=== PATIENT | female | born 1975 | race Caucasian/White ===

== ENCOUNTER 2016-08-23 19:20 | Emergency (ER) | payer OTHER ==
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
[2016-08-23 21:52] VITALS: BP 137/76
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
== END 2016-08-23 21:20 | disposition home or self-care (01) ==
LOC: ED 19:20
DX: S09.90XA Unspecified injury of head, initial encounter (principal); S00.83XA Contusion of other part of head, initial encounter; E04.1 Nontoxic single thyroid nodule; Y09 Assault by unspecified means; Y93.9 Activity, unspecified; Y92.9 Unspecified place or not applicable; Y99.9 Unspecified external cause status
CPT/HCPCS: 70450; 70486; 72125; 99282

== ENCOUNTER 2016-10-26 12:35 | Emergency (ER) | payer OTHER ==
[2016-10-26 13:01] VITALS: BP 154/69
--- NOTE | 2016-10-26 13:14 | UC ---
Dental HPI - HPI Summary HPI Summary: developed an abscess right lo gum yesterday---spoke with here dentist who advised her to get antibiotics and follow with him on Friday - History of Current Complaint Chief Complaint: UCDentalProblem Stated Complaint: DENTAL PAIN Time Seen by Provider: 10/26/16 13:08 Hx Obtained From: Patient Hx Last Menstrual Period: 10/25/16 ?: No Onset/Duration: Gradual Onset, Lasting Days - 1, Still Present Severity: Mild Pain Intensity: 2 Pain Scale Used: 0-10 Numeric Aggravating: Nothing Alleviating: Nothing Related History: Previous Dental Care on Same Tooth, Discharge - Allergies/Home Medications Allergies/Adverse Reactions: Allergies Allergy/AdvReac Type Severity Reaction Status Date / Time Sertraline Allergy Severe "I WENT Verified 10/26/16 12:57 DEAF" Adhesive Tape Allergy Rash Verified 10/26/16 12:57 Amoxicillin [From Augmentin] Allergy Hives Verified 10/26/16 12:57 Bee Venom Allergy Unknown Verified 10/26/16 12:57 Reaction Details Clarithromycin [From Biaxin] Allergy Hives Verified 10/26/16 12:57 Clavulanic Acid Allergy Hives Verified 10/26/16 12:57 [From Augmentin] Ibuprofen Allergy Bleeding Verified 10/26/16 12:57 Levofloxacin [From Levaquin] Allergy Rash Verified 10/26/16 12:57 Penicillins [PCN] Allergy Unknown Verified 10/26/16 12:57 Reaction Details Pineapple Allergy Headache Verified 10/26/16 12:57 PMH/Surg Hx/FS Hx/Imm Hx Previously Healthy: No Endocrine History Of: Reports: Diabetes - type 2 since 1997 Denies: Thyroid Disease Cardiovascular History Of: Denies: Cardiac Disorders, Hypertension Respiratory History Of: Reports: Asthma Denies: COPD GI/ History Of: Reports: Renal Disease Denies: Ulcer Psychological History Of: Reports: Anxiety - PANIC ATTACKS - Surgical History Surgical History: Yes Surgery Procedure, Year, and Place: EAR TUBES A CHILD. LEEP - Family History Known Family History: Positive: Diabetes, Other - cataracts - Social History Occupation: Disabled Lives: With Family Alcohol Use: None Substance Use Type: None Smoking Status (MU): Light Every Day Tobacco Smoker Type: Cigarettes Amount Used/How Often: 1/2 ppd Length of Time of Smoking/Using Tobacco: 27 years Have You Smoked in the Last Year: No When Did the Patient Quit Smoking/Using Tobacco: 03/18/15 Household Exposure Type: Cigarettes Cessation Counseling: Counseled 3+Min - 10 Min - Immunization History Most Recent Tetanus Shot: within last 10 yrs per pt Review of Systems Constitutional: Negative Skin: Negative Eyes: Negative ENT: Negative, Other - purulent drainage in front of tooth number 8 Respiratory: Negative Cardiovascular: Negative Gastrointestinal: Negative Genitourinary: Negative Motor: Negative Neurovascular: Negative Musculoskeletal: Negative Neurological: Negative Psychological: Negative All Other Systems Reviewed And Are Negative: Yes Physical Exam Triage Information Reviewed: Yes Appearance: Well-Appearing, No Pain Distress, Ill-Appearing Vital Signs: Initial Vital Signs Temp 98.4 F 10/26/16 12:58 Pulse 73 10/26/16 12:58 Resp 18 10/26/16 12:58 BP 154/69 10/26/16 12:58 Pulse Ox 97 10/26/16 12:58 Vital Signs Reviewed: Yes Eye Exam: Normal Eyes: Positive: Conjunctiva Clear ENT Exam: Normal ENT: Positive: Normal ENT inspection, Hearing grossly normal, Pharynx normal. Negative: Tonsillar exudate, Trismus, Muffled/hoarse voice Dental Exam: Normal Dental: Positive: Gross Decay/Caries @, Abscess @ - tooth 8 Neck exam: Normal Neck: Positive: Supple, Nontender, No Lymphadenopathy Respiratory Exam: Normal Respiratory: Positive: No respiratory distress, No accessory muscle use Cardiovascular Exam: Normal Cardiovascular: Positive: RRR, Pulses Normal, Brisk Capillary Refill Musculoskeletal Exam: Normal Musculoskeletal: Positive: Strength Intact, ROM Intact, No Edema Neurological Exam: Normal Neurological: Positive: Alert, Muscle Tone Normal Psychological Exam: Normal Skin Exam: Normal Dental Complaint Course/Dx - Course Course Of Treatment: clindamycin, nicotine cesation, follow bp with pcp this week, follow with dentist on Friday as planned - Differential Dx/Diagnosis Differential Diagnosis/Dx: Dental Abscess, Dental Caries, Odontogenic Pain Provider Diagnoses: dental abscess, nicotine dependant, hypertenison with diagnosis Discharge - Discharge Plan Condition: Stable Disposition: HOME Prescriptions: Clindamycin Cap(NF) [Cleocin 300 mg Cap(NF)] 300 mg PO Q6H #40 cap Patient Education Materials: How to Stop Smoking (ED), Dental Abscess (ED), Cigarette Smoking and Your Health (GEN), Chronic Hypertension (ED), DASH Eating Plan (ED), Toothache (ED) Referrals: Chary Wood MD [Primary Care Provider] - 5 Days
== END 2016-10-26 13:23 | disposition home or self-care (01) ==
LOC: UCEAST 12:35
DX: K04.7 Periapical abscess without sinus (principal); R03.0 Elevated blood-pressure reading, without diagnosis of hypertension; F17.210 Nicotine dependence, cigarettes, uncomplicated; Z71.6 Tobacco abuse counseling; Z88.1 Allergy status to other antibiotic agents; Z88.6 Allergy status to analgesic agent; Z88.0 Allergy status to penicillin
CPT/HCPCS: 99211; G0463

== ENCOUNTER 2016-11-16 10:06 | Emergency (ER) | payer OTHER ==
[2016-11-16] MEDS ORDERED: Clindamycin CAP* 150 MG PO ONE (10:44)
[2016-11-16] MEDS ORDERED: Ondansetron ODT TAB* 4 MG PO ONE (10:44)
[2016-11-16 11:27] LABS: Hematocrit 44 % (35-47); Hemoglobin 14.2 g/dl (12.0-16.0); Mean Corpuscular HGB Conc 33 g/dl (31-36); Mean Corpuscular Hemoglobin 30 pg (27-31); Mean Corpuscular Volume 92 fL (80-97); Mean Platelet Volume 9 um3 (7.4-10.4); Red Blood Count 4.74 10^6/ul (4.0-5.4); Red Cell Distribution Width 14 % (10.5-15); White Blood Count 8.8 10^3/ul (3.5-10.8)
[2016-11-16 11:39] LABS: Albumin 4.4 g/dL (3.2-5.2); BUN/Creatinine Ratio 16.7 (8-20); C Reactive Protein 1.16 mg/L (< 5.00); Calcium 9.3 mg/dL (8.6-10.3); EGFR African American 161.6 (>60); EGFR Non-African American 125.7 (>60); Potassium 3.8 mmol/L (3.5-5.0); Total Bilirubin 0.5 mg/dL (0.2-1.0); Total Protein 7.4 g/dL (6.4-8.9)
--- NOTE | 2016-11-16 12:10 | ED ---
Influenza-Like Illness - HPI Summary HPI Summary: Patient presents with nausea and vomiting since yesterday. Her son recently had gastroenteritis and she assumes she has it now. She also has a painful tooth that she is trying to get pulled with her dentist. She was on a course a antibiotics a month ago which helped. She denies fever, chills, abdominal pain or diarrhea. She has been able to keep gatorade down but can not eat food. - History of Current Complaint Chief Complaint: EDNauseaVomitDiarrh Time Seen by Provider: 11/16/16 10:29 Hx Obtained From: Patient Onset/Duration: Gradual Onset Severity: Mild Associated Signs & Symptoms: Vomiting Related Hx: Possible Flu/Infectious Exposure - Allergy/Home Medications Allergies/Adverse Reactions: Allergies Allergy/AdvReac Type Severity Reaction Status Date / Time Sertraline Allergy Severe "I WENT Verified 10/26/16 12:57 DEAF" Adhesive Tape Allergy Rash Verified 10/26/16 12:57 Amoxicillin [From Augmentin] Allergy Hives Verified 10/26/16 12:57 Bee Venom Allergy Unknown Verified 10/26/16 12:57 Reaction Details Clarithromycin [From Biaxin] Allergy Hives Verified 10/26/16 12:57 Clavulanic Acid Allergy Hives Verified 10/26/16 12:57 [From Augmentin] Ibuprofen Allergy Bleeding Verified 10/26/16 12:57 Levofloxacin [From Levaquin] Allergy Rash Verified 10/26/16 12:57 Penicillins [PCN] Allergy Unknown Verified 10/26/16 12:57 Reaction Details Pineapple Allergy Headache Verified 10/26/16 12:57 PMH/Surg Hx/FS Hx/Imm Hx Endocrine/Hematology History: Reports: Hx Diabetes - type 2 since 1997, Hx Anemia - VIT B12 AND VIT D ARE LOW Denies: Hx Thyroid Disease Cardiovascular History: Denies: Hx Hypertension, Other Cardiovascular Problems/Disorders Respiratory History: Reports: Hx Asthma Denies: Hx Chronic Obstructive Pulmonary Disease (COPD), Other Respiratory Problems/Disorders GI History: Denies: Hx Ulcer, Other GI Disorders History: Reports: Hx Renal Disease Sensory History: Reports: Hx Cataracts - RIGHT, Hx Contacts or Glasses - GLASSES Denies: Hx Hearing Aid Opthamlomology History: Reports: Hx Cataracts - RIGHT, Hx Contacts or Glasses - GLASSES Neurological History: Denies: Other Neuro Impairments/Disorders Psychiatric History: Reports: Hx Anxiety - PANIC ATTACKS - Cancer History Cancer Type, Location and Year: Cervical CA 1996 - Surgical History Surgery Procedure, Year, and Place: EAR TUBES A CHILD. LEEP Hx Anesthesia Reactions: No Infectious Disease History: No Infectious Disease History: Denies: Hx Clostridium Difficile, Hx Hepatitis, Hx Human Immunodeficiency Virus (HIV), Hx of Known/Suspected MRSA, Hx Shingles, Hx Tuberculosis, Hx Known/ Suspected VRE, Hx Known/Suspected VRSA, History Other Infectious Disease, Traveled Outside the [place] in Last 30 Days - Family History Known Family History: Positive: Diabetes, Other - cataracts - Social History Occupation: Unemployed Lives: With Family Alcohol Use: None Hx Substance Use: No Substance Use Type: Reports: None Hx Tobacco Use: Yes Smoking Status (MU): Light Every Day Tobacco Smoker Type: Cigarettes Amount Used/How Often: 1/2 ppd Length of Time of Smoking/Using Tobacco: 27 years Have You Smoked in the Last Year: No Cessation Counseling: Patient Advised to Stop Review of Systems Negative: Fever, Chills Negative: Chest Pain Negative: Shortness Of Breath Positive: Vomiting, Nausea. Negative: Abdominal Pain, Diarrhea Negative: Myalgia Negative: Rash, Bruising Negative: Headache, Weakness All Other Systems Reviewed And Are Negative: Yes Physical Exam Triage Information Reviewed: Yes Vital Signs On Initial Exam: Initial Vitals Temp Pulse Resp BP Pulse Ox 97.2 F 103 18 172/74 100 11/16/16 10:09 11/16/16 10:09 11/16/16 10:09 11/16/16 10:09 11/16/16 10:09 Vital Signs Reviewed: Yes Appearance: Positive: Well-Appearing, No Pain Distress, Obese Skin: Positive: Warm, Skin Color Reflects Adequate Perfusion, Dry, Soft Head/Face: Positive: Normal Head/Face Inspection Eyes: Positive: EOMI, ROSEANN, Conjunctiva Clear ENT: Positive: Hearing grossly normal, Pharynx normal, TMs normal. Negative: Pharyngeal erythema, Tonsillar swelling Dental: Positive: Percussion Tenderness @, Gross Decay/Caries @ - right lower canine Neck: Positive: Supple, Nontender, No Lymphadenopathy Respiratory/Lung Sounds: Positive: Clear to Auscultation, Breath Sounds Present Cardiovascular: Positive: RRR Abdomen Description: Positive: Nontender, Soft. Negative: CVA Tenderness (R), CVA Tenderness (L), Distended, Guarding Bowel Sounds: Positive: Present Musculoskeletal: Negative: Strength/ROM Intact, Edema Left, Edema Right Neurological: Positive: Sensory/Motor Intact, Alert, Oriented to Person Place, Time, NV Bundle Intact Distally, Normal Gait Psychiatric: Positive: Affect/Mood Appropriate AVPU Assessment: Alert Diagnostics - Vital Signs Vital Signs Temp Pulse Resp BP Pulse Ox 11/16/16 10:23 98.4 F 86 16 136/78 97 11/16/16 10:09 97.2 F 103 18 172/74 100 - Laboratory Lab Results: Lab Results 11/16/16 11/16/16 Range/Units 11:17 11:17 WBC 8.8 (3.5-10.8) 10^3/ul RBC 4.74 (4.0-5.4) 10^6/ul Hgb 14.2 (12.0-16.0) g/dl Hct 44 (35-47) % MCV 92 (80-97) fL MCH 30 (27-31) pg MCHC 33 (31-36) g/dl RDW 14 (10.5-15) % Plt Count 178 (150-450) 10^3/ul MPV 9 (7.4-10.4) um3 Neut % (Auto) 77.7 (38-83) % Lymph % (Auto) 16.7 L (25-47) % Stephens % (Auto) 4.5 (1-9) % Eos % (Auto) 0.2 (0-6) % Baso % (Auto) 0.9 (0-2) % Absolute Neuts (auto) 6.9 (1.5-7.7) 10^3/ul Absolute Lymphs (auto) 1.5 (1.0-4.8) 10^3/ul Absolute Monos (auto) 0.4 (0-0.8) 10^3/ul Absolute Eos (auto) 0 (0-0.6) 10^3/ul Absolute Basos (auto) 0.1 (0-0.2) 10^3/ul Absolute Nucleated RBC 0.01 10^3/ul Nucleated RBC % 0.1 Sodium 135 (133-145) mmol/L Potassium 3.8 (3.5-5.0) mmol/L Chloride 107 (101-111) mmol/L Carbon Dioxide 25 (22-32) mmol/L Anion Gap 3 (2-11) mmol/L BUN 9 (6-24) mg/dL Creatinine 0.54 (0.51-0.95) mg/dL Est GFR ( Amer) 161.6 (>60) Est GFR (Non-Af Amer) 125.7 (>60) BUN/Creatinine Ratio 16.7 (8-20) Glucose 170 H (70-100) mg/dL Calcium 9.3 (8.6-10.3) mg/dL Total Bilirubin 0.50 (0.2-1.0) mg/dL AST 11 L (13-39) U/L ALT 8 (7-52) U/L Alkaline Phosphatase 47 (34-104) U/L C-Reactive Protein 1.16 (< 5.00) mg/L Total Protein 7.4 (6.4-8.9) g/dL Albumin 4.4 (3.2-5.2) g/dL Globulin 3.0 (2-4) g/dL Albumin/Globulin Ratio 1.5 (1-3) Result Diagrams: 11/16/16 11:17 11/16/16 11:17 Lab Statement: Any lab studies that have been ordered have been reviewed, and results considered in the medical decision making process. Re-Evaluation - Re-Evaluation First Eval Change: Improved - nausea has resolved Flu Symptom Course/Dx - Diagnoses Differential Diagnosis/HQI/PQRI: Positive: Bronchitis, Influenza, Pneumonia, RSV , Upper Respiratory Infection Provider Diagnoses: Gastroenteritis, Dental infection Discharge - Discharge Plan Condition: Stable Disposition: HOME Prescriptions: Clindamycin Cap(NF) [Cleocin 300 mg Cap(NF)] 300 mg PO TID #29 cap Ondansetron ODT TAB* [Zofran 4 MG Odt TAB*] 4 mg PO Q8H PRN #15 tab.odt PRN Reason: Nausea Patient Education Materials: Gastroenteritis (ED), Toothache (ED) Referrals: Chary Wood MD [Primary Care Provider] - Additional Instructions: Please take the antiobiotics prescribed until they are completely gone and follow-up with your dentist for definitive treatment for your tooth. Use the anti-nausea medication to help with your nausea and drink extra fluids. Follow- up with your primary care provider if your symptoms do not resolve in the next 3 -5 days. Return to the emergency department if symptoms worsen.
[2016-11-16 12:51] VITALS: BP 122/68
== END 2016-11-16 12:50 | disposition home or self-care (01) ==
LOC: ED 10:06
DX: K52.9 Noninfective gastroenteritis and colitis, unspecified (principal); K04.7 Periapical abscess without sinus; R11.2 Nausea with vomiting, unspecified; F17.210 Nicotine dependence, cigarettes, uncomplicated
CPT/HCPCS: 36415; 80053; 85025; 86140; 99283; A9270-GY

== ENCOUNTER 2017-02-22 14:47 | Emergency (ER) | payer OTHER ==
[2017-02-22 15:06] VITALS: BP 138/74
--- NOTE | 2017-02-22 15:16 | UC ---
Throat Pain/Nasal Edilberto HPI - HPI Summary HPI Summary: complaint of waking up with a sore throat today swelling on both sides of her neck L>R left ear pain slight nasal congestion denies cough denies headache hasn't taken any medication for pain today - History of Current Complaint Chief Complaint: UCRespiratory Stated Complaint: EAR PAIN,SORE THROAT,FEVER Hx Obtained From: Patient Hx Last Menstrual Period: 02/05/17 - Allergies/Home Medications Allergies/Adverse Reactions: Allergies Allergy/AdvReac Type Severity Reaction Status Date / Time Sertraline Allergy Severe "I WENT Verified 02/22/17 15:00 DEAF" Adhesive Tape Allergy Rash Verified 02/22/17 15:00 Amoxicillin [From Augmentin] Allergy Hives Verified 02/22/17 15:00 Bee Venom Allergy Unknown Verified 02/22/17 15:00 Reaction Details Clarithromycin [From Biaxin] Allergy Hives Verified 02/22/17 15:00 Clavulanic Acid Allergy Hives Verified 02/22/17 15:00 [From Augmentin] Ibuprofen Allergy Bleeding Verified 02/22/17 15:00 Levofloxacin [From Levaquin] Allergy Rash Verified 02/22/17 15:00 Penicillins [PCN] Allergy Unknown Verified 02/22/17 15:00 Reaction Details Pineapple Allergy Headache Verified 02/22/17 15:00 PMH/Surg Hx/FS Hx/Imm Hx Previously Healthy: Yes Endocrine History: Diabetes Respiratory History: Asthma - Surgical History Surgical History: Yes Surgery Procedure, Year, and Place: EAR TUBES A CHILD. LEEP - Family History Known Family History: Positive: Diabetes, Other - cataracts Negative: Cardiac Disease, Hypertension - Social History Occupation: Disabled Lives: With Family Alcohol Use: None Substance Use Type: None Smoking Status (MU): Light Every Day Tobacco Smoker Type: Cigarettes Amount Used/How Often: 1/2 ppd Length of Time of Smoking/Using Tobacco: 27 years Have You Smoked in the Last Year: No When Did the Patient Quit Smoking/Using Tobacco: 03/18/15 Household Exposure Type: Cigarettes Cessation Counseling: Patient Advised to Stop - Immunization History Most Recent Tetanus Shot: within last 10 yrs per pt Review of Systems Constitutional: Fever Skin: Negative Eyes: Negative ENT: Sore Throat Respiratory: Negative Cardiovascular: Negative Gastrointestinal: Negative Genitourinary: Negative Motor: Negative Neurovascular: Negative Musculoskeletal: Negative Neurological: Negative Psychological: Negative All Other Systems Reviewed And Are Negative: Yes Physical Exam Triage Information Reviewed: Yes Appearance: No Pain Distress, Well-Nourished Vital Signs: Initial Vital Signs Temp 99.8 F 02/22/17 15:02 Pulse 96 02/22/17 15:02 Resp 16 02/22/17 15:02 BP 138/74 02/22/17 15:02 Pulse Ox 98 02/22/17 15:02 Vital Signs Reviewed: Yes Eyes: Positive: Conjunctiva Clear ENT: Positive: Pharyngeal erythema, Nasal congestion, TMs normal. Negative: Nasal drainage, TM red, Tonsillar swelling, Tonsillar exudate Dental: Positive: Cervical Lymphadenopathy - left Neck: Positive: Supple Respiratory: Positive: Lungs clear, Normal breath sounds, No respiratory distress, No accessory muscle use Cardiovascular: Positive: RRR, No Murmur, Pulses Normal Abdomen Description: Positive: Nontender, Soft Bowel Sounds: Positive: Present Musculoskeletal: Positive: No Edema Neurological: Positive: Alert Psychological Exam: Normal Skin Exam: Normal Throat Pain/Nasal Course/Dx - Course Course Of Treatment: exam completed. rapid strep negative. supportive treatment for viral illness - Differential Dx/Diagnosis Differential Diagnosis/HQI/PQRI: Pharyngitis, Tonsillitis Provider Diagnoses: viral pharyngitis Discharge - Discharge Plan Condition: Stable Disposition: HOME Patient Education Materials: Pharyngitis (ED) Referrals: Chary Wood MD [Primary Care Provider] - Additional Instructions: Increase fluids and rest Take acetaminophen or ibuprofen for fever or pain Please review your discharge instructions. If your symptoms do not improve please call your primary care provider or return to urgent Your blood pressure is pre-hypertensive reading. Please contact your primary care provider within 1 day -4 weeks for further evaluation
== END 2017-02-22 15:30 | disposition home or self-care (01) ==
LOC: UCEAST 14:47
DX: J02.8 Acute pharyngitis due to other specified organisms (principal); E11.9 Type 2 diabetes mellitus without complications; Z72.0 Tobacco use
CPT/HCPCS: 87651; 99211; G0463

== ENCOUNTER 2017-04-17 18:13 | Emergency (ER) | payer OTHER ==
[2017-04-17 19:51] LABS: Urine Bacteria 1+ (Absent); Urine Bilirubin Negative (Negative); Urine Glucose Negative (Negative); Urine Nitrite Negative (Negative)
[2017-04-17 19:54] LABS: Manual Entry Verification MER0007; UR Preg Internal Control QC Line Present
[2017-04-17] MEDS ORDERED: Nitrofurantoin Macrocrystals* 100 MG CAP PO ONE (20:31)
[2017-04-17] MEDS ORDERED: Ondansetron ODT TAB* 4 MG PO ONE (20:33)
[2017-04-17 20:41] VITALS: BP 137/72
--- NOTE | 2017-04-17 21:01 | ED ---
Elie Manley Rebecca, scribed for Juaquin Ashley MD on 04/17/17 at 2024 . Abdominal Pain/Female - HPI Summary HPI Summary: Pt is a 41 y/o F who presents to ED c/o suprapubic abdominal pain. Pain gradually began 2 days ago and has been intermittent since onset. Pain is characterized as cramps and is currently mild, ranked 3/10 and intermittently radiates to the lumbar back. Sx aggravated and alleviated by nothing, unchanged by urination. Additionally c/o nausea, subjective low-grade fever and urinary frequency. Denies dysuria, urinary frequency, vaginal discharge and chills. PMHx UTIs with current sx being similar to prior incidences of UTI. - History of Current Complaint Chief Complaint: EDAbdPain Stated Complaint: ABD PAIN/NAUSEA Time Seen by Provider: 04/17/17 20:00 Hx Obtained From: Patient Hx Last Menstrual Period: 02/05/17 Onset/Duration: Gradual Onset, Lasting Days - 2 days, Still Present Timing: Intermittent Episode Lasting Severity Currently: Mild Pain Intensity: 3 Pain Scale Used: 0-10 Numeric Location: Suprapubic Radiates: Yes Radiates to: Back - Lumbar Character: Cramping Aggravating Factor(s): Nothing Alleviating Factor(s): Nothing Associated Signs and Symptoms: Positive: Fever - low-grade usbjective, Urinary Symptoms - Frequency, Nausea. Negative: Vaginal Discharge Simlar Episode/Dx as:: Previous UTIs Allergies/Adverse Reactions: Allergies Allergy/AdvReac Type Severity Reaction Status Date / Time Sertraline Allergy Severe "I WENT Verified 02/22/17 15:00 DEAF" Adhesive Tape Allergy Rash Verified 02/22/17 15:00 Amoxicillin [From Augmentin] Allergy Hives Verified 02/22/17 15:00 Bee Venom Allergy Unknown Verified 02/22/17 15:00 Reaction Details Clarithromycin [From Biaxin] Allergy Hives Verified 02/22/17 15:00 Clavulanic Acid Allergy Hives Verified 02/22/17 15:00 [From Augmentin] Ibuprofen Allergy Bleeding Verified 02/22/17 15:00 Levofloxacin [From Levaquin] Allergy Rash Verified 02/22/17 15:00 Penicillins [PCN] Allergy Unknown Verified 02/22/17 15:00 Reaction Details Pineapple Allergy Headache Verified 02/22/17 15:00 PMH/Surg Hx/FS Hx/Imm Hx Endocrine/Hematology History: Reports: Hx Diabetes - type 2 since 1997, Hx Anemia - VIT B12 AND VIT D ARE LOW Denies: Hx Thyroid Disease Cardiovascular History: Denies: Hx Hypertension, Other Cardiovascular Problems/Disorders Respiratory History: Reports: Hx Asthma Denies: Hx Chronic Obstructive Pulmonary Disease (COPD), Other Respiratory Problems/Disorders GI History: Denies: Hx Ulcer, Other GI Disorders History: Reports: Hx Renal Disease, Other Problems/Disorders - UTIs Sensory History: Reports: Hx Cataracts - RIGHT, Hx Contacts or Glasses - GLASSES Denies: Hx Hearing Aid Opthamlomology History: Reports: Hx Cataracts - RIGHT, Hx Contacts or Glasses - GLASSES Neurological History: Denies: Other Neuro Impairments/Disorders Psychiatric History: Reports: Hx Anxiety - PANIC ATTACKS - Cancer History Cancer Type, Location and Year: Cervical CA 1996 - Surgical History Surgery Procedure, Year, and Place: EAR TUBES A CHILD. LEEP Hx Anesthesia Reactions: No Infectious Disease History: No Infectious Disease History: Denies: Hx Clostridium Difficile, Hx Hepatitis, Hx Human Immunodeficiency Virus (HIV), Hx of Known/Suspected MRSA, Hx Shingles, Hx Tuberculosis, Hx Known/ Suspected VRE, Hx Known/Suspected VRSA, History Other Infectious Disease, Traveled Outside the [place] in Last 30 Days - Family History Known Family History: Positive: Diabetes, Other - cataracts Negative: Cardiac Disease, Hypertension - Social History Alcohol Use: None Hx Substance Use: No Substance Use Type: Reports: None Hx Tobacco Use: Yes Smoking Status (MU): Light Every Day Tobacco Smoker Type: Cigarettes Amount Used/How Often: 1/2 ppd Length of Time of Smoking/Using Tobacco: 27 years Have You Smoked in the Last Year: No Review of Systems Positive: Fever - Subjective low-grade. Negative: Chills Positive: Abdominal Pain - Suprapubic with radiaiton to the lumbar back, Nausea Positive: frequency. Negative: dysuria, discharge, urgency All Other Systems Reviewed And Are Negative: Yes Physical Exam - Summary Physical Exam Summary: The patient is well-nourished in no acute distress and in no acute pain. The skin is warm and dry and skin color reflects adequate perfusion. HEENT: The head is normocephalic and atraumatic. The pupils are equal and reactive. The conjunctivae are clear and without drainage. Nares are patent and without drainage. Mouth reveals moist mucous membranes and the throat is without erythema and exudate. The external ears are intact. The ear canals are patent and without drainage. The tympanic membranes are intact. Teeth in poor repair. Neck is supple with full range of motion and non-tender. There are no carotid bruits. There is no neck vein distension. Respiratory: Chest is non-tender. Lungs are clear to auscultation and breath sounds are symmetrical and equal. Cardiovascular: Hear is regular rate and rhythm. There is no murmur or rub auscultated. Abdomen: The abdomen is soft with obvious pain over her bladder with no other pain in the abdomen. There are normal bowel sounds heard in all four quadrants and there is no organomegaly palpated. Musculoskeletal: No CVA tenderness. Lower back pain that is not localized. Extremities are non-tender with full range of motion. There is good capillary refill. Neurological: Patient is alert and oriented to person, place and time. The patient has symmetrical motor strength in all four extremities. Psychiatric: The patient has an appropriate affect and does not exhibit any anxiety or depression. Triage Information Reviewed: Yes Vital Signs On Initial Exam: Initial Vitals Temp Pulse Resp BP Pulse Ox 98.3 F 82 18 142/79 98 04/17/17 18:15 04/17/17 18:15 04/17/17 18:15 04/17/17 18:15 04/17/17 18:15 Vital Signs Reviewed: Yes - Nnea Coma Scale Coma Scale Total: 15 Diagnostics - Vital Signs Vital Signs Temp Pulse Resp BP Pulse Ox 04/17/17 19:59 98.7 F 78 18 135/71 98 04/17/17 19:26 97.4 F 93 17 153/73 99 04/17/17 18:15 98.3 F 82 18 142/79 98 - Laboratory Lab Results: Lab Results 04/17/17 04/17/17 Range/Units 19:31 19:31 Urine Color Straw Urine Appearance Clear Urine pH 5.0 (5-9) Ur Specific [place] 1.003 L (1.010-1.030) Urine Protein Negative (Negative) Urine Ketones Trace H (Negative) Urine Blood 2+ H (Negative) Urine Nitrate Negative (Negative) Urine Bilirubin Negative (Negative) Urine Urobilinogen Negative (Negative) Ur Leukocyte Esterase Negative (Negative) Urine WBC (Auto) Trace(0-5/hpf) (Absent) Urine RBC (Auto) Trace(0-2/hpf) (Absent) Ur Squamous Epith Cells Present H (Absent) Urine Bacteria 1+ H (Absent) Urine Glucose Negative (Negative) Urine Test Negative (Negative) Lab Statement: Any lab studies that have been ordered have been reviewed, and results considered in the medical decision making process. Abdominal Pain Fem Course/Dx - Course Course Of Treatment: Pt is a 41 y/o F who presents to ED c/o suprapubic abdominal pain. Pain gradually began 2 days ago and has been intermittent since onset. Pain is characterized as cramps and is currently mild, ranked 3/10 and intermittently radiates to the lumbar back. Sx aggravated and alleviated by nothing, unchanged by urination. Additionally c/o nausea, subjective low-grade fever and urinary frequency. Denies dysuria, urinary frequency, vaginal discharge and chills. PMHx UTIs with current sx being similar to prior incidences of UTI. UA reveals urine color: straw, appearance: slear, specific gravity: 1.002, bacteria: 1+, WBC and RBC: trace, blood: 2+, ketones: trace and negative for nitrate, bilirubin and glucose. The patient's urine along with her symptoms are suggestive of a cystitis. Will discharge the pt to home with Dx of abdominal pain and UTI and Rx for Macrobid and Zofran and a follow up with Dr. Wood. She understands and agrees. Elevated BP noted and advised to f/u with PCP. - Diagnoses Differential Diagnosis: Positive: Urinary Tract Infection, Other - hyperglycemia , Provider Diagnoses: Abdominal pain, UTI (urinary tract infection) Discharge - Discharge Plan Condition: Stable Disposition: HOME Prescriptions: Nitrofurantoin Monohyd Macro [Macrobid] 100 mg PO BID #20 cap Ondansetron ODT TAB* [Zofran 4 MG Odt TAB*] 4 mg PO Q8H PRN #10 tab.odt PRN Reason: Nausea Patient Education Materials: Urinary Tract Infection in Women (ED), Acute Abdominal Pain (ED) Referrals: Chary Wood MD [Primary Care Provider] - 3 Days The documentation as recorded by the Elie benton Rebecca accurately reflects the service I personally performed and the decisions made by , Juaquin Ashley MD.
== END 2017-04-17 20:54 | disposition home or self-care (01) ==
LOC: ED 18:13
DX: N39.0 Urinary tract infection, site not specified (principal); R10.9 Unspecified abdominal pain
CPT/HCPCS: 81003; 81015; 81025; 87086; 99282; A9270-GY

== ENCOUNTER 2017-10-25 12:06 | Emergency (ER) | payer OTHER ==
[2017-10-25 13:24] LABS: Urine Appearance Clear; Urine Blood 1+ (Negative); Urine Color Straw; Urine Ketones Negative (Negative); Urine Protein Negative (Negative); Urine Specific Gravity 1.002 (1.010-1.030); Urine Urobilinogen Negative (Negative)
[2017-10-25 14:01] LABS: ABS Basophils 0.1 10^3/ul (0-0.2); ABS Eosinophils 0 10^3/ul (0-0.6); ABS Lymphocytes 2.3 10^3/ul (1.0-4.8); ABS Monocytes 0.4 10^3/ul (0-0.8); ABS Neutrophils 5.3 10^3/ul (1.5-7.7); ABS Nucleated RBC 0 10^3/ul; Eosinophil % 0.3 % (0-6); Hematocrit 44 % (35-47); Hemoglobin 15.1 g/dl (12.0-16.0); Lymphocyte % 28.4 % (25-47); Mean Corpuscular HGB Conc 34 g/dl (31-36); Mean Corpuscular Hemoglobin 31 pg (27-31); Mean Corpuscular Volume 91 fL (80-97); Mean Platelet Volume 9 um3 (7.4-10.4); Nucleated Red Blood Cells % 0; Platelet Count 190 10^3/ul (150-450); Red Blood Count 4.82 10^6/ul (4.0-5.4); Red Cell Distribution Width 13 % (10.5-15)
[2017-10-25 14:10] LABS: EGFR Non-African American 133.6 (>60)
--- NOTE | 2017-10-25 14:13 | ED ---
GI/ HPI - HPI Summary HPI Summary: 42 female presents to ED with complaints of lower bilateral flank/back pain and some dysuria after urination that began yesterday. States symptoms are very mild however she gets UTI/kidney infections frequently and is a diabetic so she wanted to make sure she didn't have a UTI. States symptoms are mild compared to previous infections. Denies any hematuria. No abdominal pain or vomiting. Occasional nausea. No fever/chills. No other complaints. No vaginal discharge/ symptoms and normal bowel movements. Has not taken any medication. - History of Current Complaint Chief Complaint: EDFlankPain Stated Complaint: URINARY ISSUES Hx Obtained From: Patient Hx Last Menstrual Period: 02/05/17 Onset/Duration: Started Days Ago - yesterday, Still Present Timing: Constant - with urination Severity: Mild Current Severity: Mild Pain Intensity: 5 Location of Pain: Flank - b/l lower back Pain Characteristics: Aching, Burning Associated Signs and Symptoms: Positive: Dysuria, Flank Pain, UTI Symptoms Aggravating Factor(s): Voiding, Urination Alleviating Factor(s): Nothing - Allergy/Home Medications Allergies/Adverse Reactions: Allergies Allergy/AdvReac Type Severity Reaction Status Date / Time adhesive tape Allergy Rash Verified 10/25/17 12:16 amoxicillin [From Augmentin] Allergy Hives Verified 10/25/17 12:16 bee venom protein (honey bee) Allergy Swelling Verified 10/25/17 12:16 clarithromycin [From Biaxin] Allergy Hives Verified 10/25/17 12:16 clavulanic acid Allergy Hives Verified 10/25/17 12:16 [From Augmentin] levofloxacin [From Levaquin] Allergy Hives Verified 10/25/17 12:16 Penicillins Allergy Hives Verified 10/25/17 12:16 pineapple Allergy Headache Verified 10/25/17 12:16 sertraline Allergy Unknown Verified 10/25/17 12:14 Reaction Details PMH/Surg Hx/FS Hx/Imm Hx Endocrine/Hematology History: Reports: Hx Diabetes - type 2 since 1997, Hx Anemia - VIT B12 AND VIT D ARE LOW Denies: Hx Thyroid Disease Cardiovascular History: Denies: Hx Hypertension, Other Cardiovascular Problems/Disorders Respiratory History: Reports: Hx Asthma Denies: Hx Chronic Obstructive Pulmonary Disease (COPD), Other Respiratory Problems/Disorders GI History: Denies: Hx Ulcer, Other GI Disorders History: Reports: Hx Renal Disease, Other Problems/Disorders - UTIs Sensory History: Reports: Hx Cataracts - RIGHT, Hx Contacts or Glasses - GLASSES Denies: Hx Hearing Aid Opthamlomology History: Reports: Hx Cataracts - RIGHT, Hx Contacts or Glasses - GLASSES Neurological History: Denies: Other Neuro Impairments/Disorders Psychiatric History: Reports: Hx Anxiety - PANIC ATTACKS - Cancer History Cancer Type, Location and Year: Cervical CA 1996 - Surgical History Surgery Procedure, Year, and Place: EAR TUBES A CHILD. LEEP Hx Anesthesia Reactions: No - Immunization History Immunizations Up to Date: Yes Infectious Disease History: No Infectious Disease History: Denies: Hx Clostridium Difficile, Hx Hepatitis, Hx Human Immunodeficiency Virus (HIV), Hx of Known/Suspected MRSA, Hx Shingles, Hx Tuberculosis, Hx Known/ Suspected VRE, Hx Known/Suspected VRSA, History Other Infectious Disease, Traveled Outside the [place] in Last 30 Days - Family History Known Family History: Positive: Diabetes, Other - cataracts Negative: Cardiac Disease, Hypertension - Social History Alcohol Use: None Hx Substance Use: No Substance Use Type: Reports: None Hx Tobacco Use: Yes Smoking Status (MU): Light Every Day Tobacco Smoker Type: Cigarettes Amount Used/How Often: 1/2 ppd Length of Time of Smoking/Using Tobacco: 27 years Have You Smoked in the Last Year: No Review of Systems Constitutional: Negative Cardiovascular: Negative Respiratory: Negative Positive: Nausea - occasionally Positive: dysuria, flank pain All Other Systems Reviewed And Are Negative: Yes Physical Exam Triage Information Reviewed: Yes Vital Signs On Initial Exam: Initial Vitals Temp Pulse Resp BP Pulse Ox 97.9 F 89 16 141/90 97 10/25/17 12:16 10/25/17 12:16 10/25/17 12:16 10/25/17 12:16 10/25/17 12:16 Vital Signs Reviewed: Yes Appearance: Positive: Well-Appearing, No Pain Distress, Well-Nourished Skin: Positive: Warm, Skin Color Reflects Adequate Perfusion, Dry. Negative: Cold, Numb, Cyanosis @, Pale, Erythema @ Head/Face: Positive: Normal Head/Face Inspection Eyes: Positive: ROSEANN, Conjunctiva Clear ENT: Positive: Pharynx normal Neck: Positive: Supple Respiratory/Lung Sounds: Positive: Clear to Auscultation, Breath Sounds Present , Wheezes - diffuse, minimally, patient asthmatic. Negative: Rales, Rhonchi Cardiovascular: Positive: Normal, RRR, Pulses are Symmetrical in both Upper and Lower Extremities. Negative: Murmur, Rub Abdomen Description: Positive: Nontender - mild tenderness right mid abdomen on deep palpation, No Organomegaly, Soft, CVA Tenderness (R) - minimal/mild, CVA Tenderness (L) - minimal/mild. Negative: Distended, Guarding, Peritoneal Signs , Pulsatile Mass Bowel Sounds: Positive: Present Pelvic Exam: Positive: other - deferred exam Musculoskeletal: Positive: Normal, Strength/ROM Intact Neurological: Positive: Normal, Sensory/Motor Intact, Alert, Oriented to Person Place, Time Diagnostics - Vital Signs Vital Signs Temp Pulse Resp BP Pulse Ox 10/25/17 12:16 97.9 F 89 16 141/90 97 - Laboratory Lab Results: Lab Results 10/25/17 10/25/17 10/25/17 Range/Units 13:04 13:35 13:35 WBC 8.0 (3.5-10.8) 10^3/ul RBC 4.82 (4.0-5.4) 10^6/ul Hgb 15.1 (12.0-16.0) g/dl Hct 44 (35-47) % MCV 91 (80-97) fL MCH 31 (27-31) pg MCHC 34 (31-36) g/dl RDW 13 (10.5-15) % Plt Count 190 (150-450) 10^3/ul MPV 9 (7.4-10.4) um3 Neut % (Auto) 66.1 (38-83) % Lymph % (Auto) 28.4 (25-47) % Gage % (Auto) 4.4 (0-7) % Eos % (Auto) 0.3 (0-6) % Baso % (Auto) 0.8 (0-2) % Absolute Neuts (auto) 5.3 (1.5-7.7) 10^3/ul Absolute Lymphs (auto) 2.3 (1.0-4.8) 10^3/ul Absolute Monos (auto) 0.4 (0-0.8) 10^3/ul Absolute Eos (auto) 0 (0-0.6) 10^3/ul Absolute Basos (auto) 0.1 (0-0.2) 10^3/ul Absolute Nucleated RBC 0 10^3/ul Nucleated RBC % 0 Sodium 133 (133-145) mmol/L Potassium Pending Chloride 103 (101-111) mmol/L Carbon Dioxide 23 (22-32) mmol/L Anion Gap Pending BUN 7 (6-24) mg/dL Creatinine 0.51 (0.51-0.95) mg/dL Est GFR ( Amer) 171.8 (>60) Est GFR (Non-Af Amer) 133.6 (>60) BUN/Creatinine Ratio 13.7 (8-20) Glucose 125 H (70-100) mg/dL Lactic Acid (0.5-2.0) mmol/L Calcium 9.6 (8.6-10.3) mg/dL Total Bilirubin 0.30 (0.2-1.0) mg/dL AST Pending ALT 9 (7-52) U/L Alkaline Phosphatase 51 (34-104) U/L Total Protein 7.5 (6.4-8.9) g/dL Albumin 4.4 (3.2-5.2) g/dL Globulin 3.1 (2-4) g/dL Albumin/Globulin Ratio 1.4 (1-3) Urine Color Straw Urine Appearance Clear Urine pH 5.0 (5-9) Ur Specific [place] 1.002 L (1.010-1.030) Urine Protein Negative (Negative) Urine Ketones Negative (Negative) Urine Blood 1+ A (Negative) Urine Nitrate Negative (Negative) Urine Bilirubin Negative (Negative) Urine Urobilinogen Negative (Negative) Ur Leukocyte Esterase Negative (Negative) Urine WBC (Auto) Trace(0-5/hpf) (Absent) Urine RBC (Auto) Absent (Absent) Ur Squamous Epith Cells Present A (Absent) Urine Bacteria Absent (Absent) Hyaline Casts Present A (Absent) Urine Glucose Negative (Negative) 10/25/17 Range/Units 13:35 WBC (3.5-10.8) 10^3/ul RBC (4.0-5.4) 10^6/ul Hgb (12.0-16.0) g/dl Hct (35-47) % MCV (80-97) fL MCH (27-31) pg MCHC (31-36) g/dl RDW (10.5-15) % Plt Count (150-450) 10^3/ul MPV (7.4-10.4) um3 Neut % (Auto) (38-83) % Lymph % (Auto) (25-47) % Gage % (Auto) (0-7) % Eos % (Auto) (0-6) % Baso % (Auto) (0-2) % Absolute Neuts (auto) (1.5-7.7) 10^3/ul Absolute Lymphs (auto) (1.0-4.8) 10^3/ul Absolute Monos (auto) (0-0.8) 10^3/ul Absolute Eos (auto) (0-0.6) 10^3/ul Absolute Basos (auto) (0-0.2) 10^3/ul Absolute Nucleated RBC 10^3/ul Nucleated RBC % Sodium (133-145) mmol/L Potassium Chloride (101-111) mmol/L Carbon Dioxide (22-32) mmol/L Anion Gap BUN (6-24) mg/dL Creatinine (0.51-0.95) mg/dL Est GFR ( Amer) (>60) Est GFR (Non-Af Amer) (>60) BUN/Creatinine Ratio (8-20) Glucose (70-100) mg/dL Lactic Acid 0.8 (0.5-2.0) mmol/L Calcium (8.6-10.3) mg/dL Total Bilirubin (0.2-1.0) mg/dL AST ALT (7-52) U/L Alkaline Phosphatase (34-104) U/L Total Protein (6.4-8.9) g/dL Albumin (3.2-5.2) g/dL Globulin (2-4) g/dL Albumin/Globulin Ratio (1-3) Urine Color Urine Appearance Urine pH (5-9) Ur Specific [place] (1.010-1.030) Urine Protein (Negative) Urine Ketones (Negative) Urine Blood (Negative) Urine Nitrate (Negative) Urine Bilirubin (Negative) Urine Urobilinogen (Negative) Ur Leukocyte Esterase (Negative) Urine WBC (Auto) (Absent) Urine RBC (Auto) (Absent) Ur Squamous Epith Cells (Absent) Urine Bacteria (Absent) Hyaline Casts (Absent) Urine Glucose (Negative) Result Diagrams: 10/25/17 13:35 10/25/17 13:35 Lab Statement: Any lab studies that have been ordered have been reviewed, and results considered in the medical decision making process. GIGU Course/Dx - Course Course Of Treatment: labs and urinalysis obtained and negative for acute findings other than hematuira 1+ and hyaline casts. patient educated could be a possible kidney stone, although no histroy. wanted to obtain imaging however patient refused "she didn't want to wait" and she "has a lense in her eye making her unable to get xray/ct's". patient states she just wanted ot make sure she didn't have a UTI.aware that this could be the start of an infection versus kidney stone. stated she would follow up with pcp. not a strong physical exam concerning for other etiologies and normal vitals/labs/urine other than hematuria. educated that due to her diabetes infection can progress rapidly and if any worsening signs/symptoms to return to ED immediately. patient aware of worsening signs adn symptoms to watch out for. follow up with pcp for repeat urine. tylenol/ibuprofen for pain and increase fluid intake. also told patient' s urine will be sent to lab for culture and is pending, if treatment is required will be called. - Diagnoses Differential Diagnoses - Female: Renal Calculi, Urinary Tract Infection, Ureteral Calculi, Vaginitis, Other - flank pain, dysuria Provider Diagnoses: Flank pain, Dysuria Discharge - Discharge Plan Condition: Stable Disposition: HOME Patient Education Materials: Dysuria (ED), Flank Pain (ED) Referrals: Chary Wood MD [Primary Care Provider] - Additional Instructions: If symptoms worsen, as we discussed please seek medical attention and return to ED immediately (fever, vomiting, chills, abdominal pain, worsening pain, urgency , pain with urination). Follow up with PCP on friday for repeat urine and re-check. Increase fluid intake. Recommend watered down cranberry juice. Tylenol/ibuprofen as needed for pain.
[2017-10-25 16:18] VITALS: BP 136/78
== END 2017-10-25 13:30 | disposition home or self-care (01) ==
LOC: ED 12:06
DX: M54.5 Low back pain (principal); R30.0 Dysuria; Z87.440 Personal history of urinary (tract) infections; E11.9 Type 2 diabetes mellitus without complications; Z79.84 Long term (current) use of oral hypoglycemic drugs; J45.909 Unspecified asthma, uncomplicated; F41.0 Panic disorder [episodic paroxysmal anxiety]; Z88.1 Allergy status to other antibiotic agents; Z91.030 Bee allergy status; Z88.0 Allergy status to penicillin; Z88.8 Allergy status to other drugs, medicaments and biological substances; Z91.048 Other nonmedicinal substance allergy status; F17.210 Nicotine dependence, cigarettes, uncomplicated
CPT/HCPCS: 36415; 80053; 81003; 81015; 83605; 85025; 87086; 99281

== ENCOUNTER 2017-11-26 08:07 | Day surgery (SDC) | payer OTHER ==
[~2017-11-26 08:07] MED LIST: Acetaminophen TAB* 325 MG PO PRN; Buffered Lidocaine 0.9% SYRIN* 5 ML/SYR SYRINGE INTRADERM ONE
[2017-11-26] MEDS ORDERED: Phenylephrine 2.5% OPTH.SOL* 2 ML BTL ONE (09:26)
[2017-11-26] MEDS ORDERED: Proparacaine 0.5% OPHTH.SOL* 15 ML BTL ONE (09:26)
[2017-11-26] MEDS ORDERED: acetaZOLAMIDE TAB* 250 MG ONE (09:26)
[2017-11-26] MEDS ORDERED: Lidocaine 1% MPF* 2 ML VIAL ONE (09:26)
[2017-11-26] MEDS ORDERED: Ketorolac 0.5% OPHTH (NF) 0.5 % 5 ML BTL ONE (09:26)
[2017-11-26] MEDS ORDERED: Povidone Iodine 5% OPTH* 30 ML BTL ONE (09:26)
[2017-11-26] MEDS ORDERED: Neomycin/Polymy/Dex OPTH.SUSP* MAXITROL 0.1% 5 ML ONE (09:26)
[2017-11-26] MEDS ORDERED: Cyclopentolate 1% OPTH.SOL* 2 ML BTL ONE (09:26)
[2017-11-26] MEDS ORDERED: Lidocaine 2% EPI 1:200000 MPF*10-20 ML VIAL ONE (09:26)
[2017-11-26] MEDS ORDERED: Midazolam* 1 MG/ML 2 ML VIAL (2 MG) ONE ×2 (10:08→10:17)
[2017-11-26] MEDS ORDERED: fentaNYL* 50 MCG/ML 2 ML VIAL (100 MCG VIAL) ONE (10:13)
[2017-11-26 11:01] VITALS: BP 123/70
--- NOTE | 2017-11-26 11:02 | OP ---
DATE OF OPERATION: 11/26/2017 - [facility] DATE OF : 1975. SURGEON: Allan Mccormack M.D. PREOPERATIVE DIAGNOSIS: Cataract left eye. POSTOPERATIVE DIAGNOSIS: Cataract left eye. OPERATIVE PROCEDURE: Extracapsular cataract extraction with intraocular lens implant left eye. DESCRIPTION OF PROCEDURE: The patient was brought to the operating room after being given 1/2% Alcaine with epinephrine drops in the preoperative area. The eye was prepped and draped in the usual sterile fashion. Sterile drape and eyelid speculum were placed. Again, topical 1/2% Alcaine with epinephrine was given. A paracentesis incision was made at the 3 o'clock position with the No.75 blade. Clear cornea incision 2.2 x 2.2-mm was created at the 6 o'clock position starting at the anterior limbus using the 2.2-mm keratome. The anterior chamber was irrigated with 0.4 mL of 1% non-preservative intracameral lidocaine and filled with DisCoVisc. A capsulorrhexis was completed using the cystotome and the Utrata forceps. Hydrodissection was performed with balanced salt solution. The lens nucleus was removed with the Phacoemulsification handpiece without incident. Cortex was removed with the irrigation-aspiration handpiece. The capsular bag was re-inflated using DisCoVisc and an SN60WF 21.5 implant was inserted with the shooter. The irrigation-aspiration handpiece was used to remove all residual DisCoVisc. The eye was refilled with balanced salt solution and the wound checked and found to be watertight. Topical Maxitrol drops were given. [id number] #: [id number] [facility]
== END 2017-11-26 10:55 | disposition home or self-care (01) ==
LOC: OREAST 08:07
PROVIDERS: ATTEND Specialist
DX: H25.042 Posterior subcapsular polar age-related cataract, left eye (principal); E11.3293 Type 2 diabetes mellitus with mild nonproliferative diabetic retinopathy without macular edema, bilateral; Z79.84 Long term (current) use of oral hypoglycemic drugs; F17.210 Nicotine dependence, cigarettes, uncomplicated; J45.909 Unspecified asthma, uncomplicated; F31.9 Bipolar disorder, unspecified; E53.8 Deficiency of other specified B group vitamins
CPT/HCPCS: 81025; A9270-GY; J2250; J3010; V2632

== ENCOUNTER 2018-04-06 21:41 | Emergency (ER) | payer OTHER ==
[2018-04-06 21:48] VITALS: BP 153/83
--- OUTSIDE RECORDS SUMMARY | 2018-04-06 21:58 | XMS REPORT ---
:1975 External Reference #:[id number] Author Organization [facility] Address [address] [place] [id number] Phone [phone] Care Team Providers Name Role Phone Chary Wood MD Primary Care Physician Unavailable Payers Type Date Identification Numbers Payment Provider Subscriber Commercial Effective: Policy Number: [id number] [employer] Prashant Evans 2013 Medicaid PayID: [id number] [address] [address] [place] [address] Commercial Effective: Policy Number: BS Options Prashant Evans 2011 [id number] Facets Expires: 2013 Group Name: [id number] [address] [address] PayID: [id number] [place] [address] Medigap Part B Effective: 2011 Policy Number: BS Annabella Evans [id number] Expires: 2011 PayID: [id number] [address] [address] [place] [address] Medigap Part B Effective: 2011 Policy Number: [id number] Medicaid Prashant Evans Expires: 2011 Group Name: 1 1 [address] PayID: [id number] [place] [address] Problems Date Description Provider Status Onset: 09/24/2012 Type 2 diabetes mellitus Chary Wood M.D. Active Onset: 06/16/2009 Asthma without status asthmaticus Chary Wood M.D. Active Onset: 06/16/2009 Tobacco user Chary Wood M.D. Active Onset: 06/16/2009 Vitamin B-complex deficiency Chary Wood M.D. Active Family History Date Family Member(s) Problem(s) Comments Father 67 Father Bipolar Disorder Mother due to Heart Disease () - at age 57 Mother due to Diabetes () Mother due to Leukemia () Mother due to Thyroid disease () - COPD, CHF First Brother Thyroid Disease Second Brother Thyroid Disease Social History Type Date Description Comments Marital Status remarried in February 2015 ETOH Use Denies alcohol use Recreational Drug Use Denies Drug Use Smoking Patient is a current smoker, smokes 2 PPD smokes every day Daily Caffeine Consumes on average 1 pot of regular coffee per day Allergies, Adverse Reactions, Alerts Date Description Reaction Status Severity Comments 06/16/2009 Penicillins hives active Severe 06/16/2009 Ibuprofen black stool active Moderate 06/16/2009 Levaquin hives active Severe 02/06/2010 Augmentin Urticaria active Severe 04/02/2010 Bee Sting Urticaria active Severe 05/08/2012 Sertraline hearing loss active 10/06/2013 Pineapple/ ROBERT active Moderate to Severe 10/06/2013 Plastic Tape Urticaria active Moderate to Severe 10/19/2014 Biaxin Urticaria active Moderate 09/25/2017 Lyrica active Medications Medication Date Status Form Strength Qnty SIG Indications Ordering Provider Aircast 04/03 Active Misc 1unit for daily S93.401A [facility] Airsport Ankle s use dx Felisha Wood s93.401a M.D. Left/Right Glucocom Blood 03/23 Active Device 1unit for daily E11.21 [facility] Glucose Monitor s use: E11.21 Susie Wood Glucocom Test 03/23 Active Strips 50uni test strips E11.21 Chary /2018 ts per [place] burns, for testing M.D. once daily Escitalopram 03/23 Active Tablets 5mg 30tab 1/2 by F41.9 Chary Oxalate s mouth every Cotton, day for 1 M.D. week, then increase to whole tablet once daily Azithromycin 03/23 Active Tablets 250mg 6tabs 2 tabs by J45.20 mouth on Cotton, day 1; 1 M.D. tab by mouth every day on days 2-5 Ranitidine HCL 02/16 Active Capsules 150mg 60cap one by s mouth twice Cotton, a day as M.D. needed Ventolin HFA 05/24 Active Aerosol 108(90Bas 8gm 2 puffs 4 R05 Chary /2018 e) times a day Cotton, mcg/Act as needed M.D. True Metrix 10/27 Active Kit w/Device 1unit For testing E11.21 Chary Meter /2017 s daily Cotton MMohanDMohan True Metrix 10/27 Active Strips 150un For testing E11.65 Chary Self Monitoring its 3-4 times Cotton, Blood Glucose daily Dx M.D. Strips E11.65 Ferrous Sulfate 08/21 Active Tablets 325(65Fe) 30tab 1 PO qd D50.9 Chary /2018 mg s Twice A Cotton, Week M.D. Cyanocobalamin 08/21 Active Solution 1000mcg/M 20ml inject 1ml Chary /2018 L intramuscul Cotton, ar every M.D. month Onetouch Delica 05/21 Active Misc 1unit Check 4 Chary Lancing s times daily Cotton, or as M.D. needed Onetouch Delica 05/21 Active Misc 200un use up to 4 Chary Lancets its times daily Cotton, Fine 33G as directed M.D. E11.21 Blood Pressure 04/21 Active Misc 1unit For use Chary Monitor s once daily Cotton, Digital/Auto-In M.D. flation Loratadine 12/12 Active Tablets 10mg 30tab 1 po qd as J45.41 Chary s needed Susie Wood Metformin HCL 01/15 Active Tablets 500mg 120ta take 2 Chary /2016 bs twice a day Susie Wood Vitamin D 1,000 04/24 Active 60uni Take Two E11.65 Chary Units Softgel ts Capsules By Cotton, Mouth Every M.D. Day Alprazolam 03/27 Active Tablets 0.25mg 60tab 1 by mouth F41.9 Chary /2015 s twice a day Cotton, prn; do not M.D. drive when taking Lancets 11/18 Active Misc 50uni for testing Chary /2015 ts 1-2 times Cotton, daily M.D. testing Aspirin Ec Low 01/[address] 81mg 30tab take one Chary Dose /2013 s tablet by Cotton, mouth every M.D. day Lisinopril 05/26 Active Tablets 2.5mg 30tab Take One s Tablet By Cotton, Mouth Every M.D. Day Ellen Contour 10/14 Active Misc 120un please Chary Microlet its check blood Cotton, Lancets sugar four M.D. times daily Lancets, One 05/31 Active Misc 50uni for testing E11.65 Chary Touch Ultra ts once daily Cotton, Mini M.D. Ondansetron Active Tablets 4mg Ashley, /0000 Dispers Juaquin, DO Chantix 01/01 Hx Tablets 0.5mg X 42tab take as Z72.0 Chary Starting 11 & 1 mg s directed Cotton, Andrés - X 42 M.D. 03/23 Azithromycin 12/23 Hx Tablets 250mg 6tabs 2 tabs by Chary mouth on Cotton, - day 1; 1 M.D. 12/30 tab by mouth every day on days 2-5 Azithromycin 09/30 Hx Tablets 250mg 6tabs 2 tabs by mouth on Cotton, - day 1; 1 M.D. 11/07 tab by mouth every day on days 2- Chantix 08/21 Hx Tablets 0.5mg X 42tab take as Z72.0 Chary Starting 11 & 1 mg s directed Cotton, Andrés - X 42 M.D. 09/24 Atorvastatin 08/21 Hx Tablets 10mg 14tab Take 08/12 s Tablet By Cotton, - Mouth Once M.D. 11/07 Sommer-Be 08/05 Hx Tablets 0.35mg 28tab take one Chary /2017 s tablet by Cotton, - mouth every M.D. Azithromycin 05/30 Hx Tablets 250mg 6tabs 2 tabs by J45.901 Chary mouth on Cotton, - day 1; 1 M.D. 08/21 tab by mouth every day on days 2-5 Benzonatate 1020 Hx Capsules 200mg 30cap take 1 J45.901 s capsule by Cotton, - mouth three M.D. 09/24 times a day /2017 if needed Hydrocodone-Bayron 05/30 Hx Tablets 5-325mg 30tab 1 by mouth R07.89 Chary taminophen s three times Cotton, - a day as M.D. 09/24 needed /2017 Diclofenac 12/30 Hx Gel 1% 100un apply 2-4 M25.511 Chary Sodium its grams to Cotton, - the right M.D. 03/21 shoulders 3-4 times a day Budesonide 12/12 Hx Suspension 0.25mg/2M 60ml 1 unit J45.41 L nebulizer Cotton, - twice a day M.D. 08/21 Azithromycin 12/12 Hx Tablets 250mg 6tabs 2 tabs by J45.41 mouth on Cotton, - day 1; 1 M.D. 12/30 tab by mouth every day on days 2-5 Vitamin B12 11/22 Hx Tablets ER 1000mcg 30tab 1 by mouth s every day Cotton, - M.D. 05/19 Ipratropium 10/15 Hx Solution 0.06% 15ml 2 sprays in J06.9 Chary each , - nostril 3 M.D. 08/21 times daily as needed Ferrex 150 08/18 Hx Capsules 150mg 30cap 1 by mouth s every day. Cotton, - M.D. 03/21 Docusate Sodium 08/18 Hx Capsules 100mg 60cap 1 by mouth s 1-2 times a Cotton, - day M.D. 04/03 Nicotine 08/15 Hx Patches 14mg/24HR 28uni apply 1 Z72.0 24HR ts patch daily Cotton, - and remove M.D. 08/21 at night /2017 Azithromycin 08/15 Hx Tablets 250mg 6tabs 2 tabs by J01.90 mouth on Cotton, - day 1; 1 M.D. 08/25 tab by mouth every day on days 2-5 Sommer-Be 08/15 Hx Tablets 0.35mg 28tab (Not s Taking) Cotton, - take one M.D. 08/05 tablet by mouth every day Nitrofurantoin 01/24 Hx Capsules 100mg 14cap take one N39.0 Rubin D. Macrocrystal s capsule [place], - twice daily M.D. 01/31 for 7 days. Clindamycin HCL 11/09 Hx Capsules 300mg 16cap 1 PO every s 6 hours Cotton, - until you M.D. 11/22 see the dentist Fluticasone 10/29 Hx Suspension 50mcg/Act 16gm 2 sprays Juma Propionate each Cliff MICA [employer] HAND - nostril qd. 10/24 Azithromycin 10/26 Hx Tablets 250mg 6tabs 2 tabs by J01.90 Juma mouth every Cliff, MICA [employer] LAYER HAND - day x1 day, 10/31 1 tab by mouth every day x 4 days Ondansetron 10/26 Hx Tablets 4mg 15tab dissolve R11.0 Dispers s one tablet Cliff [employer] - orally 11/01 every hours as needed for nausea. Azithromycin 09/27 Hx Tablets 250mg 6tabs 2 tabs by mouth on Cotton, - day 1; 1 M.D. 10/06 tab by mouth every day on days 2-5 Centrum Adults 09/19 Hx Tablets Cotton, - M.D. 10/24 Freestyle Lite 08/18 Hx Strips 400un test up to Test its 4 times a Cotton, - day dx M.D. 10/27 code: /2017 e11.21 Azithromycin 05/29 Hx Tablets 250mg 6tabs 2 tabs by J01.90 Juma mouth every Cliff, MICA [employer] L[employer] HAND - day x1 day, 06/03 1 tab by mouth every day x 4 days Albuterol 05/29 Hx Nebulizer (2.5mg/3M 100un 1 vial via J45.20 L) 0.083% its nebulizer 4 Cotton, - times daily M.D. 08/21 as needed Low TOP Walking 05/08 Hx 1unit For use S97.82xS Juma Boot/Hinge For s while Cliff, MICA [employer] HAND Ankle Movement - ambulating 05/09 Doxycycline 05/08 Hx Capsules 100mg 20cap one tablet S97.82xS Juma Hyclate s twice daily SCOTT [place] - for 10 . Hydrocodone-Bayron 05/08 Hx Tablets 5-325mg 20tab take 1/2-1 S97.82xS Juma taminophen s tablet Cliff, MICA [employer] LAY[employer] HAND - every 6 01/15 hours pain. Azithromycin 05/01 Hx Tablets 250mg 6tabs 2 tabs by Wen01.90 Juma mouth every Cliff, MICA [employer] LAYER HAND - day x1 day, 05/06 1 tab by /2014 mouth every day x 4 days Benzonatate 05/01 Hx Capsules 100mg 20cap take one or J01.90 Juma s two Cliff MICA [employer] HAND - capsules 05/06 every hours as needed for cough. Simvastatin 04/03 Hx Tablets 5mg 30tab take 1 s tablet [place], - daily at M.D. 09/18 bedtime Atorvastatin 03/27 Hx Tablets 10mg 30tab 1 by mouth Chary Calcium s every day [place], - M.D. 04/03 Nicoderm CQ 03/17 Hx Patches 14mg/24HR 30uni Apply 305.1 Chary /2015 24HR ts daily, [place], - remove at M.D. 04/04 Sommer-Be 01/21 Hx Tablets 0.35mg 28tab Take One s Tablet By Cotton, - Mouth Every M.D. Vitamin D 11/22 Hx Capsules [id number] 12cap 1 by mouth Chary (Ergocalciferol s once weekly [place], ) - for 12 M.D. Glucocom Blood 11/18 Hx Kit W/Device 1unit for use Chary Glucose s once daily [place] Monitoring - 250.02 M.D. System 10/27 Azithromycin 10/24 Hx Tablets 250mg 6tabs two tabs Lucinda day one, Varn, N.P. - one daily 10/30 till Fluticasone 10/19 Hx Suspension 50mcg/Act 16gm 2 sprays 465.9 Lucinda Propionate each Varn, N.P. - nostril 11/02 daily as needed Hydrocortisone 09/27 Hx Cream 2.5% 30gm apply to affected Cotton, - area twice M.D. 10/19 daily Azithromycin 08/17 Hx Tablets 250mg 6tabs 2 tabs by 465.9 Juma mouth every Cliff, MICA [employer] LAY[employer] HAND - day x1 day, 08/24 1 tab by mouth every day x 4 days Pulmicort 08/17 Hx Aerosol 180mcg/Ac 1unit 2 puffs 493.00 Juma Flexhaler t s twice daily Cliff, MICA [employer] LAYER HAND - 03/17 Azithromycin 07/14 Hx Tablets 250mg 6tabs 2 tabs by 461.8 Juma mouth every Cliff, MICA [employer] L[employer] HAND - day x1 day, 08/17 1 tab by mouth every day x 4 days Azithromycin 05/16 Hx Tablets 250mg 6tabs 2 tabs by 786.2 Chary /2014 mouth on Cotton, - day 1; 1 M.D. 08/17 tab by mouth every day on days 2-5 Metformin HCL 05/16 Hx Tablets 500mg 90tab 1 Daily Chary s Walker, - M.D. 01/15 Azithromycin 04/26 Hx Tablets 250mg 6tabs 2 tabs by 466.0 Juma mouth every Cilff, MICA [employer] LAYER HAND - day x1 day, 05/15 1 tab by /2013 mouth every day x 4 days Alprazolam 01/04 Hx Tablets 0.25mg 30tab 1 po qd prn 300.00 Chary /2014 s Walker, - M.D. 05/11 Atorvastatin 01/04 Hx Tablets 10mg 15tab 1/2 tablet 272.2 Chary Calcium s by mouth Cotton, - every day M.D. 08/17 Vitamin D 01/04 Hx Tablets 1000Unit 60tab 2 by mouth 250.02 Chary s every day Cotton, - M.D. 04/24 Mupirocin 01/04 Hx Cream 2% 30gm apply two 782.1 Chary Calcium times daily Walker, - to areas of M.D. 04/26 blistering skin Triamcinolone 12/22 Hx Lotion 0.1% 60ml apply to 919.5 Lucinda Acetonide dry skin Varn, N.P. - once or 01/05 twice daily Vitamin D 10/12 Hx Capsules [id number] 12cap 1 tablet 250.02 s once weekly [place], - for 12 M.D. Azithromycin 10/06 Hx Tablets 250mg 6tabs 2 tabs po 466.0 on day 1; 1 [place], - tab po qd M.D. 10/15 on days 2- Advair Diskus 10/06 Hx Aerosol 100-50mcg 60uni 1 466.0 Ujma /2013 /Dose ts inhalation SCOTT [place] - twice daily 08/17 Ventolin HFA 10/06 Hx Aerosol 108(90Bas 1unit 2 puffs 4 J20.9 e) s times a day [place], - mcg/Act as needed M.D. 01/01 Albuterol 10/06 Hx Nebulizer (2.5mg/3M 100un 1 vial via 466.0 L) 0.083% its nebulizer 4 [place], - times daily M.D. 03/17 as needed Metformin HCL 06/23 Hx Tablets 500mg 90tab every day s [place], - M.D. 05/16 Azithromycin 05/28 Hx Tablets 250mg 6tabs 2 tabs po 382.9 Chary on day 1; 1 [place], - tab po qd M.D. 06/18 on days 2- Hydrocodone/Bayron 05/28 Hx Tablets 5-500mg 20tab 1 every 6 382.9 Chary taminophen s hours as [place], - needed for M.D. 10/06 pain Metformin HCL 05/26 Hx Tablets ER 500mg 30tab 1 po qd Chary ER 24HR s [place], - M.D. 06/23 Lantus Solostar 05/19 Hx Solution 100Unit/M 15ml inject 30 250.02 Chary L units [place], - subcutaneou M.D. 05/28 sly once /2012 daily Advair Diskus 05/19 Hx Aerosol 100-50mcg 1unit 1 493.90 /Dose s inhalation Cotton, - twice daily M.D. 10/06 Ventolin HFA 05/19 Hx Aerosol 108(90Bas 1unit 2 puffs 4 493.90 e) s times a day Cotton, - mcg/Act as needed M.D. 10/06 Lantus Solostar 05/19 Hx 100un for once Chary Pen [place] its daily use Cotton, - M.D. 05/28 Ellen Contour 10/14 Hx Strips 120un qid and prn Chary Blood Glucose its Cotton, Test Strips - M.D. 10/27 Azithromycin 10/06 Hx Tablets 250mg 6tabs 2 tabs po 786.2 Chary on day 1; 1 Cotton, - tab po qd M.D. 05/18 on days 2- 09/22 Hx Tablets 30tab 1 po qd Chary Vitamins s Cotton, - M.D. 05/19 Glucometer Test 09/04 Hx Misc 30uni for once 250.02 Chary Strips ts daily Cotton, - testing M.D. 10/27 Azithromycin 09/04 Hx Tablets 250mg 6tabs 2 tabs po 493.90 on day 1; 1 Cotton, - tab po qd M.D. 09/24 on days 2- Combivent 09/04 Hx Aerosol 18-103mcg 14.70 2 puffs qid 493.90 /Act 0gm prn Cotton, - M.D. 09/24 Glipizide 09/04 Hx Tablets 5mg 15tab 1 tablet 250.02 Chary s by mouth in Cotton, - the morning M.D. 09/24 Freestyle 06/16 Hx 50uni for use 250.02 Chary Insulinx Test /2011 ts once daily Cotton, Strips - M.D. 09/04 Azithromycin 06/16 Hx Tablets 250mg 6tabs 2 tabs po 493.90 Chary /2012 on day 1; 1 Cotton, - tab po qd M.D. 09/03 on days 2- Ketoconazole 06/16 Hx Cream 2% 60gm apply thin 782.1 Chary film twice Cotton, - daily M.D. 09/04 Escitalopram 05/08 Hx Tablets 10mg 30tab 1/2 tab PO 311 Chary s qd for 1 Walker, - aishwaryaeek, then M.D. 09/04 1 PO qd Pantoprazole 05/[address] 20mg 30tab 1 po qd 789.00 Chary s Cotton, - M.D. 09/04 Alprazolam 05/08 Hx Tablets 0.25mg 30tab 1 po qd prn 311 Chary /2012 s Walker, - M.D. 09/24 Oxycodone/Aceta 05/08 Hx Capsules 5-500mg 30cap 1 tablet by 311 Chary s mouth every Cotton, - 4-6 hours M.D. 09/24 as needed /2012 Duoneb 03/10 Hx Solution 0.5-2.5(3 100un 1 dose via 493.90 Chary /2012 )mg/3ML its nebulizer 4 Cotton, - times daily M.D. 09/24 as needed /2012 Azithromycin 03/10 Hx Tablets 250mg 6tabs 2 tabs po 493.90 Chary on day 1; 1 Cotton, - tab po qd M.D. 05/07 on days 2- Advair Diskus 03/10 Hx Aerosol 100-50mcg 1unit 1 /Dose s inhalation Cotton, - twice daily M.D. 09/24 Ventolin HFA 03/09 Hx Aerosol 108(90Bas 18uni Inhale 2 493.90 Chary e) mcg/ac ts Puffs By Cotton, - Mouth Four M.D. 09/04 Times A Day /2012 as Needed Azithromycin 02/16 Hx Tablets 250mg 6tabs 2 tabs po 493.90 Chary on day 1; 1 Cotton, - tab po qd M.D. 03/09 on days 2- Omeprazole 02/[address] 40mg 30cap 1 po qd 789.00 Chary /2012 s Walker, - M.D. 05/08 Glucemilie Valverdeke 02/05 Hx Liquid 30uni 1 PO qd ts Walker, - M.D. 09/04 Azithromycin 11/25 Hx Tablets 250mg 6tabs 2 tabs po 465.9 on day 1; 1 Walker, - tab po qd M.D. 12/05 on days 2- Loratadine 11/17 Hx Tablets 10mg 30tab 1 po qd s Walker, - M.D. 09/24 Nicotine 11/10 Hx Patches 21mg/24HR 42uni apply one 305.1 24HR ts patch once Cotton, - daily M.D. 09/24 Azithromycin 11/10 Hx Tablets 250mg 6tabs 2 tabs po 465.9 on day 1; 1 Walker, - tab po qd M.D. 11/20 on days 2- Azithromycin 10/22 Hx Tablets 250mg 6tabs 2 tabs po on day 1; 1 Walker, - tab po qd M.D. 11/08 on days 2- Sertraline HCL 10/21 Hx Tablets 50mg 30tab 1/2 tablet 311 s daily for 1 , - week, then M.D. 02/16 1 po qd Trazodone HCL 10/21 Hx Tablets 50mg 45tab 1-2 tablets 311 s once daily Walker, - at bedtime M.D. 09/24 Ondansetron HCL 10/21 Hx Tablets 4mg 30tab 1 or 2 787.02 s tablets Walker, - every 8 M.D. 09/04 hours nausea Byetta Flex Pen 10/07 Hx 100un use one Chary [place] its daily for [place] Jhony - sq inj M.D. 09/04 Vitamin D 10/07 Hx Capsules 2000Unit 30cap 1 po qd s Walker, - M.D. 05/19 Byetta 09/06 Hx Solution 5mcg/0.02 60uni Inject s/c ML ts bid, before Cotton, - morning and M.D. 09/04 evening /2012 meals Azithromycin 09/03 Hx Tablets 250mg 6tabs two tabs 461.9 Chary day one, [place], - one daily M.D. 11/08 till Azithromycin 08/20 Hx Tablets 250mg 6tabs two tabs Ainsley day one, Candice, - one daily M.D. 09/02 till Azithromycin 07/02 Hx Tablets 250mg 6tabs two tabs 382.9 Chary /2011 day one, [place], - one daily M.D. 07/12 till Fluticasone 07/02 Hx Suspension 50mcg/Act 1Mont 2 sprays 382.9 Chary Propionate h each [place], - nostril M.D. 02/16 daily needed Hydrocodone 06/03 Hx Solution 7.5-325mg 1 po q 4-6 300.00 Chary Bitartrate/Acet /2010 /15ML hours as [place] aminophen - needed M.D. 07/02 Hydrocodone/Bayron 06/03 Hx Tablets 7.5-325mg 60tab 1 po q 4-6 311 Chary taminophen s h prn [place] - M.D. 05/08 Hydrocodone 05/31 Hx Solution 7.5-325mg 60uni 1 po q 4-6 300.00 Chary Bitartrate/Acet /2010 /15ML ts hours as [place] aminophen - needed M.D. 07/02 One Touch Ultra 05/20 Hx 100un use bid or Chary Mini Test its as [place], Strips. - directed. M.D. 06/16 Sommer-Be 04/08 Hx Tablets 0.35mg 28tab Take One Chary /2011 s Tablet By [place], - Mouth Every M.D. Vitamin D 03/23 Hx Capsules [id number] 12cap 1 tablet Chary (Ergocalciferol s once weekly [place], ) - M.D. 10/07 Azithromycin 10/12 Hx Tablets 250mg 6tabs 2 tabs po 493.90 Chary /2011 on day 1; 1 [place], - tab po qd M.D. 10/22 on days 2- Erythromycin 10/12 Hx Gel 2% 60gm apply thin 782.1 film to Cotton, - face twice M.D. 05/31 Hydrocortisone 10/12 Hx Cream 2.5% 30gm apply thin 782.1 film to Cotton, - affected M.D. 02/16 area twice daily as needed Glipizide XL 08/28 Hx Tablets ER 2.5mg 30tab 1 tablet 24HR s once daily Cotton, - in the M.D. 09/06 Simvastatin 08/27 Hx Tablets 10mg 30tab 1 by mouth Chary s once daily Cotton, - at bedtime M.D. 05/31 Lisinopril 08/27 Hx Tablets 2.5mg 30tab Take One s Tablet By Cotton, - Mouth Every M.D. Tricor 08/27 Hx Tablets 145mg 30tab Take One s Tablet By Cotton, - Mouth Every M.D. Aspirin Ec 08/[address] 81mg 30tab Take One s Tablet By Cotton, - Mouth Every M.D. Biaxin 07/18 Hx Tablets 500mg 20tab 1 tab by s mouth twice Grace, - a day M.D., FAC 08/01 Pulmicort 07/18 Hx Suspension 0.25mg/2M 60uni inhale L ts twice a day Grace, - via M.D., [facility] 11/10 nebulizer Mucinex 07/18 Hx Tablets ER 600mg 30tab 1 tab by 12HR s mouth twice Cotton, - a day as M.D. 09/24 Test Strips To 06/28 Hx 30uni for use 250.02 Chary Use With ts once daily Cotton, Glucometer - M.D. 06/28 Test Strips To 06/28 Hx 30uni for use 250.02 Chary Use With ts once daily Cotton, Tough Ultra - M.D. Mini 06/28 Azithromycin 06/28 Hx Tablets 250mg 6tabs 2 tabs po 250.02 on day 1; 1 Cotton, - tab po qd M.D. 07/18 on days 2- Azithromycin 05/02 Hx Tablets 250mg 6tabs two tabs day one, Grace, - one daily M.D., FACP 05/07 till Ipratropium 05/02 Hx Solution 0.02% 60uni use as ts directed in Grace, - nebulizer M.D., FACP 06/28 Pataday 04/02 Hx Solution 0.2% 1 drop daily Cotton, - M.D. 06/28 Vitamin D 03/19 Hx Capsules 10102Zdax 1 tablet a 268.9 Chary (Ergocalciferol /2009 week for 4 Cotton, ) - weeks then M.D. 06/28 once a month Alprazolam 03/02 Hx Tablets 0.25mg 90tab 1 tablet by 300.00 s mouth 3 Cotton, - times daily M.D. 02/16 Vicodin 02/22 Hx Tablets 5-500mg 40tab 1 tablet s every 4-6 Cotton, - hours as M.D. 06/28 needed pain Albuterol 01/09 Hx Nebulizer (2.5mg/3M 60uni 1 vial L) 0.083% ts nebulizer Cotton, - every 4-6 M.D. 02/16 hours needed Lotrisone 01/02 Hx Lotion 45uni apply to ts affected Grace, - area qd prn M.D., [facility] 04/02 Azithromycin 01/02 Hx Suspension 250mg 6unit 2 cc po day Rec s 1 then, 1 Grace, - cc po qd M.D., FACP 01/17 till Metformin HCL 12/23 Hx Tablets 500mg 30tab 1 tablet 250.02 Chary s twice daily Cotton, - M.D. 09/04 Simvastatin 15 Hx Tablets 10mg 30tab 1 tablet 250.02 Chary /2010 s daily at Walker, - bedtime M.D. 06/28 Vitamin D 12/23 Hx Capsules 98228Itne 1 tab po q 268.9 Chary (Ergocalciferol /2009 week for 4 Walker, ) - weeks then M.D. 12/23 once a month Vitamin D /15 Hx Capsules 84003Qkko 1 tablet 268.9 Chary (Ergocalciferol /2009 once weekly Walker, ) - M.D. 03/02 Lisinopril 12/23 Hx Tablets 2.5mg 30tab 1 tablet 268.9 s once daily Walker, - M.D. 06/28 Lyrica 12/23 Hx Capsules 50mg 60cap 1 tablet 266.2 s twice daily Walker, - M.D. 04/02 Albuterol 12/23 Hx 1unit 2 puffs 4 Chary Inhaler s times daily Walker, - as needed M.D. 03/10 Advair Diskus 12/23 Hx Aerosol 100-50mcg 1unit 1 266.2 /Dose s inhalation Walker, - twice daily M.D. 02/16 Sommer-Be 12/23 Hx Tablets 0.35mg 1tabs 1 tablet once daily Walker, - M.D. 10/12 Tricor 15 Hx Tablets 145mg 30tab 1 tablet s once daily Walker, - M.D. 06/28 Glipizide 12/23 Hx Tablets 5mg 60tab 1 tablet s once daily Walker, - M.D. 08/28 Metformin HCL 12/23 Hx Tablets 500mg 60tab Take One 250.02 s Tablet By Walker, - Mouth Twice M.D. 05/19 A Day /2012 Diflucan 12/05 Hx Tablets 150mg 2tabs 1 tab po one time. [place], - December repeat M.D. 01/17 one time days later if symptoms persist Azithromycin 09/11 Hx Tablets 250mg 6tabs 2 tabs po 786.2 on day 1; 1 [place], - tab po qd M.D. 12/23 on days 2- Metformin HCL 09/11 Hx Tablets 500mg 90tab 2 tablets 250.02 s in the Cotton, - morning, 1 M.D. 12/23 tablet in the evening Metformin HCL 08/30 Hx Tablets 500mg 1 Tab PO 250.02 Chary bid [place] - M.DMohan 09/11 Simvastatin 08/30 Hx Tablets 10mg 30tab 1 po qhs 250.02 Chary s [place] - Girma.DMohan 12/23 Glipizide 07/25 Hx Tablets 5mg 30tab 1 tablet Chary /2009 s twice daily [place] - M.Nancy 12/23 Freestyle Lite 07/05 Hx use as Nurse Glucometer /2008 directed Visit - [place] 04/02 Freestyle Lite 07/05 Hx use as Chary Lancets /2008 directed Thanh Wood M.D. 04/02 Freestyle Lite 07/05 Hx check fsbg Chary Test Strips /2008 qhs and prn [place] - M.Nancy 04/02 Alcohol Prep 06/26 Hx Pads 100un use as Thananart, Swabs its directed Thanh Griffith M.D. 06/28 Pen [place] For 06/26 Hx 31G 1Mont use daily 250.02 Thananart, Lantus Solastar hSupp and prn Thanh Griffith ly M.DMohan 04/02 Vitamin D3 06/23 Hx Tablets 1000Unit 60tab 2 tabs po 268.9 Chary /2009 s qd [place] - M.Nancy 06/23 Lantus For 06/23 Hx Solution 100Unit/M 10ml 10 units 268.9 Chary Opticlik L s/c qd at [place], - bedtime MFrancesco 06/23 increase prn as directed Test Strips To 06/23 Hx 100un 268.9 Chary Use its [place] Glucometer - M.Nancy 04/02 Lisinopril 06/23 Hx Tablets 2.5mg 30tab 1 po qd 268.9 Chary /2009 s Thanh Wood M.D. 12/23 Blood Pressure 06/23 Hx Kit 1unit 268.9 s Walker - M.DMohan 04/02 Aspirin 06/23 Hx Tablets 81mg 30tab 1 tablet 268.9 s once daily Walker M.DMohan 06/28 Solastar Lantus 06/23 Hx Solution 100Unit/M 1unit use as L s directed [facility].Nancy 04/02 Vitamin D 06/23 Hx Capsules [id number] 8caps 1 tablet 268.9 once weekly Walker - M.DMohan 12/23 Tricor 06/16 Hx Tablets 145mg 90tab 1 tablet po s qday Walker .DMohan 12/23 Metformin 06/16 Hx 500mg 60uni 2 po bid 250.02 [place] M.DMohan 08/30 Glipizide 06/16 Hx Tablets 10mg 60tab 1 po bid s [place] M.DMohan 07/25 Sommer-Be 06/16 Hx Tablets 0.35mg 30tab one po s daily Walker M.DMohan 12/23 Advair Diskus 06/16 Hx Misc 100-50mcg 60uni 1 puff bid 266.2 /DO ts [place] - M.DMohan 12/23 Albuterol 06/16 Hx 17gm 2 puffs qid 266.2 Inhal prn Walker M.DMohan 12/23 Lyrica 06/16 Hx Capsules 50mg 120ca 1 tab po 266.2 ps bid for one Walker, - week then .DMohan 12/23 increase 2 tabs po bid Vicodin 06/16 Hx Tablets 5-500mg 45tab 1 q 4-6 266.2 s hours prn [place] - M.DMohan 01/17 Cyanocobalamin 06/16 Hx Solution 1000mcg/M 1 cc Im 266.2 L every Walker, - month M.DMohan 05/19 Test Strips To 00 Hx 100un 268.9 Cotton, Use With /0000 its Chary, Glucometer - 06/23 Humalog 00/00 Hx Solution 100Unit/M 1vial 16 units in Unknown /0000 L am and 14 - units in pm 05/19 Humulin N 00/00 Hx Suspension 100Unit/M 16 units in 250.02 Unknown /0000 L am and 14 - units in pm 05/19 Freestyle Lite Hx 100un four times Chary Test Strips /0000 its a day and Cotton, - as needed M.D. 08/18 Clindamycin HCL Hx Capsules 300mg 1 tabs by Unknown /0000 mouth 3 - times a day 12/12 Nitrofurantoin Hx Capsules 100mg Ashley, Monohydrate/Mac /0000 DO Juaquin rocrystals - 08/21 Medications Administered in Office Medication Date Status Form Strength Qnty SIG Indications Ordering Provider - Administered Injection Nurse Visit Injection 018 A B- Administered Injection Nurse Visit Injection 018 A B- Administered Injection Nurse Visit Injection 018 A -12 Administered Injection Nurse Visit Injection 018 A -12 Administered Injection Nurse Visit Injection 018 A -12 Administered Injection Nurse Visit Injection 018 A B-12 Administered Injection Nurse Visit Injection 018 A -12 Administered Injection Chary Injection 018 Susie Wood B-12 Administered Injection Nurse Visit Injection 017 A B-12 Administered Injection Nurse Visit Injection 017 A B-12 Administered Injection Chary Injection 017 Susie Wood B-12 Administered Injection Chary Injection 013 Susie Wood B-12 Administered Injection Chary Injection 012 Susie Wood B-12 Administered Injection Chary Injection 012 Susie Wood B-12 Administered Injection Chary Injection 012 Susie Wood B-12 Administered Injection Nurse Visit Injection 012 A B-12 Administered Injection Nurse Visit Injection 012 A 12 Administered Injection Chary Injection 012 Susie Wood B-12 Administered Injection Nurse Visit Injection 012 A 12 Administered Injection Chary Injection 012 Susie Wood B-12 Administered Injection Nurse Visit Injection 011 A 12 Administered Injection Lucinda Injection 011 Dottie, N.PMohan 12 Administered Injection Chary Injection 011 Susie Wood B12 Administered Injection Nurse Visit Injection 011 A Administered Injection Nurse Visit Injection 011 A Administered Injection Unknown Injection 011 - Administered Injection Nurse Visit Injection 011 A Administered Injection Chary Injection 011 Susie Wood B-12 Administered Injection [facility] In[facility] 011 A Administered Injection Chary Injection 010 Susie Wood B-12 Administered Injection Chary Injection 010 Susie Wood B12 Administered Injection Nurse Visit Injection 010 A 12 Administered Injection Chary Injection 010 Susie Wood B-12 Administered Injection [facility] Chary Injection 009 Susie Wood B-12 Administered Injection Chary Injection 009 Susie Wood Immunizations CPT Code Status Date Vaccine Lot # [id number] Given 05/31/2011 Influenza Virus 3Yrs & Over [id number] Given 06/28/2010 Influenza Virus 3Yrs & Over Vital Signs Date Vital Result Comment 04/03/2018 Height 61 inches 5'1" Weight 160.00 lb with shoes Heart Rate 87 /min BP Systolic 124 mmHg BP Diastolic 66 mmHg O2 % BldC Oximetry 98 % BMI (Body Mass Index) 30.2 kg/m2 03/23/2018 Height 61 inches 5'1" Weight 163.00 lb Heart Rate 80 /min BP Systolic Sitting 119 mmHg BP Diastolic Sitting 72 mmHg Body Temperature 99.2 F O2 % BldC Oximetry 97 % BMI (Body Mass Index) 30.8 kg/m2 01/01/2018 Height 61 inches 5'1" Weight 162.00 lb Heart Rate 83 /min BP Systolic 123 mmHg BP Diastolic 70 mmHg O2 % BldC Oximetry 98 % BMI (Body Mass Index) 30.6 kg/m2 11/07/2017 Height 61 inches 5'1" Weight 159.50 lb Heart Rate 83 /min BP Systolic 130 mmHg BP Diastolic 62 mmHg Body Temperature 98.7 F O2 % BldC Oximetry 98 % BMI (Body Mass Index) 30.1 kg/m2 10/28/2017 Weight 159.00 lb Heart Rate 85 /min BP Systolic Sitting 130 mmHg BP Diastolic Sitting 60 mmHg Body Temperature 97.2 F O2 % BldC Oximetry 98 % 09/25/2017 Height 61 inches 5'1" Weight 161.00 lb Heart Rate 79 /min BP Systolic Sitting 130 mmHg BP Diastolic Sitting 68 mmHg Body Temperature 97.6 F O2 % BldC Oximetry 97 % BMI (Body Mass Index) 30.4 kg/m2 08/21/2017 Height 61 inches 5'1" Weight 160.75 lb Heart Rate 79 /min BP Systolic 106 mmHg BP Diastolic 50 mmHg O2 % BldC Oximetry 96 % BMI (Body Mass Index) 30.4 kg/m2 08/05/2017 Weight 156.00 lb Heart Rate 79 /min BP Systolic 110 mmHg BP Diastolic 62 mmHg Body Temperature 99.4 F O2 % BldC Oximetry 98 % 05/30/2017 Weight 154.00 lb w/shoes Heart Rate 85 /min BP Systolic Sitting 130 mmHg BP Diastolic Sitting 62 mmHg Body Temperature 97.8 F O2 % BldC Oximetry 97 % 05/19/2017 Weight 156.25 lb Heart Rate 87 /min BP Systolic 100 mmHg BP Diastolic 60 mmHg O2 % BldC Oximetry 98 % 04/21/2017 Weight 152.00 lb Heart Rate 86 /min BP Systolic 124 mmHg BP Diastolic 72 mmHg Body Temperature 98.3 F O2 % BldC Oximetry 98 % 03/21/2017 Weight 152.00 lb BP Systolic Sitting 128 mmHg BP Diastolic Sitting 60 mmHg O2 % BldC Oximetry 98 % 12/30/2016 Weight 153.50 lb Heart Rate 80 /min BP Systolic 100 mmHg BP Diastolic 60 mmHg BP Systolic Sitting 120 mmHg BP Diastolic Sitting 66 mmHg Body Temperature 97.5 F O2 % BldC Oximetry 98 % 12/12/2016 Weight 152.75 lb Heart Rate 90 /min BP Systolic Standing 130 mmHg BP Diastolic Standing 80 mmHg Respiratory Rate 16 /min Body Temperature 96.5 F O2 % BldC Oximetry 98 % 10/31/2016 Weight 156.00 lb with boots Heart Rate 71 /min BP Systolic 138 mmHg BP Diastolic 78 mmHg Body Temperature 97.9 F O2 % BldC Oximetry 98 % 10/15/2016 Weight 158.00 lb Heart Rate 90 /min BP Systolic Sitting 122 mmHg BP Diastolic Sitting 78 mmHg Body Temperature 98.8 F O2 % BldC Oximetry 98 % 08/26/2016 Weight 155.00 lb with cabello toed shoes Heart Rate 85 /min BP Systolic Sitting 130 mmHg BP Diastolic Sitting 76 mmHg O2 % BldC Oximetry 98 % 08/15/2016 Height 61 inches 5'1" Weight 153.00 lb Heart Rate 92 /min BP Systolic 110 mmHg BP Diastolic 70 mmHg Body Temperature 98.6 F O2 % BldC Oximetry 98 % BMI (Body Mass Index) 28.9 kg/m2 04/19/2016 Weight 153.00 lb Heart Rate 75 /min BP Systolic Sitting 128 mmHg BP Diastolic Sitting 62 mmHg Body Temperature 98.4 F O2 % BldC Oximetry 97 % 01/25/2016 Weight 156.50 lb Heart Rate 86 /min BP Systolic Sitting 130 mmHg BP Diastolic Sitting 72 mmHg Body Temperature 99.1 F O2 % BldC Oximetry 97 % 01/16/2016 Weight 163.00 lb Heart Rate 94 /min BP Systolic Sitting 134 mmHg BP Diastolic Sitting 72 mmHg Body Temperature 98.3 F O2 % BldC Oximetry 98 % 10/27/2015 Weight 162.25 lb Heart Rate 79 /min BP Systolic Sitting 131 mmHg BP Diastolic Sitting 75 mmHg Body Temperature 98.9 F O2 % BldC Oximetry 98 % 09/18/2015 Height 61 inches 5'1" Weight 162.00 lb Heart Rate 84 /min BP Systolic Sitting 126 mmHg BP Diastolic Sitting 72 mmHg Body Temperature 97.4 F O2 % BldC Oximetry 98 % BMI (Body Mass Index) 30.6 kg/m2 06/02/2015 Height 61 inches 5'1" Weight 164.00 lb Heart Rate 72 /min BP Systolic Sitting 134 mmHg BP Diastolic Sitting 74 mmHg Respiratory Rate 13 /min Body Temperature 98.7 F O2 % BldC Oximetry 97 % BMI (Body Mass Index) 31.0 kg/m2 05/29/2015 Height 61 inches 5'1" Weight 164.50 lb Heart Rate 76 /min BP Systolic Sitting 134 mmHg BP Diastolic Sitting 72 mmHg Respiratory Rate 18 /min Body Temperature 96.2 F O2 % BldC Oximetry 97 % BMI (Body Mass Index) 31.1 kg/m2 05/08/2015 Height 61 inches 5'1" Weight 165.00 lb Heart Rate 76 /min BP Systolic 136 mmHg BP Diastolic 80 mmHg Body Temperature 97.8 F BMI (Body Mass Index) 31.2 kg/m2 05/01/2015 Weight 165.00 lb Heart Rate 76 /min BP Systolic Sitting 121 mmHg BP Diastolic Sitting 77 mmHg Body Temperature 98.9 F O2 % BldC Oximetry 99 % 03/17/2015 Height 61 inches 5'1" Weight 154.00 lb Heart Rate 85 /min BP Systolic 120 mmHg BP Diastolic 83 mmHg Body Temperature 97.8 F BMI (Body Mass Index) 29.1 kg/m2 11/18/2014 Weight 161.00 lb Heart Rate 72 /min BP Systolic Sitting 130 mmHg BP Diastolic Sitting 70 mmHg Body Temperature 96.1 F 10/19/2014 Height 61 inches 5'1" Weight 159.00 lb Heart Rate 75 /min BP Systolic 113 mmHg BP Diastolic 80 mmHg Body Temperature 99.1 F BMI (Body Mass Index) 30.0 kg/m2 08/17/2014 O2 % BldC Oximetry 97 % 08/17/2014 Height 61 inches 5'1" Weight 163.00 lb Heart Rate 78 /min BP Systolic 120 mmHg BP Diastolic 70 mmHg Body Temperature 97.7 F BMI (Body Mass Index) 30.8 kg/m2 07/14/2014 Height 61 inches 5'1" Weight 163.00 lb Heart Rate 70 /min BP Systolic 112 mmHg BP Diastolic 70 mmHg Body Temperature 97.5 F BMI (Body Mass Index) 30.8 kg/m2 05/16/2014 Height 61 inches 5'1" Weight 165.25 lb Heart Rate 68 /min BP Systolic Sitting 130 mmHg BP Diastolic Sitting 70 mmHg Body Temperature 98.0 F BMI (Body Mass Index) 31.2 kg/m2 04/26/2014 Weight 166.00 lb Heart Rate 80 /min BP Systolic Sitting 148 mmHg BP Diastolic Sitting 76 mmHg Body Temperature 97.9 F 01/04/2014 Height 61 inches 5'1" Weight 167.00 lb Heart Rate 80 /min BP Systolic Sitting 124 mmHg BP Diastolic Sitting 68 mmHg BMI (Body Mass Index) 31.6 kg/m2 12/22/2013 Height 61 inches 5'1" Weight 170.00 lb Heart Rate 76 /min BP Systolic 116 mmHg BP Diastolic 70 mmHg Body Temperature 99.0 F BMI (Body Mass Index) 32.1 kg/m2 10/06/2013 Weight 168.00 lb Heart Rate 78 /min BP Systolic Sitting 140 mmHg BP Diastolic Sitting 80 mmHg Respiratory Rate 18 /min Body Temperature 97.8 F oral O2 % BldC Oximetry 98 % 05/28/2013 Weight 159.00 lb Heart Rate 100 /min BP Systolic Sitting 120 mmHg BP Diastolic Sitting 82 mmHg Body Temperature 98.1 F 05/19/2013 Weight 163.00 lb Heart Rate 82 /min BP Systolic Sitting 138 mmHg BP Diastolic Sitting 84 mmHg Body Temperature 96.8 F O2 % BldC Oximetry 98 % Peak Flow Meter 350 300,300 10/06/2012 Height 60.5 inches 5'0.50" Weight 167.00 lb Heart Rate 84 /min BP Systolic Sitting 150 mmHg re- check 138/82 BP Diastolic Sitting 88 mmHg re- check 138/82 Body Temperature 98.2 F BMI (Body Mass Index) 32.1 kg/m2 09/04/2012 Height 60.5 inches 5'0.50" Weight 165.00 lb Heart Rate 80 /min BP Systolic Sitting 128 mmHg BP Diastolic Sitting 76 mmHg Body Temperature 98.8 F O2 % BldC Oximetry 97 % Peak Flow Meter 250 260,255 BMI (Body Mass Index) 31.7 kg/m2 06/16/2012 Height 60.5 inches 5'0.50" Weight 167.00 lb Heart Rate 80 /min BP Systolic Sitting 128 mmHg BP Diastolic Sitting 80 mmHg BMI (Body Mass Index) 32.1 kg/m2 05/08/2012 Height 60.5 inches 5'0.50" Weight 165.00 lb Heart Rate 78 /min BP Systolic Sitting 130 mmHg BP Diastolic Sitting 80 mmHg BMI (Body Mass Index) 31.7 kg/m2 03/10/2012 Height 60.5 inches 5'0.50" Weight 161.00 lb Heart Rate 82 /min BP Systolic Sitting 130 mmHg BP Diastolic Sitting 82 mmHg Body Temperature 98.7 F O2 % BldC Oximetry 98 % BMI (Body Mass Index) 30.9 kg/m2 02/17/2012 Height 60.5 inches 5'0.50" Weight 159.00 lb Heart Rate 84 /min BP Systolic Sitting 138 mmHg BP Diastolic Sitting 82 mmHg BMI (Body Mass Index) 30.5 kg/m2 12/10/2011 Weight 164.50 lb 11/11/2011 Height 60.50 inches 5'0.50" Weight 162.00 lb Heart Rate 68 /min BP Systolic Sitting 130 mmHg BP Diastolic Sitting 72 mmHg BMI (Body Mass Index) 31.1 kg/m2 10/22/2011 Height 60.50 inches 5'0.50" Weight 161.00 lb Heart Rate 110 /min BP Systolic Sitting 140 mmHg BP Diastolic Sitting 84 mmHg Body Temperature 98.8 F BMI (Body Mass Index) 30.9 kg/m2 09/03/2011 Height 60.50 inches 5'0.50" Weight 164.00 lb Heart Rate 76 /min BP Systolic Sitting 118 mmHg BP Diastolic Sitting 72 mmHg BMI (Body Mass Index) 31.5 kg/m2 08/20/2011 Height 60.50 inches 5'0.50" Weight 165.00 lb Heart Rate 84 /min BP Systolic Sitting 124 mmHg BP Diastolic Sitting 70 mmHg Body Temperature 98.7 F O2 % BldC Oximetry 97 % BMI (Body Mass Index) 31.7 kg/m2 07/02/2011 Height 60.50 inches 5'0.50" Weight 168.00 lb Heart Rate 68 /min BP Systolic Sitting 112 mmHg l BP Diastolic Sitting 70 mmHg l Body Temperature 99.0 F BMI (Body Mass Index) 32.3 kg/m2 05/31/2011 Height 60.50 inches 5'0.50" Weight 163.00 lb Heart Rate 72 /min BP Systolic Sitting 130 mmHg BP Diastolic Sitting 90 mmHg BMI (Body Mass Index) 31.3 kg/m2 12/13/2010 Weight 176.00 lb Heart Rate 86 /min BP Systolic Sitting 140 mmHg BP Diastolic Sitting 78 mmHg 10/12/2010 Heart Rate 80 /min BP Systolic 134 mmHg BP Diastolic 80 mmHg Body Temperature 98.8 F O2 % BldC Oximetry 97 % 06/28/2010 Weight 177.25 lb Heart Rate 76 /min BP Systolic 124 mmHg BP Diastolic 80 mmHg Body Temperature 97.9 F O2 % BldC Oximetry 97 % 05/02/2010 Heart Rate 72 /min BP Systolic 132 mmHg BP Diastolic 92 mmHg Body Temperature 97.9 F 03/02/2010 Weight 185.50 lb BP Systolic 138 mmHg BP Diastolic 86 mmHg 09/11/2009 Height 61 inches 5'1" Weight 194.00 lb Heart Rate 82 /min BP Systolic Sitting 120 mmHg BP Diastolic Sitting 74 mmHg Body Temperature 97.9 F BMI (Body Mass Index) 36.7 kg/m2 08/30/2009 Height 61 inches 5'1" Weight 197.25 lb Heart Rate 80 /min BP Systolic Sitting 138 mmHg BP Diastolic Sitting 70 mmHg BMI (Body Mass Index) 37.3 kg/m2 07/25/2009 Height 61 inches 5'1" Weight 197.50 lb Heart Rate 77 /min BP Systolic Sitting 119 mmHg BP Diastolic Sitting 81 mmHg Body Temperature 97.4 F BMI (Body Mass Index) 37.3 kg/m2 06/23/2009 Weight 199.50 lb Heart Rate 84 /min BP Systolic Sitting 124 mmHg BP Diastolic Sitting 68 mmHg Respiratory Rate 16 /min Body Temperature 98.6 F 06/16/2009 Weight 198.25 lb Heart Rate 88 /min BP Systolic Sitting 124 mmHg BP Diastolic Sitting 78 mmHg Respiratory Rate 16 /min Body Temperature 98.3 F Results Test Date Test Result H/L Range Note Urinalysis Profile 02/07/2018 Urine Color Straw Urine Appearance Clear Urine Specific [place] 1.005 Low 1.010-1.030 Urine pH 5.0 5-9 Urine Urobilinogen Negative Negative Urine Ketones Negative Negative Urine Protein Negative Negative Urine Leukocytes Negative Negative Urine Blood 1+ Negative Urine Nitrite Negative Negative Urine Bilirubin Negative Negative Urine Glucose Negative Negative Urine White Blood Cell Trace(0-5/hpf) Absent Urine Red Blood Cell Trace(0-2/hpf) Absent Urine Bacteria Absent Absent Urine Squamous Epithelial Cell Present Absent Laboratory test finding 02/07/2018 Hemoglobin A1c (Glyco 7.2 % High 4.0- 5.6 1 HGB) Comp Metabolic Panel 02/07/2018 Sodium 137 mmol/L 135-145 Potassium 4.4 mmol/L 3.5-5.0 Chloride 104 mmol/L 101-111 Co2 Carbon Dioxide 24 mmol/L 22-32 Anion Gap 9 mmol/L 2-11 Glucose 159 mg/dL High 70-100 Blood Urea Nitrogen 10 mg/dL 6-24 Creatinine 0.53 mg/dL 0.51-0.95 BUN/Creatinine Ratio 18.9 8-20 Calcium 9.4 mg/dL 8.6-10.3 Total Protein 6.8 g/dL 6.4-8.9 Albumin 4.1 g/dL 3.2-5.2 Globulin 2.7 g/dL 2-4 Albumin/Globulin Ratio 1.5 1-3 Total Bilirubin 0.40 mg/dL 0.2-1.0 Alkaline Phosphatase 58 U/L 34-104 Alt 10 U/L 7-52 Ast 10 U/L Low 13-39 Egfr Non- 127.8 >60 Egfr 154.6 >60 2 Urine Culture And 02/07/2018 Urine Culture SEE RESULT BELOW 3 Sensitivities Laboratory test finding 11/26/2017 Point of Care 201 mg/dL High 70-100 4 Glucose Urinalysis Profile 10/28/2017 Urine Color Straw 5 Urine Appearance Clear 5 Urine Specific [place] 1.004 Low 1.010-1.030 5 Urine pH 5.0 5-9 5 Urine Urobilinogen Negative Negative 5 Urine Ketones Negative Negative 5 Urine Protein Negative Negative 5 Urine Leukocytes Negative Negative 5 Urine Blood 2+ Negative 5 Urine Nitrite Negative Negative 5 Urine Bilirubin Negative Negative 5 Urine Glucose 1+(50 mg/dL) Negative 5 Urine White Blood Cell Absent Absent 5 Urine Red Blood Cell Trace(0-2/hpf) Absent 5 Urine Bacteria Absent Absent 5 Urine Squamous Epithelial Cell Present Absent 5 Laboratory test finding 10/28/2017 Hemoglobin A1c 6.7 5-7 Urine Culture And Sensitivities 10/25/2017 Urine Culture SEE RESULT BELOW 6 Urinalysis Profile 10/25/2017 Urine Color Straw Urine Appearance Clear Urine Specific [place] 1.002 Low 1.010-1.030 Urine pH 5.0 5-9 Urine Urobilinogen Negative Negative Urine Ketones Negative Negative Urine Protein Negative Negative Urine Leukocytes Negative Negative Urine Blood 1+ Negative Urine Nitrite Negative Negative Urine Bilirubin Negative Negative Urine Glucose Negative Negative Urine White Blood Cell Trace(0-5/hpf) Absent Urine Red Blood Cell Absent Absent Urine Bacteria Absent Absent Urine Squamous Epithelial Cell Present Absent Urine Hyaline Casts Present Absent Comp Metabolic Panel 10/25/2017 Sodium 133 mmol/L 133-145 Chloride 103 mmol/L 101-111 Co2 Carbon Dioxide 23 mmol/L 22-32 Glucose 125 mg/dL High 70-100 Blood Urea Nitrogen 7 mg/dL 6-24 Creatinine 0.51 mg/dL 0.51-0.95 BUN/Creatinine Ratio 13.7 8-20 Calcium 9.6 mg/dL 8.6-10.3 Total Protein 7.5 g/dL 6.4-8.9 Albumin 4.4 g/dL 3.2-5.2 Globulin 3.1 g/dL 2-4 Albumin/Globulin Ratio 1.4 1-3 Total Bilirubin 0.30 mg/dL 0.2-1.0 Alkaline Phosphatase 51 U/L 34-104 Alt 9 U/L 7-52 Egfr Non- 133.6 >60 Egfr 171.8 >60 7 Potassium 3.9 mmol/L 3.5-5.0 Anion Gap 7 mmol/L 2-11 Ast 10 U/L Low 13-39 Laboratory test finding 10/25/2017 Lactic Acid 0.8 mmol/L 0.5-2.0 8 CBC Auto Diff 10/25/2017 White Blood Count 8.0 10^3/uL 3.5-10.8 Red Blood Count 4.82 10^6/uL 4.0-5.4 Hemoglobin 15.1 g/dL 12.0-16.0 Hematocrit 44 % 35-47 Mean Corpuscular Volume 91 fL 80-97 Mean Corpuscular Hemoglobin 31 pg 27-31 Mean Corpuscular HGB Conc 34 g/dL 31-36 Red Cell Distribution Width 13 % 10.5-15 Platelet Count 190 10^3/uL 150-450 Mean Platelet Volume 9 um3 7.4-10.4 Abs Neutrophils 5.3 10^3/uL 1.5-7.7 Abs Lymphocytes 2.3 10^3/uL 1.0-4.8 Abs Monocytes 0.4 10^3/uL 0-0.8 Abs Eosinophils 0 10^3/uL 0-0.6 Abs Basophils 0.1 10^3/uL 0-0.2 Abs Nucleated RBC 0 10^3/uL Granulocyte % 66.1 % 38-83 Lymphocyte % 28.4 % 25-47 Monocyte % 4.4 % 0-7 Eosinophil % 0.3 % 0-6 Basophil % 0.8 % 0-2 Nucleated Red Blood Cells % 0 Lipid Profile (Trig/Chol/HDL) 09/15/2017 Triglycerides 114 mg/dL 9 Cholesterol 115 mg/dL 10 HDL Cholesterol 45.5 mg/dL 11 LDL Cholesterol 47 mg/dL 12 Comp Metabolic Panel 09/15/2017 Sodium 135 mmol/L 133-145 Potassium 4.4 mmol/L 3.5-5.0 Chloride 103 mmol/L 101-111 Co2 Carbon Dioxide 27 mmol/L 22-32 Anion Gap 5 mmol/L 2-11 Glucose 141 mg/dL High 70-100 Blood Urea Nitrogen 10 mg/dL 6-24 Creatinine 0.58 mg/dL 0.51-0.95 BUN/Creatinine Ratio 17.2 8-20 Calcium 9.7 mg/dL 8.6-10.3 Total Protein 6.9 g/dL 6.4-8.9 Albumin 4.4 g/dL 3.2-5.2 Globulin 2.5 g/dL 2-4 Albumin/Globulin Ratio 1.8 1-3 Total Bilirubin 0.40 mg/dL 0.2-1.0 Alkaline Phosphatase 57 U/L 34-104 Alt 9 U/L 7-52 Ast 10 U/L Low 13-39 Egfr Non- 115.1 >60 Egfr 148.1 >60 13 Iron & Iron Binding Capacity 09/15/2017 Iron 100 g/dL 50-212 Unsaturated Iron Binding 260 g/dL Total Iron Binding Capacity 360 g/dL 250-450 % Iron Saturation 28 % 15-55 CBC Auto Diff 09/15/2017 White Blood Count 7.4 10^3/uL 3.5-10.8 Red Blood Count 4.83 10^6/uL 4.0-5.4 Hemoglobin 15.1 g/dL 12.0-16.0 Hematocrit 45 % 35-47 Mean Corpuscular Volume 93 fL 80-97 Mean Corpuscular Hemoglobin 31 pg 27-31 Mean Corpuscular HGB Conc 34 g/dL 31-36 Red Cell Distribution Width 13 % 10.5-15 Platelet Count 180 10^3/uL 150-450 Mean Platelet Volume 9 um3 7.4-10.4 Abs Neutrophils 4.8 10^3/uL 1.5-7.7 Abs Lymphocytes 1.9 10^3/uL 1.0-4.8 Abs Monocytes 0.5 10^3/uL 0-0.8 Abs Eosinophils 0.1 10^3/uL 0-0.6 Abs Basophils 0.1 10^3/uL 0-0.2 Abs Nucleated RBC 0 10^3/uL Granulocyte % 65.7 % 38-83 Lymphocyte % 26.3 % 25-47 Monocyte % 6.3 % 1-9 Eosinophil % 0.8 % 0-6 Basophil % 0.9 % 0-2 Nucleated Red Blood Cells % 0.1 Laboratory test finding 09/15/2017 TSH (Thyroid Stim Horm) 1.78 mcIU/mL 0.34-5.60 14 Laboratory test finding 08/05/2017 Test Urine NEGATIVE Urine Microalbumin 08/05/2017 Ur Microalbumin (mg/L) 23.1 mg/L 15 Random Urine Creatinine 25.99 mg/dL 15 Urine Microalbumin/Creatinine 88.8 ug/mg High <31 15 Laboratory test finding 08/05/2017 Vitamin B12 499 pg/mL 180-914 16 FSH (Follicle Stim Hormone) 4.6 mIU/mL 17 Vitamin D Total 25(Oh) 31.8 ng/mL 20-50 Iron & Iron Binding Capacity 08/05/2017 Iron 28 g/dL Low 50-212 Unsaturated Iron Binding 332 g/dL Total Iron Binding Capacity 360 g/dL 250-450 % Iron Saturation 8 % Low 15-55 Laboratory test finding 08/05/2017 Hemoglobin A1c (Glyco HGB) 6.6 % High 4.0-5.6 18 Urinalysis Profile 04/17/2017 Urine Color Straw Urine Appearance Clear Urine Specific [place] 1.003 Low 1.010-1.030 Urine pH 5.0 5-9 Urine Urobilinogen Negative Negative Urine Ketones Trace Negative Urine Protein Negative Negative Urine Leukocytes Negative Negative Urine Blood 2+ Negative Urine Nitrite Negative Negative Urine Bilirubin Negative Negative Urine Glucose Negative Negative Urine White Blood Cell Trace(0-5/hpf) Absent Urine Red Blood Cell Trace(0-2/hpf) Absent Urine Bacteria 1+ Absent Urine Squamous Epithelial Cell Present Absent Laboratory test 04/17/2017 (HCG) Urine Negative Negative 19 finding Urine Culture And 04/17/2017 Urine Culture SEE RESULT BELOW 20 Sensitivities Lipid Profile 02/12/2017 Triglycerides 210 mg/dL 21 (Trig/Chol/HDL) Cholesterol 134 mg/dL 22 HDL Cholesterol 42.5 mg/dL 23 LDL Cholesterol 50 mg/dL 24 Comp Metabolic Panel 02/12/2017 Sodium 138 mmol/L 133-145 Potassium 3.8 mmol/L 3.5-5.0 Chloride 105 mmol/L 101-111 Co2 Carbon Dioxide 27 mmol/L 22-32 Anion Gap 6 mmol/L 2-11 Glucose 105 mg/dL High 70-100 Blood Urea Nitrogen 10 mg/dL 6-24 Creatinine 0.47 mg/dL Low 0.51-0.95 BUN/Creatinine Ratio 21.3 High 8-20 Calcium 9.5 mg/dL 8.6-10.3 Total Protein 6.8 g/dL 6.4-8.9 Albumin 4.1 g/dL 3.2-5.2 Globulin 2.7 g/dL 2-4 Albumin/Globulin Ratio 1.5 1-3 Total Bilirubin 0.30 mg/dL 0.2-1.0 Alkaline Phosphatase 46 U/L 34-104 Alt 10 U/L 7-52 Ast 13 U/L 13-39 Egfr Non- 147.5 >60 Egfr 189.7 >60 25 Laboratory test 02/12/2017 Hemoglobin A1c (Glyco 6.5 % High Less than 6.0 26 finding HGB) Urine Microalbumin 02/12/2017 Ur Microalbumin 15.5 mg/L Random (mg/L) Urine Creatinine 38.11 mg/dL Urine Microalbumin/Creatinine 40.6 ug/mg High <31 Order 12/12/2016 peak flow x 3 provider given resus Laboratory test finding 11/14/2016 Vitamin B12 205 pg/mL 180-914 27 Methylmalonic Acid Mma 0.16 nmol/mL <=0.40 28 Vitamin D Total 25(Oh) 33.4 ng/mL 30-50 29 Iron & Iron Binding Capacity 11/14/2016 Iron 73 g/dL 50-212 Unsaturated Iron Binding 267 g/dL Total Iron Binding Capacity 340 g/dL 250-450 % Iron Saturation 21 % 15-55 Laboratory test 10/31/2016 Hemoglobin A1c 6.7 5-7 finding Laboratory test 10/15/2016 Rapid Influenza A B SEE RESULT BELOW 30 finding Antigen Rapid Influenza A & B 10/15/2016 Influenza A Molecular NEGATIVE Negative 31 Molecular Influenza B Molecular NEGATIVE Negative Urine Microalbumin Random 08/26/2016 Ur Microalbumin (mg/L) < 15.0 mg/L Urine Creatinine 11.54 mg/dL Urine Microalbumin/Creatinine TNP ug/mg <31 32 Iron & Iron Binding Capacity 08/15/2016 Iron 32 g/dL Low 50-212 Unsaturated Iron Binding 322 g/dL Total Iron Binding Capacity 354 g/dL 250-450 % Iron Saturation 9 % Low 15-55 Laboratory test finding 08/15/2016 Vitamin D Total 25(Oh) 25.6 ng/mL Low 30-50 33 Laboratory test finding 04/19/2016 Hemoglobin A1c 5.8 5-7 Urine Microalbumin Random 04/19/2016 Urine Creatinine 19.99 mg/dL Ur Microalbumin (mg/L) < 15.0 mg/L Urine Microalbumin/Creatinine TNP ug/mg <31 34 GC/Chlamydia Amplified Rna 01/25/2016 Chlamydia trachomatis Rna Negative Negative Neisseria gonorrhoeae (GC) Rna Negative Negative Ua Routine 01/25/2016 Ua Specific [place] 1.015 Ua PH 5 Ua Color yellow Ua Appera clear Ua WBC trace Ua Protein trace Ua Glucose neg Ua Ketones mod Ua Bilirubin neg Ua Urobilinogen neg Ua Nitrite neg Ua Occult Blood large Urine Culture And Sensitivities 01/25/2016 Urine Culture SEE RESULT BELOW 35 Lipid Profile (Trig/Chol/HDL) 01/16/2016 Triglycerides 182 mg/dL 36 Cholesterol 142 mg/dL 37 HDL Cholesterol 35.2 mg/dL 38 LDL Cholesterol 70 mg/dL 39 Comp Metabolic Panel 01/16/2016 Sodium 134 mmol/L 133-145 Potassium 4.0 mmol/L 3.5-5.0 Chloride 102 mmol/L 101-111 Co2 Carbon Dioxide 24 mmol/L 22-32 Anion Gap 8 mmol/L 2-11 Glucose 203 mg/dL High 70-100 Blood Urea Nitrogen 10 mg/dL 6-24 Creatinine 0.57 mg/dL 0.51-0.95 BUN/Creatinine Ratio 17.5 8-20 Calcium 9.3 mg/dL 8.6-10.3 Total Protein 7.1 g/dL 6.4-8.9 Albumin 4.5 g/dL 3.2-5.2 Globulin 2.6 g/dL 2-4 Albumin/Globulin Ratio 1.7 1-3 Total Bilirubin 0.50 mg/dL 0.2-1.0 Alkaline Phosphatase 59 U/L 34-104 Alt 13 U/L 7-52 Ast 12 U/L Low 13-39 Egfr Non- 118.7 >60 Egfr 152.7 >60 40 Laboratory test finding 01/16/2016 Methylmalonic Acid Mma 0.14 nmol/mL <= 0.40 41 Hemoglobin A1c (Glyco HGB) 8.0 % High Less than 6.0 42 TSH (Thyroid Stim Horm) 1.91 ?IU/mL 0.34-5.60 Vitamin D Total 25(Oh) 29.7 ng/mL Low 30-50 FSH (Follicle Stim Hormone) 4.1 mIU/mL 43 Vitamin B12 239 pg/mL 180-914 44 Comp Metabolic Panel 09/05/2015 Sodium 134 mmol/L 133-145 Potassium 4.1 mmol/L 3.5-5.0 Chloride 103 mmol/L 101-111 Co2 Carbon Dioxide 25 mmol/L 22-32 Anion Gap 6 mmol/L 2-11 Glucose 180 mg/dL High 70-100 Blood Urea Nitrogen 14 mg/dL 6-24 Creatinine 0.54 mg/dL 0.51-0.95 BUN/Creatinine Ratio 25.9 High 8-20 Calcium 9.0 mg/dL 8.6-10.3 Total Protein 6.6 g/dL 6.4-8.9 Albumin 4.4 g/dL 3.2-5.2 Globulin 2.2 g/dL 2-4 Albumin/Globulin Ratio 2.0 1-3 Total Bilirubin 0.30 mg/dL 0.2-1.0 Alkaline Phosphatase 46 U/L 34-104 Alt 10 U/L 7-52 Ast 10 U/L Low 13-39 Egfr Non- 126.3 >60 Egfr 162.5 >60 45 Laboratory test finding 09/05/2015 Hemoglobin A1c (Glyco 7.4 % High Less than 6.0 46 HGB) Vitamin B12 208 pg/mL 180-914 47 Vitamin D Total 25(Oh) 23.6 ng/mL Low 30-50 Laboratory test finding 06/07/2015 Point of Care Glucose 184 mg/dL High 74 -106 48 Laboratory test finding 03/17/2015 Hemoglobin A1c 6.5 5-7 Urine Microalbumin Random 03/17/2015 Ur Microalbumin (mg/L) 63.0 mg/L Urine Creatinine 84.69 mg/dL Urine Microalbumin/Creatinine 74.3 ug/mg High <31 Laboratory test finding 03/17/2015 Methylmalonic Acid Mma 0.14 nmol/mL <= 0.40 49 Basic Metabolic Panel 03/17/2015 Sodium 137 mmol/L 133-145 Potassium 4.1 mmol/L 3.5-5.0 Chloride 103 mmol/L 101-111 Co2 Carbon Dioxide 28 mmol/L 22-32 Anion Gap 6 mmol/L 2-11 Glucose 122 mg/dL High 70-100 Blood Urea Nitrogen 13 mg/dL 6-24 Creatinine 0.50 mg/dL Low 0.51-0.95 BUN/Creatinine Ratio 26.0 High 8-20 Calcium 9.6 mg/dL 8.6-10.3 Egfr Non- 138.8 >60 Egfr 178.5 >60 50 Laboratory test finding 03/17/2015 Vitamin D Total 25(Oh) 27.1 ng/mL Low 30-50 Vitamin B12 189 pg/mL 180-914 51 Laboratory test finding 11/18/2014 Vitamin B12 218 pg/mL 180-914 52, 53 Lipid Profile (Trig/Chol/HDL) 11/18/2014 Triglycerides 131 mg/dL 52, 54 Cholesterol 116 mg/dL 52, 55 HDL Cholesterol 44.0 mg/dL 52, 56 LDL Cholesterol 46 mg/dL 52, 57 Vitamin D, 25 Hydroxy 11/18/2014 25-Hydroxy Vitamin D2 <4.0 ng/mL 52 25-Hydroxy Vitamin D3 21 ng/mL 52 25-Hydroxy Vitamin D Total 21 ng/mL 52, 58 Comp Metabolic Panel 11/18/2014 Sodium 136 mmol/L 133-145 52 Potassium 3.6 mmol/L 3.5-5.0 52 Chloride 103 mmol/L 101-111 52 Co2 Carbon Dioxide 27 mmol/L 22-32 52 Anion Gap 6 mmol/L 2-11 52 Glucose 143 mg/dL High 70-100 52 Blood Urea Nitrogen 8 mg/dL 6-24 52 Creatinine 0.49 mg/dL Low 0.51-0.95 52 BUN/Creatinine Ratio 16.3 8-20 52 Calcium 9.3 mg/dL 8.6-10.3 52 Total Protein 7.1 g/dL 6.4-8.9 52 Albumin 4.7 g/dL 3.2-5.2 52 Globulin 2.4 g/dL 2-4 52 Albumin/Globulin Ratio 2.0 1-3 52 Total Bilirubin 0.50 mg/dL 0.2-1.0 52 Alkaline Phosphatase 53 U/L 34-104 52 Alt 11 U/L 7-52 52 Ast 10 U/L Low 13-39 52 Egfr Non- 142.1 >60 52 Egfr 182.8 >60 52, 59 Laboratory test finding 11/18/2014 Hemoglobin A1c 6.8 5-7 Comp Metabolic Panel 05/16/2014 Sodium 136 mmol/L 133-145 Potassium 4.3 mmol/L 3.7-5.6 Chloride 103 mmol/L 101-111 Co2 Carbon Dioxide 27 mmol/L 22-32 Anion Gap 6 mmol/L 2-11 Glucose 176 mg/dL High 70-100 Blood Urea Nitrogen 9 mg/dL 6-24 Creatinine 0.47 mg/dL Low 0.51-0.95 BUN/Creatinine Ratio 19.1 8-20 Calcium 9.1 mg/dL 8.6-10.3 Total Protein 7.0 g/dL 6.4-8.9 Albumin 4.5 g/dL 3.2-5.2 Globulin 2.5 g/dL 2-4 Albumin/Globulin Ratio 1.8 1-3 Total Bilirubin 0.30 mg/dL 0.2-1.0 Alkaline Phosphatase 61 U/L 34-104 Alt 12 U/L 7-52 Ast 11 U/L Low 13-39 Egfr Non- 149.9 >60 Egfr 192.8 >60 60 Lipid Profile (Trig/Chol/HDL) 05/16/2014 Triglycerides 145 mg/dL 61 Cholesterol 129 mg/dL 62 HDL Cholesterol 39.2 mg/dL 63 LDL Cholesterol 61 mg/dL 64 Urine Microalbumin Random 05/16/2014 Ur Microalbumin (mg/L) 57.0 mg/L Urine Creatinine 33.44 mg/dL Urine Microalbumin/Creatinine 170.4 High Less Than 31 Laboratory test finding 05/16/2014 Vitamin B12 236 pg/mL 180-914 65 Vitamin D, 25 Hydroxy 05/16/2014 25-Hydroxy Vitamin D2 <4.0 ng/mL 25-Hydroxy Vitamin D3 27 ng/mL 25-Hydroxy Vitamin D Total 27 ng/mL 66 Laboratory test finding 04/26/2014 Hemoglobin A1c 7.2 High 5-7 Laboratory test finding 01/04/2014 Hemoglobin A1c 7.3 High 5-7 Comp Metabolic Panel 10/06/2013 Sodium 138 mmol/L 133-145 Potassium 4.4 mmol/L 3.7-5.6 Chloride 103 mmol/L 101-111 Co2 Carbon Dioxide 26 mmol/L 22-32 Anion Gap 9 mmol/L 2-11 Glucose 220 mg/dL High 70-100 Blood Urea Nitrogen 8 mg/dL 6-24 Creatinine 0.52 mg/dL 0.51-0.95 BUN/Creatinine Ratio 15.4 8-20 Calcium 9.5 mg/dL 8.6-10.3 Total Protein 7.2 g/dL 6.4-8.9 Albumin 4.7 g/dL 3.2-5.2 Globulin 2.5 g/dL 2-4 Albumin/Globulin Ratio 1.9 1-3 Total Bilirubin 0.50 mg/dL 0.2-1.0 Alkaline Phosphatase 72 U/L 34-104 Alt 13 U/L 7-52 Ast 11 U/L Low 13-39 Egfr Non- 133.4 >60 Egfr 171.6 >60 67 Vitamin D, 25 Hydroxy 10/06/2013 25-Hydroxy Vitamin D2 <4.0 ng/mL 25-Hydroxy Vitamin D3 16 ng/mL 25-Hydroxy Vitamin D Total 16 ng/mL 68 Laboratory test finding 10/06/2013 Vitamin B12 287 pg/mL 180-914 69 Laboratory test finding 10/06/2013 Hemoglobin A1c 6.9 5-7 Comp Metabolic Panel 05/19/2013 Sodium 140 mmol/L 133-145 Potassium 4.1 mmol/L 3.5-5.0 Chloride 107 mmol/L 101-111 Co2 Carbon Dioxide 23.0 mmol/L 22-32 Anion Gap 10.0 mmol/L 2-11 Glucose 99 mg/dL 70-100 Blood Urea Nitrogen 8 mg/dL 6-24 Creatinine 0.50 mg/dL 0.50-1.40 BUN/Creatinine Ratio 16.0 8-20 Calcium 9.2 mg/dL 8.1-9.9 Total Protein 6.0 g/dL Low 6.2-8.1 Albumin 3.4 g/dL Low 3.6-5.4 Globulin 2.6 g/dL 2-4 Albumin/Globulin Ratio 1.3 1-3 Total Bilirubin 0.1 mg/dL Low 0.4-1.5 Alkaline Phosphatase 84 U/L 30-110 Alt 18 U/L 14-54 Ast 16 U/L 12-42 Egfr Non- 140.4 >60 Egfr 180.6 >60 70 Lipid Profile (Trig/Chol/HDL) 05/19/2013 Triglycerides 173 mg/dL 40-200 Cholesterol 178 mg/dL Less than 200 HDL Cholesterol 88 mg/dL High 40-60 71 Cholesterol/HDL Ratio 2.0 Average 1-4.44 LDL Cholesterol 55.4 Less Than 100 72 Urine Microalbumin Random 05/19/2013 Ur Microalbumin (mg/L) 77.0 mg/L 73 Urine Creatinine 15.7 mg/dL Urine Microalbumin/Creatinine 490.4 High Less Than 31 Laboratory test finding 05/19/2013 Vitamin B12 233 pg/mL 180-914 Vitamin D, 25 Hydroxy 05/19/2013 25-Hydroxy Vitamin D2 <4.0 ng/mL 25-Hydroxy Vitamin D3 29 ng/mL 25-Hydroxy Vitamin D Total 29 ng/mL 74 Laboratory test finding 05/19/2013 Hemoglobin A1c 5.8 5-7 CBC Auto Diff 09/20/2012 White Blood Count 11.8 10^3/uL High 4.8-10.8 Red Blood Count 4.62 10^6/uL 4.0-5.4 Hemoglobin 14.5 g/dL 12.0-16.0 Hematocrit 43 % 35-47 Mean Corpuscular Volume 92 fL 80-97 Mean Corpuscular Hemoglobin 31 pg 27-31 Mean Corpuscular HGB Conc 34 g/dL 31-36 Red Cell Distribution Width 13 % 10.5-15 Platelet Count 178 10^3/uL 150-450 Mean Platelet Volume 9 um3 7.4-10.4 Abs Neutrophils 8.7 10^3/uL High 1.5-7.7 Abs Lymphocytes 2.5 10^3/uL 1.0-4.8 Abs Monocytes 0.5 10^3/uL 0-0.8 Abs Eosinophils 0 10^3/uL 0-0.6 Abs Basophils 0.1 10^3/uL 0-0.2 Abs Nucleated RBC 0.01 10^3/uL Granulocyte % 73.4 % 38-83 Lymphocyte % 21.2 % Low 25-47 Monocyte % 4.4 % 1-9 Eosinophil % 0.3 % 0-6 Basophil % 0.7 % 0-2 Nucleated Red Blood Cells % 0 Comp Metabolic Panel 09/20/2012 Sodium 136 mmol/L 133-145 Potassium 3.7 mmol/L 3.5-5.0 Chloride 105 mmol/L 101-111 Co2 Carbon Dioxide 23.0 mmol/L 22-32 Anion Gap 8.0 mmol/L 2-11 Glucose 266 mg/dL High 70-100 Blood Urea Nitrogen 14 mg/dL 6-24 Creatinine 0.50 mg/dL 0.50-1.40 BUN/Creatinine Ratio 28.0 High 8-20 Calcium 9.1 mg/dL 8.1-9.9 Total Protein 7.2 g/dL 6.2-8.1 Albumin 4.0 g/dL 3.6-5.4 Globulin 3.2 g/dL 2-4 Albumin/Globulin Ratio 1.3 1-3 Total Bilirubin 0.5 mg/dL 0.4-1.5 Alkaline Phosphatase 58 U/L 30-110 Alt 16 U/L 14-54 Ast 15 U/L 12-42 Egfr Non- 140.4 >60 Egfr 180.6 >60 75 Laboratory test finding 09/20/2012 Lipase 33 U/L 22-51 Beta HCG Quantitative 827.0 MIU/ML High 0.0-5.0 76 C Reactive Protein 1.1 mg/dL High Less than 0.5 Laboratory test 09/04/2012 Hemoglobin A1c 9.2 High 5-7 finding Laboratory test 05/08/2012 Hemoglobin A1c 10.0 High 5-7 finding Laboratory test 02/17/2012 Hemoglobin A1c 9.9 High 5-7 finding Rapid Influenza A And 12/08/2011 M 77 B Anitgen <SEE NOTE> Laboratory test 12/08/2011 Monospot NEGATIVE Negative finding Comp Metabolic Panel 12/08/2011 Sodium 135 mmol/L 135-145 Potassium 3.8 mmol/L 3.5-5.0 Chloride 99 mmol/L Low 101-111 Co2 (Carbon Dioxide) 27.0 mmol/L 22-32 Anion Gap 9.0 mmol/L 2-11 78 Glucose 314 mg/dL High 70-100 BUN 10 mg/dL 6-24 Creatinine 0.4 mg/dL Low 0.50-1.40 One Over Creatinine 2.50 BUN/Creatinine Ratio 25.0 High 8-20 Calcium 9.1 mg/dL 8.1-9.9 Total Protein 7.6 GM/DL 6.2-8.1 Albumin 3.8 GM/DL 3.6-5.4 Globulin 3.8 GM/DL 2-4 Albumin/Globulin Ratio 1.0 1-3 Bilirubin Total 0.3 mg/dL Low 0.4-1.5 79 Alkaline Phosphatase 92 U/L 30-110 Alt (SGPT) 14 U/L 14-54 Ast (Sgot) 14 U/L 12-42 eGFR Non- 182.7 > 60 eGFR 235.0 > 60 80 Laboratory test finding 12/08/2011 Lipase 45 U/L 22-51 C Reactive Protein 1.8 mg/dL High Less Than 0.5 CBC No Diff 12/08/2011 White Blood Count 12.4 CUMM High 4.8-10.8 Red Cell Count 4.66 CUMM 4.2-5.4 Hemoglobin 15.1 g/dL 12.0-16.0 Hematocrit 43 % 35-47 Mean Corpuscular Volume 92 um3 79-97 Mean Corpuscular Hemoglob 32 pg High 27-31 Mean Corpuscular HGB Cone 35 g/dL 32-36 Redcell Distribution WDTH 12 % 10.5-15 Platelet Count 186 CUMM 150-450 Mean Platelet Volume 9.6 um3 7.4-10.4 Manual Differential 12/08/2011 Polysegmented Neutrophil 70 % 38-83 Lymphocyte 29 % 25-47 Monocyte 1 % 0-13 Absolute Neutrophil Count 8.60 RBC Morphology NORMAL Laboratory test finding 12/08/2011 Erythrocyte Sed Rate 49 MM/HR High 0- 15 CBC Auto Diff 09/09/2011 White Blood Count 7.9 CUMM 4.8-10.8 Red Cell Count 4.37 CUMM 4.2-5.4 Hemoglobin 14.4 g/dL 12.0-16.0 Hematocrit 40 % 35-47 Mean Corpuscular Volume 92 um3 79-97 Mean Corpuscular Hemoglob 33 pg High 27-31 Mean Corpuscular HGB Cone 36 g/dL 32-36 Redcell Distribution WDTH 12 % 10.5-15 Platelet Count 154 CUMM 150-450 Mean Platelet Volume 10.2 um3 7.4-10.4 Gran % 68.3 % 38-83 Lymph % 25.2 % 25-47 Mononuclear % 5.5 % 1-9 Eosinophil % 0.4 % 0-6 Basophil % 0.6 % 0-2 Abs Lymphs 2.0 1.0-4.8 Abs Mononuclear 0.4 0-0.8 Absolute Neutrophil Count 5.5 1.5-7.7 Abs Eosinophils 0 0-0.6 Abs Basophils 0 0-0.2 Vitamin D, 25 Hydroxy 09/09/2011 25-Hydroxy Vitamin D2 20 ng/mL () 25-Hydroxy Vitamin D3 8.5 ng/mL () 25-Hydroxy Vitamin D Total 29 ng/mL () 81 Laboratory test finding 09/09/2011 Ferritin 71 NG/ML 11.0-307 Lipid Profile (Trig/Chol/HDL) 09/09/2011 Triglyceride 131 mg/dL 40-200 Cholesterol 148 mg/dL Less Than 200 82 High Density Lipoprotein 38 mg/dL Low 40-60 83 Cholesterol/HDL Ratio 3.89 AVERAGE 1-4.44 Low Density Lipoprotein 84 mg/dL Less Than 100 84 Laboratory test finding 09/03/2011 Hemoglobin A1c 9.1 High 5-7 Urine Microalbumin Random 09/03/2011 Microalbumin (MG/L) 54.0 mg/L Urine Creatinine 25.6 mg/dL Abdulkadir Alb/Creatinine Ratio 210.9 UG/MG High Less Than 30 85 Laboratory test finding 05/31/2011 Hemoglobin A1c 9.9 High 5-7 Comp Metabolic Panel 05/31/2011 Sodium 136 mmol/L 135-145 86 Potassium 4.7 mmol/L 3.5-5.0 86 Chloride 103 mmol/L 101-111 86 Co2 (Carbon Dioxide) 26.0 mmol/L 22-32 86 Anion Gap 7.0 mmol/L 2-11 86, 87 Glucose 276 mg/dL High 70-100 86 BUN 9 mg/dL 6-24 86 Creatinine 0.4 mg/dL Low 0.50-1.40 86 One Over Creatinine 2.50 86 BUN/Creatinine Ratio 22.5 High 8-20 86 Calcium 9.4 mg/dL 8.1-9.9 86 Total Protein 7.1 GM/DL 6.2-8.1 86 Albumin 4.5 GM/DL 3.6-5.4 86 Globulin 2.6 GM/DL 2-4 86 Albumin/Globulin Ratio 1.7 1-3 86 Bilirubin Total 1.4 mg/dL 0.4-1.5 86, 88 Alkaline Phosphatase 82 U/L 30-110 86 Alt (SGPT) 11 U/L Low 14-54 86 Ast (Sgot) 18 U/L 12-42 86 eGFR Non- 183.8 > 60 86 eGFR 236.4 > 60 86, 89 Lipid Profile (Trig/Chol/HDL) 05/31/2011 Triglyceride 243 mg/dL High 40- 200 86 Cholesterol 134 mg/dL Less Than 200 86, 90 High Density Lipoprotein 33 mg/dL Low 40-60 86, 91 Cholesterol/HDL Ratio 4.06 AVERAGE 1-4.44 86 Low Density Lipoprotein 52 mg/dL Less Than 100 86, 92 Laboratory test finding 03/20/2011 Hemoglobin A1c 11.1 % High Less Than 6.0 93 Comp Metabolic Panel 03/20/2011 Sodium 134 mmol/L Low 135-145 Potassium 4.0 mmol/L 3.5-5.0 Chloride 102 mmol/L 101-111 Co2 (Carbon Dioxide) 21.0 mmol/L Low 22-32 Anion Gap 11.0 mmol/L 2-11 94 Glucose 302 mg/dL High 70-100 BUN 14 mg/dL 6-24 Creatinine 0.40 mg/dL Low 0.50-1.40 One Over Creatinine 2.50 BUN/Creatinine Ratio 35.0 High 8-20 Calcium 8.6 mg/dL 8.1-9.9 Total Protein 7.0 GM/DL 6.2-8.1 Albumin 3.9 GM/DL 3.6-5.4 Globulin 3.1 GM/DL 2-4 Albumin/Globulin Ratio 1.3 1-3 Bilirubin Total 0.6 mg/dL 0.4-1.5 95 Alkaline Phosphatase 82 U/L 30-110 Alt (SGPT) 15 U/L 14-54 Ast (Sgot) 15 U/L 12-42 eGFR Non- 183.8 > 60 eGFR 236.4 > 60 96 Lipid Profile (Trig/Chol/HDL) 03/20/2011 Triglyceride 556 mg/dL High 40- 200 Cholesterol 150 mg/dL Less Than 200 97 High Density Lipoprotein 28 mg/dL Low 40-60 98 Cholesterol/HDL Ratio 5.36 AVERAGE High 1-4.44 Low Density Lipoprotein (SEE NOTE) mg/dL Less Than 100 99 Vitamin D, 25 Hydroxy 03/20/2011 25-Hydroxy Vitamin D2 <4.0 ng/mL () 25-Hydroxy Vitamin D3 22 ng/mL () 25-Hydroxy Vitamin D Total 22 ng/mL () 100 Urine Microalbumin Random 08/29/2010 Microalbumin (MG/L) 188.0 mg/L Urine Creatinine 22.71 mg/dL Abdulkadir Alb/Creatinine Ratio 827.8 UG/MG High Less Than 30 101 Comp Metabolic Panel 08/29/2010 Sodium 134 mmol/L Low 135-145 Potassium 4.4 mmol/L 3.5-5.0 Chloride 100 mmol/L Low 101-111 Co2 (Carbon Dioxide) 25.0 mmol/L 22-32 Anion Gap 9.0 mmol/L 2-11 102 Glucose 330 mg/dL High 70-100 BUN 18 mg/dL 6-24 Creatinine 0.50 mg/dL 0.50-1.40 One Over Creatinine 2.00 BUN/Creatinine Ratio 36.0 High 8-20 Calcium 9.6 mg/dL 8.1-9.9 Total Protein 7.2 GM/DL 6.2-8.1 Albumin 4.3 GM/DL 3.6-5.4 Globulin 2.9 GM/DL 2-4 Albumin/Globulin Ratio 1.5 1-3 Bilirubin Total 0.7 mg/dL 0.4-1.5 103 Alkaline Phosphatase 74 U/L 30-110 Alt (SGPT) 15 U/L 14-54 Ast (Sgot) 13 U/L 12-42 eGFR Non- 151.0 > 60 eGFR 182.7 > 60 104 Lipid Profile (Trig/Chol/HDL) 08/29/2010 Triglyceride 384 mg/dL High 40- 200 Cholesterol 169 mg/dL Less Than 200 105 High Density Lipoprotein 40 mg/dL 40-60 106 Cholesterol/HDL Ratio 4.23 AVERAGE 1-4.44 Low Density Lipoprotein 52 mg/dL Less Than 100 107 Vitamin D, 25 Hydroxy 08/29/2010 25-Hydroxy Vitamin D2 <4.0 ng/mL () 25-Hydroxy Vitamin D3 12 ng/mL () 25-Hydroxy Vitamin D Total 12 ng/mL () 108 Laboratory test 08/29/2010 Hemoglobin A1c 11.3 % High Less Than 6.0 109 finding Vitamin D, 25 03/12/2010 25-Hydroxy Vitamin <4.0 ng/mL () Hydroxy D2 25-Hydroxy Vitamin D3 24 ng/mL () 25-Hydroxy Vitamin D Total 24 ng/mL () 110 CBC With Electronic Diff 03/02/2010 White Blood Count 8.3 CUMM 4.8-10.8 Red Cell Count 4.78 CUMM 4.2-5.4 Hemoglobin 15.0 g/dL 12.0-16.0 Hematocrit 43 % 35-47 Mean Corpuscular Volume 90 um3 79-97 Mean Corpuscular Hemoglob 31 pg 27-31 Mean Corpuscular HGB Cone 35 g/dL 32-36 Redcell Distribution WDTH 13 % 10.5-15 Platelet Count 172 CUMM 150-450 Mean Platelet Volume 9.5 um3 7.4-10.4 Gran % 69.8 % 38-83 Lymph % 24.8 % Low 25-47 Mononuclear % 4.7 % 1-9 Eosinophil % 0.4 % 0-6 Basophil % 0.3 % 0-2 Abs Lymphs 2.1 1.0-4.8 Abs Mononuclear 0.4 0-0.8 Absolute Neutrophil Count 5.8 1.5-7.7 Abs Eosinophils 0 0-0.6 Abs Basophils 0 0-0.2 Comp Metabolic Panel 03/02/2010 Sodium 135 mmol/L 135-145 Potassium 3.7 mmol/L 3.5-5.0 Chloride 103 mmol/L 101-111 Co2 (Carbon Dioxide) 24.0 mmol/L 22-32 Anion Gap 8.0 mmol/L 2-11 111 Glucose 382 mg/dL High 70-100 112 BUN 12 mg/dL 6-24 Creatinine 0.30 mg/dL Low 0.50-1.40 One Over Creatinine 3.30 BUN/Creatinine Ratio 40.0 High 8-20 Calcium 9.5 mg/dL 8.1-9.9 113 Total Protein 6.2 GM/DL 6.2-8.1 Albumin 3.8 GM/DL 3.6-5.4 Globulin 2.4 GM/DL 2-4 Albumin/Globulin Ratio 1.6 1-3 Bilirubin Total 0.7 mg/dL 0.4-1.5 114 Alkaline Phosphatase 73 U/L 30-110 Alt (SGPT) 19 U/L 14-54 Ast (Sgot) 16 U/L 12-42 eGFR Non- 274.0 > 60 eGFR 331.5 > 60 115 Laboratory test finding 03/02/2010 TSH 0.90 MIU/ML 0.34-5.60 Hemoglobin A1c 11.5 % High Less Than 6.0 116 Comp Metabolic Panel 08/30/2009 Sodium 134 mmol/L Low 135-145 Potassium 4.3 mmol/L 3.5-5.0 Chloride 99 mmol/L Low 101-111 Co2 (Carbon Dioxide) 22.0 mmol/L 22-32 Anion Gap 13.0 mmol/L High 2-11 117 Glucose 280 mg/dL High 70-100 118 BUN 12 mg/dL 6-24 Creatinine 0.40 mg/dL Low 0.50-1.40 One Over Creatinine 2.50 BUN/Creatinine Ratio 30.0 High 8-20 Calcium 9.5 mg/dL 8.1-9.9 119 Total Protein 6.6 GM/DL 6.2-8.1 Albumin 4.1 GM/DL 3.6-5.4 Globulin 2.5 GM/DL 2-4 Albumin/Globulin Ratio 1.6 1-3 Bilirubin Total 0.4 mg/dL 0.4-1.5 120 Alkaline Phosphatase 56 U/L 30-110 Alt (SGPT) 23 U/L 14-54 Ast (Sgot) 17 U/L 12-42 eGFR Non- 196.6 > 60 eGFR 237.9 > 60 121 Laboratory test finding 08/30/2009 Hemoglobin A1c 10.4 % High Less Than 6.0 122 Basic Metabolic Panel 06/30/2009 Sodium 135 mmol/L 135-145 Potassium 4.2 mmol/L 3.5-5.0 Chloride 103 mmol/L 101-111 Co2 (Carbon Dioxide) 25.0 mmol/L 22-32 Anion Gap 7.0 mmol/L 2-11 123 Glucose 421 mg/dL High 70-100 124 BUN 13 mg/dL 6-24 Creatinine 0.50 mg/dL 0.50-1.40 One Over Creatinine 2.00 BUN/Creatinine Ratio 26.0 High 8-20 Calcium 9.5 mg/dL 8.1-9.9 125 eGFR Non- 152.0 > 60 eGFR 183.9 > 60 126 Urine Microalbumin Random 06/16/2009 Microalbumin (MG/L) 208.0 mg/L Urine Creatinine 69.25 mg/dL Abdulkadir Alb/Creatinine Ratio 300.3 UG/MG High Less Than 30 127 Comp Metabolic Panel 06/16/2009 Sodium 136 mmol/L 135-145 Potassium 3.7 mmol/L 3.5-5.0 Chloride 100 mmol/L Low 101-111 Co2 (Carbon Dioxide) 26.0 mmol/L 22-32 Anion Gap 10.0 mmol/L 2-11 128 Glucose 220 mg/dL High 70-100 129 BUN 9 mg/dL 6-24 Creatinine 0.40 mg/dL Low 0.50-1.40 One Over Creatinine 2.50 BUN/Creatinine Ratio 22.5 High 8-20 Calcium 9.1 mg/dL 8.1-9.9 130 Total Protein 6.8 GM/DL 6.2-8.1 Albumin 4.0 GM/DL 3.6-5.4 Globulin 2.8 GM/DL 2-4 Albumin/Globulin Ratio 1.4 1-3 Bilirubin Total 0.6 mg/dL 0.4-1.5 131 Alkaline Phosphatase 82 U/L 30-110 Alt (SGPT) 23 U/L 14-54 Ast (Sgot) 18 U/L 12-42 eGFR Non- 197.9 > 60 eGFR 239.4 > 60 132 Laboratory test finding 06/16/2009 Hemoglobin A1c 10.3 % High Less Than 6.0 133 Lipid Profile 06/16/2009 Triglyceride 327 mg/dL High 40-200 (Trig/Chol/HDL) Cholesterol 143 mg/dL Less Than 200 134 High Density Lipoprotein 32 mg/dL Low 40-60 135 Cholesterol/HDL Ratio 4.47 AVERAGE High 1-4.44 Low Density Lipoprotein 46 mg/dL Less Than 100 136 Vitamin D, 25 Hydroxy 06/16/2009 25-Hydroxy Vitamin D2 <4.0 ng/mL () 25-Hydroxy Vitamin D3 14 ng/mL () 25-Hydroxy Vitamin D Total 14 ng/mL () 137 1 Therapeutic target for the treatment of diabetes mellitus patients is <7% HBA1C, and in selective patients <6.0%. Please refer to [place] [employer] diabetic care guidelines for further information. 2 Because ethnic data is not always readily available, this report includes an eGFR for both -Americans and non- Americans. The National Kidney Disease Education Program (NKDEP) does not endorse the use of the MDRD equation for patients that are not between the ages of 18 and 70, are , have extremes of body size, muscle mass, or nutritional status, or are non- or non-. According to the National Kidney Foundation, irrespective of diagnosis, the stage of the disease is based on the level of kidney function: Stage Description GFR(mL/min/1.73 m(2)) 1 Kidney damage with normal or decreased GFR 90 2 Kidney damage with mild decrease in GFR 60-89 3 Moderate decrease in GFR 30-59 4 Severe decrease in GFR 15-29 5 Kidney failure <15 (or dialysis) 3 SEE RESULT BELOW Name: PRASHANT EVANS : [address]: Chary Wood MD Acct: [id number] Unit: [id number] AGE: 42 Location: LAB Re02/07/18 SEX: F Status: REG REF SPEC: [id number] IOANA: 02/07/18-[address]: Chary Wood MD REQ: [id number] RECD: 02/07/18 STATUS: COMP _ SOURCE: URINE SPDESC: ORDERED: Urine Culture Procedure Result Reported Site Urine Culture Final 02/08/18- 1201 ML No Growth (<1,000 CFU/mL) * - Main Lab . END OF REPORT DEPARTMENT OF PATHOLOGY, [address] [place] [address] Saleem Barnett M.D. Director [facility] # [id number] 4 Nursing Staff Development Coordinator: [id number] SEE RESULT BELOW Name: PRASHANT EVANS : [address]: Jurgen Allen MD Acct: [id number] Unit: [id number] AGE: 42 Location: ED Re10/25/17 SEX: F Status: DEP ER SPEC: [id number] IOANA: 10/25/[address]: Emma RODRIGUEZ REQ: [id number] RECD: 10/25/17 STATUS: PETE DELAROSA DR: [facility] Chary Wood MD _ SOURCE: URINE SPDESC: ORDERED: Urine Culture Procedure Result Reported Site Urine Culture Final 10/27/17- 0907 ML Mixed arnold; possible contamination. Suggest resubmission. * ML - Main Lab . END OF REPORT DEPARTMENT OF PATHOLOGY, [address] [place] [address] Saleem Barnett M.D. Director [facility] # [id number] 7 Because ethnic data is not always readily available, this report includes an eGFR for both -Americans and non- Americans. The National Kidney Disease Education Program (NKDEP) does not endorse the use of the MDRD equation for patients that are not between the ages of 18 and 70, are , have extremes of body size, muscle mass, or nutritional status, or are non- or non-. According to the National Kidney Foundation, irrespective of diagnosis, the stage of the disease is based on the level of kidney function: Stage Description GFR(mL/min/1.73 m(2)) 1 Kidney damage with normal or decreased GFR 90 2 Kidney damage with mild decrease in GFR 60-89 3 Moderate decrease in GFR 30-59 4 Severe decrease in GFR 15-29 5 Kidney failure <15 (or dialysis) 8 [facility] Severe Sepsis and Septic Shock Management Bundle Measure requires all lactic acids initially measuring >2.0 mmol/L be repeated. 9 Desirable: <150 Borderline High: 150-199 High: 200-499 Very High: >500 10 Desirable: <200 Borderline High: 200-239 High: >239 11 Low: <40 Desirable: 40-60 High: >60 12 Desirable: <100 Near Optimal: 100-129 Borderline High: 130-159 High: 160-189 Very High: >189 13 Because ethnic data is not always readily available, this report includes an eGFR for both -Americans and non- Americans. The National Kidney Disease Education Program (NKDEP) does not endorse the use of the MDRD equation for patients that are not between the ages of 18 and 70, are , have extremes of body size, muscle mass, or nutritional status, or are non- or non-. According to the National Kidney Foundation, irrespective of diagnosis, the stage of the disease is based on the level of kidney function: Stage Description GFR(mL/min/1.73 m(2)) 1 Kidney damage with normal or decreased GFR 90 2 Kidney damage with mild decrease in GFR 60-89 3 Moderate decrease in GFR 30-59 4 Severe decrease in GFR 15-29 5 Kidney failure <15 (or dialysis) 14 FASTING 10 HOUR DO THIS IN 6 WEEKS 15 [id number] Normal Range 180 to 914 Indeterminate Range 145 to 180 Deficient Range <145 17 Normally menstruating females - Follicular phase 3 - 9 - Mid-cycle peak 4 - 23 - Luteal phase 1 - 6 Postmenopausal females 16 - 114 18 Therapeutic target for the treatment of diabetes mellitus patients is <7% HBA1C, and in selective patients <6.0%. Please refer to [place] [employer] diabetic care guidelines for further information. 19 If is still suspected, please repeat test after 48 to 72 hours. This test detects intact HCG only and is indicated for the early detection of . 20 SEE RESULT BELOW Name: PRASHANT EVANS : [address]: Juaquin Ashley DO Acct: [id number] Unit: [id number] AGE: 41 Location: ED Re04/17/17 SEX: F Status: DEP ER SPEC: [id number] IOANA: 04/17/[address]: Juaquin Ashley DO REQ: [id number] RECD: 04/17/17 STATUS: PETE DELAROSA DR: [facility] Chary Wood MD _ SOURCE: URINE SPDESC: ORDERED: Urine Culture Procedure Result Reported Site Urine Culture Final 04/19/17- 08 ML No growth of clinically significant organisms * ML - MAIN LAB ([facility]) . END OF REPORT * ML=Testing performed at Main Lab DEPARTMENT OF PATHOLOGY, [address] [place] [address] Saleem Barnett M.D. Director [facility] # [id number] 21 Desirable <150 Borderline high 150-199 High 200-499 Very High >500 22 Desirable <200 Borderline high 200-239 High >239 23 Low <40 Desirable: 40-60 High: >60 24 Desirable: <100 mg/dL Near Optimal: 100-129 mg/dL Borderline High: 130-159 mg/dL High: 160-189 mg/dL Very High: >189 mg/dL 25 Because ethnic data is not always readily available, this report includes an eGFR for both -Americans and non- Americans. The National Kidney Disease Education Program (NKDEP) does not endorse the use of the MDRD equation for patients that are not between the ages of 18 and 70, are , have extremes of body size, muscle mass, or nutritional status, or are non- or non-. According to the National Kidney Foundation, irrespective of diagnosis, the stage of the disease is based on the level of kidney function: Stage Description GFR(mL/min/1.73 m(2)) 1 Kidney damage with normal or decreased GFR 90 2 Kidney damage with mild decrease in GFR 60-89 3 Moderate decrease in GFR 30-59 4 Severe decrease in GFR 15-29 5 Kidney failure <15 (or dialysis) 26 Therapeutic target for the treatment of diabetes Mellitus patients is <7% HBA1C, and in selective patients <6.0%.Please refer to [place] [employer] Diabetic care guidelines for further information. 27 Normal Range 180 to 914 Indeterminate Range 145 to 180 Deficient Range <145 28 ADDITIONAL INFORMATION This test was developed and its performance characteristics determined by [facility] in a manner consistent with CLIA requirements. This test has not been cleared or approved by the U.S. Food and Drug Administration. Test Performed by: [facility] - [address], [place] [address] 29 DO THIS AT THE [facility] SOON 30 SEE RESULT BELOW Name: PRASHANT EVANS : [address]: Chary Wood MD Acct: [id number] Unit: [id number] AGE: 41 Location: [facility] Re10/15/16 SEX: F Status: REG REF SPEC: [id number] IOANA: 10/15/16-[address]: Chary Wood MD REQ: [id number] RECD: 10/15/16 STATUS: COMP _ SOURCE: TEZ [facility]: ORDERED: Melissa Villalobos Request COMMENTS: [id number] Procedure Result Reported Site Rapid Influenza A B Request Final 10/15/162025 ML Specimen received for Influenza A/B Molecular testing * ML - MAIN LAB ([facility]) . END OF REPORT * ML=Testing performed at Main Lab DEPARTMENT OF PATHOLOGY, [address] [place] [address] Saleem Barnett M.D. Director [facility] # [id number] 31 Nursing Staff Development Coordinator: [id number] PACO ROBERTO 32 Unable to calculate due to low microalbumin 33 [id number] 34 Unable to calculate due to low microalbumin 35 SEE RESULT BELOW Name: PRASHANT EVANS : [address]: Juma Coronado NP Acct: [id number] Unit: [id number] AGE: 40 Location: [facility] Re01/25/16 SEX: F Status: REG REF SPEC: [id number] IOANA: 01/25/16-[address] [facility] [address]: Juma Coronado NP REQ: [id number] RECD: 01/25/16 STATUS: COMP _ SOURCE: URINE SPDESC: ORDERED: Urine Culture COMMENTS: [id number] Procedure Result Reported Site Urine Culture Final 01/27/16- 1035 ML No growth of clinically significant organisms * ML - MAIN LAB ([facility]) . END OF REPORT * ML=Testing performed at Main Lab DEPARTMENT OF PATHOLOGY, [address] [place] [address] Saleem Barnett M.D. Director [facility] # [id number] 36 Desirable <150 Borderline high 150-199 High 200-499 Very High >500 37 Desirable <200 Borderline high 200-239 High >239 38 Low <40 Desirable: 40-60 High: >60 39 Desirable: <100 mg/dL Near Optimal: 100-129 mg/dL Borderline High: 130-159 mg/dL High: 160-189 mg/dL Very High: >189 mg/dL 40 Because ethnic data is not always readily available, this report includes an eGFR for both -Americans and non- Americans. The National Kidney Disease Education Program (NKDEP) does not endorse the use of the MDRD equation for patients that are not between the ages of 18 and 70, are , have extremes of body size, muscle mass, or nutritional status, or are non- or non-. According to the National Kidney Foundation, irrespective of diagnosis, the stage of the disease is based on the level of kidney function: Stage Description GFR(mL/min/1.73 m(2)) 1 Kidney damage with normal or decreased GFR 90 2 Kidney damage with mild decrease in GFR 60-89 3 Moderate decrease in GFR 30-59 4 Severe decrease in GFR 15-29 5 Kidney failure <15 (or dialysis) 41 Test Performed by: [place] [address] Wastewater [employer] Lab Analyst: Jacob Coyne II, M.D., Ph.D. 42 Therapeutic target for the treatment of diabetes Mellitus patients is <7% HBA1C, and in selective patients <6.0%.Please refer to [place] [employer] Diabetic care guidelines for further information. 43 Normally menstruating females - Follicular phase 3 - 9 - Mid-cycle peak 4 - 23 - Luteal phase 1 - 6 Postmenopausal females 16 - 114 44 Normal Range 180 to 914 Indeterminate Range 145 to 180 Deficient Range <145 45 Because ethnic data is not always readily available, this report includes an eGFR for both -Americans and non- Americans. The National Kidney Disease Education Program (NKDEP) does not endorse the use of the MDRD equation for patients that are not between the ages of 18 and 70, are , have extremes of body size, muscle mass, or nutritional status, or are non- or non-. According to the National Kidney Foundation, irrespective of diagnosis, the stage of the disease is based on the level of kidney function: Stage Description GFR(mL/min/1.73 m(2)) 1 Kidney damage with normal or decreased GFR 90 2 Kidney damage with mild decrease in GFR 60-89 3 Moderate decrease in GFR 30-59 4 Severe decrease in GFR 15-29 5 Kidney failure <15 (or dialysis) 46 Therapeutic target for the treatment of diabetes Mellitus patients is <7% HBA1C, and in selective patients <6.0%.Please refer to [place] [employer] Diabetic care guidelines for further information. 47 Normal Range 180 to 914 Indeterminate Range 145 to 180 Deficient Range <145 48 Nursing Staff Development Coordinator: [id number] DONIS ECHAVRARIA 49 Test Performed by: [place] [address] Wastewater Analyst Lab Analyst: Jacob Coyne II, M.D., Ph.D. 50 Because ethnic data is not always readily available, this report includes an eGFR for both -Americans and non- Americans. The National Kidney Disease Education Program (NKDEP) does not endorse the use of the MDRD equation for patients that are not between the ages of 18 and 70, are , have extremes of body size, muscle mass, or nutritional status, or are non- or non-. According to the National Kidney Foundation, irrespective of diagnosis, the stage of the disease is based on the level of kidney function: Stage Description GFR(mL/min/1.73 m(2)) 1 Kidney damage with normal or decreased GFR 90 2 Kidney damage with mild decrease in GFR 60-89 3 Moderate decrease in GFR 30-59 4 Severe decrease in GFR 15-29 5 Kidney failure <15 (or dialysis) 51 Normal Range 180 to 914 Indeterminate Range 145 to 180 Deficient Range <145 52 PT IS FASTING 53 Normal Range 180 to 914 Indeterminate Range 145 to 180 Deficient Range <145 54 Desirable <150 Borderline high 150-199 High 200-499 Very High >500 55 Desirable <200 Borderline high 200-239 High >239 56 Low <40 Desirable: 40-60 High: >60 57 Desirable: <100 mg/dL Near Optimal: 100-129 mg/dL Borderline High: 130-159 mg/dL High: 160-189 mg/dL Very High: >189 mg/dL 58 REFERENCE VALUE 25-HYDROXY D TOTAL (D2+D3) Optimum levels in the healthy population are 20-50, patients with bone disease may benefit from higher levels within this range. Test Performed by: [facility] - [address] [address] Wastewater Analyst Lab Analyst: Jacob Coyne II, M.D., Ph.D. 59 Because ethnic data is not always readily available, this report includes an eGFR for both -Americans and non- Americans. The National Kidney Disease Education Program (NKDEP) does not endorse the use of the MDRD equation for patients that are not between the ages of 18 and 70, are , have extremes of body size, muscle mass, or nutritional status, or are non- or non-. According to the National Kidney Foundation, irrespective of diagnosis, the stage of the disease is based on the level of kidney function: Stage Description GFR(mL/min/1.73 m(2)) 1 Kidney damage with normal or decreased GFR 90 2 Kidney damage with mild decrease in GFR 60-89 3 Moderate decrease in GFR 30-59 4 Severe decrease in GFR 15-29 5 Kidney failure <15 (or dialysis) 60 Because ethnic data is not always readily available, this report includes an eGFR for both -Americans and non- Americans. The National Kidney Disease Education Program (NKDEP) does not endorse the use of the MDRD equation for patients that are not between the ages of 18 and 70, are , have extremes of body size, muscle mass, or nutritional status, or are non- or non-. According to the National Kidney Foundation, irrespective of diagnosis, the stage of the disease is based on the level of kidney function: Stage Description GFR(mL/min/1.73 m(2)) 1 Kidney damage with normal or decreased GFR 90 2 Kidney damage with mild decrease in GFR 60-89 3 Moderate decrease in GFR 30-59 4 Severe decrease in GFR 15-29 5 Kidney failure <15 (or dialysis) 61 Desirable <150 Borderline high 150-199 High 200-499 Very High >500 62 Desirable <200 Borderline high 200-239 High >239 63 Low <40 Desirable: 40-60 High: >60 64 Desirable <100 Near Optimal 100-129 Borderline high 130-159 High 160-189 Very High >189 65 Normal Range 180 to 914 Indeterminate Range 145 to 180 Deficient Range <145 66 REFERENCE VALUE 25-HYDROXY D TOTAL (D2+D3) Optimum levels in the healthy population are 20-50, patients with bone disease may benefit from higher levels within this range. Test Performed by: [place] [address] Wastewater Analyst Lab Analyst: Adrian Lo M.D. 67 Because ethnic data is not always readily available, this report includes an eGFR for both -Americans and non- Americans. The National Kidney Disease Education Program (NKDEP) does not endorse the use of the MDRD equation for patients that are not between the ages of 18 and 70, are , have extremes of body size, muscle mass, or nutritional status, or are non- or non-. According to the National Kidney Foundation, irrespective of diagnosis, the stage of the disease is based on the level of kidney function: Stage Description GFR(mL/min/1.73 m(2)) 1 Kidney damage with normal or decreased GFR 90 2 Kidney damage with mild decrease in GFR 60-89 3 Moderate decrease in GFR 30-59 4 Severe decrease in GFR 15-29 5 Kidney failure <15 (or dialysis) 68 Interpretation: 10-19 ng/mL (mild to moderate deficiency) -- REFERENCE VALUE -- 25-HYDROXY D TOTAL (D2+D3) Optimum levels in the healthy population are 20-50, patients with bone disease may benefit from higher levels within this range. Test Performed by: [address] [address] Wastewater Analyst Lab Analyst: Clarke Donald III, M.D. 69 Normal Range 180 to 914 Indeterminate Range 145 to 180 Deficient Range <145 70 Because ethnic data is not always readily available, this report includes an eGFR for both -Americans and non- Americans. The National Kidney Disease Education Program (NKDEP) does not endorse the use of the MDRD equation for patients that are not between the ages of 18 and 70, are , have extremes of body size, muscle mass, or nutritional status, or are non- or non-. According to the National Kidney Foundation, irrespective of diagnosis, the stage of the disease is based on the level of kidney function: Stage Description GFR(mL/min/1.73 m(2)) 1 Kidney damage with normal or decreased GFR 90 2 Kidney damage with mild decrease in GFR 60-89 3 Moderate decrease in GFR 30-59 4 Severe decrease in GFR 15-29 5 Kidney failure <15 (or dialysis) 71 HDL Interpretation: Undesirable: High Risk: Less than 40 mg/dL Desirable: Low Risk: Greater than 60 mg/dL 72 LDL Interpretation: Low Risk Optimal Level: LDL Less than 100 mg/dL Near or Above Optimal: LDL 100-129 mg/dL Borderline High Risk: LDL 130-159 mg/dL High Risk: LDL 160-189 mg/dL Very High Risk: LDL Greater than 189 mg/dL 73 Microalbuminuria in a random sample is defined as: Microalbumin/Creatinine ratio of 30-299 ug/mg. 74 -- REFERENCE VALUE -- 25-HYDROXY D TOTAL (D2+D3) Optimum levels in the healthy population are 20-50, patients with bone disease may benefit from higher levels within this range. Test Performed by: [place] [address] Wastewater Analyst Lab Analyst: Clarke Donald III, M.D. 75 Because ethnic data is not always readily available, this report includes an eGFR for both -Americans and non- Americans. The National Kidney Disease Education Program (NKDEP) does not endorse the use of the MDRD equation for patients that are not between the ages of 18 and 70, are , have extremes of body size, muscle mass, or nutritional status, or are non- or non-. According to the National Kidney Foundation, irrespective of diagnosis, the stage of the disease is based on the level of kidney function: Stage Description GFR(mL/min/1.73 m(2)) 1 Kidney damage with normal or decreased GFR 90 2 Kidney damage with mild decrease in GFR 60-89 3 Moderate decrease in GFR 30-59 4 Severe decrease in GFR 15-29 5 Kidney failure <15 (or dialysis) 76 Males: < 5.0 miu/ml Non females < 5.0 miu/ml Approx gestational age approx HCG range 0-1 week < 5.0-50 1-2 weeks 50-500 2-3 weeks 100-5000 3-4 weeks 500-10,000 1-2 months 10,000-200,000 2-3 months 15,000-100,000 Please note: The intended use of this assay is the quantitative determination of HCG in human serum or plasma for the early detection of . These assays should not be used to diagnose any condition unrelated to . If an HCG level is inconsistent with, or unsupported by, clinical evidence, results should be confirmed by an alternate HCG method. 77 RUN DATE: 12/08/11 [facility] NMI LIVE PAGE 1 RUN TIME: 220 Specimen Inquiry RUN USER: INTERFACE Name: PRASHANT WISEMAN Status: REG ER Re12/07/11 Age/Sex: 36/F Unit#: [id number] Location: TAYLOR Cruz : [birth year] SPEC #: [id number] IOANA: 12/08/11 STATUS: PETE RICHMOND #: [id number] RECD: 12/08/[address] [facility] [address]: Jose GIRON,Jurgen Solomon SOURCE: TEZ ENTR: 12/08/11 [facility] DR: [facility] SPDESC: Israel GIRON, Saskia Darby PA-C ORDERED: RAPID FLU A B Procedure Result Verified Site > RAPID INFLUENZA A B ANTIGEN Final 12/08/11220 ML INFLUENZA A VIRUS ANTIGEN NEGATIVE BY IMMUNOASSAY INFLUENZA B VIRUS ANTIGEN NEGATIVE BY IMMUNOASSAY Cell culture testing can be performed to confirm negative test results and to assist in detecting other viruses that can produce similar clinical symptoms. Please notify Microbiology Lab if further testing is desired. - [facility] Permit #[id number] [address] [place] [address] DEPARTMENT OF PATHOLOGY, [address] [place] [address] [facility] Permit #[id number] Saleem Barnett M.D. Director Rickey Goode M.D. Seater Assembler 78 Anion gap measurement may be of limited value in the presence of any alkalosis, especially in a combined acid base disorder. . 79 A metabolite of Naproxen, O-desmethylnaproxen, has been shown to interfere with the [place] method for measuring total bilirubin. Samples from patients who have taken Naproxen have shown spurious elevation in total bilirubin levels. 80 Because ethnic data is not always readily available, this report includes an eGFR for both -Americans and non- Americans. The National Kidney Disease Education Program (NKDEP) does not endorse the use of the MDRD equation for patients that are not between the ages of 18 and 70, are , have extremes of body size, muscle mass, or nutritional status, or are non- or non-. According to the National Kidney Foundation, irrespective of diagnosis, the stage of the disease is based on the level of kidney function: Stage Description GFR(mL/min/1.73 m(2)) 1 Kidney damage with normal or decreased GFR 90 2 Kidney damage with mild decrease in GFR 60-89 3 Moderate decrease in GFR 30-59 4 Severe decrease in GFR 15-29 5 Kidney failure <15 (or dialysis) 81 -- REFERENCE VALUE -- 25-HYDROXY D TOTAL (D2+D3) Optimum levels in the normal population are 25-80 Test Performed by: [facility] Dpt of Lab Med and Pathology [address] [place] [address] Wastewater Analyst Lab Analyst: Clarke Donald III, M.D. 82 CHOLESTEROL INTERPRETATION: Desirable: Less than 200 MG/DL Borderline-High Risk: 200-239 MG/DL High-Risk: 240 MG/DL and over 83 HDL INTERPRETATION: Undesirable: High Risk: Less than 40 MG/DL Desirable: Low Risk: Greater than 60 MG/DL 84 LDL INTERPRETATION: Low Risk Optimal Level: LDL Less than 100 MG/DL Near or Above Optimal: LDL 100-129 MG/DL Borderline High Risk: LDL 130-159 MG/DL High Risk: LDL 160-189 MG/DL Very High Risk: LDL Greater than 189 MG/DL 85 MICROALBUMINURIA IN A RANDOM SAMPLE IS DEFINED : MICROALBUMIN/CREATININE RATIO OF 30-299 ug/mg. . 86 NON FASTING 87 Anion gap measurement may be of limited value in the presence of any alkalosis, especially in a combined acid base disorder. . 88 A metabolite of Naproxen, O-desmethylnaproxen, has been shown to interfere with the [place] method for measuring total bilirubin. Samples from patients who have taken Naproxen have shown spurious elevation in total bilirubin levels. 89 Because ethnic data is not always readily available, this report includes an eGFR for both -Americans and non- Americans. The National Kidney Disease Education Program (NKDEP) does not endorse the use of the MDRD equation for patients that are not between the ages of 18 and 70, are , have extremes of body size, muscle mass, or nutritional status, or are non- or non-. According to the National Kidney Foundation, irrespective of diagnosis, the stage of the disease is based on the level of kidney function: Stage Description GFR(mL/min/1.73 m(2)) 1 Kidney damage with normal or decreased GFR 90 2 Kidney damage with mild decrease in GFR 60-89 3 Moderate decrease in GFR 30-59 4 Severe decrease in GFR 15-29 5 Kidney failure <15 (or dialysis) 90 CHOLESTEROL INTERPRETATION: Desirable: Less than 200 MG/DL Borderline-High Risk: 200-239 MG/DL High-Risk: 240 MG/DL and over 91 HDL INTERPRETATION: Undesirable: High Risk: Less than 40 MG/DL Desirable: Low Risk: Greater than 60 MG/DL 92 LDL INTERPRETATION: Low Risk Optimal Level: LDL Less than 100 MG/DL Near or Above Optimal: LDL 100-129 MG/DL Borderline High Risk: LDL 130-159 MG/DL High Risk: LDL 160-189 MG/DL Very High Risk: LDL Greater than 189 MG/DL 93 THERAPEUTIC TARGET FOR THE TREATMENT OF DIABETES MELLITUS PATIENTS IS <7% HBA1C, AND IN SELECTIVE PATIENTS <6.0%. PLEASE REFER TO [place] DI[employer] ASSOC[employer]ATION DIABETIC CARE GUIDELINES FOR FURTHER INFORMATION. 94 Anion gap measurement may be of limited value in the presence of any alkalosis, especially in a combined acid base disorder. . 95 A metabolite of Naproxen, O-desmethylnaproxen, has been shown to interfere with the [place] method for measuring total bilirubin. Samples from patients who have taken Naproxen have shown spurious elevation in total bilirubin levels. 96 Because ethnic data is not always readily available, this report includes an eGFR for both -Americans and non- Americans. The National Kidney Disease Education Program (NKDEP) does not endorse the use of the MDRD equation for patients that are not between the ages of 18 and 70, are , have extremes of body size, muscle mass, or nutritional status, or are non- or non-. According to the National Kidney Foundation, irrespective of diagnosis, the stage of the disease is based on the level of kidney function: Stage Description GFR(mL/min/1.73 m(2)) 1 Kidney damage with normal or decreased GFR 90 2 Kidney damage with mild decrease in GFR 60-89 3 Moderate decrease in GFR 30-59 4 Severe decrease in GFR 15-29 5 Kidney failure <15 (or dialysis) 97 CHOLESTEROL INTERPRETATION: Desirable: Less than 200 MG/DL Borderline-High Risk: 200-239 MG/DL High-Risk: 240 MG/DL and over 98 HDL INTERPRETATION: Undesirable: High Risk: Less than 40 MG/DL Desirable: Low Risk: Greater than 60 MG/DL 99 UNABLE TO CALCULATE LDL TRIGLYCERIDE IS > 400 100 Interpretation: 10-24 (mild to moderate deficiency) -- REFERENCE VALUE -- 25-HYDROXY D TOTAL (D2+D3) Optimum levels in the normal population are 25-80 Test Performed by: [facility] Dpt of Lab Med and Pathology [address] [place] [address] Wastewater Analyst Lab Analyst: Clarke Donald III, M.D. 101 MICROALBUMINURIA IN A RANDOM SAMPLE IS DEFINED : MICROALBUMIN/CREATININE RATIO OF 30-299 ug/mg. . 102 Anion gap measurement may be of limited value in the presence of any alkalosis, especially in a combined acid base disorder. . 103 A metabolite of Naproxen, O-desmethylnaproxen, has been shown to interfere with the [place] method for measuring total bilirubin. Samples from patients who have taken Naproxen have shown spurious elevation in total bilirubin levels. 104 Because ethnic data is not always readily available, this report includes an eGFR for both -Americans and non- Americans. The National Kidney Disease Education Program (NKDEP) does not endorse the use of the MDRD equation for patients that are not between the ages of 18 and 70, are , have extremes of body size, muscle mass, or nutritional status, or are non- or non-. According to the National Kidney Foundation, irrespective of diagnosis, the stage of the disease is based on the level of kidney function: Stage Description GFR(mL/min/1.73 m(2)) 1 Kidney damage with normal or decreased GFR 90 2 Kidney damage with mild decrease in GFR 60-89 3 Moderate decrease in GFR 30-59 4 Severe decrease in GFR 15-29 5 Kidney failure <15 (or dialysis) 105 CHOLESTEROL INTERPRETATION: Desirable: Less than 200 MG/DL Borderline-High Risk: 200-239 MG/DL High-Risk: 240 MG/DL and over 106 HDL INTERPRETATION: Undesirable: High Risk: Less than 40 MG/DL Desirable: Low Risk: Greater than 60 MG/DL 107 LDL INTERPRETATION: Low Risk Optimal Level: LDL Less than 100 MG/DL Near or Above Optimal: LDL 100-129 MG/DL Borderline High Risk: LDL 130-159 MG/DL High Risk: LDL 160-189 MG/DL Very High Risk: LDL Greater than 189 MG/DL 108 Interpretation: 10-24 (mild to moderate deficiency) -- REFERENCE VALUE -- 25-HYDROXY D TOTAL (D2+D3) Optimum levels in the normal population are 25-80 Test Performed by: [facility] Dpt of Lab Med and Pathology [address] [place], [place] [id number] Wastewater Analyst Lab Analyst: Clarke Donald III, M.D. 109 THERAPEUTIC TARGET FOR THE TREATMENT OF DIABETES MELLITUS PATIENTS IS <7% HBA1C, AND IN SELECTIVE PATIENTS <6.0%. PLEASE REFER TO [employer]OC[employer]ATION DIABETIC CARE GUIDELINES FOR FURTHER INFORMATION. 110 Interpretation: 10-24 (mild to moderate deficiency) -- REFERENCE VALUE -- 25-HYDROXY D TOTAL (D2+D3) Optimum levels in the normal population are 25-80 Test Performed by: [facility] Dpt of Lab Med and Pathology [address] [place] [address] Wastewater Analyst Lab Analyst: Clarke Donald III, M.D. 111 Anion gap measurement may be of limited value in the presence of any alkalosis, especially in a combined acid base disorder. . 112 Note change in reference range as of 03/31/08. The change was based on recommendations from the [place] [employer]. 113 Please note change in reference range effective 08 . 114 A metabolite of Naproxen, O-desmethylnaproxen, has been shown to interfere with the [place] method for measuring total bilirubin. Samples from patients who have taken Naproxen have shown spurious elevation in total bilirubin levels. 115 Because ethnic data is not always readily available, this report includes an eGFR for both -Americans and non- Americans. The National Kidney Disease Education Program (NKDEP) does not endorse the use of the MDRD equation for patients that are not between the ages of 18 and 70, are , have extremes of body size, muscle mass, or nutritional status, or are non- or non-. According to the National Kidney Foundation, irrespective of diagnosis, the stage of the disease is based on the level of kidney function: Stage Description GFR(mL/min/1.73 m(2)) 1 Kidney damage with normal or decreased GFR 90 2 Kidney damage with mild decrease in GFR 60-89 3 Moderate decrease in GFR 30-59 4 Severe decrease in GFR 15-29 5 Kidney failure <15 (or dialysis) 116 THERAPEUTIC TARGET FOR THE TREATMENT OF DIABETES MELLITUS PATIENTS IS <7% HBA1C, AND IN SELECTIVE PATIENTS <6.0%. PLEASE REFER TO [employer]AB[employer]ATION DIABETIC CARE GUIDELINES FOR FURTHER INFORMATION. 117 Anion gap measurement may be of limited value in the presence of any alkalosis, especially in a combined acid base disorder. . 118 Note change in reference range as of 03/31/08. The change was based on recommendations from the [place] [employer]. 119 Please note change in reference range effective 08 . 120 A metabolite of Naproxen, O-desmethylnaproxen, has been shown to interfere with the [place]rass[place]-Tre[place] method for measuring total bilirubin. Samples from patients who have taken Naproxen have shown spurious elevation in total bilirubin levels. 121 Because ethnic data is not always readily available, this report includes an eGFR for both -Americans and non- Americans. The National Kidney Disease Education Program (NKDEP) does not endorse the use of the MDRD equation for patients that are not between the ages of 18 and 70, are , have extremes of body size, muscle mass, or nutritional status, or are non- or non-. According to the National Kidney Foundation, irrespective of diagnosis, the stage of the disease is based on the level of kidney function: Stage Description GFR(mL/min/1.73 m(2)) 1 Kidney damage with normal or decreased GFR 90 2 Kidney damage with mild decrease in GFR 60-89 3 Moderate decrease in GFR 30-59 4 Severe decrease in GFR 15-29 5 Kidney failure <15 (or dialysis) 122 THERAPEUTIC TARGET FOR THE TREATMENT OF DIABETES MELLITUS PATIENTS IS <7% HBA1C, AND IN SELECTIVE PATIENTS <6.0%. PLEASE REFER TO [place] [employer] DIABETIC CARE GUIDELINES FOR FURTHER INFORMATION. 123 Anion gap measurement may be of limited value in the presence of any alkalosis, especially in a combined acid base disorder. . 124 VERBAL TO ROSY//DR WOOD OFFICE BY DEBBIE at 1219 on 06/30/09. Results read back accurately. Note change in reference range as of 03/31/08. The change was based on recommendations from the [place] [employer]. 125 Please note change in reference range effective 08 . 126 Because ethnic data is not always readily available, this report includes an eGFR for both -Americans and non- Americans. The National Kidney Disease Education Program (NKDEP) does not endorse the use of the MDRD equation for patients that are not between the ages of 18 and 70, are , have extremes of body size, muscle mass, or nutritional status, or are non- or non-. According to the National Kidney Foundation, irrespective of diagnosis, the stage of the disease is based on the level of kidney function: Stage Description GFR(mL/min/1.73 m(2)) 1 Kidney damage with normal or decreased GFR 90 2 Kidney damage with mild decrease in GFR 60-89 3 Moderate decrease in GFR 30-59 4 Severe decrease in GFR 15-29 5 Kidney failure <15 (or dialysis) 127 MICROALBUMINURIA IN A RANDOM SAMPLE IS DEFINED : MICROALBUMIN/CREATININE RATIO OF 30-299 ug/mg. . 128 Anion gap measurement may be of limited value in the presence of any alkalosis, especially in a combined acid base disorder. . 129 Note change in reference range as of 03/31/08. The change was based on recommendations from the [place] [employer]. 130 Please note change in reference range effective 08 . 131 A metabolite of Naproxen, O-desmethylnaproxen, has been shown to interfere with the Jendrassik-[place] method for measuring total bilirubin. Samples from patients who have taken Naproxen have shown spurious elevation in total bilirubin levels. 132 Because ethnic data is not always readily available, this report includes an eGFR for both -Americans and non- Americans. The National Kidney Disease Education Program (NKDEP) does not endorse the use of the MDRD equation for patients that are not between the ages of 18 and 70, are , have extremes of body size, muscle mass, or nutritional status, or are non- or non-. According to the National Kidney Foundation, irrespective of diagnosis, the stage of the disease is based on the level of kidney function: Stage Description GFR(mL/min/1.73 m(2)) 1 Kidney damage with normal or decreased GFR 90 2 Kidney damage with mild decrease in GFR 60-89 3 Moderate decrease in GFR 30-59 4 Severe decrease in GFR 15-29 5 Kidney failure <15 (or dialysis) 133 THERAPEUTIC TARGET FOR THE TREATMENT OF DIABETES MELLITUS PATIENTS IS <7% HBA1C, AND IN SELECTIVE PATIENTS <6.0%. PLEASE REFER TO [employer] DIABETIC CARE GUIDELINES FOR FURTHER INFORMATION. 134 CHOLESTEROL INTERPRETATION: Desirable: Less than 200 MG/DL Borderline-High Risk: 200-239 MG/DL High-Risk: 240 MG/DL and over 135 HDL INTERPRETATION: Undesirable: High Risk: Less than 40 MG/DL Desirable: Low Risk: Greater than 60 MG/DL 136 LDL INTERPRETATION: Low Risk Optimal Level: LDL Less than 100 MG/DL Near or Above Optimal: LDL 100-129 MG/DL Borderline High Risk: LDL 130-159 MG/DL High Risk: LDL 160-189 MG/DL Very High Risk: LDL Greater than 189 MG/DL 137 Interpretation: 10-24 (mild to moderate deficiency) -- REFERENCE VALUE -- 25-HYDROXY D TOTAL (D2+D3) Optimum levels in the normal population are 25-80 Test Performed by: [facility] Med [facility] Pathology [address] [place] [address] Wastewater Analyst Lab Analyst: Clarke Donald III, M.D. Procedures Date CPT Code Description Status Comment 03/24/2018 27621 Admin Of Inj Completed 02/18/2018 22508 Admin Of Inj Completed 01/19/2018 76675 Admin Of Inj Completed 12/19/2017 91050 Admin Of Inj Completed 11/20/2017 20203 Admin Of Inj Completed 11/14/2017 Diabetic Retinal Eye Exam Completed Non prolif retinopathy Document: 11/14/17 - Consult Ophthalmology - Allan 11/07/2017 81312 EKG Tracing & Interpretation Completed 10/20/2017 58111 Admin Of Inj Completed 09/22/2017 64457 Admin Of Inj Completed 08/21/2017 18284 Admin Of Inj Completed 07/21/2017 98500 Admin Of Inj Completed 06/19/2017 26325 Admin Of Inj Completed 05/19/2017 80708 Admin Of Inj Completed 05/01/2017 Diabetic Retinal Eye Exam Completed 03/16/2015 Diabetic Retinal Eye Exam Completed 09/04/2012 86119 Admin Of Inj Completed 06/16/2012 56515 Admin Of Inj Completed 05/08/2012 72379 Admin Of Inj Completed 03/10/2012 24708 Admin Of Inj Completed 02/06/2012 42923 Admin Of Inj Completed 12/10/2011 00038 Admin Of Inj Completed 11/11/2011 38072 Admin Of Inj Completed 10/07/2011 64180 Admin Of Inj Completed 09/03/2011 52051 Admin Of Inj Completed 08/02/2011 23791 Admin Of Inj Completed 07/02/2011 73190 Admin Of Inj Completed 05/31/2011 15426 Admin Of Inj Completed 03/20/2011 88378 Admin Of Inj Completed 01/16/2011 94390 Admin Of Inj Completed 12/13/2010 56219 Admin Of Inj Completed 10/12/2010 06792 Noninvasive Ear Or Pulse Completed Oximetry For Oxygen Saturation 10/12/2010 12124 Admin Of Inj Completed 08/29/2010 08464 Admin Of Inj Completed 06/28/2010 99101 Admin Of Inj Completed 05/02/2010 33632 Inhalation TX For Acute Completed Airway Obstruction W/Nebulizer/Inhaler 04/02/2010 56391 Admin Of Inj Completed 02/22/2010 62561 Admin Of Inj Completed 01/17/2010 08732 Admin Of Inj Completed 01/02/2010 03860 Inhalation TX For Acute Completed Airway Obstruction W/Nebulizer/Inhaler 12/14/2009 97144 Admin Of Inj Completed 07/25/2009 58969 Admin Of Inj Completed 06/16/2009 80811 Admin Of Inj Completed Encounters Type Date Location Provider CPT E/M Dx Office Visit 03/23/2018 [facility] Internal Medicine Chary Wood 68891 J45.20 2:40p - Samuel Richards R05 E11.21 F41.9 Office Visit 01/01/2018 10:20a [facility] Internal Medicine Chary Wood 05383 E11.9 - Samuel Richards Z72.0 R05 R31.9 Office Visit 11/07/2017 11:00a [facility] Internal Medicine Chary Wood 83330 E11.9 Thanh Baker M.D. Z01.818 H26.9 Office Visit 10/28/2017 10:00a [facility] Internal Medicine Chary Wood 60818 R10.9 - Samuel Richards E11.21 R05 Office Visit 09/25/2017 10:40a [facility] Internal Medicine Chary Wood 09648 Z00.00 - Wilson M.D. E11.21 Office Visit 08/21/2017 11:40a [facility] Internal Medicine Chary Israel, 88078 E11.21 - Wilson M.D. E53.9 D50.9 Z72.0 Office Visit 08/05/2017 10:20a [facility] Internal Chary Israel, 45896 J45.901 Medicine - Wilson M.D. E11.21 N92.6 Office Visit 05/30/2017 4:00p [facility] Internal Chary Israel, 56022 J45.901 Medicine - Wilson M.D. R07.89 Office Visit 05/19/2017 11:40a [facility] Internal Medicine Chary Israel, 49213 E11.21 - Wilson M.D. E53.9 F41.9 E53.8 Office Visit 04/21/2017 4:00p [facility] Internal Medicine Chary Israel, 03446 N39.0 - Wilson M.DMohan E11.21 J01.90 F41.9 Office Visit 03/21/2017 11:40a [facility] Internal Medicine Chary Israel, 95299 E11.9 - Wilson M.D. E53.9 D50.9 N92.0 Office Visit 12/30/2016 4:40p [facility] Internal Chary Cotton, 27663 M25.511 Medicine - Wilson M.Nancy E11.21 Office Visit 12/12/2016 1:00p [facility] Internal Medicine Chary Wood, 88148 J45.41 - Wilson M.D. Office Visit 10/31/2016 1:00p [facility] Internal Medicine Chary Israel, 09268 E11.9 - Wilson M.D. E53.9 E55.9 D50.9 E53.8 Office Visit 10/15/2016 1:00p [facility] Internal Chary Israel, 85290 J06.9 Medicine - Wilson M.D. Office Visit 08/26/2016 1:40p [facility] Internal Chary Cotton, 24991 Y08.89xS Medicine - Wilson M.D. E11.21 E04.1 Office Visit 08/15/2016 4:00p [facility] Internal Medicine Charyflorentino Wood, 99460 J01.90 - Wilson M.DMohan F41.9 Z72.0 E55.9 D50.9 E11.21 Office Visit 04/19/2016 11:40a [facility] Internal Medicine Chary Wood 69311 E11.21 - Samuel Richards F41.9 E55.9 E53.9 H69.91 Office Visit 01/25/2016 2:40p [facility] Internal [facility] [place] [address] N39.0 Wilson J06.9 Z11.3 Office Visit 01/16/2016 10:40a [facility] Internal Medicine Chary Wood 49591 E11.21 - Samuel Richards E55.9 R80.8 Z72.0 Office Visit 10/27/2015 1:40p [facility] [place] [address] J01.90 Wilson R11.0 H66.91 Office Visit 09/18/2015 11:20a [facility] Internal Medicine Chary Wood 53011 E11.21 - Samuel Richards D51.9 N92.6 Office Visit 06/02/2015 11:00a [facility] Internal [facility] [place] [address] Z01.818 Wilson J45.20 H26.9 E11.21 F41.9 Office Visit 05/29/2015 10:40a [facility] [place] [address] Z87.891 Wilson J01.90 Z01.818 H66.91 J45.20 Office Visit 05/08/2015 10:00a [facility] [place] [address] S97.82xS [place] Office Visit 05/01/2015 2:00p [facility] [place] [address] Z87.891 Wilson J01.90 Office Visit 03/17/2015 11:20a [facility] Internal Medicine Chary Wood 21059 250.00 - Samuel Richards 305.1 266.9 Office Visit 11/18/2014 10:40a [facility] Internal Medicine Chary Wood 45764 250.42 - Samuel Richards 266.2 272.2 268.9 724.2 305.1 250.00 250.02 Office Visit 10/19/2014 10:00a [facility] Internal Medicine Lucinda Sinclair, N.P. 50173 465.9 - Wilson Office Visit 08/17/2014 2:00p [facility] [place] [address] 465.9 - Wilson 493.00 Office Visit 07/14/2014 10:00a [facility] [place] [address] 461.8 - [place] Office Visit 05/16/2014 11:00a [facility] Internal Medicine Chary Wood 70894 250.02 - Wilson M.D. 266.2 268.9 786.2 305.1 Office Visit 04/26/2014 10:30a [facility] Internal [place] [address] 466.0 Wilson 250.02 461.8 Office Visit 01/04/2014 4:00p [facility] Internal Medicine Chary Wood 75756 250.02 - Wilson M.D. 266.2 268.9 300.00 272.2 782.1 305.1 Office Visit 12/22/2013 4:20p [facility] Internal Medicine Lucinda Sinclair, N.P. 11331 919.5 - Wilson Office Visit 10/06/2013 3:40p [facility] Internal Medicine Chary Wood 46288 466.0 - Wilson M.D. 250.02 266.2 268.9 Office Visit 05/28/2013 1:20p [facility] Internal Medicine Chary Wood 83469 382.9 - Wilson M.D. 493.00 Office Visit 05/19/2013 9:20a [facility] Internal Medicine Chary Wood 44468 250.02 - Wilson M.D. 493.90 266.2 268.9 Office Visit 10/06/2012 4:00p [facility] Internal Medicine Chary Wood 44580 786.2 - Wilson M.D. 250.42 Office Visit 09/04/2012 4:00p [facility] Internal Medicine Chary Wood 07862 250.02 - Wilson M.D. 266.2 493.90 Office Visit 06/16/2012 11:00a [facility] Internal Medicine Chary Wood 02966 250.02 - Wilson M.D. 266.2 493.90 268.9 285.9 782.1 Office Visit 05/08/2012 11:00a [facility] Internal Medicine Chary Wood, 80994 250.02 - Wilson M.DMohan 266.2 401.1 311 729.5 Office Visit 03/10/2012 2:40p [facility] Internal Medicine Chary Wood, 40403 266.2 - Wilson M.DMohan 493.90 Office Visit 02/17/2012 4:00p [facility] Internal Medicine Chary Wood 36737 250.02 - Wilson M.DMohan 787.02 493.90 789.00 305.1 250.00 Office Visit 11/11/2011 3:40p [facility] Internal Medicine Chary Wood M.D. 26196 311 - Wilson 250.02 305.1 729.5 266.2 465.9 Office Visit 10/22/2011 3:20p [facility] Internal Medicine Chary Wood M.D. 79966 311 - Wilson 787.02 250.02 401.1 729.5 Office Visit 09/03/2011 1:00p [facility] Internal Medicine Chary Wood 72246 250.02 - Wilson M.DMohan 272.4 285.9 268.9 266.2 461.9 Office Visit 08/20/2011 1:20p [facility] Internal Medicine - Ainsley Harvey M.D. 03314 250.02 Wilson 268.9 465.9 272.4 Office Visit 07/02/2011 2:00p DO Not Use [employer] Lucinda Sinclair, 66061 266.2 N.P. 382.9 Office Visit 05/31/2011 1:00p DO Not Use Chary Cotton, 87713 250.02 [facility] [employer] Specialist-[place] Girma.DMohan 266.2 300.00 V04.81 Office Visit 10/12/2010 11:45a DO Not Use Chary Cotton, 56311 266.2 [facility] [employer]ist-[place] M.DMohan 493.90 782.1 250.02 Office Visit 07/18/2010 10:45a DO Not Use [facility] [employer] Belen Edwards, 72586 466.0 M.DMohan, FACP 519.11 Office Visit 06/28/2010 10:00a DO Not Use Chary Cotton, 19271 250.02 [facility] [employer]-[place] M.D. 493.90 296.7 266.2 v04.81 Office Visit 05/02/2010 2:00p DO Not Use [facility] [employer] Belen Edwards, 26475 250.02 M.D., FACP 465.9 493.90 382.9 Office Visit 04/02/2010 3[facility] 95292 250.02 [facility] [employer] Specialist-[place] M.D. 300.00 305.1 266.2 Office Visit 01/02/2010 1:00p DO Not Use [facility] [employer] [facility] Belen Edwards, 47967 110.5 M.D., FACP 465.9 491.21 Office Visit 09/11/2009 11:40a DO Not Use Senior Payroll Specialist AT [facility], 12625 786.2 [facility] M.D. 250.02 305.1 Office Visit 08/30/2009 1:00p DO Not Use Senior Payroll Specialist AT [facility], 88548 729.5 [facility] M.D. 266.2 250.02 Office Visit 07/25/2009 11:00a DO Not Use Senior Payroll Specialist AT [facility], 86295 250.02 [facility] M.D. 272.4 266.2 Office Visit 07/05/2009 9:00a DO Not Use Senior Payroll Specialist AT Nurse Visit [facility] [address] [facility] Office Visit 06/23/2009 10:00a DO Not Use Senior Payroll Specialist AT [facility], 37836 250.02 [facility] M.D. 268.9 791.0 Office Visit 06/16/2009 10:40a DO Not Use Senior Payroll Specialist AT [facility], 42430 250.00 [facility] M.D. 266.2 250.60 466.0 729.5 Plan of Care Future Appointment(s):05/22/2018 10:40 am - Chary Wood M.D. at [facility] Internal [facility] - Rwljlqbls78/11/2018 10:00 am - Nurse Visit A at [facility] Internal [facility]04/03/2018 - Chary Wood M.D.E11.65 Type 2 diabetes mellitus with hyperglycemiaComments:Continue current medicationNext A1C due in up:May 2193.401A Sprain of unspecified ligament of right ankle, init encntrNew Medication:[employer] [place] Ankle Brace Left/Right
--- OUTSIDE RECORDS SUMMARY | 2018-04-06 22:00 | XMS REPORT ---
:1975 External Reference #:[id number] Author Organization [facility] Address [address] [place] [id number] Phone [phone] Care Team Providers Name Role Phone Chary Wood MD Primary Care Physician Unavailable Payers Type Date Identification Numbers Payment Provider Subscriber Commercial Effective: Policy Number: [id number] [employer] Prashant Evans 2013 Medicaid PayID: [id number] [address] [address] [place] [address] Commercial Effective: Policy Number: BS Options Prashant Evans 2011 [id number] Facets Expires: 2013 Group Name: [id number] [address] [address] PayID: [id number] HECTOR [place] [id number] Medigap Part B Effective: 2011 Policy Number: BS Annabella Evans [id number] Expires: 2011 PayID: [id number] [address] [address] [place] [id number] Medigap Part B Effective: 2011 Policy Number: [id number] Medicaid Prashant Evans Expires: 2011 Group Name: 1 1 [address] PayID: [id number] [place] [address] Problems Date Description Provider Status Onset: 09/24/2012 [...] Form Strength Qnty SIG Indications Ordering Provider Glucocom Blood 03/23 Active Device 1unit for daily E11. Chary Glucose Monitor s use: E11.21 Susie Wood Glucocom Test 03/23 Active Strips 50uni test strips E11.21 ts per [place] burns, for testing M.D. once daily Escitalopram 03/23 Active Tablets 5mg 30tab 08/12 by F41.9 s mouth every Cotton, day for 1 M.D. week, then increase to whole tablet once daily Azithromycin 03/23 Active Tablets 250mg 6tabs 2 tabs by J45.20 mouth on Cotton, day 1; 1 M.D. tab by mouth every day on days 2-5 Ranitidine HCL 02/16 Active Capsules 150mg 60cap one by s mouth twice [place], a day as M.D. needed Ventolin HFA 01/01 Active Aerosol 108(90Bas 8gm 2 puffs 4 R05 e) times a day [place], mcg/Act as needed M.D. True Metrix 10/27 Active Kit w/Device 1unit For testing E11.21 Chary Meter s daily [place] MMohanDMohan True Metrix 10/27 Active Strips 150un For testing E11.65 Chary Self Monitoring its 3-4 times Cotton, Blood Glucose daily Dx M.D. Strips E11.65 Ferrous Sulfate 08/21 Active Tablets 325(65Fe) 30tab 1 PO qd D50.9 Chary mg s Twice A Cotton, Week M.D. Cyanocobalamin 08/21 Active Solution 1000mcg/M 20ml inject 1ml Chary L intramuscul [place], ar every M.D. month Onetouch Delica 05/21 Active Misc 1unit Check 4 Chary Lancing s times daily [place], or as M.D. needed Onetouch Delica 05/21 Active Misc 200un use up to 4 Chary Lancets its times daily [place], Fine 33G as directed M.DMohan E11.21 Blood Pressure 04/21 Active Misc 1unit For use Chary Monitor s once daily [place], Digital/Auto-In M.D. flation Loratadine 12/12 Active Tablets 10mg 30tab 1 po qd as J45.41 Chary /2017 s needed Susie Wood Docusate Sodium 08/18 Active Capsules 100mg 60cap 1 by mouth Chary s 1-2 times a Cotton, day M.D. Metformin HCL 01/15 Active Tablets 500mg 120ta take 2 Chary /2016 bs twice a day Susie Wood Vitamin D 1,000 04/24 Active 60uni Take Two E11.65 Chary Units Soft ts Capsules By [place], Mouth Every M.D. Day Alprazolam 03/27 Active Tablets 0.25mg 60tab 1 by mouth F41.9 Chary /2015 s twice a day [place] prn; do not M.D. drive when taking Lancets 11/18 Active Misc 50uni for testing Chary /2015 ts 1-2 times Cotton, daily M.D. testing Aspirin Ec Low 01/[address] 81mg 30tab take one Chary Dose s tablet by [place], mouth every M.D. day Lisinopril 05/26 Active Tablets 2.5mg 30tab Take One s Tablet By [place], Mouth Every M.D. Day Ellen Contour 10/14 Active Misc 120un please Chary Microlet its check blood Cotton, Lancets sugar four M.D. times daily Lancets, One 05/31 Active Misc 50uni for testing 250.02 Chary Touch Ultra ts once daily Cotton, [...] by mouth every day on days 2- Azithromycin 09/30 Hx Tablets 250mg 6tabs 2 tabs by Chary mouth on [place], - day 1; 1 M.D. 11/07 tab by mouth every day on days 2- Chantix 08/21 Hx Tablets 0.5mg X 42tab take as Z72.0 Chary Starting 11 & 1 mg s directed Bankofpoker, Andrés - X 42 M.D. 09/24 Atorvastatin 08/21 Hx Tablets 10mg 14tab Take 08/12 s Tablet By [place], - Mouth Once M.D. 11/07 Sommer-Be 08/05 Hx Tablets 0.35mg 28tab take one s tablet by [place], - mouth every M.D. Azithromycin 05/30 Hx Tablets 250mg 6tabs 2 tabs by J45.901 Chary mouth on [place], - day 1; 1 M.D. 08/21 tab by mouth every day on days 2-5 Benzonatate 05/30 Hx Capsules 200mg 30cap take 1 J45.901 Chary s capsule by [place], - mouth three M.D. 09/24 times a day /2018 if needed Hydrocodone-Bayron 05/30 Hx Tablets 5-325mg [...] 30tab 1 by mouth s every day [place], - M.D. 05/19 Ipratropium 10/15 Hx Solution 0.06% 15ml 2 sprays in J06.9 Chary [place] each [place], - nostril 3 M.D. 08/21 times daily /2017 as needed Ferrex 150 08/18 Hx Capsules 150mg 30cap 1 by mouth s every day. [place], - M.D. 03/21 Nicotine 08/15 Hx Patches 14mg/24HR 28uni apply 1 Z72.0 24HR ts patch daily [place], - and remove M.D. 08/21 at night [...] Hx Suspension 50mcg/Act 16gm 2 sprays Juma each [place], [employer] - nostril qd. 10/24 Azithromycin 10/26 Hx Tablets 250mg 6tabs 2 tabs by J01.90 Juma mouth every [place], [employer] - day x1 day, 10/31 1 tab by mouth every day x 4 days Ondansetron 10/26 Hx Tablets 4mg 15tab dissolve R11.0 Dispers s one tablet [place], [employer] - orally 11/01 every hours as needed [...] tabs by J01.90 Juma mouth every [place], [employer] - day x1 day, 06/03 1 tab by mouth every day x 4 days Albuterol 05/29 Hx Nebulizer (2.5mg/3M 100un 1 vial via J45.20 Chary Sulfate L) 0.083% its nebulizer 4 [place], - times daily M.D. 08/21 as needed Low TOP Walking 05/08 Hx 1unit For use S97.82xS Juma Boot/Hinge For s while Cliff, [employer] Ankle Movement - ambulating 05/09 Doxycycline 05/08 Hx Capsules 100mg 20cap one tablet S97.82xS Juma Hyclate s twice daily [place], [employer] - for 10 05/20 days. Hydrocodone-Bayron 05/08 Hx Tablets 5-325mg 20tab take 1/2-1 S97.82xS Juma taminophen s tablet [place], [employer] - every 6 01/15 hours for pain. Azithromycin 05/01 Hx Tablets 250mg 6tabs 2 tabs by J01.90 Juma mouth every [place], [employer] - day x1 day, 05/06 1 tab by /2014 mouth every day x 4 days Benzonatate 05/01 Hx Capsules 100mg 20cap take one or J01.90 Juma s two [place], [employer] - capsules 05/06 every hours as needed for cough. Simvastatin 04/03 Hx Tablets 5mg 30tab take 1 Chary s tablet [place], - daily at M.D. 09/18 bedtime Atorvastatin 03/27 Hx Tablets 10mg 30tab 1 by mouth Chary Calcium s every day [place], - M.D. 04/03 Nicoderm CQ 03/17 Hx Patches 14mg/24HR 30uni Apply 305.1 Chary /2015 24HR ts daily, [place], - remove at M.D. 04/04 night Sommer-Be 01/21 Hx Tablets 0.35mg 28tab Take One s Tablet By [place], - Mouth Every M.D. Vitamin D 11/22 Hx Capsules [id number] 12cap 1 by mouth Chary (Ergocalciferol s once weekly [place], ) - for 12 M.D. Glucocom Blood 11/18 Hx Kit W/Device 1unit for use Chary Glucose s once daily [place], Monitoring - 250.02 M.D. System 10/27 Azithromycin 10/24 Hx Tablets 250mg 6tabs two tabs day one, Varn, N.P. - one daily 10/30 till Fluticasone 10/19 Hx Suspension 50mcg/Act 16gm 2 sprays 465.9 Lucinda each Varn, N.P. - nostril 11/02 daily needed Hydrocortisone 09/27 Hx Cream 2.5% 30gm apply to affected Cotton, - area twice M.D. 10/19 daily Azithromycin 08/17 Hx Tablets 250mg 6tabs 2 tabs by 465.9 Juma mouth every [place], [employer] - day x1 day, 08/24 1 tab by mouth every day x 4 days Pulmicort 08/17 Hx Aerosol 180mcg/Ac 1unit 2 puffs 493.00 Juma Flexhal t s twice daily [place], [employer] - 03/17 Azithromycin 07/14 Hx Tablets 250mg 6tabs 2 tabs by 461.8 Juma mouth every [place], [employer] - day x1 day, 08/17 1 tab by /2014 mouth every day x 4 days Azithromycin 05/16 Hx Tablets 250mg 6tabs 2 tabs by 786.2 Chary /2014 mouth on [place], - day 1; 1 M.D. 08/17 tab by mouth every day on days 2-5 Metformin HCL 05/16 Hx Tablets 500mg 90tab 1 Daily Chary s Thanh Wood M.D. 01/15 Azithromycin 04/26 Hx Tablets 250mg 6tabs 2 tabs by 466.0 Juma mouth every [place], [employer] - day x1 day, 05/15 1 tab by mouth every day x 4 days Alprazolam 01/04 Hx Tablets 0.25mg 30tab 1 po qd prn 300.00 Chary s Thanh Wood M.DMohan 05/11 Atorvastatin 01/04 Hx Tablets 10mg 15tab 1/2 tablet 272.2 Chary Calcium s by mouth [place], - every day M.D. 08/17 Vitamin D 01/04 Hx Tablets 1000Unit 60tab 2 by mouth 250.02 Chary /2014 s every day Thanh Wood M.DMohan 04/24 Mupirocin 01/04 Hx Cream 2% 30gm apply two 782.1 Chary Calcium times daily [place], - to areas of M.D. 04/26 blistering skin Triamcinolone 12/22 Hx Lotion 0.1% 60ml apply to 919.5 Lucinda Acetonide dry skin Varn, N.P. - once or 01/05 twice daily Vitamin D 10/12 Hx Capsules [id number] 12cap 1 tablet 250.02 s once weekly [place], - for 12 M.D. Azithromycin 10/06 Hx Tablets 250mg 6tabs 2 tabs po 466.0 on day 1; 1 [place], - tab po qd M.D. 10/15 on days 2- Advair Diskus 10/06 Hx Aerosol 100-50mcg 60uni 1 466.0 Juma /2013 /Dose ts inhalation Cliff [employer] - twice daily 08/17 Ventolin HFA 10/06 Hx Aerosol 108(90Bas 1unit 2 puffs 4 J20.9 e) s times a day [place], - mcg/Act as needed M.D. 01/01 Albuterol 10/06 Hx Nebulizer (2.5mg/3M 100un 1 vial via 466.0 L) 0.083% its nebulizer 4 [place], - times daily M.D. 03/17 as needed Metformin HCL 06/23 Hx Tablets 500mg 90tab every day s [place], - M.D. 05/16 Azithromycin 05/28 Hx Tablets 250mg 6tabs 2 tabs po 382.9 Chary on day 1; 1 [place], - tab po qd M.D. 06/18 on days 2- Hydrocodone/Bayron 05/28 Hx Tablets 5-500mg 20tab 1 every 6 382.9 Chary taminophen /2012 s hours as [place], - needed for M.D. 10/06 Metformin HCL 05/26 Hx Tablets ER 500mg 30tab 1 po qd Chary ER 24HR s [place], - M.D. 06/23 Lantus Solostar 05/19 Hx Solution 100Unit/M 15ml inject 30 250.02 Chary L units [place], - subcutaneou M.D. 05/28 sly once daily Advair Diskus 05/19 Hx Aerosol 100-50mcg 1unit 1 493.90 Chary /2013 /Dose s inhalation [place], - twice daily M.D. 10/06 Ventolin HFA 05/19 Hx Aerosol 108(90Bas 1unit 2 puffs 4 493.90 e) s times a day [place], - mcg/Act as needed M.D. 10/06 Lantus Allysonostar 05/19 Hx 100un for once Chary Pen [place] its daily use [place], - M.D. 05/28 [...] tab po qd M.D. 09/24 on days - Combivent 09/04 Hx Aerosol 18-103mcg 14.70 2 puffs qid 493.90 /Act 0gm prn [place], - M.D. 09/24 Glipizide 09/04 Hx Tablets 5mg 15tab 1/2 tablet 250.02 Chary s by mouth in [place], - the morning M.D. 09/24 Freestyle 06/16 Hx 50uni for use 250.02 Chary Insulinx Test ts once daily [place], Strips - M.D. [...] PO 311 Chary s qd for 1 [place], - betzy harris M.D. 09/04 1 PO qd Pantoprazole 05/[address] 20mg 30tab 1 po qd 789.00 Chary s [place], - M.D. 09/04 Alprazolam 05/08 Hx Tablets 0.25mg 30tab 1 po qd prn 311 Chary /2012 s [place], - M.D. 09/24 Oxycodone/Aceta 05/08 Hx Capsules 5-500mg 30cap 1 tablet by 311 Chary min s mouth every [place], - 4-6 hours M.D. 09/24 as needed /2012 Duoneb 03/10 Hx Solution 0.5-2.5(3 100un 1 dose via 493.90 )mg/3ML its nebulizer 4 [place], - times daily M.D. 09/24 as needed Azithromycin 03/10 Hx Tablets 250mg 6tabs 2 tabs po 493.90 on day 1; 1 [place], - tab po qd M.D. 05/07 on [...] po 493.90 Chary on day 1; 1 [place], - tab po qd M.D. 03/09 on days 2- Omeprazole 02/[address] 40mg 30cap 1 po qd 789.00 Chary /2012 s [place], - M.D. 05/08 Glucerna Shake 02/05 Hx Liquid 30uni 1 PO qd ts [place], - M.D. 09/04 Azithromycin 11/25 Hx Tablets 250mg 6tabs 2 tabs po 465.9 on day 1; 1 [place], - tab po qd M.D. 12/05 on days 2- Loratadine 11/17 Hx Tablets 10mg 30tab 1 po qd s [place], - M.D. 09/24 Nicotine 11/10 Hx Patches 21mg/24HR 42uni apply one 305.1 24HR ts patch once [place], - daily M.D. 09/24 Azithromycin 11/10 Hx Tablets 250mg 6tabs 2 tabs po 465.9 on day 1; 1 [place], - tab po qd M.D. 11/20 on days 2- Azithromycin 10/22 Hx Tablets 250mg 6tabs 2 tabs po on day 1; 1 [place], - tab po qd M.D. 11/08 on days - Sertraline HCL 10/21 Hx Tablets 50mg 30tab 1/2 tablet 311 s daily for 1 , - week, then M.D. 02/16 1 po qd Trazodone HCL 10/21 Hx Tablets 50mg 45tab 1-2 tablets 311 s once daily [place], - at bedtime M.D. 09/24 Ondansetron HCL 10/21 Hx Tablets 4mg 30tab 1 or 2 787.02 s tablets [place], - every 8 M.D. 09/04 hours nausea Odalys Flex Pen 10/07 Hx 100un use one Chary [place] its daily for [place] Jhony - sq inj M.D. 09/04 Vitamin D 10/07 Hx Capsules 2000Unit 30cap 1 po qd s [place], - M.D. 05/19 Bylianna 09/06 Hx Solution 5mcg/0.02 60uni Inject s/c ML ts bid, before [place], - morning and M.D. 09/04 evening meals Azithromycin 09/03 Hx Tablets 250mg 6tabs two tabs 461.9 day one, [place], - one daily M.D. 11/08 till Azithromycin 08/20 Hx Tablets 250mg 6tabs two tabs day one, Candice, - one daily M.D. 09/02 till Azithromycin 07/02 Hx Tablets 250mg 6tabs two tabs 382.9 Chary day one, [place], - one daily M.D. 07/12 till Fluticasone 07/02 Hx Suspension 50mcg/Act 1Mont 2 sprays 382.9 Chary Propionate h each [place], - nostril M.D. 02/16 daily needed Hydrocodone 06/03 Hx Solution 7.5-325mg 1 po q 4-6 300.00 Chary Bitartrate/Acet /2010 /15ML hours as [place], aminophen - needed M.D. 07/02 Hydrocodone/Bayron 06/03 Hx Tablets 7.5-325mg 60tab 1 po q 4-6 311 Chary taminophen s h prn [place], - M.D. 05/08 Hydrocodone 05/31 Hx Solution 7.5-325mg 60uni 1 po q 4-6 300.00 Chary Bitartrate/Acet /2010 /15ML ts hours as [place] aminophen - needed M.D. 07/02 One Touch Ultra 05/20 Hx 100un use bid or Chary Mini Test its as Cotton, Strips. - directed. M.D. 06/16 Sommer-Be 04/08 Hx Tablets 0.35mg 28tab Take One s Tablet By [place], - Mouth Every M.D. Vitamin D 03/23 Hx Capsules [id number] 12cap 1 tablet Chary (Ergocalciferol s once weekly [place], ) - M.D. 10/07 Azithromycin 10/12 Hx Tablets 250mg 6tabs 2 tabs po 493.90 on day 1; 1 [place], - tab po qd M.D. 10/22 on [...] Hx Tablets 10mg 30tab 1 by mouth s once daily [place], - at bedtime [...] mouth twice Grace, - a day M.D., FACP 08/01 Pulmicort 07/18 Hx Suspension 0.25mg/2M 60uni inhale L ts twice a day [place], - via M.D., FACP 11/10 nebulizer Mucinex 07/18 Hx Tablets ER [...] Tablets 250mg 6tabs 2 tabs po 250.02 Chary /2010 on day 1; 1 [place], - tab po qd M.D. 07/18 on days 2- Azithromycin 05/02 Hx Tablets 250mg 6tabs two tabs [place] day one, Grace, - one daily M.D., FACP 05/07 till Ipratropium 05/02 Hx Solution 0.02% 60uni use as [place]en ts directed in Grace, - nebulizer M.D., FACP 06/28 Pataday 04/02 Hx Solution 0.2% 1 drop Chary daily [place], - M.D. 06/28 Vitamin D 03/19 Hx Capsules 50807Uxjh 1 tablet a 268.9 Chary (Ergocalciferol week for 4 [place], ) - weeks then M.D. 06/28 once a month Alprazolam 03/02 Hx Tablets 0.25mg 90tab 1 tablet by 300.00 s mouth 3 [place], - times daily M.D. 02/16 Vicodin 02/22 Hx Tablets 5-500mg 40tab 1 tablet s every 4-6 [place], - hours as M.D. 06/28 needed for pain Albuterol 01/09 Hx Nebulizer (2.5mg/3M 60uni 1 vial Chary Sulfate L) 0.083% ts nebulizer [place], - every 4-6 M.D. 02/16 hours as needed Lotrisone 01/02 Hx Lotion 45uni apply to ts affected Grace, - area qd prn M.D., FACP 04/02 Azithromycin 01/02 Hx Suspension 250mg 6unit 2 cc po day Rec s 1 then, 1 [place], - cc po qd M.D., FACP 01/17 till Metformin HCL 12/23 Hx Tablets 500mg 30tab 1 tablet 250.02 Chary /2010 s twice daily [place], - M.D. 09/04 Simvastatin 12/23 Hx Tablets 10mg 30tab 1 tablet 250.02 Chary /2010 s daily at Cotton, - bedtime M.D. 06/28 Vitamin D 12/23 Hx Capsules 97262Kbno 1 tab po q 268.9 Chary (Ergocalciferol week for 4 [place], ) - weeks then M.D. 12/23 once a month Vitamin D 12/23 Hx Capsules 24576Bqlj 1 tablet 268.9 Chary (Ergocalciferol once weekly [place], ) - M.D. 03/02 Lisinopril 12/23 Hx Tablets 2.5mg 30tab 1 tablet 268.9 Chary s once daily [place], - M.D. 06/28 Lyrica 12/23 Hx Capsules 50mg 60cap 1 tablet 266.2 s twice daily [place], - M.D. 04/02 Albuterol 12/23 Hx 1unit 2 puffs 4 Chary Inhal s times daily [place], - as needed M.D. 03/10 Advair Diskus 12/23 Hx Aerosol 100-50mcg 1unit 1 266.2 /Dose s inhalation [place], - twice daily M.D. 02/16 Sommer-Be 12/23 Hx Tablets 0.35mg 1tabs 1 tablet once daily [place], - M.D. 10/12 Tricor 12/23 Hx Tablets 145mg 30tab 1 tablet s once daily [place], - M.D. 06/28 Glipizide 12/23 Hx Tablets 5mg 60tab 1 tablet s once daily [place], - M.D. 08/28 Metformin HCL 12/23 Hx Tablets 500mg 60tab Take One 250.02 s Tablet By [place], - Mouth Twice M.D. 05/19 A /2012 Diflucan 12/05 Hx Tablets 150mg 2tabs 1 tab po one time. [place], - December repeat M.D. 01/17 one time days later if symptoms persist Azithromycin 09/11 Hx Tablets 250mg 6tabs 2 tabs po 786.2 on day 1; 1 [place], - tab po qd M.D. 12/23 on days 2- Metformin HCL 09/11 Hx Tablets 500mg 90tab 2 tablets 250.02 s in the [place], - morning, 1 M.D. 12/23 tablet in the evening Metformin HCL 08/30 Hx Tablets 500mg 1 Tab PO 250.02 Chary /2010 bid Thanh Wood M.D. 09/11 Simvastatin 08/30 Hx Tablets 10mg 30tab 1 po qhs 250.02 Chary s Thanh Wood M.D. 12/23 Glipizide 07/25 Hx Tablets 5mg 30tab 1 tablet Chary /2009 s twice daily Thanh Wood M.D. 12/23 Freestyle Lite 07/05 Hx use as Nurse Glucometer directed Visit - [place] 04/02 Freestyle Lite 07/05 Hx use as Chary Lancets directed Thanh Wood M.D. 04/02 Freestyle Lite 07/05 Hx check fsbg Chary Test Strips qhs and prn Thanh Wood M.D. 04/02 Alcohol Prep 06/26 Hx Pads 100un use as Thananart, Swabs its directed Thanh Griffith M.D. 06/28 Pen [place] For 06/26 Hx 31G 1Mont use daily 250.02 Thananart, Lantus Solastar hSupp and prn Thanh Griffith M.D. 04/02 Vitamin D3 06/23 Hx Tablets 1000Unit 60tab 2 tabs po 268.9 Chary s qd Thanh Wood M.D. 06/23 Lantus For 06/23 Hx Solution 100Unit/M 10ml 10 units 268.9 Chary Opticlik L s/c qd at [place], - bedtimeSusie 06/23 increase prn as directed Test Strips To 06/23 Hx 100un 268.9 Chary Use its [place] Glucometer - Susie 04/02 Lisinopril 06/23 Hx Tablets 2.5mg 30tab 1 po qd 268.9 Chary /2009 s Thanh Wood M.D. 12/23 Blood Pressure 06/23 Hx Kit 1unit 268.9 Chary Kit /2008 s Thanh Wood M.D. 04/02 Aspirin 06/23 Hx Tablets 81mg 30tab 1 tablet 268.9 Chary /2009 s once daily [place], - M.D. 06/28 Solastar Lantus 06/23 Hx Solution 100Unit/M 1unit use as L s directed [facility] - M.D. 04/02 Vitamin D 06/23 Hx Capsules 69125Jzmd 8caps 1 tablet 268.9 once weekly [place] - M.D. 12/23 Tricor 06/16 Hx Tablets 145mg 90tab 1 tablet po s qday [place], - M.D. 12/23 Metformin 06/16 Hx 500mg 60uni 2 po bid 250.02 ts [place] - M.D. 08/30 Glipizide 06/16 Hx Tablets 10mg 60tab 1 po bid s [facility] - M.D. 07/25 Sommer-Be 06/16 Hx Tablets 0.35mg 30tab one po s daily [place], - M.D. 12/23 Advair Diskus 06/16 Hx Misc 100-50mcg 60uni 1 puff bid 266.2 /DO ts [place] - M.D. 12/23 Albuterol 06/16 Hx 17gm 2 puffs qid 266.2 Inhal prn [place], - M.D. 12/23 Lyrica 06/16 Hx Capsules 50mg 120ca 1 tab po 266.2 ps bid for one [place], - week then M.D. 12/23 increase to 2 tabs po bid Vicodin 06/16 Hx Tablets 5-500mg 45tab 1 q 4-6 266.2 s hours prn [place], - M.D. 01/17 Cyanocobalamin 06/16 Hx Solution 1000mcg/M 1 cc Im 266.2 L every [place], - month M.D. 05/19 Test Strips To 00 Hx 100un 268.9 [place], Use With /0000 its Chary Glucometer - 06/23 Humalog 0000 Hx Solution 100Unit/M 1vial 16 units in Unknown /0000 L am and 14 - units in pm 05/19 Humulin N 00 Hx Suspension 100Unit/M 16 units in 250.02 Unknown /0000 L am and 14 - units in pm 05/19 Freestyle Lite Hx 100un four times Chary Test Strips /0000 its a day and [place], - as needed M.DMohan 08/18 Clindamycin HCL Hx Capsules 300mg 1 tabs by Unknown /0000 mouth 3 - times a day 12/12 Nitrofurantoin Hx Capsules 100mg Ashley, Monohydrate/Mac /0000 DO Juaquin rocrystals - 08/21 Medications Administered in Office Medication Date Status Form Strength Qnty SIG Indications Ordering Provider - Administered Injection Nurse Visit Injection 018 A Administered Injection Nurse Visit Injection 018 A Administered Injection Nurse Visit Injection 018 A Administered Injection Nurse Visit Injection 018 A Administered Injection Nurse Visit Injection 018 A Administered Injection Nurse Visit Injection 018 A Administered Injection Chary Injection 018 Susie Wood Administered Injection Nurse Visit Injection 017 A Administered Injection Nurse Visit Injection 017 A Administered Injection Chary Injection 017 Susie Wood [facility] Administered Injection Chary Injection 013 Susie Wood Administered Injection Chary Injection 012 Susie Wood Administered Injection Chary Injection 012 Susie Wood 12 Administered Injection Chary Injection 012 Susie Wood 12 Administered Injection Nurse Visit Injection 012 A 12 Administered Injection Nurse Visit Injection 012 A 12 Administered Injection Chary Injection 012 Susie Wood [facility] Administered Injection Nurse Visit Injection 012 A [facility] Administered Injection Chary Injection 012 Susie Wood B-12 Administered Injection Nurse Visit Injection 011 A B-12 Administered Injection Lucinda Injection 011 Dottie N.PMohan B-12 Administered Injection Chary Injection 011 Susie Wood B-12 Administered Injection Nurse Visit Injection 011 A B-12 Administered Injection Nurse Visit Injection 011 A B-12 Administered Injection Unknown Injection 011 B-12 Administered Injection Nurse Visit Injection 011 A B-12 Administered Injection Chary Injection 011 Susie Wood B-12 Administered Injection Chary Injection 011 Susie Wood B-12 Administered Injection Nurse Visit Injection 011 A B-12 Administered Injection Chary Injection 010 Susie Wood B-12 Administered Injection Chary Injection 010 Susie Wood B-12 Administered Injection Nurse Visit Injection 010 A B-12 Administered Injection Chary Injection 010 Susie Wood B-12 Administered Injection Chary Injection 010 Susie Wood B-12 Administered Injection Chary Injection 009 Susie Wood B-12 Administered Injection Chary Injection 009 Susie Wood Immunizations CPT Code Status Date Vaccine Lot # [id number] Given 05/31/2011 Influenza Virus 3Yrs & Over [id number] Given 06/28/2010 Influenza Virus 3Yrs & Over Vital Signs Date Vital Result Comment 03/23/2018 Height 61 inches 5'1" Weight 163.00 [...] Color Straw Urine Appearance Clear Urine Specific [place] 1.005 Low 1.010-1.030 Urine pH 5.0 5-9 [...] 5 Urine Appearance Clear 5 Urine Specific [place] 1.004 Low 1.010-1.030 5 Urine pH 5.0 [...] Color Straw Urine Appearance Clear Urine Specific [place] 1.002 Low 1.010-1.030 Urine pH 5.0 5-9 [...] Color Straw Urine Appearance Clear Urine Specific [place] 1.003 Low 1.010-1.030 Urine pH 5.0 5-9 [...] Negative Negative Ua Routine 01/25/2016 Ua Specific [place] 1.015 Ua PH 5 Ua Color yellow [...] in selective patients <6.0%. Please refer to [place] [employer] diabetic care guidelines for further [...] [address]: Chary Wood MD Acct: [id number] Unit: [id number] AGE: 42 Location: LAB Re02/07/18 SEX: F Status: REG REF SPEC: [id number] IOANA: 02/07/18-1205 [facility] DR: Chary Wood MD REQ: [id number] RECD: 02/07/18124 STATUS: COMP _ SOURCE: URINE SPDESC: ORDERED: Urine Culture Procedure Result Reported Site Urine Culture Final 02/08/18- 1201 ML No Growth (<1,000 CFU/mL) * ML - Main Lab . END OF REPORT DEPARTMENT OF PATHOLOGY, [address] [place] [address] Saleem Barnett M.D. Director [facility] # [id number] 4 Termite Helper: [id number] SEE RESULT BELOW Name: PRASHANT EVANS : [address]: Jurgen Allen MD Acct: [id number] Unit: [id number] AGE: 42 Location: ED Re10/25/17 SEX: F Status: DEP ER SPEC: [id number] IOANA: 10/25/[address]: Emma RODRIGUEZ REQ: [id number] RECD: 10/25/17 STATUS: PETE DELAROSA DR: [facility] Chary Wood MD _ SOURCE: URINE SPDESC: ORDERED: Urine Culture Procedure Result Reported Site Urine Culture Final 10/27/17- 0907 ML Mixed arnold; possible contamination. Suggest resubmission. * ML - Main Lab . END OF REPORT DEPARTMENT OF PATHOLOGY, [address] [place] [address] Saleem Barnett M.D. Director [facility] # [id number] 7 Because ethnic data is not always [...] Kidney failure <15 (or dialysis) [address] [facility] Severe Sepsis and Septic Shock Management [...] HOUR DO THIS IN 6 WEEKS 15 [id number] 16 Normal Range 180 to 914 Indeterminate Range 145 to 180 Deficient Range <145 17 Normally menstruating females - Follicular phase 3 - 9 - Mid-cycle peak 4 - 23 - Luteal phase 1 - 6 Postmenopausal females 16 - 114 18 Therapeutic target for the treatment of diabetes mellitus patients is <7% HBA1C, and in selective patients <6.0%. Please refer to [place] [employer] diabetic care guidelines for further information. 19 If is still suspected, please repeat test after 48 to 72 hours. This test detects intact HCG only and is indicated for the early detection of . 20 SEE RESULT BELOW Name: PRASHANT EVANS : [address]: Juaquin Ashley DO Acct: [id number] Unit: [id number] AGE: 41 Location: ED Re04/17/17 SEX: F Status: DEP ER SPEC: [id number] IOANA: 04/17/[address]: Juaquin Ashley DO REQ: [id number] RECD: 04/17/17 STATUS: PETE DELAROSA DR: [facility] Chary Wood MD _ SOURCE: URINE SPDESC: ORDERED: Urine Culture Procedure Result Reported Site Urine Culture Final 04/19/17- 806 ML No growth of clinically significant organisms * ML - MAIN LAB (PSC1) . END OF REPORT * ML=Testing performed at Main Lab DEPARTMENT OF PATHOLOGY, [address] [place] [address] Saleem Barnett M.D. Director [facility] # [id number] 21 Desirable <150 Borderline high 150-199 High [...] and in selective patients <6.0%.Please refer to [place] Diabetic care guidelines for further information. 27 Normal Range 180 to 914 Indeterminate Range 145 to 180 Deficient Range <145 28 ADDITIONAL INFORMATION This test was developed and its performance characteristics determined by [facility] in a manner consistent with CLIA requirements. This test has not been cleared or approved by the [place].S. Food and Drug Administration. Test Performed by: [facility] - [address] [address] 29 DO THIS AT THE [facility] SOON 30 SEE RESULT BELOW Name: EVANSPRASHANT Antonia : [address]: Chary Wood MD Acct: [id number] Unit: [id number] AGE: 41 Location: [facility] Re10/15/16 SEX: F Status: REG REF SPEC: [id number] IOANA: 10/15/16-[address]: Chary Wood MD REQ: [id number] RECD: 10/15/16 STATUS: COMP _ SOURCE: TEZ SPDESC: ORDERED: Flu A B Request COMMENTS: [id number] Procedure Result Reported Site Rapid Influenza A B Request Final 10/15/16- 2025 ML Specimen received for Influenza A/B Molecular testing * ML - MAIN LAB ([facility]) . END OF REPORT * ML=Testing performed at Main Lab DEPARTMENT OF PATHOLOGY, [address] [place] [address] Saleem Barnett M.D. Director [facility] # [id number] 31 Termite Helper: [id number] [place] ROBERTO 32 Unable to calculate due to low microalbumin 33 [id number] 34 Unable to calculate due to low microalbumin 35 SEE RESULT BELOW Name: PRASHANT EVANS : [address]: Juma Coronado NP Acct: [id number] Unit: [id number] AGE: 40 Location: [facility] Re01/25/16 SEX: F Status: REG REF SPEC: [id number] IOANA: 01/25/16-[address]: Juma Coronado NP REQ: [id number] RECD: 01/25/16-1624 STATUS: COMP _ SOURCE: URINE SPDESC: ORDERED: Urine Culture COMMENTS: [id number] Procedure Result Reported Site Urine Culture Final 01/27/16- 1035 ML No growth of clinically significant organisms * ML - MAIN LAB (PSC1) . END OF REPORT * ML=Testing performed at Main Lab DEPARTMENT OF PATHOLOGY, [address] [place] [address] Saleem Barnett M.D. Director [facility] # [id number] 36 Desirable <150 Borderline high 150-199 High [...] <15 (or dialysis) 41 Test Performed by: [place] [address] Corporate Event Planner: Jacob Coyne II, M.D., Ph.D. 42 Therapeutic target for the treatment of diabetes Mellitus patients is <7% HBA1C, and in selective patients <6.0%.Please refer to [place] Diabetic care guidelines for further [...] and in selective patients <6.0%.Please refer to [place] Diabetic care guidelines for further information. 47 Normal Range 180 to 914 Indeterminate Range 145 to 180 Deficient Range <145 48 Termite Helper: [id number] DONIS ECHAVARRIA 49 Test Performed by: [facility] [address] [place] [address] Corporate Event Planner: Jacob Coyne II, M.D., Ph.D. 50 Because [...] levels within this range. Test Performed by: [facility] [address] [place] [address] Corporate Event Planner: Jacob Coyne II, M.D., Ph.D. 59 Because [...] levels within this range. Test Performed by: [place] [address] Corporate Event Planner: Adrian Lo M.D. 67 Because ethnic data [...] levels within this range. Test Performed by: [place] [address] Corporate Event Planner: Clarke Donald III, M.D. 69 Normal Range [...] levels within this range. Test Performed by: [place] [address] Corporate Event Planner: Clarke Donald III, M.D. 75 Because ethnic [...] alternate HCG method. 77 RUN DATE: 12/08/11 [facility] NMI LIVE PAGE 1 RUN TIME: 220 Specimen Inquiry RUN USER: INTERFACE Name: PRASHANT WISEMAN Status: REG ER Re12/07/11 Age/Sex: 36/F Unit#: [id number] Location: [facility] : [birth year] SPEC #: [id number] IOANA: 12/08/11 STATUS: PETE REQ #: [id number] RECD: 12/08/[address]: Jose GIRON,Jurgen Solomon SOURCE: TEZ ENTR: 12/08/[address] [facility] [address]: [facility] SPDESC: Israel GIRON, Chary Melgar PA-C,[place] ORDERED: RAPID FLU A B Procedure Result Verified Site > RAPID INFLUENZA A B ANTIGEN Final 12/08/11- 220 ML INFLUENZA A VIRUS ANTIGEN NEGATIVE BY IMMUNOASSAY INFLUENZA B VIRUS ANTIGEN NEGATIVE BY IMMUNOASSAY Cell culture testing can be performed to confirm negative test results and to assist in detecting other viruses that can produce similar clinical symptoms. Please notify Microbiology Lab if further testing is desired. - [facility] State Permit #[id number] [address] [place] [address] DEPARTMENT OF PATHOLOGY, [address] [place] [address] [facility] Permit #[id number] Saleem Barnett M.D. Director Rickey Goode M.D. Area Representative 78 Anion gap measurement may be of limited value in the presence of any alkalosis, especially in a combined acid base disorder. . 79 A metabolite of Naproxen, O-desmethylnaproxen, has been shown to interfere with the Jendrassik-Ethan method for measuring total bilirubin. Samples from [...] normal population are 25-80 Test Performed by: [facility] Dpt of Lab Med and Pathology [address] [place] [address] Corporate Event Planner: Clarke Donald III, M.D. 82 CHOLESTEROL INTERPRETATION: [...] IN SELECTIVE PATIENTS <6.0%. PLEASE REFER TO [place] [employer] DIABETIC CARE GUIDELINES FOR FURTHER INFORMATION. 94 Anion gap measurement may be of limited value in the presence of any alkalosis, especially in a combined acid base disorder. . 95 A metabolite of Naproxen, O-desmethylnaproxen, has been shown to interfere with the Jendrassik-Ethan method for measuring total bilirubin. Samples from [...] normal population are 25-80 Test Performed by: [facility] Dpt of Lab Med and Pathology [address] [place] [address] Corporate Event Planner: Clarke Donald III, M.D. 101 MICROALBUMINURIA IN [...] normal population are 25-80 Test Performed by: [facility] Dpt of Lab Med and Pathology [address] [place] [address] Corporate Event Planner: Clarke Donald III, M.D. 109 THERAPEUTIC TARGET FOR THE TREATMENT OF DIABETES MELLITUS PATIENTS IS <7% HBA1C, AND IN SELECTIVE PATIENTS <6.0%. PLEASE REFER TO [employer] DIABETIC CARE GUIDELINES FOR FURTHER INFORMATION. 110 Interpretation: 10-24 (mild to moderate deficiency) -- REFERENCE VALUE -- 25-HYDROXY D TOTAL (D2+D3) Optimum levels in the normal population are 25-80 Test Performed by: [facility] Dpt of Lab Med and Pathology [address] [place] [address] Corporate Event Planner: Clarke Donald III, M.D. 111 Anion gap measurement may be of limited value in the presence of any alkalosis, especially in a combined acid base disorder. . 112 Note change in reference range as of 03/31/08. The change was based on recommendations from the [place] [employer]. 113 Please note change in reference range effective 08 . 114 A metabolite of Naproxen, O-desmethylnaproxen, has been shown to interfere with the Jendrassik-Ethan method for measuring total bilirubin. Samples from [...] IN SELECTIVE PATIENTS <6.0%. PLEASE REFER TO [employer] DIABETIC CARE GUIDELINES FOR FURTHER INFORMATION. 117 Anion gap measurement may be of limited value in the presence of any alkalosis, especially in a combined acid base disorder. . 118 Note change in reference range as of 03/31/08. The change was based on recommendations from the [place] [employer]. 119 Please note change in [...] IN SELECTIVE PATIENTS <6.0%. PLEASE REFER TO [employer] DIABETIC CARE GUIDELINES FOR FURTHER INFORMATION. 123 Anion gap measurement may be of limited value in the presence of any alkalosis, especially in a combined acid base disorder. . 124 VERBAL TO ROSY//DR WOOD OFFICE BY DEBBIE at 1219 on 06/30/09. Results read back accurately. Note change in reference range as of 03/31/08. The change was based on recommendations from the [place] [employer]. 125 Please note change in [...] change was based on recommendations from the [place] [employer]. 130 Please note change in reference range effective 08 . 131 A metabolite of Naproxen, O-desmethylnaproxen, has been shown to interfere with the Jendrassik-Ethan method for measuring total bilirubin. Samples from [...] IN SELECTIVE PATIENTS <6.0%. PLEASE REFER TO [employer] DIABETIC CARE GUIDELINES FOR FURTHER [...] LDL Greater than 189 MG/DL 137 Interpretation: 06-03 (mild to moderate deficiency) -- REFERENCE VALUE -- 25-HYDROXY D TOTAL (D2+D3) Optimum levels in the normal population are 25-80 Test Performed by: [facility] Dpt of Lab Med and Pathology [address] [place] [address] Corporate Event Planner: Clarke Donald III, M.D. Procedures Date CPT Code Description Status Comment 02/18/2018 54256 Admin Of Inj Completed 01/19/2018 01284 Admin Of Inj Completed 12/19/2017 47240 Admin Of Inj Completed 11/20/2017 43905 Admin Of Inj Completed 11/14/2017 Diabetic Retinal Eye Exam Completed Non prolif retinopathy Document: 11/14/17 - Consult Ophthalmology - Allan 11/07/2017 75894 EKG Tracing & Interpretation Completed 10/20/2017 81094 Admin Of Inj Completed 09/22/2017 15255 Admin Of Inj Completed 08/21/2017 87936 Admin Of Inj Completed 07/21/2017 52959 Admin Of Inj Completed 06/19/2017 04716 Admin Of Inj Completed 05/19/2017 19758 Admin Of Inj Completed 05/01/2017 Diabetic Retinal Eye Exam Completed 03/16/2015 Diabetic Retinal Eye Exam Completed 09/04/2012 33791 Admin Of Inj Completed 06/16/2012 94541 Admin Of Inj Completed 05/08/2012 43289 Admin Of Inj Completed 03/10/2012 01472 Admin Of Inj Completed 02/06/2012 25189 Admin Of Inj Completed 12/10/2011 66582 Admin Of Inj Completed 11/11/2011 30662 Admin Of Inj Completed 10/07/2011 97050 Admin Of Inj Completed 09/03/2011 77488 Admin Of Inj Completed 08/02/2011 33179 Admin Of Inj Completed 07/02/2011 73752 Admin Of Inj Completed 05/31/2011 25647 Admin Of Inj Completed 03/20/2011 29101 Admin Of Inj Completed 01/16/2011 04290 Admin Of Inj Completed 12/13/2010 11366 Admin Of Inj Completed 10/12/2010 28563 Noninvasive Ear Or Pulse Completed Oximetry For Oxygen Saturation 10/12/2010 32386 Admin Of Inj Completed 08/29/2010 67350 Admin Of Inj Completed 06/28/2010 61576 Admin Of Inj Completed 05/02/2010 84571 Inhalation TX For Acute Completed Airway Obstruction W/Nebulizer/Inhaler 04/02/2010 83488 Admin Of Inj Completed 02/22/2010 71626 Admin Of Inj Completed 01/17/2010 96666 Admin Of Inj Completed 01/02/2010 46795 Inhalation TX For Acute Completed Airway Obstruction W/Nebulizer/Inhaler 12/14/2009 16756 Admin Of Inj Completed 07/25/2009 08134 Admin Of Inj Completed 06/16/2009 76857 Admin Of Inj Completed Encounters Type Date Location Provider CPT E/M Dx Office Visit 01/01/2018 [facility] Internal Medicine Chary Wood 36425 E11.9 10:20a - Samuel Richards Z72.0 R05 R31.9 Office Visit 11/07/2017 11:00a [facility] Internal [facility] Chary Wood 71310 E11.9 - Samuel Richards Z01.818 H26.9 Office Visit 10/28/2017 10:00a [facility] Internal [facility] Chary Wood 47553 R10.9 - Samuel Richards E11.21 R05 Office Visit 09/25/2017 10:40a [facility] Internal [facility] Chary Wood 74673 Z00.00 - Samuel Richards E11.21 Office Visit 08/21/2017 11:40a [facility] Internal [facility] Chary Wood 91314 E11.21 - Samuel Richards E53.9 D50.9 Z72.0 Office Visit 08/05/2017 10:20a [facility] Chary Wood 77157 J45.901 Weston Baker M.D. E11.21 N92.6 Office Visit 05/30/2017 4:00p [facility] Chary Wood 85866 J45.901 Weston Baker M.D. R07.89 Office Visit 05/19/2017 11:40a [facility] Internal [facility] Chary Wood 02871 E11.21 - Samuel Richards E53.9 F41.9 E53.8 Office Visit 04/21/2017 4:00p [facility] Internal Medicine Chary Israel, 11097 N39.0 - [place] M.D. E11.21 J01.90 F41.9 Office Visit 03/21/2017 11:40a [facility] Internal Medicine Chary Israel, 33014 E11.9 - [place] M.D. E53.9 D50.9 N92.0 Office Visit 12/30/2016 4:40p [facility] Internal Chary Israel, 44632 M25.511 Medicine - [place] M.DMohan E11.21 Office Visit 12/12/2016 1:00p [facility] Internal Medicine Chary Israel, 33368 J45.41 - [place] M.D. Office Visit 10/31/2016 1:00p [facility] Internal Medicine Chary Israel, 55608 E11.9 - [place] M.D. E53.9 E55.9 D50.9 E53.8 Office Visit 10/15/2016 1:00p [facility] Internal Chary Israel, 64961 J06.9 Medicine - [place] M.D. Office Visit 08/26/2016 1:40p [facility] Internal Chary Israel, 32268 Y08.89xS Medicine - [place] M.DMohan E11.21 E04.1 Office Visit 08/15/2016 4:00p [facility] Internal Medicine Chary Israel, 20465 J01.90 - [place] M.DMohan F41.9 Z72.0 E55.9 D50.9 E11.21 Office Visit 04/19/2016 11:40a [facility] Internal Medicine Chary Israel, 12311 E11.21 - [place] M.DMohan F41.9 E55.9 E53.9 H69.91 Office Visit 01/25/2016 2:40p [facility] [place] [address] N39.0 [place] J06.9 Z11.3 Office Visit 01/16/2016 10:40a [facility] Internal Medicine Chary Israel 20546 E11.21 - [place] M.DMohan E55.9 R80.8 Z72.0 Office Visit 10/27/2015 1:40p [facility] [place] [address] J01.90 [place] R11.0 H66.91 Office Visit 09/18/2015 11:20a [facility] Internal Medicine Chary Wood 72604 E11.21 - Samuel Richards D51.9 N92.6 Office Visit 06/02/2015 11:00a [facility] [place] [address] Z01.818 [place] J45.20 H26.9 E11.21 F41.9 Office Visit 05/29/2015 10:40a [facility] [place] [address] Z87.891 [place] J01.90 Z01.818 H66.91 J45.20 Office Visit 05/08/2015 10:00a [facility] Internal [facility] [place] [address] S97.82xS [place] Office Visit 05/01/2015 2:00p [facility] [place] [address] Z87.891 [place] J01.90 Office Visit 03/17/2015 11:20a [facility] Internal Medicine Chary Wood 40585 250.00 - Samuel Richards 305.1 266.9 Office Visit 11/18/2014 10:40a [facility] Internal Medicine Chary Wood 62259 250.42 - Samuel Richards 266.2 272.2 268.9 724.2 305.1 250.00 250.02 Office Visit 10/19/2014 10:00a [facility] Internal Medicine Lucinda Sinclair, N.P. 97580 465.9 - [place] Office Visit 08/17/2014 2:00p [facility] [place] [address] 465.9 - [place] 493.00 Office Visit 07/14/2014 10:00a [facility] [place] [address] 461.8 - [place] Office Visit 05/16/2014 11:00a [facility] Internal Medicine Chary Wood 43898 250.02 - Samuel Richards 266.2 268.9 786.2 305.1 Office Visit 04/26/2014 10:30a [facility] Internal [place] [address] 466.0 [place] 250.02 461.8 Office Visit 01/04/2014 4:00p [facility] Internal Medicine Chary Wood 37504 250.02 - [place] M.D. 266.2 268.9 300.00 272.2 782.1 305.1 Office Visit 12/22/2013 4:20p [facility] Internal Medicine Lucinda Sinclair, N.P. 67817 919.5 - [place] Office Visit 10/06/2013 3:40p [facility] Internal Medicine Chary Wood 90729 466.0 - [place] M.D. 250.02 266.2 268.9 Office Visit 05/28/2013 1:20p [facility] Internal Medicine Chary Wood 06888 382.9 - [place] M.D. 493.00 Office Visit 05/19/2013 9:20a [facility] Internal Medicine Chary Wood 02759 250.02 - [place] M.D. 493.90 266.2 268.9 Office Visit 10/06/2012 4:00p [facility] Internal Medicine Chary Wood 11738 786.2 - [place] M.D. 250.42 Office Visit 09/04/2012 4:00p [facility] Internal Medicine Chary Wood 62169 250.02 - [place] M.D. 266.2 493.90 Office Visit 06/16/2012 11:00a [facility] Internal Medicine Chary Wood 24537 250.02 - [place] M.D. 266.2 493.90 268.9 285.9 782.1 Office Visit 05/08/2012 11:00a [facility] Internal Medicine Chary Wood 90005 250.02 - [place] M.D. 266.2 401.1 311 729.5 Office Visit 03/10/2012 2:40p [facility] Internal Medicine Chary Wood 75083 266.2 - [place] M.D. 493.90 Office Visit 02/17/2012 4:00p [facility] Internal Medicine Chary Wood 20268 250.02 - [place] M.D. 787.02 493.90 789.00 305.1 250.00 Office Visit 11/11/2011 3:40p [facility] Internal Medicine Chary Wood M.D. 00582 311 - [place] 250.02 305.1 729.5 266.2 465.9 Office Visit 10/22/2011 3:20p [facility] Internal Medicine Chary Wood M.D. 22330 311 - [place] 787.02 250.02 401.1 729.5 Office Visit 09/03/2011 1:00p [facility] Internal Medicine Chary Wood, 87819 250.02 - [place] M.D. 272.4 285.9 268.9 266.2 461.9 Office Visit 08/20/2011 1:20p [facility] Internal Medicine - Ainsley Harvey M.D. 45175 250.02 [place] 268.9 465.9 272.4 Office Visit 07/02/2011 2:00p DO Not Use [employer]-[place] Lucinda Sinclair, 49812 266.2 N.P. 382.9 Office Visit 05/31/2011 1:00p DO Not Use Chary Cotton, 12773 250.02 [employer]-[place] M.D. 266.2 300.00 V04.81 Office Visit 10/12/2010 11:45a DO Not Use Chary Cotton, 41144 266.2 [employer]-[place] M.D. 493.90 782.1 250.02 Office Visit 07/18/2010 10:45a DO Not Use [employer] Belen Grace, 58456 466.0 M.D., FACP 519.11 Office Visit 06/28/2010 10:00a DO Not Use Chary Cotton, 53449 250.02 [employer] M.D. 493.90 296.7 266.2 v04.81 Office Visit 05/02/2010 2:00p DO Not Use [employer] Belen Grace, 13215 250.02 M.D., FACP 465.9 493.90 382.9 Office Visit 04/02/2010 3:15p DO Not Use Chary Cotton, 02611 250.02 [employer] M.D. 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 250.02 305.1 Office Visit 08/30/2009 1:00p DO Not Use Invoice Machine Operator AT [facility], 37550 729.5 [facility].D. 266.2 250.02 Office Visit 07/25/2009 11:00a DO Not Use Invoice Machine Operator AT [facility], 37426 250.02 [facility].D. 272.4 266.2 Office Visit 07/05/2009 9:00a DO Not Use Invoice Machine Operator AT Nurse Visit [place] [address] [facility] Office Visit 06/23/2009 10:00a DO Not Use Invoice Machine Operator AT [facility], 16680 250.02 [facility].D. 268.9 791.0 Office Visit 06/16/2009 10:40a DO Not Use Invoice Machine Operator AT [facility], 73045 250.00 [facility].D. 266.2 250.60 466.0 729.5 Plan of Care Future Appointment(s):04/03/2018 1:00 pm - Chary Wood M.D. at [facility] Internal Medicine - Qzxeiyeqi65/11/2018 10:00 am - Nurse Visit A at [facility] Internal Medicine - Wmevgiskq33/13/2018 - Chary Wood M.D.J45.20 Mild intermittent asthma, uncomplicatedNew Medication:Azithromycin 250 mgR05 CoughComments:Start back on the WfanxcbbY61.21 Type 2 diabetes mellitus with diabetic nephropathyNew Medication:Glucocom Blood Glucose MonitorGlucocom TestF41.9 Anxiety disorder, unspecifiedNew Medication:Escitalopram Oxalate 5 mgComments:Start the escitalopramTake the Xanax (alprazolam) if neededFollow up: 04/03
[2018-04-06] MEDS ORDERED: NS 0.9% 1000 ML* 1,000 ML IV ONE (22:52)
[2018-04-06 23:14] LABS: ABS Basophils 0.1 10^3/ul (0-0.2); ABS Eosinophils 0 10^3/ul (0-0.6); ABS Lymphocytes 1.9 10^3/ul (1.0-4.8); ABS Monocytes 0.6 10^3/ul (0-0.8); ABS Neutrophils 8.4 10^3/ul (1.5-7.7); ABS Nucleated RBC 0 10^3/ul; Eosinophil % 0.4 % (0-6); Hematocrit 43 % (35-47); Hemoglobin 14.4 g/dl (12.0-16.0); Lymphocyte % 17.2 % (25-47); Mean Corpuscular HGB Conc 34 g/dl (31-36); Mean Corpuscular Hemoglobin 31 pg (27-31); Mean Corpuscular Volume 93 fL (80-97); Mean Platelet Volume 8.3 um3 (7.4-10.4); Nucleated Red Blood Cells % 0; Platelet Count 200 10^3/ul (150-450); Red Blood Count 4.61 10^6/ul (4.00-5.40); Red Cell Distribution Width 13 % (10.5-15); White Blood Count 11.1 10^3/ul (3.5-10.8)
[2018-04-06 23:32] LABS: Urine Appearance Clear; Urine Blood 2+ (Negative); Urine Color Straw; Urine Ketones Negative (Negative); Urine Protein Negative (Negative); Urine Red Blood Cell Trace(0-2/hpf) (Absent); Urine Specific Gravity 1.002 (1.010-1.030); Urine Urobilinogen Negative (Negative); Urine White Blood Cell Absent (Absent)
--- NOTE | 2018-04-07 00:05 | ED ---
Complex/Multi-Sys Presentation - HPI Summary HPI Summary: 42 female presents with dizziness and nauseous since earlier today. States that she feels very weak. No bowel pain. No vomiting or diarrhea. She admits to occasional headache. No change in vision. No neck stiffness. No sore throat. She denies any chest pain or shortness breath. She's been having cough. She recently completed course of azithromycin for a upper respiratory infection. She is a smoker who is trying to cut back. She admits to occasional sinus pressure but states that she does not have a sinus infection. She states that her dizziness is a feeling that the room is spinning. it is worse with head movements. She states appetite has been poor due to a lot of recent stress. - History Of Current Complaint Chief Complaint: EDDizziness Time Seen by Provider: 04/06/18 22:45 - Allergies/Home Medications Allergies/Adverse Reactions: Allergies Allergy/AdvReac Type Severity Reaction Status Date / Time adhesive tape Allergy Rash Verified 04/06/18 21:49 amoxicillin [From Augmentin] Allergy Hives Verified 04/06/18 21:49 bee venom protein (honey bee) Allergy Swelling Verified 04/06/18 21:49 clarithromycin [From Biaxin] Allergy Hives Verified 04/06/18 21:49 clavulanic acid Allergy Hives Verified 04/06/18 21:49 [From Augmentin] levofloxacin [From Levaquin] Allergy Hives Verified 04/06/18 21:49 Penicillins Allergy Hives Verified 04/06/18 21:49 pineapple Allergy Headache Verified 04/06/18 21:49 sertraline Allergy Unknown Verified 04/06/18 21:49 Reaction Details PMH/Surg Hx/FS Hx/Imm Hx Endocrine/Hematology History: Reports: Hx Diabetes - type 2 -ON ORAL MEDICATION FOR, Hx Anemia - IRON,VIT B12 AND VIT D ARE LOW Denies: Hx Thyroid Disease Cardiovascular History: Denies: Hx Hypertension, Hx Pacemaker/ICD, Other Cardiovascular Problems/ Disorders Respiratory History: Reports: Hx Asthma - PRN INHALER Denies: Hx Chronic Obstructive Pulmonary Disease (COPD), Other Respiratory Problems/Disorders GI History: Denies: Hx Ulcer, Other GI Disorders History: Reports: Other Problems/Disorders - UTIs Denies: Hx Renal Disease Sensory History: Reports: Hx Cataracts - RIGHT, Hx Contacts or Glasses - GLASSES Denies: Hx Hearing Aid Opthamlomology History: Reports: Hx Cataracts - RIGHT, Hx Contacts or Glasses - GLASSES Neurological History: Denies: Other Neuro Impairments/Disorders Psychiatric History: Reports: Hx Anxiety - PANIC ATTACKS, Hx Depression - HX OF - Cancer History Cancer Type, Location and Year: Cervical CA 1996 - Surgical History Surgery Procedure, Year, and Place: EAR TUBES A CHILD. LEEP. RIGHT EYE CATARACT Hx Anesthesia Reactions: Yes - "OUT FOR A WHILE" AFTER SURGERY Infectious Disease History: No Infectious Disease History: Denies: Hx Clostridium Difficile, Hx Hepatitis, Hx Human Immunodeficiency Virus (HIV), Hx of Known/Suspected MRSA, Hx Shingles, Hx Tuberculosis, Hx Known/ Suspected VRE, Hx Known/Suspected VRSA, History Other Infectious Disease, Traveled Outside the [place] in Last 30 Days - Family History Known Family History: Positive: Diabetes, Other - cataracts Negative: Cardiac Disease, Hypertension - Social History Alcohol Use: None Hx Substance Use: No Substance Use Type: Reports: Marijuana Substance Use Comment - Amount & Last Used: MARIJUANA- EVERY 2 DAYS FOR ANXIETY Hx Tobacco Use: Yes Smoking Status (MU): Heavy Every Day Tobacco Smoker Type: Cigarettes Amount Used/How Often: 1/2-1 1/2 ppd X 26 YEARS Length of Time of Smoking/Using Tobacco: 27 years Have You Smoked in the Last Year: Yes Review of Systems Negative: Fever Negative: Chest Pain Negative: Shortness Of Breath Positive: Nausea. Negative: Vomiting Neurological: Other - dizziness All Other Systems Reviewed And Are Negative: Yes Physical Exam Triage Information Reviewed: Yes Vital Signs On Initial Exam: Initial Vitals Temp Pulse Resp BP Pulse Ox 98.1 F 88 18 153/83 97 04/06/18 21:45 04/06/18 21:45 04/06/18 21:45 04/06/18 21:45 04/06/18 21:45 Vital Signs Reviewed: Yes Appearance: Positive: Well-Appearing Skin: Positive: Warm, Dry Head/Face: Positive: Normal Head/Face Inspection Eyes: Positive: Normal, EOMI, ROSEANN, Conjunctiva Clear ENT: Positive: Normal ENT inspection, Pharynx normal, TMs normal Neck: Positive: Supple, Nontender, No Lymphadenopathy Respiratory/Lung Sounds: Positive: Clear to Auscultation, Breath Sounds Present Cardiovascular: Positive: Normal, RRR Musculoskeletal: Positive: Normal Neurological: Positive: Sensory/Motor Intact, Alert, Oriented to Person Place, Time, CN Intact II-III, Finger to Nose Psychiatric: Positive: Normal Diagnostics - Vital Signs Vital Signs Temp Pulse Resp BP Pulse Ox 04/06/18 21:45 98.1 F 88 18 153/83 97 - Laboratory Lab Results: Lab Results 04/06/18 04/06/18 04/06/18 Range/Units 23:05 23:05 23:18 WBC 11.1 H (3.5-10.8) 10^3/ul RBC 4.61 (4.00-5.40) 10^6/ul Hgb 14.4 (12.0-16.0) g/dl Hct 43 (35-47) % MCV 93 (80-97) fL MCH 31 (27-31) pg MCHC 34 (31-36) g/dl RDW 13 (10.5-15) % Plt Count 200 (150-450) 10^3/ul MPV 8.3 (7.4-10.4) um3 Neut % (Auto) 76.0 (38-83) % Lymph % (Auto) 17.2 L (25-47) % Hart % (Auto) 5.4 (0-7) % Eos % (Auto) 0.4 (0-6) % Baso % (Auto) 1.0 (0-2) % Absolute Neuts (auto) 8.4 H (1.5-7.7) 10^3/ul Absolute Lymphs (auto) 1.9 (1.0-4.8) 10^3/ul Absolute Monos (auto) 0.6 (0-0.8) 10^3/ul Absolute Eos (auto) 0 (0-0.6) 10^3/ul Absolute Basos (auto) 0.1 (0-0.2) 10^3/ul Absolute Nucleated RBC 0 10^3/ul Nucleated RBC % 0 Sodium 136 (135-145) mmol/L Potassium 3.7 (3.5-5.0) mmol/L Chloride 105 (101-111) mmol/L Carbon Dioxide 23 (22-32) mmol/L Anion Gap 8 (2-11) mmol/L BUN 6 (6-24) mg/dL Creatinine 0.54 (0.51-0.95) mg/dL Est GFR ( Amer) 151.3 (>60) Est GFR (Non-Af Amer) 125.0 (>60) BUN/Creatinine Ratio 11.1 (8-20) Glucose 136 H (70-100) mg/dL Calcium 9.2 (8.6-10.3) mg/dL Magnesium 1.9 (1.9-2.7) mg/dL Total Bilirubin 0.40 (0.2-1.0) mg/dL AST 13 (13-39) U/L ALT 13 (7-52) U/L Alkaline Phosphatase 46 (34-104) U/L Total Protein 7.0 (6.4-8.9) g/dL Albumin 4.3 (3.2-5.2) g/dL Globulin 2.7 (2-4) g/dL Albumin/Globulin Ratio 1.6 (1-3) Beta HCG, Quant < 0.60 mIU/mL Urine Color Straw Urine Appearance Clear Urine pH 5.0 (5-9) Ur Specific [place] 1.002 L (1.010-1.030) Urine Protein Negative (Negative) Urine Ketones Negative (Negative) Urine Blood 2+ A (Negative) Urine Nitrate Negative (Negative) Urine Bilirubin Negative (Negative) Urine Urobilinogen Negative (Negative) Ur Leukocyte Esterase Negative (Negative) Urine WBC (Auto) Absent (Absent) Urine RBC (Auto) Trace(0-2/hpf) (Absent) Ur Squamous Epith Cells Present A (Absent) Urine Bacteria Absent (Absent) Urine Glucose Negative (Negative) Result Diagrams: 04/06/18 23:05 04/06/18 23:05 Lab Statement: Any lab studies that have been ordered have been reviewed, and results considered in the medical decision making process. - Radiology chest Xray Interpretation: No Acute Changes Radiology Interpretation Completed By: Radiologist Complex Multi-Symp Course/Dx Course Of Treatment: 42 female presents with dizziness and nauseous since earlier today. States that she feels very weak. No bowel pain. No vomiting or diarrhea. She admits to occasional headache. No change in vision. No neck stiffness. No sore throat. She denies any chest pain or shortness breath. She 's been having cough. She recently completed course of azithromycin for a upper respiratory infection. She is a smoker who is trying to cut back. She admits to occasional sinus pressure but states that she does not have a sinus infection. She states that her dizziness is a feeling that the room is spinning. it is worse with head movements. She states appetite has been poor due to a lot of recent stress. On exam pharynx are normal. Lungs clear to auscultation. Abdomen soft nontender. Normal neuro exam. Laboratory without any significant abnormality. Patient declined IV fluids and nausea medication. Chest x-ray read by me as normal. Discussed could be a viral illness and told to do supportive therapy. Patient understands and agrees with the plan. - Diagnoses Differential Diagnoses/HQI/PQRI: Metabolic Abnormality, Urinary Tract Infection , Other - pneumonia Provider Diagnoses: Nausea, Dizziness Discharge - Sign-Out/Discharge Documenting (check all that apply): Patient Departure - Discharge Plan Condition: Good Disposition: HOME Patient Education Materials: Dizziness (ED) Referrals: Chary Wood MD [Primary Care Provider] - Additional Instructions: drink plenty of fluids Take tyenlol as needed for pain every 6 hours Return to ED if develop any new or worsening symptoms - Billing Disposition and Condition Condition: GOOD Disposition: Home
--- NOTE | 2018-04-07 08:17 | RAD ---
INDICATION: Cough COMPARISON: Most recent comparison chest x-rays dated January 21, 2008 TECHNIQUE: PA and lateral views of the chest were obtained. FINDINGS: The heart and mediastinum are normal in size and contour. The lungs are grossly clear. There is no evidence of large pleural effusion. Visualized bones are normal for the patient's age. There is no radiographic evidence of free air beneath the diaphragm IMPRESSION: No radiographic evidence of acute cardiopulmonary disease. R0
== END 2018-04-07 00:15 | disposition home or self-care (01) ==
LOC: ED 21:41
DX: R42 Dizziness and giddiness (principal); R11.0 Nausea; Z88.0 Allergy status to penicillin; F17.210 Nicotine dependence, cigarettes, uncomplicated
CPT/HCPCS: 36415; 71046; 80053; 81003; 81015; 83735; 84702; 85025; 99282

== ENCOUNTER 2018-07-20 16:10 | Emergency (ER) | payer OTHER ==
--- OUTSIDE RECORDS SUMMARY | 2018-07-20 16:41 | XMS REPORT | Continuity of Care Document ---
:1975 External Reference #:[id number] Author Name Rosalina Graham Care Team Providers Name Role Phone Chary Wood MD Primary Care Physician Unavailable Payers Type Date Identification Numbers Payment Provider Subscriber Effective: Policy Number: [id number] [employer] Prashant Evans 2013 Medicaid PayID: [id number] [address] [address] [place] [address] Effective: 2011 Policy Number: [id number] BS Options [employer] Prashant Evans Expires: 2013 Group Name: [id number] [address] [address] PayID: [id number] [place] [address] Effective: 2011 Policy Number: [id number] Facets Prashant Evans Expires: 2011 PayID: [id number] [address] [address] [place] [address] Effective: 2011 Policy Number: [id number] Medicaid Prashant Evans Expires: 2011 Group Name: 1 1 [address] PayID: [id number] [place] [address] Advance Directives Description No Information Available Problems Date Description Provider Status Onset: 09/24/2012 [...] Disease Social History Type Date Description Comments Sex Unknown Marital Status remarried in February 2015 ETOH Use Denies alcohol use Recreational Drug Use Denies Drug Use Tobacco Use Start: Unknown Patient is a current smokes 2 PPD smoker, smokes every day Smoking Status Reviewed: 06/29/18 Patient is a current smokes 2 PPD smoker, smokes every day Allergies, Adverse Reactions, Alerts Date Description Reaction Status Severity Comments 06/16/2009 Penicillins hives Active Severe 06/16/2009 Ibuprofen black stool Active Moderate 06/16/2009 Levaquin hives Active Severe 02/06/2010 Augmentin Urticaria Active Severe 04/02/2010 Bee Sting Urticaria Active Severe 05/08/2012 Sertraline hearing loss Active 10/06/2013 Pineapple/ ROBERT Active Severe 10/06/2013 Plastic Tape Urticaria Active Severe 10/19/2014 Biaxin Urticaria Active Moderate 09/25/2017 Lyrica Active Medications Medication Date Status Form Strength Qnty SIG Indications Ordering Provider Mupirocin 06/29 Active Ointment 2% 22gm Apply bid R21 to red area Susie Wood Gabapentin 05/22 Active Capsules 100mg 120ca 1-2 E11.40 ps capsules 3 Cotton, times daily M.D. Aircast 04/03 Active Misc 1unit for daily S93.401A [facility] Airsport Ankle s use dx [place] Brace s93.401a M.D. Left/Right Glucocom Blood 03/23 Active Device 1unit for daily E11.21 [facility] Glucose Monitor s use: E11.21 Susie Wood Glucocom Test 03/23 Active Strips 50uni test strips E11.21 ts per [place] burns, for testing M.D. once daily Azithromycin 03/23 Active Tablets 250mg [...] For testing E11.21 Chary Meter s daily Cotton, M.D. True Metrix 10/27 Active Strips 150un For [...] 05/26 Active Tablets 2.5mg 30tab Take One Chary /2013 s Tablet By Cotton, Mouth Every M.D. Day Ellen Contour 10/14 Active Misc 120un please Chary Microlet its check blood Cotton, Lancets sugar four M.D. times daily Lancets, One 05/31 Active Misc 50uni for testing E11.65 Chary Touch Ultra ts once daily Cotton, Mini M.D. Ondansetron Active Tablets 4mg Ashley, /0000 Dispers Juaquin, DO Escitalopram 03/23 Hx Tablets 5mg 30tab 08/12 by F41.9 Chary s mouth every Cotton, - day for 1 M.D. 05/22 week, increase to whole tablet once daily Chantix 01/01 Hx Tablets 0.5mg X 42tab take as Z72.0 Chary Starting 11 & 1 mg s directed Cotton, Andrés - X 42 M.D. 03/23 Azithromycin 15 Hx Tablets 250mg 6tabs 2 tabs by [...] Hx Tablets 0.35mg 28tab take one Chary s tablet by Cotton, - mouth every M.D. Azithromycin 05/30 Hx Tablets 250mg 6tabs 2 tabs by J45.901 Chary /2017 mouth on Cotton, - day 1; 1 M.D. 08/21 tab by mouth every day on days 2-5 Benzonatate 10/20 Hx Capsules 200mg 30cap take 1 J45.901 s capsule by Cotton, - mouth three M.D. 09/24 times a day /2017 if needed Hydrocodone-Bayron 10/20 Hx Tablets 5-325mg 30tab 1 by mouth R07.89 Chary taminophen s three times Cotton, - a day as M.D. 09/24 needed /2017 Diclofenac 12/30 Hx Gel 1% 100un apply 2-4 M25.511 Chary Sodium its grams to Cotton, - the right M.D. 03/21 shoulders 3-4 times a day Budesonide 12/12 Hx Suspension 0.25mg/2M 60ml 1 unit J45.41 L nebulizer [place], - twice a day M.D. 08/21 Azithromycin 12/12 Hx Tablets 250mg 6tabs 2 tabs by J45.41 mouth on Cotton, - day 1; 1 M.D. 12/30 tab by mouth every day on days 2-5 Vitamin B12 11/22 Hx Tablets ER 1000mcg 30tab 1 by mouth s every day [place], - M.D. 05/19 Ipratropium 10/15 Hx Solution 0.06% 15ml 2 sprays in J06.9 each Cotton, - nostril 3 M.D. 08/21 [...] Hx Tablets 0.35mg 28tab (Not s Taking) [place], - take one M.D. 08/05 tablet by mouth every day Nitrofurantoin 01/24 Hx Capsules 100mg 14cap take one N39.0 Rubin D. Macrocrystal s capsule [place], - twice daily M.D. 01/31 for 7 days. Clindamycin HCL 11/09 Hx Capsules 300mg 16cap 1 PO every s 6 hours [place], - until you M.D. 11/22 see the dentist Fluticasone 10/29 Hx Suspension 50mcg/Act 16gm 2 sprays Juma each Cliff, DRIER TENDER - nostril qd. 10/24 Azithromycin 10/26 Hx Tablets 250mg 6tabs 2 tabs by Wen01.Navneet Juma mouth every Cliff, DRIER TENDER - day x1 day, 10/31 1 tab by mouth every day x 4 days Ondansetron 10/26 Hx Tablets 4mg 15tab dissolve R11.0 Dispers s one tablet Cliff, DRIER TENDER - orally 11/01 every hours as needed [...] tabs by J01.90 Juma mouth every Cliff, DRIER TENDER - day x1 day, 06/03 1 tab by mouth every day x 4 days Albuterol 05/29 Hx Nebulizer (2.5mg/3M 100un 1 vial via J45.20 L) 0.083% its nebulizer 4 Cotton, - times daily M.D. 08/21 as needed Low TOP Walking 05/08 Hx 1unit For use S97.82xS Juma Boot/Hinge For s while Cliff DRIER TENDER Ankle Movement - ambulating 05/09 Doxycycline 05/08 Hx Capsules 100mg 20cap one tablet S97.82xS Juma Hyclate /2014 s twice daily Cliff, DRIER TENDER - for 10 . Hydrocodone-Bayron 05/08 Hx Tablets 5-325mg 20tab take 1/2-1 S97.82xS Juma taminophen s tablet Cliff, DRIER TENDER - every 6 01/15 hours for pain. Azithromycin 05/01 Hx Tablets 250mg 6tabs 2 tabs by J01.90 Juma mouth every Cliff, DRIER TENDER - day x1 day, 05/06 1 tab by mouth every day x 4 days Benzonatate 05/01 Hx Capsules 100mg 20cap take one or J01.90 Juma s two Cliff, DRIER TENDER - capsules 05/06 every hours as needed for cough. Simvastatin 04/03 Hx Tablets 5mg 30tab take 1 Chary /2015 s tablet Cotton, - daily at M.D. 09/18 bedtime Atorvastatin 03/27 Hx Tablets 10mg 30tab 1 by mouth Chary Calcium s every day [place], - M.D. 04/03 Nicoderm CQ 03/17 Hx Patches 14mg/24HR 30uni Apply 305.1 Chary /2015 24HR ts daily, Cotton, - remove at M.D. 04/04 night Sommer-Be 01/21 Hx Tablets 0.35mg 28tab Take One Chary /2015 s Tablet By Cotton, - Mouth Every M.D. Vitamin D 11/22 Hx Capsules [id number] 12cap 1 by mouth Chary (Ergocalciferol s once weekly [place], ) - for 12 M.D. Glucocom Blood 11/18 Hx Kit W/Device 1unit for use Chary Glucose s once daily [place], Monitoring - 250.02 M.D. System 10/27 Azithromycin 10/24 Hx Tablets 250mg 6tabs two tabs day one, Varn, N.P. - one daily 10/30 till Fluticasone 10/19 Hx Suspension 50mcg/Act 16gm 2 sprays 465.9 each Varn, N.P. - nostril 11/02 daily needed Hydrocortisone 09/27 Hx Cream 2.5% 30gm apply to affected [place], - area twice M.D. 10/19 Azithromycin 08/17 Hx Tablets 250mg 6tabs 2 tabs by 465.9 Juma mouth every Cliff, DRIER TENDER - day x1 day, 08/24 1 tab by mouth every day x 4 days Pulmicort 08/17 Hx Aerosol 180mcg/Ac 1unit 2 puffs 493.00 Juma [place] t s twice daily Cliff, DRIER TENDER - 03/17 Azithromycin 07/14 Hx Tablets 250mg 6tabs 2 tabs by 461.8 Juma mouth every Cliff, DRIER TENDER - day x1 day, 08/17 1 tab by mouth every day x 4 days Azithromycin 05/16 Hx Tablets 250mg 6tabs 2 tabs by 786.2 Chary /2014 mouth on [place], - day 1; 1 M.D. 08/17 tab by mouth every day on days 2-5 Metformin HCL 05/16 Hx Tablets 500mg 90tab 1 Daily s Thanh Wood MFrancesco 01/15 Azithromycin 04/26 Hx Tablets 250mg 6tabs 2 tabs by 466.0 Juma mouth every Cliff, DRIER TENDER - day x1 day, 05/15 1 tab by /2013 mouth every day x 4 days Alprazolam 01/04 Hx Tablets 0.25mg 30tab 1 po qd prn 300.00 Chary s [place] - M.DMohan 05/11 Atorvastatin 01/04 Hx Tablets 10mg 15tab 1/2 tablet 272.2 Chary s by mouth [place] - every day M.DMohan 08/17 Vitamin D 01/04 Hx Tablets 1000Unit 60tab 2 by mouth 250.02 Chary s every day Thanh Wood M.D. 04/24 Mupirocin 01/04 Hx Cream 2% 30gm apply two 782.1 Chary Calcium times daily [place], - to areas of M.D. 04/26 blistering skin Triamcinolone 12/22 Hx Lotion 0.1% 60ml apply to 919.5 Lucinda Acetonide dry skin Varn, N.P. - once or 01/05 twice daily /2013 Vitamin D 10/12 Hx Capsules [id number] 12cap 1 tablet 250.02 Chary s once weekly [place], - for 12 M.D. 01/04 weeks Azithromycin 10/06 Hx Tablets 250mg 6tabs 2 tabs po 466.0 on day 1; 1 [place], - tab po qd M.D. 10/15 on days 2- Advair Diskus 10/06 Hx Aerosol 100-50mcg 60uni 1 466.0 Juma /Dose ts inhalation SCOTT [place] - twice [...] 06/23 Hx Tablets 500mg 90tab every day Chary s [place], - M.D. 05/16 Azithromycin 05/28 [...] Hx Solution 100Unit/M 15ml inject 30 250.02 L units Cotton, - subcutaneou M.D. 05/28 sly once daily Advair Diskus 05/19 Hx Aerosol 100-50mcg 1unit 1 493.90 /Dose s inhalation Cotton, - twice daily M.D. 10/06 Ventolin HFA 05/19 Hx Aerosol 108(90Bas 1unit 2 puffs 4 493.90 e) s times a day Cotton, - mcg/Act as needed M.D. 10/06 Lantus Solostar 05/19 Hx 100un for once Chary Pen [place] its daily use Cotton, - M.D. 05/28 Ellen Contour 10/14 Hx Strips 120un qid and prn Chary Blood Glucose its Cotton, Test Strips - M.D. 10/27 Azithromycin 10/06 Hx Tablets 250mg 6tabs 2 tabs po 786.2 on day 1; 1 [place], - tab po qd M.D. 05/18 on days 2- 09/22 Hx Tablets 30tab 1 po qd Chary Vitamins s [place], - M.D. 05/19 Glucometer Test 09/04 Hx Misc 30uni for once 250.02 Chary Strips ts daily Cotton, - testing M.D. 10/27 Azithromycin 09/04 Hx Tablets 250mg 6tabs 2 tabs po 493.90 on day 1; 1 [place], - tab po qd M.D. 09/24 on days 2- Combivent 09/04 Hx Aerosol 18-103mcg 14.70 2 puffs qid 493.90 /Act 0gm prn Cotton, - M.D. 09/24 Glipizide 09/04 Hx Tablets 5mg 15tab 1/2 tablet 250.02 s by mouth in Cotton, - the [...] 10mg 30tab 1/2 tab PO 311 Chary Oxalate s qd for 1 Cotton, - weeek, then M.D. 09/04 1 PO qd Pantoprazole 05/[address] 20mg 30tab 1 po qd 789.00 Chary s [place], - M.D. 09/04 Alprazolam 05/08 Hx Tablets 0.25mg 30tab 1 po qd prn 311 Chary s [place], - M.D. 09/24 Oxycodone/Aceta 05/08 Hx Capsules 5-500mg 30cap 1 tablet by 311 Chary minophen s mouth every Cotton, - 4-6 hours [...] Diskus 03/10 Hx Aerosol 100-50mcg 1unit 1 Chary /Dose s inhalation Cotton, - twice daily M.D. 09/24 Ventolin HFA 03/09 Hx Aerosol 108(90Bas 18uni Inhale 2 493.90 Chary e) mcg/ac ts Puffs By Cotton, - Mouth Four M.D. 09/04 Times A Day /2012 as Needed Azithromycin 02/16 Hx Tablets 250mg 6tabs 2 tabs po 493.90 Chary /2012 on day 1; 1 [place], - tab po qd M.D. 03/09 on days 2- Omeprazole 02/[address] 40mg 30cap 1 po qd 789.00 s [place], - M.D. 05/08 Kevyn Valverdeke 02/05 Hx Liquid 30uni 1 PO qd ts [place], - M.D. 09/04 Azithromycin 11/25 Hx Tablets 250mg 6tabs 2 tabs po 465.9 on day 1; 1 [place], - tab po qd M.D. 12/05 on days 2- Loratadine 11/17 Hx Tablets 10mg 30tab 1 po qd s [place] - M.D. 09/24 Nicotine 11/10 Hx Patches 21mg/24HR 42uni apply one 305.1 24HR ts patch once [place], - daily M.D. 09/24 Azithromycin 11/10 Hx Tablets 250mg 6tabs 2 tabs po 465.9 on day 1; 1 [place], - tab po qd M.D. 11/20 on days 2- Azithromycin 10/22 Hx Tablets 250mg 6tabs 2 tabs po on day 1; 1 [place], - tab po qd M.D. 11/08 on days - Sertraline HCL 10/21 Hx Tablets 50mg 30tab 1/2 tablet 311 s daily for 1 [place], - week, then M.D. 02/16 1 po qd Trazodone HCL 10/21 Hx Tablets 50mg 45tab 1-2 tablets 311 s once daily [place], - at bedtime M.D. 09/24 Ondansetron HCL 10/21 Hx Tablets 4mg 30tab 1 or 2 787.02 s tablets [place], - every 8 M.D. 09/04 hours nausea [place] Flex Pen 10/07 Hx 100un use one Chary [place] its daily for Jhony Wood - sq inj M.D. 09/04 Vitamin D 10/07 Hx Capsules 2000Unit 30cap 1 po qd s [place], - M.D. 05/19 Byetta 09/06 Hx Solution 5mcg/0.02 60uni Inject s/c ML ts bid, before [place], - morning and M.D. 09/04 evening /2012 meals Azithromycin 09/03 Hx Tablets 250mg 6tabs two tabs 461.9 day one, [place], - one daily M.D. 11/08 till Azithromycin 08/20 Hx Tablets 250mg 6tabs two tabs Ainsley day one, Candice, - one daily M.D. 09/02 till Azithromycin 07/02 Hx Tablets 250mg 6tabs two tabs 382.9 day one, [place], - one daily M.D. [...] bid or Chary Mini Test its as [place] Strips. - directed. M.D. 06/16 Sommer-Be 04/08 Hx Tablets 0.35mg 28tab Take One s Tablet By [place], - Mouth Every M.D. Vitamin D 03/23 Hx Capsules 30804Lmeb 12cap 1 tablet Chary (Ergocalciferol s once [...] 30tab 1 tablet 24HR s once daily [place], - in the M.D. 09/06 Simvastatin 08/27 Hx Tablets 10mg 30tab 1 by mouth s once daily [place], - at bedtime M.D. 05/31 Lisinopril 08/27 [...] Pulmicort 07/18 Hx Suspension 0.25mg/2M 60uni inhale Belen L ts twice a day Grace, - via M.D., [facility] 11/10 nebulizer Mucinex 07/18 Hx Tablets ER 600mg 30tab 1 tab by 12HR s mouth twice Cotton, - a day as M.D. 09/24 Test Strips To 06/28 Hx 30uni for use 250.02 Chary Use ts once daily Cotton, Glucometer - M.D. 06/28 Test Strips To 06/28 Hx 30uni for use 250.02 Chary Use With ts once daily Cotton, Tough Ultra - M.D. Mini 06/28 Azithromycin 06/28 Hx Tablets 250mg 6tabs 2 tabs po 250.02 Chary on day 1; 1 Cotton, - [...] M.D. 06/28 Vitamin D 03/19 Hx Capsules 67041Dhdb 1 tablet a 268.9 Chary (Ergocalciferol /2009 week for 4 Cotton, ) - weeks then M.D. 06/28 once month Alprazolam 03/02 Hx Tablets 0.25mg 90tab 1 tablet by 300.00 Chary s mouth 3 Cotton, - times daily M.D. 02/16 Vicodin 02/22 Hx Tablets 5-500mg 40tab 1 tablet Chary s every 4-6 Cotton, - hours as M.D. 06/28 needed pain Albuterol 01/09 Hx Nebulizer (2.5mg/3M 60uni 1 vial Chary L) 0.083% ts nebulizer Cotton, - every 4-6 M.D. 02/16 hours as needed Lotrisone 01/02 Hx Lotion 45uni apply to ts affected Grace, - area qd prn M.D., FACP 04/02 Azithromycin 01/02 Hx Suspension 250mg 6unit 2 cc po day Rec s 1 then, 1 Grace, - cc po qd M.D., FACP 01/17 till Metformin HCL 05/15 Hx Tablets 500mg 30tab 1 tablet 250.02 s twice daily [place], - M.D. 09/04 Simvastatin /15 Hx Tablets 10mg 30tab 1 tablet 250.02 s daily at [place], - bedtime M.D. 06/28 Vitamin D /15 Hx Capsules 67435Qofc 1 tab po q 268.9 Chary (Ergocalciferol week for 4 , ) - weeks then M.D. 12/23 once a month Vitamin D /15 Hx Capsules 65052Zutq 1 tablet 268.9 Chary (Ergocalciferol once weekly [place], ) - M.D. 03/02 Lisinopril 12/23 Hx Tablets 2.5mg 30tab 1 tablet 268.9 s once daily [place], - M.D. 06/28 Lyrica 12/23 Hx Capsules 50mg 60cap 1 tablet 266.2 s twice daily [place], - M.D. 04/02 Albuterol 15 Hx 1unit 2 puffs 4 Inhaler /2009 s times daily [place], - as needed M.D. 03/10 Advair Diskus 12/23 Hx Aerosol 100-50mcg 1unit 1 266.2 /Dose s inhalation [place], - twice daily M.D. 02/16 Sommer-Be 12/23 Hx Tablets 0.35mg 1tabs 1 tablet once daily [place], - M.D. 10/12 Tricor 15 Hx Tablets 145mg 30tab 1 tablet s once daily [place], - M.D. 06/28 Glipizide 12/23 Hx Tablets 5mg 60tab 1 tablet s once daily [place], - M.D. 08/28 Metformin HCL /15 Hx Tablets 500mg 60tab Take One 250.02 s Tablet By [place], - Mouth Twice M.D. 05/19 A Day /2012 Diflucan 12/05 Hx Tablets 150mg 2tabs 1 tab po one time. [place] - December repeat M.DMohan 01/17 one time days later if symptoms persist Azithromycin 09/11 Hx Tablets 250mg 6tabs 2 tabs po 786.2 Chary on day 1; 1 [place], - tab po qd M.D. 12/23 on days 2- Metformin HCL 09/11 Hx Tablets 500mg 90tab 2 tablets 250.02 s in the [place], - morning, 1 M.D. 12/23 tablet the evening Metformin HCL 08/30 Hx Tablets 500mg 1 Tab PO 250.02 Chary bid [place] - M.DMohan 09/11 Simvastatin 08/30 Hx Tablets 10mg 30tab 1 po qhs 250.02 Chary s [place]Thanh M.D. 12/23 Glipizide 07/25 Hx Tablets 5mg 30tab 1 tablet s twice daily Thanh Wood.Nancy 12/23 Freestyle Lite 07/05 Hx use as Nurse Glucometer directed Visit - [place] 04/02 Freestyle Lite 07/05 Hx use as Chary Lancets /2008 directed Thanh Wood M.DMohan 04/02 Freestyle Lite 07/05 Hx check fsbg Chary Test Strips qhs and prn Thanh Wood.Nancy 04/02 Alcohol Prep 06/26 Hx Pads 100un use as Thananart, Swabs its directed Thanh Griffith.Nancy 06/28 Pen [place] For 06/26 Hx 31G 1Mont use daily 250.02 Thananart, Lantus Solastar hSupp and prn Thanh Griffith ly M.DMohan 04/02 Vitamin D3 06/23 Hx Tablets 1000Unit 60tab 2 tabs po 268.9 Chary /2009 s qd Thanh Wood M.DMohan 06/23 Lantus For 06/23 Hx Solution 100Unit/M 10ml 10 units 268.9 Chary Opticlik L s/c qd at [place], - bedtime, M.DMohan 06/23 increase prn as directed Test Strips To 06/23 Hx 100un 268.9 Chary Use its [place], Glucometer - M.DMohan 04/02 Lisinopril 06/23 Hx Tablets 2.5mg 30tab 1 po qd 268.9 s [place] - M.D. 12/23 Blood Pressure 06/23 Hx Kit 1unit 268.9 s [place] - M.DMohan 04/02 Aspirin 06/23 Hx Tablets 81mg 30tab 1 tablet 268.9 s once daily [place] - M.DMohan 06/28 Solastar Lantus 06/23 Hx Solution 100Unit/M 1unit use as L s directed [place] M.Nancy 04/02 Vitamin D 06/23 Hx Capsules [id number] 8caps 1 tablet 268.9 once weekly [place] - M.DMohan 12/23 Tricor 06/16 Hx Tablets 145mg 90tab 1 tablet po s qday [place] - M.DMohan 12/23 Metformin 06/16 Hx 500mg 60uni 2 po bid 250.02 ts [place] - M.DMohan 08/30 Glipizide 06/16 Hx Tablets 10mg 60tab 1 po bid s [place] - M.D. 07/25 Sommer-Be 06/16 Hx Tablets 0.35mg 30tab one po s daily [place] - M.DMohan 12/23 Advair Diskus 06/16 Hx Misc 100-50mcg 60uni 1 puff bid 266.2 /DO ts [place] - M.DMohan 12/23 Albuterol 06/16 Hx 17gm 2 puffs qid 266.2 Inhal prn [place] - M.DMohan 12/23 Lyrica 06/16 Hx Capsules 50mg 120ca 1 tab po 266.2 ps bid for one [place], - week then M.DMohan 12/23 increase to 2 tabs po bid Vicodin 06/16 Hx Tablets 5-500mg 45tab 1 q 4-6 266.2 s hours prn [place], - M.DMohan 01/17 Cyanocobalamin 06/16 Hx Solution 1000mcg/M 1 cc Im 266.2 L every Cotton, - month M.D. 05/19 Test Strips To 00 Hx 100un 268.9 Cotton, Use With /0000 its Chary, Glucometer - 06/23 Humalog 0000 Hx Solution [...] Administered Injection Nurse Visit Injection 017 A -12 Administered Injection Chary Injection 017 Susie Wood - Administered Injection Chary Injection 013 Susie Wood B-12 Administered Injection Chary Injection 012 Susie Wood B12 Administered Injection Chary Injection 012 Susie Wood 12 Administered Injection Chary Injection 012 Susie Wood B12 Administered Injection Nurse Visit Injection 012 A 12 Administered Injection Nurse Visit Injection 012 A [facility] Administered Injection Chary Injection 012 Susie Wood [facility] Administered Injection Nurse Visit Injection 012 A [facility] Administered Injection Chary Injection 012 Susie Wood [facility] Administered Injection Nurse Visit Injection 011 A 12 Administered Injection Lucinda Injection 011 Varn, N.P. [facility] Administered Injection Chary Injection 011 Susie Wood [facility] Administered Injection Nurse Visit Injection 011 A 12 Administered Injection Nurse Visit Injection 011 A [facility] Administered Injection Unknown Injection 011 [facility] Administered Injection Nurse Visit Injection 011 A 12 Administered Injection Chary Injection 011 Susie Wood [facility] Administered Injection Chary Injection 011 Susie Wood 12 Administered Injection Nurse Visit Injection 011 A 12 Administered Injection Chary Injection 010 Susie Wood [facility] Administered Injection Chary Injection 010 Susie Wood B12 Administered Injection Nurse Visit Injection 010 A 12 Administered Injection Chary Injection 010 Susie Wood 12 Administered Injection Chary Injection 010 Susie Wood 12 Administered Injection Chary Injection 009 Susie Wood B-12 Administered Injection Chary Injection 009 Susie Wood Immunizations CPT Code Status Date Vaccine Lot # [id number] Given 05/31/2011 Influenza Virus 3Yrs & Over [id number] Given 06/28/2010 Influenza Virus 3Yrs & Over Vital Signs Date Vital Result Comment 06/29/2018 11:43am Height 61 inches 5'1" Weight 156.00 lb Heart Rate 85 /min BP Systolic 111 mmHg home reading BP Diastolic 76 mmHg home reading BP Systolic Sitting 143 mmHg BP Diastolic Sitting 85 mmHg Body Temperature 98.0 F O2 % BldC Oximetry 98 % BMI (Body Mass Index) 29.5 kg/m2 05/22/2018 10:45am Height 61 inches 5'1" Weight 160.00 lb Heart Rate 86 /min BP Systolic Sitting 149 mmHg BP Diastolic Sitting 90 mmHg O2 % BldC Oximetry 98 % BMI (Body Mass Index) 30.2 kg/m2 04/03/2018 12:53pm Height 61 inches 5'1" Weight 160.00 lb with shoes Heart Rate 87 /min BP Systolic 124 mmHg BP Diastolic 66 mmHg O2 % BldC Oximetry 98 % BMI (Body Mass Index) 30.2 kg/m2 03/23/2018 2:49pm Height 61 inches 5'1" Weight 163.00 lb Heart Rate 80 /min BP Systolic Sitting 119 mmHg BP Diastolic Sitting 72 mmHg Body Temperature 99.2 F O2 % BldC Oximetry 97 % BMI (Body Mass Index) 30.8 kg/m2 01/01/2018 10:41am Height 61 inches 5'1" Weight 162.00 lb Heart Rate 83 /min BP Systolic 123 mmHg BP Diastolic 70 mmHg O2 % BldC Oximetry 98 % BMI (Body Mass Index) 30.6 kg/m2 11/07/2017 10:49am Height 61 inches 5'1" Weight 159.50 lb Heart Rate 83 /min BP Systolic 130 mmHg BP Diastolic 62 mmHg Body Temperature 98.7 F O2 % BldC Oximetry 98 % BMI (Body Mass Index) 30.1 kg/m2 10/28/2017 10:12am Weight 159.00 lb Heart Rate 85 /min BP Systolic Sitting 130 mmHg BP Diastolic Sitting 60 mmHg Body Temperature 97.2 F O2 % BldC Oximetry 98 % 09/25/2017 10:47am Height 61 inches 5'1" Weight 161.00 lb Heart Rate 79 /min BP Systolic Sitting 130 mmHg BP Diastolic Sitting 68 mmHg Body Temperature 97.6 F O2 % BldC Oximetry 97 % BMI (Body Mass Index) 30.4 kg/m2 08/21/2017 12:05pm Height 61 inches 5'1" Weight 160.75 lb Heart Rate 79 /min BP Systolic 106 mmHg BP Diastolic 50 mmHg O2 % BldC Oximetry 96 % BMI (Body Mass Index) 30.4 kg/m2 08/05/2017 10:32am Weight 156.00 lb Heart Rate 79 /min BP Systolic 110 mmHg BP Diastolic 62 mmHg Body Temperature 99.4 F O2 % BldC Oximetry 98 % 05/30/2017 3:45pm Weight 154.00 lb w/shoes Heart Rate 85 /min BP Systolic Sitting 130 mmHg BP Diastolic Sitting 62 mmHg Body Temperature 97.8 F O2 % BldC Oximetry 97 % 05/19/2017 11:48am Weight 156.25 lb Heart Rate 87 /min BP Systolic 100 mmHg BP Diastolic 60 mmHg O2 % BldC Oximetry 98 % 04/21/2017 3:59pm Weight 152.00 lb Heart Rate 86 /min BP Systolic 124 mmHg BP Diastolic 72 mmHg Body Temperature 98.3 F O2 % BldC Oximetry 98 % 03/21/2017 11:36am Weight 152.00 lb BP Systolic Sitting 128 mmHg BP Diastolic Sitting 60 mmHg O2 % BldC Oximetry 98 % 12/30/2016 4:48pm Weight 153.50 lb Heart Rate 80 /min BP Systolic 100 mmHg BP Diastolic 60 mmHg BP Systolic Sitting 120 mmHg BP Diastolic Sitting 66 mmHg Body Temperature 97.5 F O2 % BldC Oximetry 98 % 12/12/2016 1:01pm Weight 152.75 lb Heart Rate 90 /min BP Systolic Standing 130 mmHg BP Diastolic Standing 80 mmHg Respiratory Rate 16 /min Body Temperature 96.5 F O2 % BldC Oximetry 98 % 10/31/2016 12:57pm Weight 156.00 lb with boots Heart Rate 71 /min BP Systolic 138 mmHg BP Diastolic 78 mmHg Body Temperature 97.9 F O2 % BldC Oximetry 98 % 10/15/2016 12:55pm Weight 158.00 lb Heart Rate 90 /min BP Systolic Sitting 122 mmHg BP Diastolic Sitting 78 mmHg Body Temperature 98.8 F O2 % BldC Oximetry 98 % 08/26/2016 12:53pm Weight 155.00 lb with cabello toed shoes Heart Rate 85 /min BP Systolic Sitting 130 mmHg BP Diastolic Sitting 76 mmHg O2 % BldC Oximetry 98 % 08/15/2016 4:25pm Height 61 inches 5'1" Weight 153.00 lb Heart Rate 92 /min BP Systolic 110 mmHg BP Diastolic 70 mmHg Body Temperature 98.6 F O2 % BldC Oximetry 98 % BMI (Body Mass Index) 28.9 kg/m2 04/19/2016 11:32am Weight 153.00 lb Heart Rate 75 /min BP Systolic Sitting 128 mmHg BP Diastolic Sitting 62 mmHg Body Temperature 98.4 F O2 % BldC Oximetry 97 % 01/25/2016 2:47pm Weight 156.50 lb Heart Rate 86 /min BP Systolic Sitting 130 mmHg BP Diastolic Sitting 72 mmHg Body Temperature 99.1 F O2 % BldC Oximetry 97 % 01/16/2016 11:03am Weight 163.00 lb Heart Rate 94 /min BP Systolic Sitting 134 mmHg BP Diastolic Sitting 72 mmHg Body Temperature 98.3 F O2 % BldC Oximetry 98 % 10/27/2015 1:37pm Weight 162.25 lb Heart Rate 79 /min BP Systolic Sitting 131 mmHg BP Diastolic Sitting 75 mmHg Body Temperature 98.9 F O2 % BldC Oximetry 98 % 09/18/2015 11:09am Height 61 inches 5'1" Weight 162.00 lb Heart Rate 84 /min BP Systolic Sitting 126 mmHg BP Diastolic Sitting 72 mmHg Body Temperature 97.4 F O2 % BldC Oximetry 98 % BMI (Body Mass Index) 30.6 kg/m2 06/02/2015 10:40am Height 61 inches 5'1" Weight 164.00 lb Heart Rate 72 /min BP Systolic Sitting 134 mmHg BP Diastolic Sitting 74 mmHg Respiratory Rate 13 /min Body Temperature 98.7 F O2 % BldC Oximetry 97 % BMI (Body Mass Index) 31.0 kg/m2 05/29/2015 10:51am Height 61 inches 5'1" Weight 164.50 lb Heart Rate 76 /min BP Systolic Sitting 134 mmHg BP Diastolic Sitting 72 mmHg Respiratory Rate 18 /min Body Temperature 96.2 F O2 % BldC Oximetry 97 % BMI (Body Mass Index) 31.1 kg/m2 05/08/2015 10:26am Height 61 inches 5'1" Weight 165.00 lb Heart Rate 76 /min BP Systolic 136 mmHg BP Diastolic 80 mmHg Body Temperature 97.8 F BMI (Body Mass Index) 31.2 kg/m2 05/01/2015 2:12pm Weight 165.00 lb Heart Rate 76 /min BP Systolic Sitting 121 mmHg BP Diastolic Sitting 77 mmHg Body Temperature 98.9 F O2 % BldC Oximetry 99 % 03/17/2015 11:25am Height 61 inches 5'1" Weight 154.00 lb Heart Rate 85 /min BP Systolic 120 mmHg BP Diastolic 83 mmHg Body Temperature 97.8 F BMI (Body Mass Index) 29.1 kg/m2 11/18/2014 10:37am Weight 161.00 lb Heart Rate 72 /min BP Systolic Sitting 130 mmHg BP Diastolic Sitting 70 mmHg Body Temperature 96.1 F 10/19/2014 9:48am Height 61 inches 5'1" Weight 159.00 lb Heart Rate 75 /min BP Systolic 113 mmHg BP Diastolic 80 mmHg Body Temperature 99.1 F BMI (Body Mass Index) 30.0 kg/m2 08/17/2014 12:25pm O2 % BldC Oximetry 97 % 08/17/2014 2:02pm Height 61 inches 5'1" Weight 163.00 lb Heart Rate 78 /min BP Systolic 120 mmHg BP Diastolic 70 mmHg Body Temperature 97.7 F BMI (Body Mass Index) 30.8 kg/m2 07/14/2014 10:21am Height 61 inches 5'1" Weight 163.00 lb Heart Rate 70 /min BP Systolic 112 mmHg BP Diastolic 70 mmHg Body Temperature 97.5 F BMI (Body Mass Index) 30.8 kg/m2 05/16/2014 10:54am Height 61 inches 5'1" Weight 165.25 lb Heart Rate 68 /min BP Systolic Sitting 130 mmHg BP Diastolic Sitting 70 mmHg Body Temperature 98.0 F BMI (Body Mass Index) 31.2 kg/m2 04/26/2014 10:29am Weight 166.00 lb Heart Rate 80 /min BP Systolic Sitting 148 mmHg BP Diastolic Sitting 76 mmHg Body Temperature 97.9 F 01/04/2014 3:07pm Height 61 inches 5'1" Weight 167.00 lb Heart Rate 80 /min BP Systolic Sitting 124 mmHg BP Diastolic Sitting 68 mmHg BMI (Body Mass Index) 31.6 kg/m2 12/22/2013 4:23pm Height 61 inches 5'1" Weight 170.00 lb Heart Rate 76 /min BP Systolic 116 mmHg BP Diastolic 70 mmHg Body Temperature 99.0 F BMI (Body Mass Index) 32.1 kg/m2 10/06/2013 3:24pm Weight 168.00 lb Heart Rate 78 /min BP Systolic Sitting 140 mmHg BP Diastolic Sitting 80 mmHg Respiratory Rate 18 /min Body Temperature 97.8 F oral O2 % BldC Oximetry 98 % 05/28/2013 1:33pm Weight 159.00 lb Heart Rate 100 /min BP Systolic Sitting 120 mmHg BP Diastolic Sitting 82 mmHg Body Temperature 98.1 F 05/19/2013 9:19am Weight 163.00 lb Heart Rate 82 /min BP Systolic Sitting 138 mmHg BP Diastolic Sitting 84 mmHg Body Temperature 96.8 F O2 % BldC Oximetry 98 % Peak Flow Meter 350 300,300 10/06/2012 3:43pm Height 60.5 inches 5'0.50" Weight 167.00 lb Heart Rate 84 /min BP Systolic Sitting 150 mmHg re- check 138/82 BP Diastolic Sitting 88 mmHg re- check 138/82 Body Temperature 98.2 F BMI (Body Mass Index) 32.1 kg/m2 09/04/2012 3:46pm Height 60.5 inches 5'0.50" Weight 165.00 lb Heart Rate 80 /min BP Systolic Sitting 128 mmHg BP Diastolic Sitting 76 mmHg Body Temperature 98.8 F O2 % BldC Oximetry 97 % Peak Flow Meter 250 260,255 BMI (Body Mass Index) 31.7 kg/m2 06/16/2012 10:59am Height 60.5 inches 5'0.50" Weight 167.00 lb Heart Rate 80 /min BP Systolic Sitting 128 mmHg BP Diastolic Sitting 80 mmHg BMI (Body Mass Index) 32.1 kg/m2 05/08/2012 11:18am Height 60.5 inches 5'0.50" Weight 165.00 lb Heart Rate 78 /min BP Systolic Sitting 130 mmHg BP Diastolic Sitting 80 mmHg BMI (Body Mass Index) 31.7 kg/m2 03/10/2012 2:35pm Height 60.5 inches 5'0.50" Weight 161.00 lb Heart Rate 82 /min BP Systolic Sitting 130 mmHg BP Diastolic Sitting 82 mmHg Body Temperature 98.7 F O2 % BldC Oximetry 98 % BMI (Body Mass Index) 30.9 kg/m2 02/17/2012 3:57pm Height 60.5 inches 5'0.50" Weight 159.00 lb Heart Rate 84 /min BP Systolic Sitting 138 mmHg BP Diastolic Sitting 82 mmHg BMI (Body Mass Index) 30.5 kg/m2 12/10/2011 1:31pm Weight 164.50 lb 11/11/2011 3:16pm Height 60.50 inches 5'0.50" Weight 162.00 lb Heart Rate 68 /min BP Systolic Sitting 130 mmHg BP Diastolic Sitting 72 mmHg BMI (Body Mass Index) 31.1 kg/m2 10/22/2011 3:18pm Height 60.50 inches 5'0.50" Weight 161.00 lb Heart Rate 110 /min BP Systolic Sitting 140 mmHg BP Diastolic Sitting 84 mmHg Body Temperature 98.8 F BMI (Body Mass Index) 30.9 kg/m2 09/03/2011 1:04pm Height 60.50 inches 5'0.50" Weight 164.00 lb Heart Rate 76 /min BP Systolic Sitting 118 mmHg BP Diastolic Sitting 72 mmHg BMI (Body Mass Index) 31.5 kg/m2 08/20/2011 1:29pm Height 60.50 inches 5'0.50" Weight 165.00 lb Heart Rate 84 /min BP Systolic Sitting 124 mmHg BP Diastolic Sitting 70 mmHg Body Temperature 98.7 F O2 % BldC Oximetry 97 % BMI (Body Mass Index) 31.7 kg/m2 07/02/2011 1:39pm Height 60.50 inches 5'0.50" Weight 168.00 lb Heart Rate 68 /min BP Systolic Sitting 112 mmHg l BP Diastolic Sitting 70 mmHg l Body Temperature 99.0 F BMI (Body Mass Index) 32.3 kg/m2 05/31/2011 1:00pm Height 60.50 inches 5'0.50" Weight 163.00 lb Heart Rate 72 /min BP Systolic Sitting 130 mmHg BP Diastolic Sitting 90 mmHg BMI (Body Mass Index) 31.3 kg/m2 12/13/2010 1:52pm Weight 176.00 lb Heart Rate 86 /min BP Systolic Sitting 140 mmHg BP Diastolic Sitting 78 mmHg 10/12/2010 11:41am Heart Rate 80 /min BP Systolic 134 mmHg BP Diastolic 80 mmHg Body Temperature 98.8 F O2 % BldC Oximetry 97 % 06/28/2010 10:24am Weight 177.25 lb Heart Rate 76 /min BP Systolic 124 mmHg BP Diastolic 80 mmHg Body Temperature 97.9 F O2 % BldC Oximetry 97 % 05/02/2010 1:32pm Heart Rate 72 /min BP Systolic 132 mmHg BP Diastolic 92 mmHg Body Temperature 97.9 F 03/02/2010 8:37pm Weight 185.50 lb BP Systolic 138 mmHg BP Diastolic 86 mmHg 09/11/2009 11:15am Height 61 inches 5'1" Weight 194.00 lb Heart Rate 82 /min BP Systolic Sitting 120 mmHg BP Diastolic Sitting 74 mmHg Body Temperature 97.9 F BMI (Body Mass Index) 36.7 kg/m2 08/30/2009 12:59pm Height 61 inches 5'1" Weight 197.25 lb Heart Rate 80 /min BP Systolic Sitting 138 mmHg BP Diastolic Sitting 70 mmHg BMI (Body Mass Index) 37.3 kg/m2 07/25/2009 10:57am Height 61 inches 5'1" Weight 197.50 lb Heart Rate 77 /min BP Systolic Sitting 119 mmHg BP Diastolic Sitting 81 mmHg Body Temperature 97.4 F BMI (Body Mass Index) 37.3 kg/m2 06/23/2009 9:50am Weight 199.50 lb Heart Rate 84 /min BP Systolic Sitting 124 mmHg BP Diastolic Sitting 68 mmHg Respiratory Rate 16 /min Body Temperature 98.6 F 06/16/2009 10:44am Weight 198.25 lb Heart Rate 88 /min BP Systolic Sitting 124 mmHg BP Diastolic Sitting 78 mmHg Respiratory Rate 16 /min Body Temperature 98.3 F Results Test Date Facility Test Result H/L Range Note GC/Chlamydia 05/22/2018 [facility] Chlamydia Negative Negative Amplified Rna [address] [place] [address] [phone] Neisseria gonorrhoeae (GC) Rna Negative Negative Laboratory 05/22/2018 [facility] Herpes Negative Negative 1 test finding [address] [address] Screen [phone] Laboratory 05/22/2018 [facility] Hepatitis B Nonreactive Nonreactive test finding [address] [place] [address] [phone] Syphillis Igg W/Reflex RPR Nonreactive Nonreactive 2 Hepatitis B 05/22/2018 [facility] Hepatitis B Not Immune Abnormal Immune Jarvis AB Titer [address] [place] [address] [phone] Hep B Surf AB Level < 3.10 mIU/mL >12 HIV 1/2 Ag/AB 05/22/2018 [facility] Hiv1/2 Ag/Ab Negative Negative 3 Screen,W/Reflex,Plasma [address] Screen,w/Reflex,[place] [address] [phone] CBC Auto Diff 04/06/2018 [facility] White Blood Count 11.1 H 3.5-10.[address] 10^3/[place] [address] g [phone] Red Blood Count 4.61 10^6/uL N 4.00-5.40 Hemoglobin 14.4 g/dL N 12.0-16.0 Hematocrit 43 % N 35-47 Mean Corpuscular Volume 93 fL N 80-97 Mean Corpuscular Hemoglobin 31 pg N 27-31 Mean Corpuscular HGB Conc 34 g/dL N 31-36 Red Cell Distribution Width 13 % N 10.5-15 Platelet Count 200 10^3/uL N 150-450 Mean Platelet Volume 8.3 um3 N 7.4-10.4 Abs Neutrophils 8.4 10^3/uL High 1.5-7.7 Abs Lymphocytes 1.9 10^3/uL N 1.0-4.8 Abs Monocytes 0.6 10^3/uL N 0-0.8 Abs Eosinophils 0 10^3/uL N 0-0.6 Abs Basophils 0.1 10^3/uL N 0-0.2 Abs Nucleated RBC 0 10^3/uL Granulocyte % 76.0 % N 38-83 Lymphocyte % 17.2 % Low 25-47 Monocyte % 5.4 % N 0-7 Eosinophil % 0.4 % N 0-6 Basophil % 1.0 % N 0-2 Nucleated Red Blood Cells % 0 Urinalysis Profile 04/06/2018 [facility] Urine Color Straw [address] [place] [address] [phone] Urine Appearance Clear Urine Specific [place] 1.002 Low 1.010-1.030 Urine pH 5.0 N 5-9 Urine Urobilinogen Negative Negative Urine Ketones Negative Negative Urine Protein Negative Negative Urine Leukocytes Negative Negative Urine Blood 2+ Abnormal Negative Urine Nitrite Negative Negative Urine Bilirubin Negative Negative Urine Glucose Negative Negative Urine White Blood Cell Absent Absent Urine Red Blood Cell Trace(0-2/hpf) Absent Urine Bacteria Absent Absent Urine Squamous Epithelial Cell Present Abnormal Absent Comp Metabolic Panel 04/06/2018 [facility] Sodium 136 mmol/L N 135-[address] [place] [address] [phone] Potassium 3.7 mmol/L N 3.5-5.0 Chloride 105 mmol/L N 101-111 Co2 Carbon Dioxide 23 mmol/L N 22-32 Anion Gap 8 mmol/L N 2-11 Glucose 136 mg/dL High 70-100 Blood Urea Nitrogen 6 mg/dL N 6-24 Creatinine 0.54 mg/dL N 0.51-0.95 BUN/Creatinine Ratio 11.1 N 8-20 Calcium 9.2 mg/dL N 8.6-10.3 Total Protein 7.0 g/dL N 6.4-8.9 Albumin 4.3 g/dL N 3.2-5.2 Globulin 2.7 g/dL N 2-4 Albumin/Globulin Ratio 1.6 N 1-3 Total Bilirubin 0.40 mg/dL N 0.2-1.0 Alkaline Phosphatase 46 U/L N 34-104 Alt 13 U/L N 7-52 Ast 13 U/L N 13-39 Egfr Non- 125.0 >60 Egfr 151.3 >60 4 Laboratory test 04/06/2018 [facility] Magnesium 1.9 mg/dL N 1.9-2.[address] [place] [address] [phone] HCG < 0.60 mIU/mL 5 Urinalysis Profile 02/07/2018 [facility] Urine Color Straw [address] [place] [address] [phone] Urine Appearance Clear Urine Specific [place] 1.005 Low 1.010-1.030 Urine pH 5.0 N 5-9 Urine Urobilinogen Negative Negative Urine Ketones Negative Negative Urine Protein Negative Negative Urine Leukocytes Negative Negative Urine Blood 1+ Abnormal Negative Urine Nitrite Negative Negative Urine Bilirubin Negative Negative Urine Glucose Negative Negative Urine White Blood Cell Trace(0-5/hpf) Absent Urine Red Blood Cell Trace(0-2/hpf) Absent Urine Bacteria Absent Absent Urine Squamous Epithelial Cell Present Abnormal Absent Laboratory test 02/07/2018 [facility] Hemoglobin A1c 7.2 % High 4.0-5.[address] (Glyco HGB) [place] [address] [phone] Comp Metabolic 02/07/2018 [facility] Sodium 137 N 135-[address] mmol/[place] [address] [phone] Potassium 4.4 mmol/L N 3.5-5.0 Chloride 104 mmol/L N 101-111 Co2 Carbon Dioxide 24 mmol/L N 22-32 Anion Gap 9 mmol/L N 2-11 Glucose 159 mg/dL High 70-100 Blood Urea Nitrogen 10 mg/dL N 6-24 Creatinine 0.53 mg/dL N 0.51-0.95 BUN/Creatinine Ratio 18.9 N 8-20 Calcium 9.4 mg/dL N 8.6-10.3 Total Protein 6.8 g/dL N 6.4-8.9 Albumin 4.1 g/dL N 3.2-5.2 Globulin 2.7 g/dL N 2-4 Albumin/Globulin Ratio 1.5 N 1-3 Total Bilirubin 0.40 mg/dL N 0.2-1.0 Alkaline Phosphatase 58 U/L N 34-104 Alt 10 U/L N 7-52 Ast 10 U/L Low 13-39 Egfr Non- 127.8 >60 Egfr 154.6 >60 7 Urine Culture And 02/07/2018 [facility] Urine SEE RESULT [address] [place] [address] [phone] Laboratory test 11/26/2017 [facility] Point of 201 mg/dL High 70-10 [address] Care Glucose 0 [place] [address] [phone] Urinalysis Profile 10/28/2017 [facility] Urine Color Straw [address] [place] [address] [phone] Urine Appearance Clear Urine Specific [place] 1.004 Low 1.010-1.030 Urine pH 5.0 N 5-9 Urine Urobilinogen Negative Negative Urine Ketones Negative Negative Urine Protein Negative Negative Urine Leukocytes Negative Negative Urine Blood 2+ Abnormal Negative Urine Nitrite Negative Negative Urine Bilirubin Negative Negative Urine Glucose 1+(50 mg/dL) Abnormal Negative Urine White Blood Cell Absent Absent Urine Red Blood Cell Trace(0-2/hpf) Absent Urine Bacteria Absent Absent Urine Squamous Epithelial Cell Present Abnormal Absent Laboratory test 10/28/2017 [facility] Hemoglobin A1c 6.7 5-7 finding Urine Culture And 10/25/2017 [facility] Urine Culture SEE RESULT [address] [place] [address] [phone] CBC Auto Diff 10/25/2017 [facility] White Blood 8.0 10^3/uL N 3.5-10.[address] [place] [address] [phone] Red Blood Count 4.82 10^6/uL N 4.0-5.4 Hemoglobin 15.1 g/dL N 12.0-16.0 Hematocrit 44 % N 35-47 Mean Corpuscular Volume 91 fL N 80-97 Mean Corpuscular Hemoglobin 31 pg N 27-31 Mean Corpuscular HGB Conc 34 g/dL N 31-36 Red Cell Distribution Width 13 % N 10.5-15 Platelet Count 190 10^3/uL N 150-450 Mean Platelet Volume 9 um3 N 7.4-10.4 Abs Neutrophils 5.3 10^3/uL N 1.5-7.7 Abs Lymphocytes 2.3 10^3/uL N 1.0-4.8 Abs Monocytes 0.4 10^3/uL N 0-0.8 Abs Eosinophils 0 10^3/uL N 0-0.6 Abs Basophils 0.1 10^3/uL N 0-0.2 Abs Nucleated RBC 0 10^3/uL Granulocyte % 66.1 % N 38-83 Lymphocyte % 28.4 % N 25-47 Monocyte % 4.4 % N 0-7 Eosinophil % 0.3 % N 0-6 Basophil % 0.8 % N 0-2 Nucleated Red Blood Cells % 0 Laboratory test 10/25/2017 [facility] Lactic Acid 0.8 mmol/L N 0.5-2.0 12 finding [address] [place] [address] [phone] Urinalysis 10/25/2017 [facility] Urine Color Straw Profile [address] [place] [address] [phone] Urine Appearance Clear Urine Specific [place] 1.002 Low 1.010-1.030 Urine pH 5.0 N 5-9 Urine Urobilinogen Negative Negative Urine Ketones Negative Negative Urine Protein Negative Negative Urine Leukocytes Negative Negative Urine Blood 1+ Abnormal Negative Urine Nitrite Negative Negative Urine Bilirubin Negative Negative Urine Glucose Negative Negative Urine White Blood Cell Trace(0-5/hpf) Absent Urine Red Blood Cell Absent Absent Urine Bacteria Absent Absent Urine Squamous Epithelial Cell Present Abnormal Absent Urine Hyaline Casts Present Abnormal Absent Comp Metabolic Panel 10/25/2017 [facility] Sodium 133 mmol/L N 133-145 [address] [place] [address] [phone] Chloride 103 mmol/L N 101-111 Co2 Carbon Dioxide 23 mmol/L N 22-32 Glucose 125 mg/dL High 70-100 Blood Urea Nitrogen 7 mg/dL N 6-24 Creatinine 0.51 mg/dL N 0.51-0.95 BUN/Creatinine Ratio 13.7 N 8-20 Calcium 9.6 mg/dL N 8.6-10.3 Total Protein 7.5 g/dL N 6.4-8.9 Albumin 4.4 g/dL N 3.2-5.2 Globulin 3.1 g/dL N 2-4 Albumin/Globulin Ratio 1.4 N 1-3 Total Bilirubin 0.30 mg/dL N 0.2-1.0 Alkaline Phosphatase 51 U/L N 34-104 Alt 9 U/L N 7-52 Egfr Non- 133.6 >60 Egfr 171.8 >60 13 Potassium 3.9 mmol/L N 3.5-5.0 Anion Gap 7 mmol/L N 2-11 Ast 10 U/L Low 13-39 Laboratory test 09/15/2017 [facility] TSH (Thyroid 1.78 mcIU/mL N 0.34-5.60 [address] Stim Horm) [place] [address] [phone] CBC Auto Diff 09/15/2017 [facility] White Blood 7.4 10^3/uL N 3.5-10.[address] [place] [address] [phone] Red Blood Count 4.83 10^6/uL N 4.0-5.4 Hemoglobin 15.1 g/dL N 12.0-16.0 Hematocrit 45 % N 35-47 Mean Corpuscular Volume 93 fL N 80-97 Mean Corpuscular Hemoglobin 31 pg N 27-31 Mean Corpuscular HGB Conc 34 g/dL N 31-36 Red Cell Distribution Width 13 % N 10.5-15 Platelet Count 180 10^3/uL N 150-450 Mean Platelet Volume 9 um3 N 7.4-10.4 Abs Neutrophils 4.8 10^3/uL N 1.5-7.7 Abs Lymphocytes 1.9 10^3/uL N 1.0-4.8 Abs Monocytes 0.5 10^3/uL N 0-0.8 Abs Eosinophils 0.1 10^3/uL N 0-0.6 Abs Basophils 0.1 10^3/uL N 0-0.2 Abs Nucleated RBC 0 10^3/uL Granulocyte % 65.7 % N 38-83 Lymphocyte % 26.3 % N 25-47 Monocyte % 6.3 % N 1-9 Eosinophil % 0.8 % N 0-6 Basophil % 0.9 % N 0-2 Nucleated Red Blood Cells % 0.1 Iron & Iron Binding 09/15/2017 [facility] Iron 100 g/dL N 50 -212 Capacity [address] [place] [address] [phone] Unsaturated Iron Binding 260 g/dL Total Iron Binding Capacity 360 g/dL N 250-450 % Iron Saturation 28 % N 15-55 Comp Metabolic Panel 09/15/2017 [facility] Sodium 135 mmol/L N 133-145 [address] [place] [address] [phone] Potassium 4.4 mmol/L N 3.5-5.0 Chloride 103 mmol/L N 101-111 Co2 Carbon Dioxide 27 mmol/L N 22-32 Anion Gap 5 mmol/L N 2-11 Glucose 141 mg/dL High 70-100 Blood Urea Nitrogen 10 mg/dL N 6-24 Creatinine 0.58 mg/dL N 0.51-0.95 BUN/Creatinine Ratio 17.2 N 8-20 Calcium 9.7 mg/dL N 8.6-10.3 Total Protein 6.9 g/dL N 6.4-8.9 Albumin 4.4 g/dL N 3.2-5.2 Globulin 2.5 g/dL N 2-4 Albumin/Globulin Ratio 1.8 N 1-3 Total Bilirubin 0.40 mg/dL N 0.2-1.0 Alkaline Phosphatase 57 U/L N 34-104 Alt 9 U/L N 7-52 Ast 10 U/L Low 13-39 Egfr Non- 115.1 >60 Egfr 148.1 >60 15 Lipid Profile 09/15/2017 [facility] Triglycerides 114 mg/dL 16 (Trig/Chol/HDL) [address] [place] [address] [phone] Cholesterol 115 mg/dL 17 HDL Cholesterol 45.5 mg/dL 18 LDL Cholesterol 47 mg/dL 19 Laboratory test 08/05/2017 [facility] Hemoglobin A1c 6.6 % High 4.0-5.6 [address] (Glyco HGB) [place] [address] [phone] Iron & Iron 08/05/2017 [facility] Iron 28 Low 50-212 Binding Capacity [address] g/[place] [address] [phone] Unsaturated Iron Binding 332 g/dL Total Iron Binding Capacity 360 g/dL N 250-450 % Iron Saturation 8 % Low 15-55 Laboratory test 08/05/2017 [facility] Vitamin B12 499 pg/mL N 180-914 [address] [place] [address] [phone] FSH (Follicle Stim Hormone) 4.6 mIU/mL 22 Vitamin D Total 25(Oh) 31.8 ng/mL N 20-50 Urine Microalbumin 08/05/2017 [facility] Ur Microalbumin 23.1 mg /L [address] (mg/L) [place] [address] [phone] Urine Creatinine 25.99 mg/dL Urine Microalbumin/Creatinine 88.8 ug/mg High <31 Laboratory test 08/05/2017 [facility] Test NEGATIVE finding Urine Urinalysis Profile 04/17/2017 [facility] Urine Color Straw N [address] [place] [address] [phone] Urine Appearance Clear N Urine Specific [place] 1.003 Low 1.010-1.030 Urine pH 5.0 N 5-9 Urine Urobilinogen Negative N Negative Urine Ketones Trace Abnormal Negative Urine Protein Negative N Negative Urine Leukocytes Negative N Negative Urine Blood 2+ Abnormal Negative Urine Nitrite Negative N Negative Urine Bilirubin Negative N Negative Urine Glucose Negative N Negative Urine White Blood Cell Trace(0-5/hpf) N Absent Urine Red Blood Cell Trace(0-2/hpf) N Absent Urine Bacteria 1+ Abnormal Absent Urine Squamous Epithelial Cell Present Abnormal Absent Laboratory test 04/17/2017 [facility] (HCG) Negative N Negative [address] [place] [address] [phone] Urine Culture And 04/17/2017 [facility] Urine Culture SEE RESULT [address] [place] [address] [phone] Urine 02/12/2017 [facility] Ur Microalbumin 15.5 mg/L N Microalbumin [address] (mg/L) [place] [address] [phone] Urine Creatinine 38.11 mg/dL N Urine Microalbumin/Creatinine 40.6 ug/mg High <31 Laboratory test 02/12/2017 [facility] Hemoglobin A1c 6.5 % High Less than [address] (Glyco HGB) 6.0 [place] [address] [phone] Comp Metabolic 02/12/2017 [facility] Sodium 138 N 133-[address] mmol/[place] [address] [phone] Potassium 3.8 mmol/L N 3.5-5.0 Chloride 105 mmol/L N 101-111 Co2 Carbon Dioxide 27 mmol/L N 22-32 Anion Gap 6 mmol/L N 2-11 Glucose 105 mg/dL High 70-100 Blood Urea Nitrogen 10 mg/dL N 6-24 Creatinine 0.47 mg/dL Low 0.51-0.95 BUN/Creatinine Ratio 21.3 High 8-20 Calcium 9.5 mg/dL N 8.6-10.3 Total Protein 6.8 g/dL N 6.4-8.9 Albumin 4.1 g/dL N 3.2-5.2 Globulin 2.7 g/dL N 2-4 Albumin/Globulin Ratio 1.5 N 1-3 Total Bilirubin 0.30 mg/dL N 0.2-1.0 Alkaline Phosphatase 46 U/L N 34-104 Alt 10 U/L N 7-52 Ast 13 U/L N 13-39 Egfr Non- 147.5 N >60 Egfr 189.7 N >60 27 Lipid Profile 02/12/2017 [facility] Triglycerides 210 mg/dL N 28 (Trig/Chol/HDL) [address] [place] [address] [phone] Cholesterol 134 mg/dL N 29 HDL Cholesterol 42.5 mg/dL N 30 LDL Cholesterol 50 mg/dL N 31 Order 12/12/2016 [facility]-House peak flow x 3 provider given resus Laboratory test 11/14/2016 [facility] Vitamin B12 205 pg/mL N 180-[address] [place] [address] [phone] Methylmalonic Acid Mma 0.16 nmol/mL N <=0.40 33 Vitamin D Total 25(Oh) 33.4 ng/mL N 30-50 34 Iron & Iron Binding 11/14/2016 [facility] Iron 73 g/dL N 50- [address] [place] [address] [phone] Unsaturated Iron Binding 267 g/dL N Total Iron Binding Capacity 340 g/dL N 250-450 % Iron Saturation 21 % N 15-55 Laboratory test 10/31/2016 [facility] Hemoglobin A1c 6.7 5-7 finding Rapid Influenza A 10/15/2016 [facility] Influenza A NEGATIVE N Negative 35 & B Molecular [address] [place] [address] [phone] Influenza B Molecular NEGATIVE N Negative Laboratory test 10/15/2016 [facility] Rapid Influenza A SEE RESULT [address] [place] [address] [phone] Urine Microalbumin 08/26/2016 [facility] Ur Microalbumin < 15.0 mg/L N Random [address] (mg/L) [place] [address] [phone] Urine Creatinine 11.54 mg/dL N Urine Microalbumin/Creatinine TNP ug/mg N <31 37 Laboratory test 08/15/2016 [facility] Vitamin D 25.6 ng/mL Low 30-50 [address] Total 25(Oh) [place] [address] [phone] Iron & Iron 08/15/2016 [facility] Iron 32 g/dL Low 50-212 Binding Capacity [address] [place] [address] [phone] Unsaturated Iron Binding 322 g/dL N Total Iron Binding Capacity 354 g/dL N 250-450 % Iron Saturation 9 % Low 15-55 Urine Microalbumin 04/19/2016 [facility] Urine Creatinine 19.99 mg/dL N Random [address] [place] [address] [phone] Ur Microalbumin (mg/L) < 15.0 mg/L N Urine Microalbumin/Creatinine TNP ug/mg N <31 39 Laboratory test finding 04/19/2016 [facility] Hemoglobin A1c 5.8 5-7 Ua Routine 01/25/2016 [facility] House Ua Specific [place] 1.015 Ua PH 5 Ua Color yellow Ua Appera clear Ua WBC trace Ua Protein trace Ua Glucose neg Ua Ketones mod Ua Bilirubin neg Ua Urobilinogen neg Ua Nitrite neg Ua Occult Blood large GC/Chlamydia 01/25/2016 [facility] Chlamydia Negative N Negative Amplified Rna [address] [place] [address] [phone] Neisseria gonorrhoeae (GC) Rna Negative N Negative Urine Culture And 01/25/2016 [facility] Urine Culture SEE RESULT [address] [place] [address] [phone] Laboratory test 01/16/2016 [facility] Methylmalonic Acid 0.14 N <=0. [address] Mma nmol/mL 40 [place] [address] [phone] Hemoglobin A1c (Glyco HGB) 8.0 % High Less than 6.0 42 TSH (Thyroid Stim Horm) 1.91 ?IU/mL N 0.34-5.60 Vitamin D Total 25(Oh) 29.7 ng/mL Low 30-50 FSH (Follicle Stim Hormone) 4.1 mIU/mL N 43 Vitamin B12 239 pg/mL N 180-914 44 Comp Metabolic Panel 01/16/2016 [facility] Sodium 134 mmol/L N 133-[address] [place] [address] [phone] Potassium 4.0 mmol/L N 3.5-5.0 Chloride 102 mmol/L N 101-111 Co2 Carbon Dioxide 24 mmol/L N 22-32 Anion Gap 8 mmol/L N 2-11 Glucose 203 mg/dL High 70-100 Blood Urea Nitrogen 10 mg/dL N 6-24 Creatinine 0.57 mg/dL N 0.51-0.95 BUN/Creatinine Ratio 17.5 N 8-20 Calcium 9.3 mg/dL N 8.6-10.3 Total Protein 7.1 g/dL N 6.4-8.9 Albumin 4.5 g/dL N 3.2-5.2 Globulin 2.6 g/dL N 2-4 Albumin/Globulin Ratio 1.7 N 1-3 Total Bilirubin 0.50 mg/dL N 0.2-1.0 Alkaline Phosphatase 59 U/L N 34-104 Alt 13 U/L N 7-52 Ast 12 U/L Low 13-39 Egfr Non- 118.7 N >60 Egfr 152.7 N >60 45 Lipid Profile 01/16/2016 [facility] Triglycerides 182 mg/dL N 46 (Trig/Chol/HDL) [address] [place] [address] [phone] Cholesterol 142 mg/dL N 47 HDL Cholesterol 35.2 mg/dL N 48 LDL Cholesterol 70 mg/dL N 49 Comp Metabolic Panel 09/05/2015 [facility] Sodium 134 mmol/L N 133-[address] [place] [address] [phone] Potassium 4.1 mmol/L N 3.5-5.0 Chloride 103 mmol/L N 101-111 Co2 Carbon Dioxide 25 mmol/L N 22-32 Anion Gap 6 mmol/L N 2-11 Glucose 180 mg/dL High 70-100 Blood Urea Nitrogen 14 mg/dL N 6-24 Creatinine 0.54 mg/dL N 0.51-0.95 BUN/Creatinine Ratio 25.9 High 8-20 Calcium 9.0 mg/dL N 8.6-10.3 Total Protein 6.6 g/dL N 6.4-8.9 Albumin 4.4 g/dL N 3.2-5.2 Globulin 2.2 g/dL N 2-4 Albumin/Globulin Ratio 2.0 N 1-3 Total Bilirubin 0.30 mg/dL N 0.2-1.0 Alkaline Phosphatase 46 U/L N 34-104 Alt 10 U/L N 7-52 Ast 10 U/L Low 13-39 Egfr Non- 126.3 N >60 Egfr 162.5 N >60 50 Laboratory test 09/05/2015 [facility] Hemoglobin A1c 7.4 % High Less than [address] (Glyco HGB) 6.0 [place] [address] [phone] Vitamin B12 208 pg/mL N 180-914 52 Vitamin D Total 25(Oh) 23.6 ng/mL Low 30-50 Laboratory test 06/07/2015 [facility] Point of Care 184 mg/dL High 74-106 [address] [place] [address] [phone] Laboratory test 03/17/2015 [facility] Hemoglobin A1c 6.5 5-7 finding Urine 03/17/2015 [facility] Ur Microalbumin 63.0 mg/L N Microalbumin [address] (mg/L) [place] [address] [phone] Urine Creatinine 84.69 mg/dL N Urine Microalbumin/Creatinine 74.3 ug/mg High <31 Laboratory test 03/17/2015 [facility] Methylmalonic 0.14 N <= 0.[address] Acid Mma nmol/[place] [address] [phone] Basic Metabolic 03/17/2015 [facility] Sodium 137 mmol/L N 133- [address] [place] [address] [phone] Potassium 4.1 mmol/L N 3.5-5.0 Chloride 103 mmol/L N 101-111 Co2 Carbon Dioxide 28 mmol/L N 22-32 Anion Gap 6 mmol/L N 2-11 Glucose 122 mg/dL High 70-100 Blood Urea Nitrogen 13 mg/dL N 6-24 Creatinine 0.50 mg/dL Low 0.51-0.95 BUN/Creatinine Ratio 26.0 High 8-20 Calcium 9.6 mg/dL N 8.6-10.3 Egfr Non- 138.8 N >60 Egfr 178.5 N >60 55 Laboratory test 03/17/2015 [facility] Vitamin D 27.1 ng/mL Low 30-[address] Total 25(Oh) [place] [address] [phone] Vitamin B12 189 pg/mL N 180-754 56 Laboratory test 11/18/2014 [facility] Vitamin B12 218 pg/mL N 180-914 57, [address] [place] [address] [phone] Lipid Profile 11/18/2014 [facility] Triglycerides 131 mg/dL N 59 (Trig/Chol/HDL) [address] [place] [address] [phone] Cholesterol 116 mg/dL N 60 HDL Cholesterol 44.0 mg/dL N 61 LDL Cholesterol 46 mg/dL N 62 Vitamin D, 25 11/18/2014 [facility] 25-Hydroxy Vitamin <4.0 ng/ mL N Hydroxy [address] D2 [place] [address] [phone] 25-Hydroxy Vitamin D3 21 ng/mL N 25-Hydroxy Vitamin D Total 21 ng/mL N 63 Comp Metabolic Panel 11/18/2014 [facility] Sodium 136 mmol/L N 133-145 [address] [place] [address] [phone] Potassium 3.6 mmol/L N 3.5-5.0 Chloride 103 mmol/L N 101-111 Co2 Carbon Dioxide 27 mmol/L N 22-32 Anion Gap 6 mmol/L N 2-11 Glucose 143 mg/dL High 70-100 Blood Urea Nitrogen 8 mg/dL N 6-24 Creatinine 0.49 mg/dL Low 0.51-0.95 BUN/Creatinine Ratio 16.3 N 8-20 Calcium 9.3 mg/dL N 8.6-10.3 Total Protein 7.1 g/dL N 6.4-8.9 Albumin 4.7 g/dL N 3.2-5.2 Globulin 2.4 g/dL N 2-4 Albumin/Globulin Ratio 2.0 N 1-3 Total Bilirubin 0.50 mg/dL N 0.2-1.0 Alkaline Phosphatase 53 U/L N 34-104 Alt 11 U/L N 7-52 Ast 10 U/L Low 13-39 Egfr Non- 142.1 N >60 Egfr 182.8 N >60 64 Laboratory test 11/18/2014 [facility] Hemoglobin A1c 6.8 5-7 finding Comp Metabolic Panel 05/16/2014 [facility] Sodium 136 mmol/L N 133-145 [address] [place] [address] [phone] Potassium 4.3 mmol/L N 3.7-5.6 Chloride 103 mmol/L N 101-111 Co2 Carbon Dioxide 27 mmol/L N 22-32 Anion Gap 6 mmol/L N 2-11 Glucose 176 mg/dL High 70-100 Blood Urea Nitrogen 9 mg/dL N 6-24 Creatinine 0.47 mg/dL Low 0.51-0.95 BUN/Creatinine Ratio 19.1 N 8-20 Calcium 9.1 mg/dL N 8.6-10.3 Total Protein 7.0 g/dL N 6.4-8.9 Albumin 4.5 g/dL N 3.2-5.2 Globulin 2.5 g/dL N 2-4 Albumin/Globulin Ratio 1.8 N 1-3 Total Bilirubin 0.30 mg/dL N 0.2-1.0 Alkaline Phosphatase 61 U/L N 34-104 Alt 12 U/L N 7-52 Ast 11 U/L Low 13-39 Egfr Non- 149.9 N >60 Egfr 192.8 N >60 65 Lipid Profile 05/16/2014 [facility] Triglycerides 145 mg/dL N 66 (Trig/Chol/HDL) [address] [place] [address] [phone] Cholesterol 129 mg/dL N 67 HDL Cholesterol 39.2 mg/dL N 68 LDL Cholesterol 61 mg/dL N 69 Urine Microalbumin 05/16/2014 [facility] Ur Microalbumin 57.0 mg /L N Random 101 [facility] (mg/L) [place] [address] [phone] Urine Creatinine 33.44 mg/dL N Urine Microalbumin/Creatinine 170.4 High Less Than 31 Laboratory test 05/16/2014 [facility] Vitamin B12 236 pg/mL N 180-914 70 finding [address] [place] [address] [phone] Vitamin D, 25 05/16/2014 [facility] 25-Hydroxy <4.0 ng/mL N Hydroxy [address] [facility] Vitamin D2 [place] [address] [phone] 25-Hydroxy Vitamin D3 27 ng/mL N 25-Hydroxy Vitamin D Total 27 ng/mL N 71 Laboratory test 04/26/2014 [facility] Hemoglobin A1c 7.2 High 5-7 finding Laboratory test 01/04/2014 [facility] Hemoglobin A1c 7.3 High 5-7 finding Comp Metabolic 10/06/2013 [facility] Sodium 138 mmol/L 133- 145 Panel [address] [place] [address] [phone] Potassium 4.4 mmol/L 3.7-5.6 Chloride 103 mmol/L [...] Egfr Non- 133.4 >60 Egfr 171.6 >60 72 Vitamin D, 25 10/06/2013 [facility] 25-Hydroxy Vitamin <4.0 ng/ mL Hydroxy [address] [place] [address] [address] [phone] 25-Hydroxy Vitamin D3 16 ng/mL 25-Hydroxy Vitamin D Total 16 ng/mL Abnormal 73 Laboratory test 10/06/2013 [facility] Vitamin B12 287 pg/mL 180-134 [address] [place] [address] [phone] Laboratory test 10/06/2013 [facility] Hemoglobin A1c 6.9 5-7 finding Laboratory test 05/19/2013 [facility] Hemoglobin A1c 5.8 5-7 finding Vitamin D, 25 05/19/2013 [facility] 25-Hydroxy <4.0 ng/mL Hydroxy [address] Vitamin D2 [place] [address] [phone] 25-Hydroxy Vitamin D3 29 ng/mL 25-Hydroxy Vitamin D Total 29 ng/mL 75 Laboratory test 05/19/2013 [facility] Vitamin B12 233 pg/mL 180-[address] [place] [address] [phone] Urine 05/19/2013 [facility] Ur Microalbumin 77.0 mg/L [address] (mg/L) [place] [address] [phone] Urine Creatinine 15.7 mg/dL Urine Microalbumin/Creatinine 490.4 High Less Than 31 Lipid Profile 05/19/2013 [facility] Triglycerides 173 mg/dL 40-200 (Trig/Chol/HDL) [address] [place] [address] [phone] Cholesterol 178 mg/dL Less than 200 HDL Cholesterol 88 mg/dL High 40-60 77 Cholesterol/HDL Ratio 2.0 Average 1-4.44 LDL Cholesterol 55.4 Less Than 100 78 Comp Metabolic Panel 05/19/2013 [facility] Sodium 140 mmol/L 133-[address] [place] [address] [phone] Potassium 4.1 mmol/L 3.5-5.0 Chloride 107 mmol/L [...] Egfr Non- 140.4 >60 Egfr 180.6 >60 79 CBC Auto 09/20/2012 [facility] White Blood 11.8 10^3/uL High 4.8-10.[address] [place] [address] [phone] Red Blood Count 4.62 10^6/uL 4.0-5.4 Hemoglobin [...] Cells % 0 Comp Metabolic Panel 09/20/2012 [facility] Sodium 136 mmol/L 133-145 [address] [place] [address] [phone] Potassium 3.7 mmol/L 3.5-5.0 Chloride 105 mmol/L [...] Egfr Non- 140.4 >60 Egfr 180.6 >60 80 Laboratory test finding 09/20/2012 [facility] Lipase 33 U/L 22-[address] [place] [address] [phone] Beta HCG Quantitative 827.0 MIU/ML High 0.0-5.0 81 C Reactive Protein 1.1 mg/dL High Less than 0.5 Laboratory test 09/04/2012 [facility] Hemoglobin A1c 9.2 High 5-7 finding Laboratory test 05/08/2012 [facility] Hemoglobin A1c 10.0 High 5-7 finding Laboratory test 02/17/2012 [facility] Hemoglobin A1c 9.9 High 5-7 finding Rapid Influenza 12/08/2011 [facility] M 82 A And B Anitgen [address] [place] [address] --- <[place] [address] NOTE> [phone] Laboratory test 12/08/2011 [facility] Monospot NEGATIVE Negative finding [address] [place] [address] [phone] Comp Metabolic 12/08/2011 [facility] Sodium 135 mmol/L 135- [address] [place] [address] [phone] Potassium 3.8 mmol/L 3.5-5.0 Chloride 99 mmol/L Low 101-111 Co2 (Carbon Dioxide) 27.0 mmol/L 22-32 Anion Gap 9.0 mmol/L 2-11 83 Glucose 314 mg/dL High 70-100 BUN 10 mg/dL 6-24 Creatinine 0.4 mg/dL Low 0.50-1.40 One Over Creatinine 2.50 BUN/Creatinine Ratio 25.0 High 8-20 Calcium 9.1 mg/dL 8.1-9.9 Total Protein 7.6 GM/DL 6.2-8.1 Albumin 3.8 GM/DL 3.6-5.4 Globulin 3.8 GM/DL 2-4 Albumin/Globulin Ratio 1.0 1-3 Bilirubin Total 0.3 mg/dL Low 0.4-1.5 84 Alkaline Phosphatase 92 U/L 30-110 Alt (SGPT) 14 U/L 14-54 Ast (Sgot) 14 U/L 12-42 eGFR Non- 182.7 > 60 eGFR 235.0 > 60 85 Laboratory test finding 12/08/2011 [facility] Lipase 45 U/L 22-[address] [place] [address] [phone] C Reactive Protein 1.8 mg/dL High Less Than 0.5 CBC No Diff 12/08/2011 [facility] White Blood 12.4 CUMM High 4.8-10.[address] [place] [address] [phone] Red Cell Count 4.66 CUMM 4.2-5.4 Hemoglobin 15.1 g/dL 12.0-16.0 Hematocrit 43 % 35-47 Mean Corpuscular Volume 92 um3 79-97 Mean Corpuscular Hemoglob 32 pg High 27-31 Mean Corpuscular HGB Cone 35 g/dL 32-36 Redcell Distribution WDTH 12 % 10.5-15 Platelet Count 186 CUMM 150-450 Mean Platelet Volume 9.6 um3 7.4-10.4 Manual Differential 12/08/2011 [facility] Polysegmented 70 % 38-[address] [address] [phone] Lymphocyte 29 % 25-47 Monocyte 1 % 0-13 Absolute Neutrophil Count 8.60 RBC Morphology NORMAL Laboratory test 12/08/2011 [facility] Erythrocyte Sed 49 MM/HR High 0-[address] [place] [address] [phone] CBC Auto Diff 09/09/2011 [facility] White Blood 7.9 CUMM 4.8- 10.[address] [place] [address] [phone] Red Cell Count 4.37 CUMM 4.2-5.4 Hemoglobin [...] Abs Basophils 0 0-0.2 Vitamin D, 25 09/09/2011 [facility] 25-Hydroxy Vitamin 20 ng/mL () Hydroxy [address] D2 [place] [address] [phone] 25-Hydroxy Vitamin D3 8.5 ng/mL () 25-Hydroxy Vitamin D Total 29 ng/mL () 86 Laboratory test 09/09/2011 [facility] Ferritin 71 NG/ML 11.0- [address] [place] [address] [phone] Lipid Profile 09/09/2011 [facility] Triglyceride 131 mg/dL 40 -200 (Trig/Chol/HDL) [address] [place] [address] [phone] Cholesterol 148 mg/dL Less Than 200 87 High Density Lipoprotein 38 mg/dL Low 40-60 88 Cholesterol/HDL Ratio 3.89 AVERAGE 1-4.44 Low Density Lipoprotein 84 mg/dL Less Than 100 89 Urine Microalbumin 09/03/2011 [facility] Microalbumin 54.0 mg/L Random [address] (MG/L) [place] [address] [phone] Urine Creatinine 25.6 mg/dL Abdulkadir Alb/Creatinine Ratio 210.9 UG/MG High Less Than 30 90 Laboratory test 09/03/2011 [facility] Hemoglobin A1c 9.1 High 5-7 finding Laboratory test 05/31/2011 [facility] Hemoglobin A1c 9.9 High 5-7 finding Comp Metabolic 05/31/2011 [facility] Sodium 136 mmol/L 135- [address] [place] [address] [phone] Potassium 4.7 mmol/L 3.5-5.0 Chloride 103 mmol/L 101-111 Co2 (Carbon Dioxide) 26.0 mmol/L 22-32 Anion Gap 7.0 mmol/L 2-11 92 Glucose 276 mg/dL High 70-100 BUN 9 mg/dL 6-24 Creatinine 0.4 mg/dL Low 0.50-1.40 One Over Creatinine 2.50 BUN/Creatinine Ratio 22.5 High 8-20 Calcium 9.4 mg/dL 8.1-9.9 Total Protein 7.1 GM/DL 6.2-8.1 Albumin 4.5 GM/DL 3.6-5.4 Globulin 2.6 GM/DL 2-4 Albumin/Globulin Ratio 1.7 1-3 Bilirubin Total 1.4 mg/dL 0.4-1.5 93 Alkaline Phosphatase 82 U/L 30-110 Alt (SGPT) 11 U/L Low 14-54 Ast (Sgot) 18 U/L 12-42 eGFR Non- 183.8 > 60 eGFR 236.4 > 60 94 Lipid Profile 05/31/2011 [facility] Triglyceride 243 mg/dL High 40-200 (Trig/Chol/HDL) [address] [place] [address] [phone] Cholesterol 134 mg/dL Less Than 200 95 High Density Lipoprotein 33 mg/dL Low 40-60 96 Cholesterol/HDL Ratio 4.06 AVERAGE 1-4.44 Low Density Lipoprotein 52 mg/dL Less Than 100 97 Laboratory test 03/20/2011 [facility] Hemoglobin A1c 11.1 % High Less [address] 6[address]0 [place] [address] [phone] Comp Metabolic 03/20/2011 [facility] Sodium 134 Low 135-[address] mmol/[place] [address] [phone] Potassium 4.0 mmol/L 3.5-5.0 Chloride 102 mmol/L 101-111 Co2 (Carbon Dioxide) 21.0 mmol/L Low 22-32 Anion Gap 11.0 mmol/L 2-11 99 Glucose 302 mg/dL High 70-100 BUN 14 mg/dL 6-24 Creatinine 0.40 mg/dL Low 0.50-1.40 One Over Creatinine 2.50 BUN/Creatinine Ratio 35.0 High 8-20 Calcium 8.6 mg/dL 8.1-9.9 Total Protein 7.0 GM/DL 6.2-8.1 Albumin 3.9 GM/DL 3.6-5.4 Globulin 3.1 GM/DL 2-4 Albumin/Globulin Ratio 1.3 1-3 Bilirubin Total 0.6 mg/dL 0.4-1.5 100 Alkaline Phosphatase 82 U/L 30-110 Alt (SGPT) 15 U/L 14-54 Ast (Sgot) 15 U/L 12-42 eGFR Non- 183.8 > 60 eGFR 236.4 > 60 101 Vitamin D, 25 03/20/2011 [facility] 25-Hydroxy Vitamin <4.0 ng/ mL () Hydroxy [address] [place] [address] [phone] 25-Hydroxy Vitamin D3 22 ng/mL () 25-Hydroxy Vitamin D Total 22 ng/mL Abnormal () 102 Lipid Profile 03/20/2011 [facility] Triglyceride 556 mg/dL High 40-200 (Trig/Chol/HDL) [address] [place] [address] [phone] Cholesterol 150 mg/dL Less Than 200 103 High Density Lipoprotein 28 mg/dL Low 40-60 104 Cholesterol/HDL Ratio 5.36 AVERAGE High 1-4.44 Low Density Lipoprotein (SEE NOTE) mg/dL Less Than 100 105 Urine Microalbumin 08/29/2010 [facility] Microalbumin 188.0 mg/ L Random [address] (MG/L) [place] [address] [phone] Urine Creatinine 22.71 mg/dL Abdulkadir Alb/Creatinine Ratio 827.8 UG/MG High Less Than 30 106 Comp Metabolic Panel 08/29/2010 [facility] Sodium 134 mmol/L Low 135-[address] [place] [address] [phone] Potassium 4.4 mmol/L 3.5-5.0 Chloride 100 mmol/L Low 101-111 Co2 (Carbon Dioxide) 25.0 mmol/L 22-32 Anion Gap 9.0 mmol/L 2-11 107 Glucose 330 mg/dL High 70-100 BUN 18 mg/dL 6-24 Creatinine 0.50 mg/dL 0.50-1.40 One Over Creatinine 2.00 BUN/Creatinine Ratio 36.0 High 8-20 Calcium 9.6 mg/dL 8.1-9.9 Total Protein 7.2 GM/DL 6.2-8.1 Albumin 4.3 GM/DL 3.6-5.4 Globulin 2.9 GM/DL 2-4 Albumin/Globulin Ratio 1.5 1-3 Bilirubin Total 0.7 mg/dL 0.4-1.5 108 Alkaline Phosphatase 74 U/L 30-110 Alt (SGPT) 15 U/L 14-54 Ast (Sgot) 13 U/L 12-42 eGFR Non- 151.0 > 60 eGFR 182.7 > 60 109 Lipid Profile 08/29/2010 [facility] Triglyceride 384 mg/dL High 40-200 (Trig/Chol/HDL) [address] [place] [address] [phone] Cholesterol 169 mg/dL Less Than 200 110 High Density Lipoprotein 40 mg/dL 40-60 111 Cholesterol/HDL Ratio 4.23 AVERAGE 1-4.44 Low Density Lipoprotein 52 mg/dL Less Than 100 112 Vitamin D, 25 08/29/2010 [facility] 25-Hydroxy Vitamin <4.0 ng/ mL () Hydroxy [address] [place] [address] [phone] 25-Hydroxy Vitamin D3 12 ng/mL () 25-Hydroxy Vitamin D Total 12 ng/mL Abnormal () 113 Laboratory test 08/29/2010 [facility] Hemoglobin A1c 11.3 % High Less [address] 6[address]0 [place], [place] [address] [phone] Vitamin D, 25 03/12/2010 [facility] 25-Hydroxy <4.0 () Hydroxy [address] Vitamin D2 ng/[place] [address] [phone] 25-Hydroxy Vitamin D3 24 ng/mL () 25-Hydroxy Vitamin D Total 24 ng/mL Abnormal () 115 CBC With 03/02/2010 [facility] White Blood 8.3 CUMM 4.8-10.8 Electronic Diff [address] [place] [address] [phone] Red Cell Count 4.78 CUMM 4.2-5.4 Hemoglobin [...] Basophils 0 0-0.2 Comp Metabolic Panel 03/02/2010 [facility] Sodium 135 mmol/L 135-[address] [place] [address] [phone] Potassium 3.7 mmol/L 3.5-5.0 Chloride 103 mmol/L 101-111 Co2 (Carbon Dioxide) 24.0 mmol/L 22-32 Anion Gap 8.0 mmol/L 2-11 116 Glucose 382 mg/dL High 70-100 117 BUN 12 mg/dL 6-24 Creatinine 0.30 mg/dL Low 0.50-1.40 One Over Creatinine 3.30 BUN/Creatinine Ratio 40.0 High 8-20 Calcium 9.5 mg/dL 8.1-9.9 118 Total Protein 6.2 GM/DL 6.2-8.1 Albumin 3.8 GM/DL 3.6-5.4 Globulin 2.4 GM/DL 2-4 Albumin/Globulin Ratio 1.6 1-3 Bilirubin Total 0.7 mg/dL 0.4-1.5 119 Alkaline Phosphatase 73 U/L 30-110 Alt (SGPT) 19 U/L 14-54 Ast (Sgot) 16 U/L 12-42 eGFR Non- 274.0 > 60 eGFR 331.5 > 60 120 Laboratory test 03/02/2010 [facility] TSH 0.90 MIU/ML 0.34- 5.[address] [place] [address] [phone] Hemoglobin A1c 11.5 % High Less Than 6.0 121 Comp Metabolic Panel 08/30/2009 [facility] Sodium 134 mmol/L Low 135-[address] [place] [address] [phone] Potassium 4.3 mmol/L 3.5-5.0 Chloride 99 mmol/L Low 101-111 Co2 (Carbon Dioxide) 22.0 mmol/L 22-32 Anion Gap 13.0 mmol/L High 2-11 122 Glucose 280 mg/dL High 70-100 123 BUN 12 mg/dL 6-24 Creatinine 0.40 mg/dL Low 0.50-1.40 One Over Creatinine 2.50 BUN/Creatinine Ratio 30.0 High 8-20 Calcium 9.5 mg/dL 8.1-9.9 124 Total Protein 6.6 GM/DL 6.2-8.1 Albumin 4.1 GM/DL 3.6-5.4 Globulin 2.5 GM/DL 2-4 Albumin/Globulin Ratio 1.6 1-3 Bilirubin Total 0.4 mg/dL 0.4-1.5 125 Alkaline Phosphatase 56 U/L 30-110 Alt (SGPT) 23 U/L 14-54 Ast (Sgot) 17 U/L 12-42 eGFR Non- 196.6 > 60 eGFR 237.9 > 60 126 Laboratory test 08/30/2009 [facility] Hemoglobin A1c 10.4 % High Less [address] [place] [address] [phone] Basic Metabolic 06/30/2009 [facility] Sodium 135 135-[address] mmol/[place] [address] [phone] Potassium 4.2 mmol/L 3.5-5.0 Chloride 103 mmol/L 101-111 Co2 (Carbon Dioxide) 25.0 mmol/L 22-32 Anion Gap 7.0 mmol/L 2-11 128 Glucose 421 mg/dL High 70-100 129 BUN 13 mg/dL 6-24 Creatinine 0.50 mg/dL 0.50-1.40 One Over Creatinine 2.00 BUN/Creatinine Ratio 26.0 High 8-20 Calcium 9.5 mg/dL 8.1-9.9 130 eGFR Non- 152.0 > 60 eGFR 183.9 > 60 131 Lipid Profile 06/16/2009 [facility] Triglyceride 327 mg/dL High 40-200 (Trig/Chol/HDL) [address] [place] [address] [phone] Cholesterol 143 mg/dL Less Than 200 132 High Density Lipoprotein 32 mg/dL Low 40-60 133 Cholesterol/HDL Ratio 4.47 AVERAGE High 1-4.44 Low Density Lipoprotein 46 mg/dL Less Than 100 134 Laboratory test 06/16/2009 [facility] Hemoglobin A1c 10.3 % High Less [address] 6[address]0 [place] [address] [phone] Comp Metabolic 06/16/2009 [facility] Sodium 136 135-[address] mmol/[place] [address] [phone] Potassium 3.7 mmol/L 3.5-5.0 Chloride 100 mmol/L Low 101-111 Co2 (Carbon Dioxide) 26.0 mmol/L 22-32 Anion Gap 10.0 mmol/L 2-11 136 Glucose 220 mg/dL High 70-100 137 BUN 9 mg/dL 6-24 Creatinine 0.40 mg/dL Low 0.50-1.40 One Over Creatinine 2.50 BUN/Creatinine Ratio 22.5 High 8-20 Calcium 9.1 mg/dL 8.1-9.9 138 Total Protein 6.8 GM/DL 6.2-8.1 Albumin 4.0 GM/DL 3.6-5.4 Globulin 2.8 GM/DL 2-4 Albumin/Globulin Ratio 1.4 1-3 Bilirubin Total 0.6 mg/dL 0.4-1.5 139 Alkaline Phosphatase 82 U/L 30-110 Alt (SGPT) 23 U/L 14-54 Ast (Sgot) 18 U/L 12-42 eGFR Non- 197.9 > 60 eGFR 239.4 > 60 140 Urine Microalbumin 06/16/2009 [facility] Microalbumin 208.0 mg/ L Random [address] (MG/L) [place], [place] [id number] [phone] Urine Creatinine 69.25 mg/dL Abdulkadir Alb/Creatinine Ratio 300.3 UG/MG High Less Than 30 141 Vitamin D, 25 06/16/2009 [facility] 25-Hydroxy Vitamin <4.0 ng/ mL () Hydroxy [address] D[address] [place] [address] [phone] 25-Hydroxy Vitamin D3 14 ng/mL () 25-Hydroxy Vitamin D Total 14 ng/mL Abnormal () 142 1 ADDITIONAL INFORMATION This test has been modified from the interrelated special education teacher's instructions. Its performance characteristics were determined by [facility] in a manner consistent with CLIA requirements. This test has not been cleared or approved by the U.S. Food and Drug Administration. Test Performed by: [facility] [place] [address] 2 Warning: A positive result is not useful for establishing a diagnosis of syphilis. In most situations, such a result may reflect a prior treated infection; a negative result can exclude a diagnosis of syphilis except for incubating or early primary disease. 3 Negative result does not rule out HIV infection. If exposure to HIV infection occurred <14 days ago, contact the laboratory to request addition of HIV-1 RNA detection / quantification test (HIVQN). Test Performed by: [address] [address] 4 Because ethnic data is not always readily [...] 15-29 5 Kidney failure <15 (or dialysis) 5 <5.0 Negative 5.0 - 25.0 Indeterminate (Repeat testing recommended after 72 hours) >25.0 Positive Perimenopausal women can display HCG levels of up to 20 mIU/mL 6 Therapeutic target for the treatment of diabetes mellitus patients is <7% HBA1C, and in selective patients <6.0%. Please refer to [place] [employer] diabetic care guidelines for further information. 7 Because ethnic data is not always [...] 5 Kidney failure <15 (or dialysis) 8 SEE RESULT BELOW Name: PRASHANT EVANS : [address]: Chary Wood MD Acct: [id number] Unit: [id number] AGE: 42 Location: LAB Re02/07/18 SEX: F Status: REG REF SPEC: [id number] IOANA: 02/07/18-[address]: Chary Wood MD REQ: [id number] RECD: 02/07/18 STATUS: COMP _ SOURCE: URINE SPDESC: ORDERED: Urine Culture Procedure Result Reported Site Urine Culture Final 02/08/18- 1201 ML No Growth (<1,000 CFU/mL) * [facility] - Main Lab . END OF REPORT DEPARTMENT OF PATHOLOGY, [address] [place] [address] Saleem Barnett M.D. Director [facility] # [id number] 9 Loin Puller: [id number] SEE RESULT BELOW Name: PRASHANT EVANS : [address]: Jurgen Allen MD Acct: [id number] Unit: [id number] AGE: 42 Location: ED Re10/25/17 SEX: F Status: DEP ER SPEC: [id number] IOANA: 10/25/17-[address]: Emma RODRIGUEZ REQ: [id number] RECD: 10/25/17 STATUS: PETE DELAROSA DR: [facility] Chary Wood MD _ SOURCE: URINE SPDESC: ORDERED: Urine Culture Procedure Result Reported Site Urine Culture Final 10/27/17- 0907 ML Mixed arnold; possible contamination. Suggest resubmission. * ML - Main Lab . END OF REPORT DEPARTMENT OF PATHOLOGY, [address] [place] [address] Saleem Barnett M.D. Director [facility] # [id number] 12 [facility] Severe Sepsis and Septic Shock Management Bundle Measure requires all lactic acids initially measuring >2.0 mmol/L be repeated. 13 Because ethnic data is not always [...] HOUR DO THIS IN 6 WEEKS 15 Because ethnic data is not always readily [...] 15-29 5 Kidney failure <15 (or dialysis) 16 Desirable: <150 Borderline High: 150-199 High: 200-499 Very High: >500 17 Desirable: <200 Borderline High: 200-239 High: >239 18 Low: <40 Desirable: 40-60 High: >60 19 Desirable: <100 Near Optimal: 100-129 Borderline High: 130-159 High: 160-189 Very High: >189 20 Therapeutic target for the treatment of diabetes mellitus patients is <7% HBA1C, and in selective patients <6.0%. Please refer to [place] [employer] diabetic care guidelines for further information. 21 Normal Range 180 to 914 Indeterminate Range 145 to 180 Deficient Range <145 22 Normally menstruating females - Follicular phase 3 - 9 - Mid-cycle peak 4 - 23 - Luteal phase 1 - 6 Postmenopausal females 16 - 114 23 [id number] 24 If is still suspected, please repeat test after 48 to 72 hours. This test detects intact HCG only and is indicated for the early detection of . 25 SEE RESULT BELOW Name: PRASHANT EVANS : [address]: Juaquin Ashley DO Acct: [id number] Unit: [id number] AGE: 41 Location: ED Re04/17/17 SEX: F Status: DEP ER SPEC: [id number] IOANA: 04/17/[address]: Juaquin Ashley DO REQ: [id number] RECD: 04/17/17 STATUS: PETE DELAROSA DR: [facility] Chary Wood MD _ SOURCE: URINE SPDESC: ORDERED: Urine Culture Procedure Result Reported Site Urine Culture Final 04/19/17- 08 ML No growth of clinically significant organisms * ML - MAIN LAB ([facility]) . END OF REPORT * ML=Testing performed at Main Lab DEPARTMENT OF PATHOLOGY, [address] [place] [address] Saleem Barnett M.D. Director [facility] # [id number] 26 Therapeutic target for the treatment of diabetes Mellitus patients is <7% HBA1C, and in selective patients <6.0%.Please refer to [place] [employer] Diabetic care guidelines for further information. 27 Because ethnic data is not always readily [...] 15-29 5 Kidney failure <15 (or dialysis) 28 Desirable <150 Borderline high 150-199 High 200-499 Very High >500 29 Desirable <200 Borderline high 200-239 High >239 30 Low <40 Desirable: 40-60 High: >60 31 Desirable: <100 mg/dL Near Optimal: 100-129 mg/dL Borderline High: 130-159 mg/dL High: 160-189 mg/dL Very High: >189 mg/dL 32 Normal Range 180 to 914 Indeterminate Range 145 to 180 Deficient Range <145 33 ADDITIONAL INFORMATION This test was developed and its performance characteristics determined by [facility] in a manner consistent with CLIA requirements. This test has not been cleared or approved by the U.S. Food and Drug Administration. Test Performed by: [facility] [address] [place] [address] 34 DO THIS AT THE [facility] SOON 35 Loin Puller: SHE CONROYNOR PARDEEP 36 SEE RESULT BELOW Name: PRASHANT EVANS : [address]: Chary Wood MD Acct: [id number] Unit: [id number] AGE: 41 Location: [facility] Re10/15/16 SEX: F Status: REG REF SPEC: [id number] IOANA: 10/15/16-[address]: Chary Wood MD REQ: [id number] RECD: 10/15/16 STATUS: COMP _ SOURCE: TEZ MAES: ORDERED: Melissa Villalobos Request COMMENTS: [id number] Procedure Result Reported Site Rapid Influenza A B Request Final 10/15/162025 ML Specimen received for Influenza A/B Molecular testing * ML - MAIN LAB ([facility]) . END OF REPORT * ML=Testing performed at Main Lab DEPARTMENT OF PATHOLOGY, [address] [place] [address] Saleem Barnett M.D. Director [facility] # [id number] 37 Unable to calculate due to low microalbumin 38 [id number] Unable to calculate due to low microalbumin 40 SEE RESULT BELOW Name: PRASHANT EVANS : [address]: Juma Coronado NP Acct: [id number] Unit: [id number] AGE: 40 Location: [facility] Re01/25/16 SEX: F Status: REG REF SPEC: [id number] IOANA: 01/25/16-[address] [facility] [address]: Juma Coronado NP REQ: [id number] RECD: 01/25/167652 STATUS: COMP _ SOURCE: URINE SPDESC: ORDERED: Urine Culture COMMENTS: [id number] Procedure Result Reported Site Urine Culture Final 01/27/16- 1035 ML No growth of clinically significant organisms * ML - MAIN LAB ([facility]) . END OF REPORT * ML=Testing performed at Main Lab DEPARTMENT OF PATHOLOGY, [address] [place] [address] Saleem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 Superficial [place] Insect Bite Oth Mult Unsp Nonven Infected Office Visit 10/06/2013 3:40p [facility] Chary 466.0 Bronchitis Acute Weston Wood M.D. [place] 250.02 Diabetes Mellitus W/O Compl Type II Or Unspec Type Uncontrol 266.2 B Complex Deficiencies Other 268.9 Vitamin D Deficiency Unspec Office Visit 05/28/2013 1:20p [facility] Chary Israel, 382.9 Otitis Media Medicine Thanh Richards Unspec [place] 493.00 Asthma Extrinsic Unspecified Office Visit 05/19/2013 9:20a [facility] Chary 250.02 Diabetes Weston Wood M.D. Mellitus W/O [place] Compl Type II Or Unspec Type Uncontrol 493.90 Asthma Unspec W/O Status Asthmaticus 266.2 B Complex Deficiencies Other 268.9 Vitamin D Deficiency Unspec Office Visit 10/06/2012 4:00p [facility] Medicine Chary Wood, 786.2 Cough - Samuel Richards 250.42 Diabetes W/ Renal Manifestations Type II Uncontrolled Office Visit 09/04/2012 4:00p [facility] Chary 250.02 Diabetes Weston Wood M.D. Mellitus W/O [place] Compl Type II Or Unspec Type Uncontrol 266.2 B Complex Deficiencies Other 493.90 Asthma Unspec W/O Status Asthmaticus Office Visit 06/16/2012 11:00a [facility] Chary 250.02 Mark Wood M.D. Mellitus W/O [place] Compl Type II Or Unspec Type Uncontrol 266.2 B Complex Deficiencies Other 493.90 Asthma Unspec W/O Status Asthmaticus 268.9 Vitamin D Deficiency Unspec 285.9 Anemia Unspec 782.1 Rash & Other Nonspec Skin Eruption Office Visit 05/08/2012 11:00a [facility] Chary 250.02 Mark Wood M.D. Mellitus W/O [place] Compl Type II Or Unspec Type Uncontrol 266.2 B Complex Deficiencies Other 401.1 Hypertension Benign 311 Depressive Disorder Not Elsewhere Spec 729.5 Pain In Limb Office Visit 03/10/2012 2:40p [facility] Chary 266.2 B Complex Weston Wood M.D. Deficiencies Other [place] 493.90 Asthma Unspec W/O Status Asthmaticus Office Visit 02/17/2012 4:00p [facility] Chary 250.02 Mark Wood M.D. Mellitus W/O [place] Compl Type II Or Unspec Type Uncontrol 787.02 Nausea Alone 493.90 Asthma Unspec W/O Status Asthmaticus 789.00 Pain Abdominal Unspec Site 305.1 Tobacco Use Disorder 250.00 Diabetes Mellitus W/O Compl Type II Or Unspec Controlled Office Visit 11/11/2011 3:40p [facility] Chary 311 Depressive Weston Wood M.D. Disorder Not [place] Elsewhere Spec 250.02 Diabetes Mellitus W/O Compl Type II Or Unspec Type Uncontrol 305.1 Tobacco Use Disorder 729.5 Pain In Limb 266.2 B Complex Deficiencies Other 465.9 URI Upper Respiratory Infections Acute Unspec Sites Office Visit 10/22/2011 3:20p [facility] Chary 311 Depressive Weston Wood M.D. Disorder Not [place] Elsewhere Spec 787.02 Nausea Alone 250.02 Diabetes Mellitus W/O Compl Type II Or Unspec Type Uncontrol 401.1 Hypertension Benign 729.5 Pain In Limb Office Visit 09/03/2011 1:00p [facility] Chary 250.02 Diabetes Weston Wood M.D. Mellitus W/O [place] Compl Type II Or Unspec Type Uncontrol 272.4 Hyperlipidemia Other Unspec 285.9 Anemia Unspec 268.9 Vitamin D Deficiency Unspec 266.2 B Complex Deficiencies Other 461.9 Sinusitis Acute Unspec Office Visit 08/20/2011 1:20p [facility] Ainsley Harvey, 250.02 Diabetes Weston Law M.D. Mellitus W/O [place] Compl Type II Or Unspec Type Uncontrol 268.9 Vitamin D Deficiency Unspec 465.9 URI Upper Respiratory Infections Acute Unspec Sites 272.4 Hyperlipidemia Other Unspec Office Visit 07/02/2011 DO Not Use Lucinda Sinclair, 266.2 B Complex 2:00p Bel N.PMohan Deficiencies Other 382.9 Otitis Media Unspec Office Visit 05/31/2011 DO Not Use Chary 250.02 Diabetes 1:00[facility] 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 Deficiencies Other 493.90 Asthma Unspec W/O Status Asthmaticus 782.1 Rash & Other Nonspec Skin Eruption 250.02 Diabetes Mellitus W/O Compl Type II Or Unspec Type Uncontrol Office Visit 07/18/2010 10:45a DO Not Use Belen Edwards, 466.0 Bronchitis Acute Bel Richards, FACP 519.11 Acute Bronchospasm Office Visit 06/28/2010 DO Not Use Chary 250.02 Diabetes 10:00a Bel Wood M.D. Mellitus W/O Compl Type II Or Unspec Type Uncontrol 493.90 Asthma Unspec W/O Status Asthmaticus 296.7 Bipolar I Disorder Current NOS 266.2 B Complex Deficiencies Other v04.81 Need For Prophylactic Vaccination & Inoculation/Influenza Office Visit 05/02/2010 2:00p DO Not Use Belendmitri Edwards, 250.02 Diabetes Bel Richards, FACP Mellitus W/O Compl Type II Or Unspec Type Uncontrol 465.9 URI Upper Respiratory Infections Acute Unspec Sites 493.90 Asthma Unspec W/O Status Asthmaticus 382.9 Otitis Media Unspec Office Visit 04/02/2010 DO Not Use Chary 250.02 Diabetes 3:15p Bel Wood M.D. Mellitus W/O Compl Type II Or Unspec Type Uncontrol 300.00 Anxiety State Unspec 305.1 Tobacco Use Disorder 266.2 B Complex Deficiencies Other Office Visit 01/02/2010 DO Not Use Belendmitri Edwards, 110.5 Dermatophytosis Body 1:00p Bel Richards, FACP 465.9 URI Upper Respiratory Infections Acute Unspec Sites 491.21 Bronchitis Obstructive Chronic W/Acute Exacerbation Office Visit 09/11/2009 11:40a DO Not Use Hospice Entrance Attendant AT Chary Smallwood, 786.2 [facility] Diabetes Mellitus W/O Compl Type II Or Unspec Type Uncontrol 305.1 Tobacco Use Disorder Office Visit 08/30/2009 1:00p DO Not Use Hospice Entrance Attendant AT Charyflorentino Wood, 729.5 Pain In Limb [facility] 266.2 B Complex Deficiencies Other 250.02 Diabetes Mellitus W/O Compl Type II Or Unspec Type Uncontrol Office Visit 07/25/2009 11:00a DO Not Use Hospice Entrance Attendant Chary 250.02 Diabetes AT [place] Wood M.D. Mellitus W/O Compl Type II Or Unspec Type Uncontrol 272.4 Hyperlipidemia Other Unspec 266.2 B Complex Deficiencies Other Office Visit 07/05/2009 9:00a DO Not Use Hospice Entrance Attendant Nurse Visit AT [facility] [place] Office Visit 06/23/2009 10:00a DO Not Use Hospice Entrance Attendant Chary 250.02 Diabetes AT [place]ne[place]ima Wood M.D. Mellitus W/O Compl Type II Or Unspec Type Uncontrol 268.9 Vitamin D Deficiency Unspec 791.0 Proteinuria Office Visit 06/16/2009 10:40a DO Not Use [facility] Chary 250.00 Diabetes Mellitus AT Cesar Wood M.D. W/O Compl Type II Or Unspec Controlled 266.2 B Complex Deficiencies Other 250.60 Diabetes W/ Neurological Manifestations Type II Controlled 466.0 Bronchitis Acute 729.5 Pain In Limb Plan of Treatment Future Appointment(s):06/30/2018 10:20 am - Chary Wood M.D. at [facility] Internal Medicine - [id number]/21/2019 10:00 am - Nurse Visit A at [facility] Medicine - Gykkqyjei61/19/2018 - Chary Wood M.D.J02.9 Acute pharyngitis, unspecifiedNew Labs:Rapid Group A Strep Poc, Ordered: H66.92 Otitis media, unspecified, left earComments:Start the [id number] Rash and other nonspecific skin eruptionNew Medication:Mupirocin 2 % - Apply bid to red areaI10 Essential (primary) hypertensionComments:Start the increased dose of lisinopril when you are feeling betterFollow up:HTN, Diabetes on 07/30 - pls cancel the B12 nurse visit on 07/29
--- NOTE | 2018-07-20 18:31 | ED ---
Lower Extremity - HPI Summary HPI Summary: 43-year-old female presents with right leg injury today. Incident happened at home is renting. Real Estate Analyst sprayed the house and was still wet when she was told she could into the house. She admits to slipping on this pesticide. She states that her leg bent backwards and she felt a snap. She is pain greatest over the lateral aspect of her right knee. She's not able to place weight on the area. Pain radiates from right thigh down to the right foot. No numbness or tingling. No back pain. No other injury. fall was mechanical fall. No chest pain or shortness breath. - History of Current Complaint Chief Complaint: EDExtremityLower Stated Complaint: FALL/RT HIP INJURY Time Seen by Provider: 07/20/18 18:17 Hx Last Menstrual Period: 02/05/17 Pain Intensity: 6 - Allergies/Home Medications Allergies/Adverse Reactions: Allergies Allergy/AdvReac Type Severity Reaction Status Date / Time adhesive tape Allergy Rash Verified 07/20/18 16:14 amoxicillin [From Augmentin] Allergy Hives Verified 07/20/18 16:14 bee venom protein (honey bee) Allergy Swelling Verified 07/20/18 16:14 clarithromycin [From Biaxin] Allergy Hives Verified 07/20/18 16:14 clavulanic acid Allergy Hives Verified 07/20/18 16:14 [From Augmentin] levofloxacin [From Levaquin] Allergy Hives Verified 07/20/18 16:14 Penicillins Allergy Hives Verified 07/20/18 16:14 pineapple Allergy Headache Verified 07/20/18 16:14 sertraline Allergy Unknown Verified 07/20/18 16:14 Reaction Details PMH/Surg Hx/FS Hx/Imm Hx Endocrine/Hematology History: Reports: Hx Diabetes - type 2 -ON ORAL MEDICATION FOR, Hx Anemia - IRON,VIT B12 AND VIT D ARE LOW Denies: Hx Thyroid Disease Cardiovascular History: Denies: Hx Hypertension, Hx Pacemaker/ICD, Other Cardiovascular Problems/ Disorders Respiratory History: Reports: Hx Asthma - PRN INHALER Denies: Hx Chronic Obstructive Pulmonary Disease (COPD), Other Respiratory Problems/Disorders GI History: Denies: Hx Ulcer, Other GI Disorders History: Reports: Other Problems/Disorders - UTIs Denies: Hx Renal Disease Sensory History: Reports: Hx Cataracts - RIGHT, Hx Contacts or Glasses - GLASSES Denies: Hx Hearing Aid Opthamlomology History: Reports: Hx Cataracts - RIGHT, Hx Contacts or Glasses - GLASSES Neurological History: Denies: Other Neuro Impairments/Disorders Psychiatric History: Reports: Hx Anxiety - PANIC ATTACKS, Hx Depression - HX OF - Cancer History Cancer Type, Location and Year: Cervical CA 1996 - Surgical History Surgery Procedure, Year, and Place: EAR TUBES A CHILD. LEEP. RIGHT EYE CATARACT Hx Anesthesia Reactions: Yes - "OUT FOR A WHILE" AFTER SURGERY Infectious Disease History: No Infectious Disease History: Denies: Hx Clostridium Difficile, Hx Hepatitis, Hx Human Immunodeficiency Virus (HIV), Hx of Known/Suspected MRSA, Hx Shingles, Hx Tuberculosis, Hx Known/ Suspected VRE, Hx Known/Suspected VRSA, History Other Infectious Disease, Traveled Outside the [place] in Last 30 Days - Family History Known Family History: Positive: Diabetes, Other - cataracts Negative: Cardiac Disease, Hypertension - Social History Alcohol Use: None Hx Substance Use: No Substance Use Type: Reports: Marijuana Substance Use Comment - Amount & Last Used: MARIJUANA- EVERY 2 DAYS FOR ANXIETY Hx Tobacco Use: Yes Smoking Status (MU): Heavy Every Day Tobacco Smoker Type: Cigarettes Amount Used/How Often: 1/2-1 1/2 ppd X 26 YEARS Length of Time of Smoking/Using Tobacco: 27 years Have You Smoked in the Last Year: Yes Review of Systems Negative: Fever Negative: Chest Pain Negative: Shortness Of Breath Positive: Myalgia - right leg pain All Other Systems Reviewed And Are Negative: Yes Physical Exam Triage Information Reviewed: Yes Vital Signs On Initial Exam: Initial Vitals Temp Pulse Resp BP Pulse Ox 98.7 F 89 16 124/85 97 07/20/18 16:12 07/20/18 16:12 07/20/18 16:12 07/20/18 16:12 07/20/18 16:12 Vital Signs Reviewed: Yes Appearance: Positive: Well-Appearing Skin: Positive: Warm, Dry Head/Face: Positive: Normal Head/Face Inspection Eyes: Positive: Normal, Conjunctiva Clear ENT: Positive: Pharynx normal Respiratory/Lung Sounds: Positive: Clear to Auscultation, Breath Sounds Present Cardiovascular: Positive: Normal, RRR Musculoskeletal: Positive: Limited @ - right leg, Other - tenderness over proximal fibula head, good pulses, full ROM ankle, no edema ankle Neurological: Positive: Normal Psychiatric: Positive: Normal Diagnostics - Vital Signs Vital Signs Temp Pulse Resp BP Pulse Ox 07/20/18 16:12 98.7 F 89 16 124/85 97 - Laboratory Lab Statement: Any lab studies that have been ordered have been reviewed, and results considered in the medical decision making process. - Radiology femur Radiology Interpretation Completed By: Radiologist Summary of Radiographic Findings: no fx lower leg Radiology Interpretation Completed By: Radiologist Summary of Radiographic Findings: IMPRESSION: OBLIQUE, SLIGHTLY DISPLACED FRACTURE OF THE PROXIMAL FIBULAR DIAPHYSIS. foot Radiology Interpretation Completed By: Radiologist Summary of Radiographic Findings: no fx Lower Extremity Course/Dx - Course Course Of Treatment: 43-year-old female presents with right leg injury today. Incident happened at home is renting. Real Estate Analyst sprayed the house and was still wet when she was told she could into the house. She admits to slipping on this pesticide. She states that her leg bent backwards and she felt a snap. She is pain greatest over the lateral aspect of her right knee. She's not able to place weight on the area. Pain radiates from right thigh down to the right foot. No numbness or tingling. No back pain. No other injury. fall was mechanical fall. No chest pain or shortness breath. on exam has tenderness over fibula head. neurovascular intact. xray shows proximal fibula fracture. will placed in knee immbolizer and have follow up with ortho. patient understand and agrees with plan. - Diagnoses Differential Diagnosis/HQI/PQRI: Positive: Contusion, Fracture (Closed), Strain Provider Diagnoses: Fracture of proximal end of fibula Discharge - Sign-Out/Discharge Documenting (check all that apply): Patient Departure - Discharge Plan Condition: Good Disposition: HOME Prescriptions: HYDROcodone/ACETAMIN 5-325 MG* [[place] 5-325 TAB*] 1 tab PO Q6H PRN #16 tab MDD 4 PRN Reason: Pain Patient Education Materials: Leg Fracture (ED) Referrals: Jose Thapa MD [Medical Doctor] - Chary Wood MD [Primary Care Provider] - Additional Instructions: Use immobilizer Stay off leg as much as possible Ice, elevate, Ibuprofen or Tylenol every 6 hours for pain, use norco every 6 hours for break through pain Follow up with ortho Return to ED if develop or any new or worsening symptoms - Billing Disposition and Condition Condition: GOOD Disposition: Home
[2018-07-20 19:06] VITALS: BP 130/90
== END 2018-07-20 19:05 | disposition home or self-care (01) ==
LOC: ED 16:10
DX: S89.291A Other physeal fracture of upper end of right fibula, initial encounter for closed fracture (principal); W01.0XXA Fall on same level from slipping, tripping and stumbling without subsequent striking against object, initial encounter; Y92.009 Unspecified place in unspecified non-institutional (private) residence as the place of occurrence of the external cause; E11.9 Type 2 diabetes mellitus without complications; Z79.84 Long term (current) use of oral hypoglycemic drugs; D50.9 Iron deficiency anemia, unspecified; J45.909 Unspecified asthma, uncomplicated; F41.9 Anxiety disorder, unspecified; F32.9 Major depressive disorder, single episode, unspecified; F17.210 Nicotine dependence, cigarettes, uncomplicated
CPT/HCPCS: 99282

== ENCOUNTER → 2019-01-01 18:31 | Emergency (ER) | payer OTHER ==
[~2019-01-01 18:31] MED LIST changes: -Acetaminophen TAB* 325 MG PO PRN; -Buffered Lidocaine 0.9% SYRIN* 5 ML/SYR SYRINGE INTRADERM ONE; +Clindamycin CAP* 150 MG PO ONE; +Mupirocin 2% OINT* TUBE TOPICAL ONE
[2019-01-01 18:51] VITALS: BP 136/73
--- NOTE | 2019-01-01 19:18 | UC ---
Skin Complaint HPI - HPI Summary HPI Summary: 43-year-old woman comes in with a chief complaint of injury to the right middle finger. 2 days ago she was playing catch with her children and her right middle finger was struck with a softball which then broke her finger nail partially. She did have some bleeding. Bleeding stopped with direct pressure. Patient's had a dressing on it she has noticed some drainage today. She has diabetes just concerned about the possibility of infection. Pain is worse when she pushes on it is less when she doesn't. She's not sure she is up-to-date with her tetanus but she declines getting a tetanus shot today. - History of Current Complaint Chief Complaint: UCSkin Time Seen by Provider: 01/01/19 19:03 Stated Complaint: TORN FINGER NAIL Hx Last Menstrual Period: 02/05/17 Pain Intensity: 0 - Allergy/Home Medications Allergies/Adverse Reactions: Allergies Allergy/AdvReac Type Severity Reaction Status Date / Time adhesive tape Allergy Rash Verified 01/01/19 18:52 amoxicillin [From Augmentin] Allergy Hives Verified 01/01/19 18:52 bee venom protein (honey bee) Allergy Swelling Verified 01/01/19 18:52 clarithromycin [From Biaxin] Allergy Hives Verified 01/01/19 18:52 clavulanic acid Allergy Hives Verified 01/01/19 18:52 [From Augmentin] levofloxacin [From Levaquin] Allergy Hives Verified 01/01/19 18:52 Penicillins Allergy Hives Verified 01/01/19 18:52 pineapple Allergy Headache Verified 01/01/19 18:52 sertraline Allergy Unknown Verified 01/01/19 18:52 Reaction Details PMH/Surg Hx/FS Hx/Imm Hx Previously Healthy: Yes Endocrine History: Diabetes Cardiovascular History: Hypertension Respiratory History: Asthma - Surgical History Surgical History: Yes Surgery Procedure, Year, and Place: EAR TUBES A CHILD. LEEP. RIGHT EYE CATARACT - Family History Known Family History: Positive: Diabetes, Other - cataracts Negative: Cardiac Disease, Hypertension - Social History Alcohol Use: None Substance Use Type: Marijuana Substance Use Comment - Amount & Last Used: MARIJUANA- EVERY 2 DAYS FOR ANXIETY Smoking Status (MU): Heavy Every Day Tobacco Smoker Type: Cigarettes Amount Used/How Often: 1/2-1 1/2 ppd X 26 YEARS Length of Time of Smoking/Using Tobacco: 27 years Have You Smoked in the Last Year: Yes When Did the Patient Quit Smoking/Using Tobacco: 03/18/15 Household Exposure Type: Cigarettes - Immunization History Most Recent Tetanus Shot: within last 10 yrs per pt Review of Systems All Other Systems Reviewed And Are Negative: Yes Constitutional: Positive: Negative Skin: Positive: Other - SEE HPI Eyes: Positive: Negative ENT: Positive: Negative Respiratory: Positive: Negative Cardiovascular: Positive: Negative Gastrointestinal: Positive: Negative Motor: Positive: Negative Neurovascular: Positive: Negative Musculoskeletal: Positive: Negative Neurological: Positive: Negative Psychological: Positive: Negative Is Patient Immunocompromised?: No Physical Exam Triage Information Reviewed: Yes Appearance: Well-Appearing, No Pain Distress, Well-Nourished Vital Signs: Initial Vital Signs Temp 98.1 F 01/01/19 18:48 Pulse 86 01/01/19 18:48 Resp 18 01/01/19 18:48 BP 136/73 01/01/19 18:48 Pulse Ox 98 01/01/19 18:48 Vital Signs Reviewed: Yes Eye Exam: Normal Eyes: Positive: Conjunctiva Clear Neck: Positive: Supple Respiratory: Positive: No respiratory distress Musculoskeletal: Positive: Strength Intact, ROM Intact Neurological: Positive: Alert, Muscle Tone Normal Psychological Exam: Normal Psychological: Positive: Normal Response To Family, Age Appropriate Behavior Skin: Positive: Other - RT MIDDLE FINGERNAIL HAS A 5MM BREAK. NO DRAINAGE OR ERYTHEMA. NL CAP REFILL, NO SENSATION DEFICIT. FROM. STRENGTH 5/5, NO CLINICAL SIGN OF FXR. Course/Dx - Diagnoses Provider Diagnosis: Laceration of finger of right hand with damage to nail Discharge - Sign-Out/Discharge Documenting (check all that apply): Patient Departure All imaging exams completed and their final reports reviewed: No Studies - Discharge Plan Condition: Stable Disposition: HOME Prescriptions: Clindamycin Cap(NF) [Clindamycin Cap 300 mg Cap(NF)] 300 mg PO TID #20 cap Patient Education Materials: Finger Laceration (ED) Referrals: Chary Wood MD [Primary Care Provider] - Additional Instructions: FOLLOW UP WITH YOUR DOCTOR IF NOT COMPLETELY IMPROVED. GET RECHECKED SOONER IF YOUR CONDITION WORSENS; SIGNS OF INFECTION OR ANY QUESTIONS OR CONCERNS. - Billing Disposition and Condition Condition: STABLE Disposition: Home
== END | disposition home or self-care (01) ==
LOC: UCEAST 18:31
DX: S61.312A Laceration without foreign body of right middle finger with damage to nail, initial encounter (principal); E11.9 Type 2 diabetes mellitus without complications; J45.909 Unspecified asthma, uncomplicated; I10 Essential (primary) hypertension; F17.210 Nicotine dependence, cigarettes, uncomplicated; Z91.09 Other allergy status, other than to drugs and biological substances; Z88.0 Allergy status to penicillin; Z91.030 Bee allergy status; Z91.018 Allergy to other foods; Z88.8 Allergy status to other drugs, medicaments and biological substances; W20.8XXA Other cause of strike by thrown, projected or falling object, initial encounter; Y93.89 Activity, other specified; Y92.9 Unspecified place or not applicable
CPT/HCPCS: A9270-GY

== ENCOUNTER 2019-01-09 13:53 | Emergency (ER) | payer OTHER ==
--- NOTE | 2019-01-09 16:33 | ED ---
Abdominal Pain/Female - History of Current Complaint Chief Complaint: EDNauseaVomitDiarrh Stated Complaint: "HIGH BLOOD PRESSURE PER PT" Time Seen by Provider: 01/09/19 16:05 Hx Last Menstrual Period: 02/05/17 Pain Intensity: 6 Allergies/Adverse Reactions: Allergies Allergy/AdvReac Type Severity Reaction Status Date / Time adhesive tape Allergy Rash Verified 01/09/19 14:05 amoxicillin [From Augmentin] Allergy Hives Verified 01/09/19 14:05 bee venom protein (honey bee) Allergy Swelling Verified 01/09/19 14:05 clarithromycin [From Biaxin] Allergy Hives Verified 01/09/19 14:05 clavulanic acid Allergy Hives Verified 01/09/19 14:05 [From Augmentin] levofloxacin [From Levaquin] Allergy Hives Verified 01/09/19 14:05 Penicillins Allergy Hives Verified 01/09/19 14:05 pineapple Allergy Headache Verified 01/09/19 14:05 sertraline Allergy Unknown Verified 01/09/19 14:05 Reaction Details PMH/Surg Hx/FS Hx/Imm Hx Endocrine/Hematology History: Reports: Hx Diabetes - type 2 -ON ORAL MEDICATION FOR, Hx Anemia - IRON,VIT B12 AND VIT D ARE LOW Denies: Hx Thyroid Disease Cardiovascular History: Denies: Hx Hypertension, Hx Pacemaker/ICD, Other Cardiovascular Problems/ Disorders Respiratory History: Reports: Hx Asthma - PRN INHALER Denies: Hx Chronic Obstructive Pulmonary Disease (COPD), Other Respiratory Problems/Disorders GI History: Denies: Hx Ulcer, Other GI Disorders History: Reports: Other Problems/Disorders - UTIs Denies: Hx Renal Disease Sensory History: Reports: Hx Cataracts - RIGHT, Hx Contacts or Glasses - GLASSES Denies: Hx Hearing Aid Opthamlomology History: Reports: Hx Cataracts - RIGHT, Hx Contacts or Glasses - GLASSES Neurological History: Denies: Other Neuro Impairments/Disorders Psychiatric History: Reports: Hx Anxiety - PANIC ATTACKS, Hx Depression - HX OF - Cancer History Cancer Type, Location and Year: Cervical CA 1996 - Surgical History Surgery Procedure, Year, and Place: EAR TUBES A CHILD. LEEP. RIGHT EYE CATARACT Hx Anesthesia Reactions: Yes - "OUT FOR A WHILE" AFTER SURGERY Infectious Disease History: No Infectious Disease History: Denies: Hx Clostridium Difficile, Hx Hepatitis, Hx Human Immunodeficiency Virus (HIV), Hx of Known/Suspected MRSA, Hx Shingles, Hx Tuberculosis, Hx Known/ Suspected VRE, Hx Known/Suspected VRSA, History Other Infectious Disease, Traveled Outside the [place] in Last 30 Days - Family History Known Family History: Positive: Diabetes, Other - cataracts Negative: Cardiac Disease, Hypertension - Social History Alcohol Use: None Hx Substance Use: No Substance Use Type: Reports: Marijuana Substance Use Comment - Amount & Last Used: MARIJUANA- EVERY 2 DAYS FOR ANXIETY Hx Tobacco Use: Yes Smoking Status (MU): Heavy Every Day Tobacco Smoker Type: Cigarettes Amount Used/How Often: 1/2-1 /2 ppd X 26 YEARS Length of Time of Smoking/Using Tobacco: 27 years Have You Smoked in the Last Year: Yes Physical Exam Vital Signs On Initial Exam: Initial Vitals Temp Pulse Resp BP Pulse Ox 97.8 F 90 16 172/86 97 01/09/19 14:02 01/09/19 14:02 01/09/19 14:02 01/09/19 14:02 01/09/19 14:02 Diagnostics - Vital Signs Vital Signs Temp Pulse Resp BP Pulse Ox 01/09/19 15:35 98.0 F 75 14 123/80 96 01/09/19 14:02 97.8 F 90 16 172/86 97 - Laboratory Lab Statement: Any lab studies that have been ordered have been reviewed, and results considered in the medical decision making process. - EKG 1617 Cardiac Rate: NL - 81 BPM EKG Rhythm: Sinus Rhythm Summary of EKG Findings: Borderline left axis deviation. No ischemic changes. Discharge - Discharge Plan Referrals: Chary Wood MD [Primary Care Provider] - - Attestation Statements Document Initiated by Scribe: Yes Documenting Scribe: Frieda Matos Provider For Whom Scribe is Documenting (Include Credential): Page Oro MD Scribe Attestation: Frieda Manley, scribed for Page Oro MD on 01/09/19 at 1633.
[2019-01-09 17:01] LABS: ABS Basophils 0.1 10^3/ul (0-0.2); ABS Monocytes 0.5 10^3/ul (0-0.8); ABS Neutrophils 8.4 10^3/ul (1.5-7.7); Eosinophil % 0.2 %; Hematocrit 46 % (35-47); Hemoglobin 15.5 g/dL (12.0-16.0); Lymphocyte % 18.4 %; Mean Corpuscular HGB Conc 34 g/dL (31-36); Mean Corpuscular Hemoglobin 31 pg (27-31); Mean Corpuscular Volume 93 fL (80-97); Mean Platelet Volume 8.9 fL (7.4-10.4); Platelet Count 211 10^3/uL (150-450); Red Blood Count 4.99 10^6 /uL (3.70-4.87); Red Cell Distribution Width 14 % (10.5-15)
[2019-01-09 17:11] LABS: INR 0.98 (0.82-1.09)
--- NOTE | 2019-01-09 17:17 | ED ---
Complex/Multi-Sys Presentation - HPI Summary HPI Summary: This patient is a 43 year old F presenting to [facility] accompanied by family with a chief complaint of nausea for the past few days with headache, elevated BP this afternoon. She reports feeling "off" for the past few days. She reports mild lower abdominal pain, but suspects this is related to her menstrual period beginning this morning. Additionally reports left shoulder pain that is chronic ; she has an appointment with orthopedics in two days. Patient is currently taking clindamycin for a finger infection. Denies fever and chills. Report blood glucose of 179 this morning. PMHx of NIDDM and HTN. - History Of Current Complaint Chief Complaint: EDNauseaVomitDiarrh Time Seen by Provider: 01/09/19 16:05 Hx Obtained From: Patient Onset/Duration: Lasting Days, Worse Since - today Timing: Constant Location: Pain At: - lower abdomen Associated Signs And Symptoms: Positive: Headache, Nausea. Negative: Fever - Allergies/Home Medications Allergies/Adverse Reactions: Allergies Allergy/AdvReac Type Severity Reaction Status Date / Time adhesive tape Allergy Rash Verified 01/09/19 14:05 amoxicillin [From Augmentin] Allergy Hives Verified 01/09/19 14:05 bee venom protein (honey bee) Allergy Swelling Verified 01/09/19 14:05 clarithromycin [From Biaxin] Allergy Hives Verified 01/09/19 14:05 clavulanic acid Allergy Hives Verified 01/09/19 14:05 [From Augmentin] levofloxacin [From Levaquin] Allergy Hives Verified 01/09/19 14:05 Penicillins Allergy Hives Verified 01/09/19 14:05 pineapple Allergy Headache Verified 01/09/19 14:05 sertraline Allergy Unknown Verified 01/09/19 14:05 Reaction Details PMH/Surg Hx/FS Hx/Imm Hx Endocrine/Hematology History: Reports: Hx Diabetes - type 2 -ON ORAL MEDICATION FOR, Hx Anemia - IRON,VIT B12 AND VIT D ARE LOW Denies: Hx Thyroid Disease Cardiovascular History: Denies: Hx Hypertension, Hx Pacemaker/ICD, Other Cardiovascular Problems/ Disorders Respiratory History: Reports: Hx Asthma - PRN INHALER Denies: Hx Chronic Obstructive Pulmonary Disease (COPD), Other Respiratory Problems/Disorders GI History: Denies: Hx Ulcer, Other GI Disorders History: Reports: Other Problems/Disorders - UTIs Denies: Hx Renal Disease Sensory History: Reports: Hx Cataracts - RIGHT, Hx Contacts or Glasses - GLASSES Denies: Hx Hearing Aid Opthamlomology History: Reports: Hx Cataracts - RIGHT, Hx Contacts or Glasses - GLASSES Neurological History: Denies: Other Neuro Impairments/Disorders Psychiatric History: Reports: Hx Anxiety - PANIC ATTACKS, Hx Depression - HX OF - Cancer History Cancer Type, Location and Year: Cervical CA 1996 - Surgical History Surgery Procedure, Year, and Place: EAR TUBES A CHILD. LEEP. RIGHT EYE CATARACT Hx Anesthesia Reactions: Yes - "OUT FOR A WHILE" AFTER SURGERY Infectious Disease History: No Infectious Disease History: Denies: Hx Clostridium Difficile, Hx Hepatitis, Hx Human Immunodeficiency Virus (HIV), Hx of Known/Suspected MRSA, Hx Shingles, Hx Tuberculosis, Hx Known/ Suspected VRE, Hx Known/Suspected VRSA, History Other Infectious Disease, Traveled Outside the [place] in Last 30 Days - Family History Known Family History: Positive: Diabetes, Other - cataracts Negative: Cardiac Disease, Hypertension - Social History Alcohol Use: None Hx Substance Use: No Substance Use Type: Reports: Marijuana Substance Use Comment - Amount & Last Used: MARIJUANA- EVERY 2 DAYS FOR ANXIETY Hx Tobacco Use: Yes Smoking Status (MU): Heavy Every Day Tobacco Smoker Type: Cigarettes Amount Used/How Often: 1/2-1 1/2 ppd X 26 YEARS Length of Time of Smoking/Using Tobacco: 27 years Have You Smoked in the Last Year: Yes Review of Systems Negative: Fever Positive: Abdominal Pain, Nausea Positive: Headache All Other Systems Reviewed And Are Negative: Yes Physical Exam - Summary Physical Exam Summary: GENERAL: Patient is a well-developed and nourished F who is lying comfortable in the stretcher. Patient is not in any acute respiratory distress. HEAD AND FACE: Normocephalic EYES: PERRLA, EOMI x 2. EARS: Hearing grossly intact. MOUTH: Oropharynx within normal limits. NECK: Supple, trachea is midline, no adenopathy, no JVD, no carotid bruit. CHEST: Symmetric, no tenderness at palpation LUNGS: Clear to auscultation bilaterally. Mild bilateral expiratory wheezing CVS: Regular rate and rhythm, S1 and S2 present, no murmurs or gallops appreciated. ABDOMEN: Soft, non-tender. Bowel sounds are normal. No abnormal abdominal pulsations. EXTREMITIES: Full ROM in all major joints, no edema, no cyanosis or clubbing. NEURO: Alert and oriented x 3. No acute neurological deficits. Speech is normal and follows commands. SKIN: Dry and warm Triage Information Reviewed: Yes Vital Signs On Initial Exam: Initial Vitals Temp Pulse Resp BP Pulse Ox 97.8 F 90 16 172/86 97 01/09/19 14:02 01/09/19 14:02 01/09/19 14:02 01/09/19 14:02 01/09/19 14:02 Vital Signs Reviewed: Yes Diagnostics - Vital Signs Vital Signs Temp Pulse Resp BP Pulse Ox 01/09/19 15:35 98.0 F 75 14 123/80 96 01/09/19 14:02 97.8 F 90 16 172/86 97 - Laboratory Lab Results: Lab Results 01/09/19 01/09/19 Range/Units 16:52 16:52 WBC 11.0 H (3.5-10.8) 10^3/uL RBC 4.99 H (3.70-4.87) 10^6 /uL Hgb 15.5 (12.0-16.0) g/dL Hct 46 (35-47) % MCV 93 (80-97) fL MCH 31 (27-31) pg MCHC 34 (31-36) g/dL RDW 14 (10.5-15) % Plt Count 211 (150-450) 10^3/uL MPV 8.9 (7.4-10.4) fL Neut % (Auto) 76.0 % Lymph % (Auto) 18.4 % [place] % (Auto) 4.7 % Eos % (Auto) 0.2 % Baso % (Auto) 0.7 % Absolute Neuts (auto) 8.4 H (1.5-7.7) 10^3/ul Absolute Lymphs (auto) 2.0 (1.0-4.8) 10^3/ul Absolute Monos (auto) 0.5 (0-0.8) 10^3/ul Absolute Eos (auto) 0.0 (0-0.6) 10^3/ul Absolute Basos (auto) 0.1 (0-0.2) 10^3/ul Absolute Nucleated RBC 0.0 10^3/ul Nucleated RBC % 0.0 INR (Anticoag Therapy) 0.98 (0.82-1.09) APTT 31.0 (26.0-38.0) seconds Result Diagrams: 01/09/19 16:52 01/09/19 16:52 Lab Statement: Any lab studies that have been ordered have been reviewed, and results considered in the medical decision making process. - Radiology CXR Radiology Interpretation Completed By: Radiologist Summary of Radiographic Findings: No radiographic evidence of acute cardiopulmonary disease. ED Physician has reviewed this report. R Shoulder XR Radiology Interpretation Completed By: Radiologist Summary of Radiographic Findings: Normal radiograph of the left shoulder. ED Physician has reviewed this report. - EKG 1617 Cardiac Rate: NL - 81 EKG Rhythm: Sinus Rhythm Summary of EKG Findings: Borderline left axis deviation. No ischemic changes. Complex Multi-Symp Course/Dx Course Of Treatment: 43 year old F presenting to [facility] accompanied by family with a chief complaint of nausea for the past few days with headache, elevated BP this afternoon. She reports feeling "off" for the past few days. She reports mild lower abdominal pain, but suspects this is related to her menstrual period beginning this morning. Additionally reports left shoulder pain that is chronic ; she has an appointment with orthopedics in two days. Patient has bilateral expiratory wheezes on exam. CXR and Shoulder XR are negative for acute processes. Bloodwork and UA obtained. Patient is given nebulizer treatment and 4mg Zofran. Patient is feeling better and refused the Zofran. Results discussed with patient. Patient will be discharged home. She is hemodynamically stable and safe for discharge. Strict return precautions given and she will otherwise follow up withher PCP. Patient is agreeable with this plan. - Diagnoses Provider Diagnoses: Viral syndrome Discharge - Sign-Out/Discharge Documenting (check all that apply): Patient Departure - discharge Patient Received Moderate/Deep Sedation with Procedure: No - Discharge Plan Condition: Stable Disposition: HOME Patient Education Materials: Acute Nausea and Vomiting (ED) Referrals: Chary Wood MD [Primary Care Provider] - 2 Days Additional Instructions: RETURN TO THE EMERGENCY DEPARTMENT FOR CHANGING OR WORSENING SYMPTOMS. - Billing Disposition and Condition Condition: STABLE Disposition: Home - Attestation Statements Document Initiated by Scribe: Yes Documenting Scribe: Frieda Matos Provider For Whom Scribe is Documenting (Include Credential): Page Oro MD Scribe Attestation: Frieda Manley scribed for Page Oro MD on 01/09/19 at 2110. Scribe Documentation Reviewed: Yes Provider Attestation: The documentation as recorded by the scribeFrieda accurately reflects the service I personally performed and the decisions made by me, Page Oro MD Status of Scribe Document: Viewed
[2019-01-09 17:19] LABS: ALT 12 U/L (7-52); AST 11 U/L (13-39); Albumin 4.8 g/dL (3.2-5.2); Albumin/Globulin Ratio 1.5 (1-3); Alkaline Phosphatase 60 U/L (34-104); Anion Gap 8 mmol/L (2-11); BUN/Creatinine Ratio 20.3 (8-20); Blood Urea Nitrogen 12 mg/dL (6-24); C Reactive Protein 6.49 mg/L (<8.01); CO2 Carbon Dioxide 26 mmol/L (22-32); Calcium 9.9 mg/dL (8.6-10.3); Chloride 103 mmol/L (101-111); EGFR African American 135.9 (>60); EGFR Non-African American 112.3 (>60); Globulin 3.2 g/dL (2-4); Glucose 158 mg/dL (70-100); Magnesium 1.8 mg/dL (1.9-2.7); Potassium 3.7 mmol/L (3.5-5.0); Sodium 137 mmol/L (135-145)
[2019-01-09 17:26] LABS: HCG Pregnancy < 0.60 mIU/mL
[2019-01-09] MEDS ORDERED: Albuterol/Ipratropium NEB.SOL* Albuterol 2.5 MG/Ipratropium 0.5 MG 3 ML INH ONE (17:59)
[2019-01-09] MEDS ORDERED: Ondansetron ODT TAB* 4 MG SL ONE (18:02)
[2019-01-09 18:13] LABS: Urine Appearance Cloudy; Urine Bacteria Absent (Absent); Urine Bilirubin Negative (Negative); Urine Blood 3+ (Negative); Urine Color Yellow; Urine Glucose Negative (Negative); Urine Ketones Trace (Negative); Urine Nitrite Negative (Negative); Urine Protein 1+(30 mg/dL) (Negative); Urine Red Blood Cell 1+(3-5/hpf) (Absent); Urine Specific Gravity 1.016 (1.010-1.030); Urine Squamous Epithelial Cell Present (Absent); Urine Urobilinogen Negative (Negative); Urine White Blood Cell 1+(6-10/hpf) (Absent)
[2019-01-09 19:03] VITALS: BP 0/0
== END 2019-01-09 19:01 | disposition home or self-care (01) ==
LOC: ED 13:53
DX: B34.9 Viral infection, unspecified (principal); E11.9 Type 2 diabetes mellitus without complications; J45.909 Unspecified asthma, uncomplicated; F41.9 Anxiety disorder, unspecified; F17.210 Nicotine dependence, cigarettes, uncomplicated; Z88.3 Allergy status to other anti-infective agents; Z88.0 Allergy status to penicillin; Z88.8 Allergy status to other drugs, medicaments and biological substances; Z79.84 Long term (current) use of oral hypoglycemic drugs; Z79.51 Long term (current) use of inhaled steroids; Z85.41 Personal history of malignant neoplasm of cervix uteri
CPT/HCPCS: 36415; 71046; 80053; 81003; 81015; 83605; 83690; 83735; 84484; 84702; 85025; 85610; 85730; 86140; 87040; 87086; 93005; 99283; A9270-GY

== ENCOUNTER 2019-03-03 13:35 | Emergency (ER) | payer OTHER ==
[2019-03-03 14:43] VITALS: BP 135/79
--- NOTE | 2019-03-03 16:03 | UC ---
Lower Extremity/Ankle HPI - HPI Summary HPI Summary: 43-year-old female comes in with a chief complaint of left ankle and foot pain. Several days ago she tripped on some loose gravel. Primarily the pain is in the arch of her foot but also travels of the left ankle. Patient does not believe anything is broken and she tells me she's broken bones before and does not feel like a broken bone. Pain is worse with activity and weightbearing. No skin break. - History of Current Complaint Chief Complaint: UCLowerExtremity Stated Complaint: FOOT PAIN Time Seen by Provider: 03/03/19 15:48 Hx Last Menstrual Period: [id number] Pain Intensity: 7 - Allergies/Home Medications Allergies/Adverse Reactions: Allergies Allergy/AdvReac Type Severity Reaction Status Date / Time adhesive tape Allergy Rash Verified 03/03/19 14:44 amoxicillin [From Augmentin] Allergy Hives Verified 03/03/19 14:44 bee venom protein (honey bee) Allergy Swelling Verified 03/03/19 14:44 clarithromycin [From Biaxin] Allergy Hives Verified 03/03/19 14:44 clavulanic acid Allergy Hives Verified 03/03/19 14:44 [From Augmentin] levofloxacin [From Levaquin] Allergy Hives Verified 03/03/19 14:44 Penicillins Allergy Hives Verified 03/03/19 14:44 pineapple Allergy Headache Verified 03/03/19 14:44 sertraline Allergy Unknown Verified 03/03/19 14:44 Reaction Details Home Medications: Home Medications glipiZIDE [Glipizide ER] 2.5 mg PO DAILY 03/03/19 [History Confirmed 03/03/19] PMH/Surg Hx/FS Hx/Imm Hx Previously Healthy: Yes Endocrine History: Diabetes Cardiovascular History: Hypertension - Surgical History Surgical History: Yes Surgery Procedure, Year, and Place: EAR TUBES A CHILD. LEEP. RIGHT EYE CATARACT - Family History Known Family History: Positive: Diabetes, Other - cataracts Negative: Cardiac Disease, Hypertension - Social History Alcohol Use: None Substance Use Type: Marijuana Substance Use Comment - Amount & Last Used: MARIJUANA- EVERY 2 DAYS FOR ANXIETY Smoking Status (MU): Heavy Every Day Tobacco Smoker Type: Cigarettes Amount Used/How Often: 1/2-1 1/2 ppd X 26 YEARS Length of Time of Smoking/Using Tobacco: 27 years Have You Smoked in the Last Year: Yes When Did the Patient Quit Smoking/Using Tobacco: 03/18/15 Household Exposure Type: Cigarettes - Immunization History Most Recent Tetanus Shot: within last 10 yrs per pt Review of Systems All Other Systems Reviewed And Are Negative: Yes Constitutional: Positive: Negative Skin: Positive: Negative Eyes: Positive: Negative ENT: Positive: Negative Respiratory: Positive: Negative Cardiovascular: Positive: Negative Gastrointestinal: Positive: Negative Motor: Positive: Other - SEE HPI Neurovascular: Positive: Negative Musculoskeletal: Positive: Other: - SEE HPI Neurological: Positive: Negative Psychological: Positive: Negative Is Patient Immunocompromised?: No Physical Exam Triage Information Reviewed: Yes Appearance: Well-Appearing, Well-Nourished, Pain Distress - MILD WITH LEFT FOOT ANKLE ROM Vital Signs: Initial Vital Signs Temp 97.8 F 03/03/19 14:39 Pulse 79 03/03/19 14:39 Resp 16 03/03/19 14:39 BP 135/79 03/03/19 14:39 Pulse Ox 99 03/03/19 14:39 Vital Signs Reviewed: Yes Eye Exam: Normal Eyes: Positive: Conjunctiva Clear Neck: Positive: Supple Respiratory: Positive: No respiratory distress Musculoskeletal: Positive: Other: - Left foot is tender in the plantar arch. No tenderness to palpation of the proximal fifth metatarsal. The ankle has full range of motion as does the foot. Nontender over the bony prominences of the medial and lateral malleoli. Mild tenderness of the Achilles tendon is intact. Normal dorsalis pedis pulse normal capillary refill. No sensation deficit on examination. Neurological: Positive: Alert Psychological: Positive: Age Appropriate Behavior Skin Exam: Normal Lower Extremity Course/Dx - Course Course Of Treatment: We discussed x-rays and the patient declined. Patient does not have bony prominence tenderness and the likelihood of fracture is small. Plan is to have a cam boot which was placed here in clinic by nursing and patient neurovascular intact after placement of the cam boot. Patient reports that I be Profen she is allergic to. Does tell me that oxycodone does help with her pain. Patient is seen in orthopedics Dr. La in the past and she is planning to follow- up with him. Patient reports she has crutches at home that she can use if needed. - Differential Dx/Diagnosis Provider Diagnosis: Left ankle sprain, Sprain of left foot Discharge - Sign-Out/Discharge Documenting (check all that apply): Patient Departure All imaging exams completed and their final reports reviewed: No Studies - Discharge Plan Condition: Stable Disposition: HOME Prescriptions: oxyCODONE TAB* [Roxycodone TAB 5 mg*] 5 mg PO Q6H PRN #15 tab MDD 1 PRN Reason: Pain Patient Education Materials: Ankle Sprain (ED), Foot Sprain (ED) Referrals: Chary Wood MD [Primary Care Provider] - Chris Camara MD [Medical Doctor] - Additional Instructions: FOLLOW UP WITH ORTHOPEDICS. GET RECHECKED SOONER IF YOUR CONDITION WORSENS OR ANY QUESTIONS OR CONCERNS. - Billing Disposition and Condition Condition: STABLE Disposition: Home
== END 2019-03-03 16:09 | disposition home or self-care (01) ==
LOC: UCEAST 13:35
DX: S93.402A Sprain of unspecified ligament of left ankle, initial encounter (principal); S93.602A Unspecified sprain of left foot, initial encounter; W01.0XXA Fall on same level from slipping, tripping and stumbling without subsequent striking against object, initial encounter; Y92.9 Unspecified place or not applicable; E11.9 Type 2 diabetes mellitus without complications; I10 Essential (primary) hypertension; F17.210 Nicotine dependence, cigarettes, uncomplicated; Z88.0 Allergy status to penicillin
CPT/HCPCS: 99213; G0463